=== PATIENT | female | born 1945 | race Caucasian/White ===

== ENCOUNTER 2016-05-30 10:46 | Inpatient (IN) | payer MEDICARE ==
[2016-05-30] MEDS ORDERED: Meropenem 1 GM PREMIX(*) 1 GM/50 ML BAG IV SCH (11:00)
[2016-05-30 11:24] LABS: Hematocrit 35 % (35-47); Hemoglobin 11.1 g/dl (12.0-16.0); Mean Corpuscular HGB Conc 32 g/dl (31-36); Mean Corpuscular Hemoglobin 27 pg (27-31); Mean Corpuscular Volume 86 fL (80-97); Mean Platelet Volume 8 um3 (7.4-10.4); Red Blood Count 4.07 10^6/ul (4.0-5.4); Red Cell Distribution Width 16 % (10.5-15); White Blood Count 13.8 10^3/ul (3.5-10.8)
[2016-05-30 11:35] LABS: Albumin 3.1 g/dL (3.2-5.2); BUN/Creatinine Ratio 29.2 (8-20); C Reactive Protein 6.98 mg/L (< 5.00); EGFR African American 40.9 (>60); EGFR Non-African American 31.8 (>60); Globulin 4.6 g/dL (2-4); Potassium 3.9 mmol/L (3.5-5.0); Total Bilirubin 0.4 mg/dL (0.2-1.0); Total Protein 7.7 g/dL (6.4-8.9)
[2016-05-30] MEDS ORDERED: [UNRECOGNIZED DRUG - OTHER] IV ONE ×4 (12:00)
[2016-05-30] MEDS ORDERED: IMMUNE GLOBULN IV ONE ×4 (12:00)
[2016-05-30] MEDS ORDERED: Nystatin CREAM* 15 GM TUBE TOPICAL PRN (12:07)
[2016-05-30] MEDS ORDERED: Loperamide CAP* 2 MG PO PRN (12:07)
[2016-05-30] MEDS ORDERED: Calcium Carbonate CHEW TAB* 500 MG (TUMS) PO PRN (12:07)
[2016-05-30 12:16] LABS: Erythrocyte Sed Rate 87 mm/Hr (0-40)
[2016-05-30] MEDS: Pyridostigmine TAB* 60 MG PO SCH ×3 (13:15→20:59)
[2016-05-30] MEDS: Heparin VIAL(*) 5000 UNITS/ML VIAL (FIVE THOUSAND) SUBCUT SCH ×2 (13:18→22:17)
[2016-05-30] MEDS: Nystatin SUSPENSION* 100000 UNITS/ML 5 ML UDC SWISH SWAL SCH ×2 (13:20→16:00)
[2016-05-30] MEDS: oxyCODONE/Acetamin 5/325 MG* TAB PO PRN ×2 (13:20→19:41)
[2016-05-30] MEDS: Albuterol/Ipratropium NEB.SOL* Albuterol 2.5 MG/Ipratropium 0.5 MG 3 ML INH SCH ×3 (13:47→20:04)
--- NOTE | 2016-05-30 14:28 | HP ---
HISTORY AND PHYSICAL: DATE OF ADMISSION: 05/30/16 PRIMARY CARE PROVIDER: Ann Cartagena NP CHIEF COMPLAINT: Cellulitis of the right lower extremity. HISTORY OF PRESENT ILLNESS: Ms. Oreilly is a 70-year-old female, well-known to the hospitalist service from multiple previous hospitalizations, who presents to [facility] after being seen in the wound clinic where she was identified to have a significant right lower extremity cellulitis. The patient has numerous chronic medical conditions including myasthenia gravis, on chronic IVIG infusions and Rituxan infusions, who has chronic lower extremity edema and has been following in the wound clinic. The patient was seen last week in the wound clinic where a culture was taken of an open blister. The culture grew Pseudomonas aeruginosa and Enterococcus faecalis. Unfortunately, the only oral medication that both these bacteria are sensitive to is quinolones, and the patient carries an allergy to QUINOLONES. The patient went back to the wound clinic on the day of admission, at which time, her cellulitis was noted to be worsened and it was recommended to her to be admitted for IV antibiotic therapy. The patient states that she does not have any increased pain in her leg. She does know that it is swollen and her swelling has worsened over a period of time, however, not acutely. In addition to the complaints of cellulitis of the right lower extremity, the patient notes that she has also been more short of breath recently. She does not have any other specific complaints relating to her shortness of breath, however. PAST MEDICAL HISTORY: 1. History of diastolic CHF with EF of 55% to 60%, September 2015. 2. Atrial fibrillation, diagnosed January 2016, not on anticoagulation due to nosebleeds. 3. History of bilateral lower extremity cellulitis with MRSA positive cultures in the past. 4. Myasthenia gravis. 5. Type 2 diabetes. 6. COPD. 7. Stage 3 chronic kidney disease. PAST SURGICAL HISTORY: Cholecystectomy. MEDICATIONS: (Of note, medication list was not updated at the time of admission but prior medication list indicates:) 1. Prednisone 40 mg p.o. daily. 2. Percocet 5/325 one tab p.o. q.6 hours p.r.n. pain. 3. Torsemide 20 mg p.o. daily. 4. Bactrim DS 1 tab p.o. b.i.d. 5. Spironolactone 25 mg p.o. daily. 6. Mestinon 90 mg p.o. four times a day. 7. Omeprazole 20 mg p.o. daily. 8. Nystatin cream applied topically t.i.d. 9. Nystatin suspension 5 mL swish and spit t.i.d. 10. Imodium 2 mg p.o. t.i.d. p.r.n. diarrhea. 11. Lipitor 20 mg p.o. daily. 12. Lantus 35 units subcutaneous q.h.s. 13. Immunoglobulin 70 g IV q.28 days. 14. Hydrocortisone valerate 0.2% topically daily to twice daily as needed for rash. 15. Dronedarone 40 mg p.o. b.i.d. 16. Collagenase applied topically weekly. 17. Clindamycin 150 mg p.o. q.8 hours. 18. Vitamin D 2000 units p.o. daily. 19. Keflex 500 mg p.o. four times a day. 20. Calcium carbonate 500 mg p.o. four times a day p.r.n. indigestion. 21. Symbicort 160/4.5 two puffs inhaled twice daily. 22. Aspirin 81 mg p.o. daily. 23. DuoNeb 1 neb inhaled 4 times daily. ALLERGIES: MYCOPHENOLATE, AZITHROMYCIN, CEFTRIAXONE, CIPROFLOXACIN, OCTAGAM. FAMILY HISTORY: Mom has a history of breast cancer. Dad has a history of gastric cancer. SOCIAL HISTORY: The patient denies any current tobacco, alcohol, or drug use. She lives alone. Her daughter, Kimberly Saba, cell phone [phone], is her healthcare proxy. REVIEW OF SYSTEMS: The patient denies any fevers, chills, or anorexia. She denies any chest pain. She denies any palpitations. She does note chronic lower extremity edema. She admits to shortness of breath. There is no cough, no sputum production. She denies any abdominal pain, nausea, or vomiting. No constipation. She states diarrhea is a frequent occurrence for her. She denies any blood in the stool. No blood in the urine. No burning or pain with urination. She states that she urinates frequently related to her diuretic. She denies any focal weakness or sensory loss. No sudden change in vision. No dysphagia. No joint pains or muscle pains out of ordinary. She has lower extremity redness and blister that ruptured on the right lower extremity. No anxiety or depression. PHYSICAL EXAMINATION GENERAL: The patient is a well-developed, middle-aged, chronically ill- appearing female, sitting in bed in no acute distress. VITAL SIGNS: Blood pressure 146/53, pulse 90, respirations 20, temp 97.4, O2 sat 100% on 2 L. HEENT: Pupils are equal, they are round. Extraocular muscles intact. Oropharynx is clear. Oral mucosa is moist. NECK: There is no submandibular, cervical, or supraclavicular adenopathy. Thyroid is not enlarged. No thyroid nodules are noted. PULMONARY: Lungs are clear to auscultation bilaterally. CARDIAC: Normal S1, S2. Regular rate and rhythm. I did not appreciate any murmurs. She has marked bilateral lower extremity edema, right worse than left. ABDOMEN: Bowel sounds present. Abdomen is soft, nontender, and nondistended. MUSCULOSKELETAL: There is no cyanosis or clubbing of the digits. There is full active range of motion of all 4 extremities. NEURO: Cranial nerves II through XII appear to be grossly intact. Sensation is intact to light touch throughout. Strength is 5/5 and symmetric, both upper and lower extremities bilaterally. PSYCH: The patient is alert, she is oriented x3. Affect appears appropriate. SKIN: Warm and dry. There are no rashes. There is marked erythema of the right lower leg with a ruptured blister on the medial right lower leg. This is slightly warm to touch. Left lower extremity is purplish in color though without any acute findings. LABORATORY DATA: Pending. Wound culture from 05/23/16 growing Pseudomonas aeruginosa and Enterococcus faecalis. ASSESSMENT AND PLAN: Ms. Oreilly is a 70-year-old female with complex past medical history including myasthenia gravis for which she receives IVIG and Rituxan infusions, diastolic congestive heart failure, type 2 diabetes, and chronic obstructive pulmonary disease, who presents to [facility] from the wound clinic with a right lower extremity cellulitis. 1. Right lower extremity cellulitis. At this time, the patient is not septic secondary to her cellulitis. Antibiotic choices are somewhat limited due to the patient's allergy history and her history of myasthenia gravis. At this point, I will go ahead and admit her and place her on meropenem based on the culture. I will ask for an ID consultation. I will await further recommendations from Dr. Mustafa about other potential antibiotic choices. 2. Myasthenia gravis. The patient was due to be receiving her immunoglobulin infusion today. The patient was at the infusion center when she was ultimately brought up to the floor for direct admission. The patient will get her usual dose of immunoglobulin. She will also continue on her usual dose of prednisone and Mestinon. 3. Chronic obstructive pulmonary disease. At this time, the patient does not have any signs of chronic obstructive pulmonary disease exacerbation. I think her shortness of breath is more likely related to diastolic heart failure. The patient will be maintained on her usual inhaler regimen. 4. Diastolic congestive heart failure. The patient states that her legs have become slightly more swollen and that her breathing is more difficult recently. I will attempt to improve the patient's diuresis. We will need to monitor her renal function closely. 5. Type 2 diabetes. The patient will be placed on fingersticks a.c. and h.s. and have a lispro sliding scale in addition to her usual dose of Lantus. She had a hemoglobin A1c obtained 02/26/16 and therefore I will repeat it today. 6. History of atrial fibrillation. Currently, the patient was found to be in normal sinus rhythm. I will continue her on her usual home medication regimen though I need to confirm this prior to ordering the dronedarone. 7. DVT prophylaxis. According to the Adult Thrombosis Prophylaxis Risk Factor Assessment Guide, the patient has a total risk factor score of 6 making her the highest risk. She will be placed on heparin 5000 units subcutaneous q.8 hours. Code status is full. Again, the patient's daughter, Kimberly Saba, is her healthcare proxy. TIME SPENT: Sixty-five minutes was spent admitting this patient. CC: [place] [id number]/[facility] #: [id number] DAYO
[2016-05-30] MEDS: Furosemide IV* 10 MG/ML 10 ML VIAL (100 MG) IV SCH (16:01)
[2016-05-30] MEDS: Clindamycin 600 MG IVPREMIX(* 600 MG/50 ML SDV IV SCH (16:10)
[2016-05-30] MEDS ORDERED: Dextrose 50% Syringe 50 ML* 25 GM/50 ML SYRINGE IV PUSH PRN (17:35)
[2016-05-30] MEDS ORDERED: Insulin LISPRO* 1 UNITS UNIT SUBCUT ONE ×2 (17:35→17:41)
[2016-05-30] MEDS ORDERED: Insulin GLARGINE(*) 1 UNITS UNIT ONE (17:46)
[2016-05-30] MEDS: Insulin GLARGINE(*) 1 UNITS UNIT SUBCUT ONE ×2 (17:48→17:52)
[2016-05-30] MEDS: Mometasone/Formoter 200/5 MDI INH SCH (20:06)
--- NOTE | 2016-05-30 20:08 | CONS ---
CONSULTATION REPORT: DATE OF CONSULT: 05/30/16 REQUESTING PHYSICIAN: Dr. Davidson. CONSULTING SERVICE: Infectious Disease. REASON FOR CONSULT: Right leg cellulitis. IMPRESSION: 1. Right lower extremity cellulitis with a ruptured bulla, likely due to group A streptococcal infection. The culture of the bulla after having Unna boot on for a couple of weeks did grow pseudomonas and enterococcus but I think that is more likely colonization. 2. Bilateral lymphedema. 3. Myasthenia gravis. 4. Chronic prednisone use for myasthenia. 5. Allergy to CEFTRIAXONE and AZITHROMYCIN, which caused myasthenia crisis and CIPROFLOXACIN, which caused GI upset. RECOMMENDATIONS: Stop meropenem. Start clindamycin 600 mg IV every 8 hours, which covered group A strep and is at the lowest risk category for inciting myasthenia issues. We will continue to keep the legs elevated, focus on diuresis and keep the skin moisturized around this ruptured bulla. HISTORY OF PRESENT ILLNESS: This is a 70-year-old woman with myasthenia and bilateral lymphedema in the lower extremities, admitted with right leg swelling and redness. She had been followed at the wound clinic where she had Unna boots placed a couple of weeks ago, they came off and there was a bulla present on that had ruptured. A wound culture was taken and the Gram stain showed 2+ neutrophils, no organisms, it grew 1+ pseudomonas and 1+ enterococcus. She had not been on antibiotics. She saw Dr. Macias today. I discussed the case with him before the visit. He sent her into the hospital today. Dr. Davidson admitted her and started on meropenem, which she has tolerated well. She has had no fevers, chills, or sweats or redness. She has noticed since the Unna boot came off, had some stinging pain in the right leg for the last few days. PAST MEDICAL HISTORY: 1. Myasthenia gravis. 2. Diastolic congestive heart failure with ejection fraction 55% to 60%, September 2015. 3. Atrial fibrillation. 4. Type 2 diabetes. 5. COPD. 6. Chronic kidney disease, stage 3. 7. Status post cholecystectomy. MEDICATIONS: 1. Meropenem 1 g IV every 8 hours. 2. Aspirin. 3. Cholecalciferol. 4. Dronedarone. 5. Heparin subcutaneous injection. 6. Furosemide. 7. Insulin glargine. 8. Singulair. 9. Omeprazole. 10. Pyridostigmine. 11. Spironolactone. 12. Prednisone 40 mg a day. ALLERGIES: MYCOPHENOLATE, AZITHROMYCIN caused myasthenia exacerbation, CEFTRIAXONE caused myasthenia exacerbation, CIPROFLOXACIN caused GI upset. FAMILY HISTORY: No recurrent infections. SOCIAL HISTORY: She lives in [place] with a granddaughter. She has no travel or sick contacts. REVIEW OF SYSTEMS: All negative except as noted above. PHYSICAL EXAM: Vital Signs: Temperature 36, heart rate 70, respiratory rate 15 , blood pressure 146/53, and O2 sat 99% on 2 L. General: She is not in distress. Neurologic: She is awake and oriented x3, follows all commands, answers all questions. HEENT: There is no conjunctival hemorrhage. Oropharynx without lesions. Neck: Supple without nuchal rigidity. Lymph nodes : There is no cervical, supraclavicular, inguinal, axillary, or epitrochlear lymphadenopathy. Heart: Regular rate and rhythm without murmurs, rubs, or gallops. Lungs: Clear to auscultation bilaterally. Abdomen: Soft, nontender , nondistended without hepatosplenomegaly. Lymph nodes: There is no visible or palpable lymphadenopathy. Skin: There is no rashes or splinter hemorrhages. Skin on the right lower extremity, there is diffuse erythema from the mid lower leg down to the ankle. There is no fluctuance or crepitus. On the medial aspect, there is a superficial desquamation of about 4 cm without any drainage. The left lower extremity, there is trace erythema without warmth and tenderness. DIAGNOSTIC STUDIES/LAB DATA: White blood cell count 13, hemoglobin 11, platelets 236. Creatinine 1.6. CRP is 7. Please see impression and recommendations outlined above. Thanks for asking me to see Ms. Oreilly in consultation. [id number]/[facility] #: [id number] DAYO
[2016-05-30] MEDS: Dronedarone TAB* 400 MG PO SCH (20:57)
[2016-05-30] MEDS: Potassium Chlor TAB* 20 MEQ TAB.ER PO SCH (20:57)
--- NOTE | 2016-05-30 21:06 | CONS ---
CONSULTATION NOTE: DATE OF VISIT: 05/30/16 PATIENT OF: Dr. Madden. HISTORY: This is a 70-year-old woman who is coming in for IVIG infusion for her chronic severe myasthenia gravis. She has had no major weakness but notes that towards the end of the month following her IVIG infusion, little worse and has no significant change in her breathing, speech or swallowing. She had her last infusion in hospital and was followed by Cardiology at that time and had a pacemaker placed. ALLERGIES: Her allergies include CELLCEPT, AZITHROMYCIN, CEFTRIAXONE, CIPROFLOXACIN. MEDICATIONS: At home include: 1. Prinivil 40 mg daily. 2. Percocet 1 tab q.6 h. p.r.n. 3. Mestinon 90 four times a day. 4. Prilosec 20 mg daily. 5. Imodium 2 mg t.i.d. p.r.n. 6. IVIG infusions on a monthly basis. 7. Vitamin D 2000 units daily. 8. TUMS 500 four times a day p.r.n. 9. Symbicort 2 puffs b.i.d. 10. Aspirin 81 mg daily. 11. Albuterol nebulizer four times a day. PHYSICAL EXAMINATION: Vital signs are stable. She is afebrile. She is alert and oriented. Chest: Clear. Cardiovascular: Regular rate and rhythm. Abdomen is soft. Positive bowel sounds. She has some mild fatigable ptosis noted. Major extraocular movements. Fatigability on direct motor testing. She is getting her monthly IVIG as per protocol. There are no contraindications at this point. [id number]/[facility] #: [id number] [facility]
[2016-05-31] MEDS ORDERED: Meropenem 1 GM PREMIX(*) 1 GM/50 ML BAG IV SCH
[2016-05-31] MEDS: Clindamycin 600 MG IVPREMIX(* 600 MG/50 ML SDV IV SCH ×3 (00:01→17:03)
[2016-05-31] MEDS: oxyCODONE/Acetamin 5/325 MG* TAB PO PRN ×4 (01:28→20:41)
[2016-05-31] MEDS: Heparin VIAL(*) 5000 UNITS/ML VIAL (FIVE THOUSAND) SUBCUT SCH ×3 (05:22→22:30)
[2016-05-31] MEDS: Albuterol/Ipratropium NEB.SOL* Albuterol 2.5 MG/Ipratropium 0.5 MG 3 ML INH SCH ×4 (07:57→23:09)
[2016-05-31] MEDS: Mometasone/Formoter 200/5 MDI INH SCH ×2 (08:02→23:10)
[2016-05-31] MEDS: Furosemide IV* 10 MG/ML 10 ML VIAL (100 MG) IV SCH ×2 (08:10→17:04)
[2016-05-31] MEDS: Cholecalciferol TAB* 1000 UNITS PO SCH (08:10)
[2016-05-31] MEDS: Pyridostigmine TAB* 60 MG PO SCH ×4 (08:11→20:41)
[2016-05-31] MEDS: predniSONE TAB* 20 MG PO SCH (08:11)
[2016-05-31] MEDS: Omeprazole CAP* 20 MG PO SCH (08:11)
[2016-05-31] MEDS: Spironolactone TAB* 25 MG PO SCH (08:11)
[2016-05-31] MEDS: Nystatin SUSPENSION* 100000 UNITS/ML 5 ML UDC SWISH SWAL SCH ×3 (08:12→17:02)
[2016-05-31] MEDS: Potassium Chlor TAB* 20 MEQ TAB.ER PO SCH ×2 (08:12→21:22)
[2016-05-31] MEDS: Aspirin Low Dose CHEW TAB* 81 MG PO SCH (08:12)
[2016-05-31] MEDS: Dronedarone TAB* 400 MG PO SCH ×2 (08:12→20:41)
--- NOTE | 2016-05-31 10:44 | PN ---
Progress Note - Progress Note SOAP: Subjective: DOS: 05/31/16 CC: cellulitis HPI: 70 yo woman with lymphedema and right leg redness, swelling, pain and a ruptured bullae. Pain is improved today, redness less intense. Eating OK. No fever, rash, or diarrhea. No difficulty speaking, swallowing, or breathing. Objective: [] Vital Signs Temp 36.7 C 05/31/16 07:24 Pulse 64 05/31/16 09:27 Resp 18 05/31/16 09:27 BP 119/45 05/31/16 07:24 Pulse Ox 98 05/31/16 09:27 Intake & Output 05/30/16 05/31/16 05/31/16 18:59 06:59 18:59 Intake Total 1318 695 360 Balance 1318 695 360 Weight 169 lb 11.2 oz Intake: IVPB 62 55 ABX - CLINDAMYCIN 62 55 Medicated IV 696 INFCTR - IVIG 696 Oral 560 640 360 Other: Estimated Void Medium Small # Bowel Movements 0 3 # Voids 1 1 Gen:Awake, Ox3 Neuro: CN 2-12 intact HEENT:PERRL, MMM Neck:supple Heart:RRR no murmur Lungs:CTA BL Abd:+BS NTND soft Skin:faint erythema left leg; right lower leg erythema and edema, medial ruptured bullae MSK: no spine tenderness Laboratory Results - last 24 hr 05/30/16 05/30/16 05/30/16 11:05 11:05 11:05 WBC 13.8 H RBC 4.07 Hgb 11.1 L Hct 35 MCV 86 MCH 27 MCHC 32 RDW 16 H Plt Count 236 MPV 8 Neut % (Auto) 62.3 Lymph % (Auto) 31.0 [place] % (Auto) 5.8 Eos % (Auto) 0.4 Baso % (Auto) 0.5 Absolute Neuts (auto) 8.6 H Absolute Lymphs (auto) 4.3 Absolute Monos (auto) 0.8 Absolute Eos (auto) 0.1 Absolute Basos (auto) 0.1 Absolute Nucleated RBC 0.01 Nucleated RBC % 0 ESR 87 H INR (Anticoag Therapy) 0.93 Sodium 134 Potassium 3.9 Chloride 95 L Carbon Dioxide 31 Anion Gap 8 BUN 47 H Creatinine 1.61 H Est GFR ( Amer) 40.9 Est GFR (Non-Af Amer) 31.8 BUN/Creatinine Ratio 29.2 H Glucose 271 H POC Glucose (mg/dL) Calcium 9.0 Total Bilirubin 0.40 AST 66 H ALT 70 H Alkaline Phosphatase 69 C-Reactive Protein 6.98 H Total Protein 7.7 Albumin 3.1 L Globulin 4.6 H Albumin/Globulin Ratio 0.7 L 05/30/16 05/30/16 05/30/16 12:44 17:00 17:04 WBC RBC Hgb Hct MCV MCH MCHC RDW Plt Count MPV Neut % (Auto) Lymph % (Auto) [place] % (Auto) Eos % (Auto) Baso % (Auto) Absolute Neuts (auto) Absolute Lymphs (auto) Absolute Monos (auto) Absolute Eos (auto) Absolute Basos (auto) Absolute Nucleated RBC Nucleated RBC % ESR INR (Anticoag Therapy) Sodium Potassium Chloride Carbon Dioxide Anion Gap BUN Creatinine Est GFR ( Amer) Est GFR (Non-Af Amer) BUN/Creatinine Ratio Glucose 409 H POC Glucose (mg/dL) 226 H 437 H* Calcium Total Bilirubin AST ALT Alkaline Phosphatase C-Reactive Protein Total Protein Albumin Globulin Albumin/Globulin Ratio 05/30/16 21:22 WBC RBC Hgb Hct MCV MCH MCHC RDW Plt Count MPV Neut % (Auto) Lymph % (Auto) [place] % (Auto) Eos % (Auto) Baso % (Auto) Absolute Neuts (auto) Absolute Lymphs (auto) Absolute Monos (auto) Absolute Eos (auto) Absolute Basos (auto) Absolute Nucleated RBC Nucleated RBC % ESR INR (Anticoag Therapy) Sodium Potassium Chloride Carbon Dioxide Anion Gap BUN Creatinine Est GFR ( Amer) Est GFR (Non-Af Amer) BUN/Creatinine Ratio Glucose POC Glucose (mg/dL) 211 H Calcium Total Bilirubin AST ALT Alkaline Phosphatase C-Reactive Protein Total Protein Albumin Globulin Albumin/Globulin Ratio Assessment: 1. right leg cellulitis 2. bilateral LE lymphedema 3. myasthenia gravis 4. allergy to PCN, ceftriaxone, azithro 5. chronic corticosteroids Plan: 1. continue clinda 600 mg IV Q8hrs day 2, continue for another 24 hours and recheck tomorrow. Neuro checks re: risk of MG exacerbation while on abx but no signs or symptoms at this point. Discussed with Dr Cuadra
[2016-05-31] MEDS ORDERED: Dextrose 50% Syringe 50 ML* 25 GM/50 ML SYRINGE IV PUSH PRN (12:27)
[2016-05-31] MEDS: [UNRECOGNIZED DRUG - OTHER] SUBCUT SCH ×3 (13:07→21:22)
[2016-05-31] MEDS: Insulin GLARGINE(*) 1 UNITS UNIT SUBCUT SCH (21:22)
[2016-06-01] MEDS: Clindamycin 600 MG IVPREMIX(* 600 MG/50 ML SDV IV SCH ×3 (01:00→15:47)
[2016-06-01] MEDS: oxyCODONE/Acetamin 5/325 MG* TAB PO PRN ×4 (02:58→22:04)
[2016-06-01] MEDS: Mometasone/Formoter 200/5 MDI INH SCH ×2 (07:03→19:26)
[2016-06-01] MEDS: Albuterol/Ipratropium NEB.SOL* Albuterol 2.5 MG/Ipratropium 0.5 MG 3 ML INH SCH ×4 (07:03→19:26)
[2016-06-01] MEDS: Furosemide IV* 10 MG/ML 10 ML VIAL (100 MG) IV SCH ×2 (07:27→18:32)
[2016-06-01] MEDS: Nystatin SUSPENSION* 100000 UNITS/ML 5 ML UDC SWISH SWAL SCH ×3 (07:28→18:30)
[2016-06-01] MEDS: Omeprazole CAP* 20 MG PO SCH (07:28)
[2016-06-01] MEDS: [UNRECOGNIZED DRUG - OTHER] SUBCUT SCH ×4 (07:29→21:28)
--- NOTE | 2016-06-01 07:39 | PN ---
Subjective Date of Service: 05/31/16 Interval History: . legs swollen not really painful encouraged elevation dressing to area of skin blisters good appetite Family History: Unchanged from Admission Social History: Unchanged from Admission Past Medical History: Unchanged from Admission Objective Active Medications: Albuterol/Ipratropium (Duoneb Neb.Bridget*) 1 neb INH QID [facility] Last Admin: 06/01/16 07:03 Dose: 1 neb Aspirin (Aspirin Low Dose Tab*) 81 mg PO DAILY [facility] Last Admin: 05/31/16 08:12 Dose: 81 mg Calcium Carbonate (Tums*) 500 mg PO QID PRN PRN Reason: INDIGESTION Cholecalciferol (Vitamin D Tab*) 2,000 units PO DAILY [facility] Last Admin: 05/31/16 08:10 Dose: 2,000 units Dextrose (D50w Syringe 50 Ml*) 12.5 gm IV PUSH .FS<60 PRN PRN Reason: FS < 60 Dronedarone (Multaq Tab*) 400 mg PO BID [facility] Last Admin: 05/31/16 20:41 Dose: 400 mg Furosemide (Lasix Iv*) 60 mg IV 0800,1700 [facility] Last Admin: 06/01/16 07:27 Dose: 60 mg Heparin Sodium (Porcine) (Heparin Flush Picc/Ml/Cvc(*)) 1 ml FLUSH 0600,1800 [facility] PRN Reason: Protocol Last Admin: 06/01/16 07:29 Dose: 1 ml Heparin Sodium (Porcine) (Heparin Vial(*)) 5,000 units SUBCUT Q8HR [facility] Last Admin: 05/31/16 22:30 Dose: 5,000 units Clindamycin HCl/Dextrose (Cleocin 600 Mg Ivpremix(*) Sdv) 600 mg in 50 mls @ 100 mls/hr IV Q8H [facility] Last Admin: 06/01/16 07:27 Dose: 100 mls/hr Insulin Glargine (Lantus(*)) 35 units SUBCUT BEDTIME [facility] Last Admin: 05/31/16 21:22 Dose: 35 units Insulin Human Lispro (Humalog*) 0 - 8 units SUBCUT ACHS [facility] PRN Reason: Protocol Last Admin: 06/01/16 07:29 Dose: Not Given Loperamide HCl (Imodium Cap*) 2 mg PO TID PRN PRN Reason: DIARRHEA Mometasone Furoate/Formoterol Fumar (Dulera 200/5 Mdi*) 2 puff INH BID [facility] PRN Reason: Protocol Last Admin: 06/01/16 07:03 Dose: 2 puff Nystatin (Nystatin Cream*) 1 applic TOPICAL TID PRN PRN Reason: RASH Nystatin (Nystatin Suspension*) 500,000 units SWISH SWAL TID [facility] Last Admin: 06/01/16 07:28 Dose: 500,000 units Omeprazole (Prilosec Cap*) 20 mg PO 0730 [facility] Last Admin: 06/01/16 07:28 Dose: 20 mg Oxycodone/Acetaminophen (Percocet 5/325 Tab*) 1 tab PO Q6H PRN PRN Reason: PAIN Last Admin: 06/01/16 02:58 Dose: 1 tab Potassium Chloride (Klor Con Er Tab*) 20 meq PO BID [facility] Last Admin: 05/31/16 21:22 Dose: 20 meq Prednisone (Deltasone Tab*) 40 mg PO DAILY [facility] Last Admin: 05/31/16 08:11 Dose: 40 mg Pyridostigmine [place] (Mestinon Tab*) 90 mg PO QID [facility] Last Admin: 05/31/16 20:41 Dose: 90 mg Spironolactone (Aldactone Tab*) 25 mg PO DAILY [facility] Last Admin: 05/31/16 08:11 Dose: 25 mg Vital Signs 05/31/16 05/31/16 05/31/16 07:58 08:00 08:11 Temperature Pulse Rate 62 Respiratory 14 18 20 Rate Blood Pressure (mmHg) O2 Sat by Pulse 98 Oximetry 05/31/16 05/31/16 05/31/16 09:27 10:11 11:00 Temperature Pulse Rate 64 69 Respiratory 18 20 16 Rate Blood Pressure 122/49 (mmHg) O2 Sat by Pulse 98 Oximetry Result Diagrams: 06/01/16 07:30 06/01/16 07:30 Assess/Plan/Problems-Billing . Assessment: 70 yo female with lower extremity cellulitis - unresponsive to outpatient therapy -- requiring inpatient setting and several days of IV Abx to get situation under control on IV antibiotics ID consultation appreciated elevate leg wound care ongoing Current Medications: - Albuterol/Ipratropium (Duoneb Neb.Bridget) 1 neb INH QID - Aspirin 81 mg PO DAILY - Calcium Carbonate (Tums) 500 mg PO QID PRN INDIGESTION - Cholecalciferol (Vitamin D Tab*) 2,000 units PO DAILY [facility] - Dextrose (D50w Syringe 50 Ml*) 12.5 gm IV PUSH .FS<60 PRN FS < 60 - Dronedarone (Multaq Tab*) 400 mg PO BID [facility] - Furosemide 60 mg IV 0800,1700 [facility] - Heparin 5,000 units SUBCUT Q8HR [facility] - Clindamycin HCl/Dextrose (Cleocin 600 Mg Ivpremix(*) Sdv) 600 mg in 50 mls @ 100 mls/hr IV Q8H - Insulin Glargine (Lantus) 35 units SUBCUT BEDTIME - Insulin Human Lispro (Humalog) by Protocol - Loperamide HCl (Imodium Cap) 2 mg PO TID PRN DIARRHEA - Mometasone Furoate/Formoterol Fumar (Dulera 200/5 Mdi) 2 puff INH BID - Nystatin (Nystatin Cream) 1 applic TOPICAL TID PRN RASH - Nystatin (Nystatin Suspension) 500,000 units SWISH SWAL TID - Omeprazole (Prilosec Cap) 20 mg PO 0730 - Oxycodone/Acetaminophen (Percocet 5/325 Tab) 1 tab PO Q6H PRN PAIN - Potassium Chloride (Klor Con Er Tab) 20 meq PO BID - Prednisone (Deltasone Tab) 40 mg PO DAILY - Pyridostigmine [place] (Mestinon Tab) 90 mg PO QID - Spironolactone (Aldactone) 25 mg PO DAILY - Patient Problems (1) Cellulitis of both lower extremities Current Visit: No Status: Acute Priority: High Onset Date: 04/04/14 Code (s): L03.115 - CELLULITIS OF RIGHT LOWER LIMB; L03.116 - CELLULITIS OF LEFT LOWER LIMB SNOMED Code(s): 569696895 Comment: - significant erythema and swelling on admission in B/L LEs c/w cellulitis. - IV (to PO) clindamycin - Request ongoing wound care - daily dressing changes - reduce edema - compression stockings and elevation necessary (2) Myasthenia gravis Current Visit: No Status: Chronic Priority: Medium Code(s): G70.00 - MYASTHENIA GRAVIS WITHOUT (ACUTE) EXACERBATION Comment: Continue home prednisone and pyridostigmine. S/P IVIG tx (3) YIFAN (acute kidney injury) Current Visit: No Status: Chronic Priority: High Code(s): N17.9 - ACUTE KIDNEY FAILURE, UNSPECIFIED Comment: - Has CKD3. Renal function around baseline. (4) Anemia Current Visit: No Status: Acute Code(s): D64.9 - ANEMIA, UNSPECIFIED Comment: At baseline. Continue PPI while on chronic steroids. (5) Diastolic heart failure Current Visit: No Status: Acute Code(s): I50.30 - UNSPECIFIED DIASTOLIC ( CONGESTIVE) HEART FAILURE Comment: Continue Furosemide and Spironolacone as outpatient. check labs - no changes now (6) Atrial fibrillation Current Visit: No Status: Chronic Code(s): I48.91 - UNSPECIFIED ATRIAL FIBRILLATION Comment: PAF. NSR now No anticoagulant (rivaroxaban) due to frequent epistaxis. Continue Digoxin and metoprolol. (7) Chronic use of steroids Current Visit: No Status: Chronic Priority: Medium Code(s): [id number] - Comment: - impairs wound healing, makes diabetes worse (8) Oral thrush Current Visit: No Status: Chronic Priority: Medium Code(s): B37.0 - CANDIDAL STOMATITIS Comment: - Nystatin as needed (9) Type 2 diabetes mellitus Current Visit: No Status: Chronic Priority: Medium Comment: - Continue Lantus and sliding scale - DM diet
[2016-06-01 08:04] LABS: Hematocrit 30 % (35-47); Hemoglobin 9.7 g/dl (12.0-16.0); Mean Corpuscular HGB Conc 33 g/dl (31-36); Mean Corpuscular Hemoglobin 27 pg (27-31); Mean Corpuscular Volume 84 fL (80-97); Mean Platelet Volume 8 um3 (7.4-10.4); Red Blood Count 3.53 10^6/ul (4.0-5.4); Red Cell Distribution Width 16 % (10.5-15); White Blood Count 11.8 10^3/ul (3.5-10.8)
[2016-06-01 08:14] LABS: BUN/Creatinine Ratio 26.4 (8-20); EGFR African American 52.9 (>60); EGFR Non-African American 41.1 (>60); Potassium 4.3 mmol/L (3.5-5.0)
[2016-06-01] MEDS: Pyridostigmine TAB* 60 MG PO SCH ×4 (09:26→21:38)
[2016-06-01] MEDS: Aspirin Low Dose CHEW TAB* 81 MG PO SCH (09:26)
[2016-06-01] MEDS: Spironolactone TAB* 25 MG PO SCH (09:26)
[2016-06-01] MEDS: predniSONE TAB* 20 MG PO SCH (09:26)
[2016-06-01] MEDS: Dronedarone TAB* 400 MG PO SCH ×2 (09:26→21:28)
[2016-06-01] MEDS: Potassium Chlor TAB* 20 MEQ TAB.ER PO SCH ×2 (09:26→21:37)
[2016-06-01] MEDS: Cholecalciferol TAB* 1000 UNITS PO SCH (09:26)
[2016-06-01] MEDS: Heparin VIAL(*) 5000 UNITS/ML VIAL (FIVE THOUSAND) SUBCUT SCH ×3 (09:35→21:31)
--- NOTE | 2016-06-01 19:26 | PN ---
Subjective Date of Service: 06/01/16 Interval History: . improvement noted less edema less erythema patient feels subjectively better, but not at baseline. working toward [place] tomorrow AM. diet/appetite ok. . Family History: Unchanged from Admission Social History: Unchanged from Admission Past Medical History: Unchanged from Admission Objective Active Medications: . Albuterol/Ipratropium (Duoneb Neb.Bridget*) 1 neb INH [id number] AWAKE [facility] Aspirin (Aspirin Low Dose Tab*) 81 mg PO DAILY [facility] Last Admin: 06/01/16 09:26 Dose: 81 mg Calcium Carbonate (Tums*) 500 mg PO QID PRN PRN Reason: INDIGESTION Cholecalciferol (Vitamin D Tab*) 2,000 units PO DAILY [facility] Last Admin: 06/01/16 09:26 Dose: 2,000 units Dextrose (D50w Syringe 50 Ml*) 12.5 gm IV PUSH .FS<60 PRN PRN Reason: FS < 60 Dronedarone (Multaq Tab*) 400 mg PO BID [facility] Last Admin: 06/01/16 09:26 Dose: 400 mg Furosemide (Lasix Iv*) 60 mg IV 0800,1700 [facility] Last Admin: 06/01/16 18:32 Dose: 60 mg Heparin Sodium (Porcine) (Heparin Flush Picc/Ml/Cvc(*)) 1 ml FLUSH 0600,1800 THUY PRN Reason: Protocol Last Admin: 06/01/16 18:29 Dose: 1 ml Heparin Sodium (Porcine) (Heparin Vial(*)) 5,000 units SUBCUT Q8HR [facility] Last Admin: 06/01/16 15:47 Dose: 5,000 units Clindamycin HCl/Dextrose (Cleocin 600 Mg Ivpremix(*) Sdv) 600 mg in 50 mls @ 100 mls/hr IV Q8H [facility] Last Admin: 06/01/16 15:47 Dose: 100 mls/hr Insulin Glargine (Lantus(*)) 35 units SUBCUT BEDTIME [facility] Last Admin: 05/31/16 21:22 Dose: 35 units Insulin Human Lispro (Humalog*) 0 - 8 units SUBCUT ACHS THUY PRN Reason: Protocol Last Admin: 06/01/16 18:30 Dose: 8 units Loperamide HCl (Imodium Cap*) 2 mg PO TID PRN PRN Reason: DIARRHEA Mometasone Furoate/Formoterol Fumar (Dulera 200/5 Mdi*) 2 puff INH BID THUY PRN Reason: Protocol Last Admin: 06/01/16 07:03 Dose: 2 puff Nystatin (Nystatin Cream*) 1 applic TOPICAL TID PRN PRN Reason: RASH Nystatin (Nystatin Suspension*) 500,000 units SWISH SWAL TID PC [facility] Last Admin: 06/01/16 18:30 Dose: 500,000 units Omeprazole (Prilosec Cap*) 20 mg PO 0730 [facility] Last Admin: 06/01/16 07:28 Dose: 20 mg Oxycodone/Acetaminophen (Percocet 5/325 Tab*) 1 tab PO Q6H PRN PRN Reason: PAIN Last Admin: 06/01/16 15:46 Dose: 1 tab Potassium Chloride (Klor Con Er Tab*) 20 meq PO BID [facility] Last Admin: 06/01/16 09:26 Dose: 20 meq Prednisone (Deltasone Tab*) 40 mg PO DAILY [facility] Last Admin: 06/01/16 09:26 Dose: 40 mg Pyridostigmine [place] (Mestinon Tab*) 90 mg PO QID [facility] Last Admin: 06/01/16 18:31 Dose: 90 mg Spironolactone (Aldactone Tab*) 25 mg PO DAILY [facility] Last Admin: 06/01/16 09:26 Dose: 25 mg . Vital Signs 05/31/16 05/31/16 05/31/16 20:00 20:41 23:24 Temperature Pulse Rate 60 Respiratory 16 20 16 Rate Blood Pressure (mmHg) O2 Sat by Pulse 97 Oximetry 05/31/16 06/01/16 06/01/16 23:26 02:58 03:36 Temperature 97.4 F 98.0 F Pulse Rate 60 63 Respiratory 18 16 18 Rate Blood Pressure 119/44 111/49 (mmHg) O2 Sat by Pulse 97 100 Oximetry Appearance: NAD, elderly and frail Ears/Nose/Mouth/Throat: Clear Oropharnyx Neck: NL Appearance and Movements; NL JVP Respiratory: Symmetrical Chest Expansion and Respiratory Effort Cardiovascular: NL Sounds; No Murmurs; No JVD Abdominal: NL Sounds; No Tenderness; No Distention, No Hepatosplenomegaly Lymphatic: No Cervical Adenopathy Extremities: - - massive edema bilaterally with blisters - some have ruptured. erythematous, but less than 2/1 Skin: No Nodules or Sclerosis Neurological: Alert and Oriented x 3 Lines/Tubes/Other Access: Clean, Dry and Intact Peripheral IV Nutrition: Taking PO's Result Diagrams: 06/01/16 07:30 06/01/16 07:30 Assess/Plan/Problems-Billing . Assessment: 70 yo female with lower extremity cellulitis - unresponsive to outpatient therapy -- requiring inpatient setting and several days of IV Abx to get situation under control on IV antibiotics ID consultation appreciated elevate leg wound care ongoing Current Medications: - Albuterol/Ipratropium (Duoneb Neb.Bridget) 1 neb INH QID - Aspirin 81 mg PO DAILY - Calcium Carbonate (Tums) 500 mg PO QID PRN INDIGESTION - Cholecalciferol (Vitamin D Tab*) 2,000 units PO DAILY [facility]UY - Dextrose (D50w Syringe 50 Ml*) 12.5 gm IV PUSH .FS<60 PRN FS < 60 - Dronedarone (Multaq Tab*) 400 mg PO BID THUY - Furosemide 60 mg IV 0800,1700 THUY - Heparin 5,000 units SUBCUT Q8HR THUY - Clindamycin HCl/Dextrose (Cleocin 600 Mg Ivpremix(*) Sdv) 600 mg in 50 mls @ 100 mls/hr IV Q8H - Insulin Glargine (Lantus) 35 units SUBCUT BEDTIME - Insulin Human Lispro (Humalog) by Protocol - Loperamide HCl (Imodium Cap) 2 mg PO TID PRN DIARRHEA - Mometasone Furoate/Formoterol Fumar (Dulera 200/5 Mdi) 2 puff INH BID - Nystatin (Nystatin Cream) 1 applic TOPICAL TID PRN RASH - Nystatin (Nystatin Suspension) 500,000 units SWISH SWAL TID - Omeprazole (Prilosec Cap) 20 mg PO 0730 - Oxycodone/Acetaminophen (Percocet 5/325 Tab) 1 tab PO Q6H PRN PAIN - Potassium Chloride (Klor Con Er Tab) 20 meq PO BID - Prednisone (Deltasone Tab) 40 mg PO DAILY - Pyridostigmine [place] (Mestinon Tab) 90 mg PO QID - Spironolactone (Aldactone) 25 mg PO DAILY - Patient Problems (1) Cellulitis of both lower extremities Current Visit: No Status: Acute Priority: High Onset Date: 04/04/14 Code (s): L03.115 - CELLULITIS OF RIGHT LOWER LIMB; L03.116 - CELLULITIS OF LEFT LOWER LIMB SNOMED Code(s): 999939123 Comment: - significant erythema and swelling on admission in B/L LEs c/w cellulitis. - IV (to PO) clindamycin - Request ongoing wound care - daily dressing changes - reduce edema - compression stockings and elevation necessary (2) Myasthenia gravis Current Visit: No Status: Chronic Priority: Medium Code(s): G70.00 - MYASTHENIA GRAVIS WITHOUT (ACUTE) EXACERBATION Comment: Continue home prednisone and pyridostigmine. S/P IVIG tx (3) YIFAN (acute kidney injury) Current Visit: No Status: Chronic Priority: High Code(s): N17.9 - ACUTE KIDNEY FAILURE, UNSPECIFIED Comment: - Has CKD3. Renal function around baseline. (4) Anemia Current Visit: No Status: Acute Code(s): D64.9 - ANEMIA, UNSPECIFIED Comment: At baseline. Continue PPI while on chronic steroids. (5) Diastolic heart failure Current Visit: No Status: Acute Code(s): I50.30 - UNSPECIFIED DIASTOLIC ( CONGESTIVE) HEART FAILURE Comment: Continue Furosemide and Spironolacone as outpatient. check labs - no changes now (6) Atrial fibrillation Current Visit: No Status: Chronic Code(s): I48.91 - UNSPECIFIED ATRIAL FIBRILLATION Comment: PAF. NSR now No anticoagulant (rivaroxaban) due to frequent epistaxis. Continue Digoxin and metoprolol. (7) Chronic use of steroids Current Visit: No Status: Chronic Priority: Medium Code(s): FXM4299 - Comment: - impairs wound healing, makes diabetes worse (8) Oral thrush Current Visit: No Status: Chronic Priority: Medium Code(s): B37.0 - CANDIDAL STOMATITIS Comment: - Nystatin as needed (9) Type 2 diabetes mellitus Current Visit: No Status: Chronic Priority: Medium Comment: - Continue Lantus and sliding scale - DM diet
[2016-06-01] MEDS: Insulin GLARGINE(*) 1 UNITS UNIT SUBCUT SCH (21:29)
[2016-06-02] MEDS: Clindamycin 600 MG IVPREMIX(* 600 MG/50 ML SDV IV SCH ×2 (00:03→07:36)
[2016-06-02] MEDS: Albuterol/Ipratropium NEB.SOL* Albuterol 2.5 MG/Ipratropium 0.5 MG 3 ML INH SCH ×3 (01:23→12:54)
[2016-06-02] MEDS: Heparin VIAL(*) 5000 UNITS/ML VIAL (FIVE THOUSAND) SUBCUT SCH ×2 (05:50→14:41)
[2016-06-02] MEDS: oxyCODONE/Acetamin 5/325 MG* TAB PO PRN (05:56)
[2016-06-02 06:03] LABS: Hematocrit 30 % (35-47); Hemoglobin 9.4 g/dl (12.0-16.0); Mean Corpuscular HGB Conc 31 g/dl (31-36); Mean Corpuscular Hemoglobin 27 pg (27-31); Mean Corpuscular Volume 85 fL (80-97); Mean Platelet Volume 8 um3 (7.4-10.4); Red Blood Count 3.52 10^6/ul (4.0-5.4); Red Cell Distribution Width 16 % (10.5-15); White Blood Count 12.3 10^3/ul (3.5-10.8)
[2016-06-02 06:32] LABS: BUN/Creatinine Ratio 22.4 (8-20); Blood Urea Nitrogen 30 mg/dL (6-24); CO2 Carbon Dioxide 33 mmol/L (22-32); Calcium 8.7 mg/dL (8.6-10.3); Chloride 98 mmol/L (101-111); EGFR African American 50.6 (>60); EGFR Non-African American 39.3 (>60); Glucose 56 mg/dL (70-100); Sodium 133 mmol/L (133-145)
[2016-06-02] MEDS: Mometasone/Formoter 200/5 MDI INH SCH (07:31)
[2016-06-02] MEDS: Nystatin SUSPENSION* 100000 UNITS/ML 5 ML UDC SWISH SWAL SCH ×2 (07:36→12:19)
[2016-06-02] MEDS: Cholecalciferol TAB* 1000 UNITS PO SCH (07:39)
[2016-06-02] MEDS: Aspirin Low Dose CHEW TAB* 81 MG PO SCH (07:39)
[2016-06-02] MEDS: Potassium Chlor TAB* 20 MEQ TAB.ER PO SCH (07:39)
[2016-06-02] MEDS: predniSONE TAB* 20 MG PO SCH (07:39)
[2016-06-02] MEDS: Dronedarone TAB* 400 MG PO SCH (07:39)
[2016-06-02] MEDS: Pyridostigmine TAB* 60 MG PO SCH ×2 (07:39→12:19)
[2016-06-02] MEDS: Furosemide IV* 10 MG/ML 10 ML VIAL (100 MG) IV SCH (07:39)
[2016-06-02] MEDS: Spironolactone TAB* 25 MG PO SCH (07:39)
[2016-06-02] MEDS: Omeprazole CAP* 20 MG PO SCH (07:40)
[2016-06-02] MEDS: [UNRECOGNIZED DRUG - OTHER] SUBCUT SCH ×2 (07:50→12:19)
[2016-06-02 07:56] VITALS: BP 121/47
[2016-06-02 08:10] LABS: BUN/Creatinine Ratio 21.8 (8-20); EGFR Non-African American 39.7 (>60); Potassium 4.1 mmol/L (3.5-5.0)
--- NOTE | 2016-06-03 10:44 | PN ---
Hospitalist Progress Note . HOSPITALIST DISCHARGE NOTE: See dc instructions and summary by me. Patient stable for dc dc instructions reviewed with the patient at the bedside. DC patient home today.
--- NOTE | 2016-06-03 13:43 | DS ---
DISCHARGE SUMMARY: DATE OF ADMISSION: 05/30/16 DATE OF DISCHARGE: 06/02/16 PRIMARY CARE PROVIDER: Ann Cartagena NP. STATUS DURING HOSPITALIZATION: Inpatient. PRINCIPAL DISCHARGE DIAGNOSIS: Bilateral lower extremity cellulitis and lower extremity edema - both improved with IV antibiotics, elevation, and wrapping. SECONDARY DIAGNOSES: 1. History of diastolic congestive heart failure with ejection fraction 50% to 60%. Most recently measured in September 2015 - currently stable. 2. Atrial fibrillation diagnosed in January 2016, not on anticoagulation secondary to epistasis. 3. History of bilateral lower extremity cellulitis with MRSA positive cultures in the past. 4. Myasthenia gravis. 5. Type 2 diabetes. 6. COPD. 7. Stage 3 chronic renal disease. DISCHARGE MEDICATIONS: 1. Clindamycin 300 mg by mouth 3 times daily for 10 days, then re-evaluate for continuation. 2. Prednisone 40 mg by mouth daily. 3. Percocet 5/325 mg one tab by mouth every 6 hours p.r.n. pain. 4. Torsemide 20 mg by mouth daily. 5. Stop Bactrim. 6. Spironolactone 25 mg by mouth daily. 7. Mestinon 90 mg by mouth 4 times daily (myasthenia gravis.) 8. Omeprazole 20 mg by mouth daily. 9. Nystatin cream apply topically 3 times daily. 10. Nystatin suspension 5 mL swish and spit 3 times daily. 11. Imodium 2 mg by mouth 3 times daily p.r.n. diarrhea. 12. Lipitor 20 mg by mouth daily. 13. Lantus 35 units subcutaneously at bedtime. 14. Immunoglobulin 70 g IV q. 28 days. 15. Hydrocortisone valerate 0.2% topically daily to twice daily as needed for rash. 16. Dronedarone 40 mg by mouth twice daily. 17. Collagenase applied topically weekly. 18. Stop previous clindamycin dosing. 19. Vitamin D 2000 units by mouth daily. 20. Stop Keflex. 21. Calcium carbonate 500 mg by mouth 4 times daily p.r.n. indigestion. 22. Symbicort 160/4.5 mg strength 2 puffs inhaled twice daily. 23. Aspirin 81 mg by mouth daily. 24. DuoNeb 1 neb inhaled 4 times daily as needed for shortness of breath. HISTORY OF PRESENT ILLNESS AND HOSPITAL COURSE: Please see H and P by Dr. Caterina Davidson on 05/30/16. In brief, Ms. Oreilly is a 70-year-old female well known to the hospitalist service for multiple previous hospitalizations. She was evaluated by the wound care clinic with worsening right lower extremity cellulitis and the identified need for IV antibiotics. She has multiple exacerbating chronic medical conditions including myasthenia gravis on chronic IVIG as well as periodic Rituxan infusions with chronic lower extremity edema and being followed by the wound clinic. The patient had a culture taken of an open blister that grew pseudomonas and enterococcus. This was deemed colonization. The patient was downgraded from meropenem (which was chosen because of her allergy considerations) to clindamycin and she did well on IV clindamycin for several days. At the point where the patient's legs were reasonable, she was being discharged home with instructions to return to the wound care center on Sunday. She is treated with compressive stockings and a non-adherence agent described in her discharge instructions. The patient is ambulatory. She is in good spirits. She is stable for discharge. She is to follow up with Ann Cartagena in the next week as well as with the wound care center as described. For more details regarding hospitalization, please see the full medical record. This is a summarized account of a complex hospitalization. TIME SPENT: The patient's discharge took a total of 45 minutes; greater than half that time was spent going over the discharge instructions [id number] with patient. CONDITION ON DISCHARGE: Stable. [id number]/CPS #: [id number] MTDD
== END 2016-06-02 15:10 | disposition home or self-care (01) | DRG 603 ==
LOC: MED 10:46
PROVIDERS: ADMIT Hospitalist; ATTEND Internal Medicine
PROC: 30233S1 Transfusion of Nonautologous Globulin into Peripheral Vein, Percutaneous Approach (ICD-10-PCS; principal; 2016-05-30)
DX: L03.115 Cellulitis of right lower limb (principal); N17.9 Acute kidney failure, unspecified; I50.32 Chronic diastolic (congestive) heart failure; B37.0 Candidal stomatitis; G70.00 Myasthenia gravis without (acute) exacerbation; E11.22 Type 2 diabetes mellitus with diabetic chronic kidney disease; I48.91 Unspecified atrial fibrillation; J44.9 Chronic obstructive pulmonary disease, unspecified; N18.3 Chronic kidney disease, stage 3 (moderate); L03.116 Cellulitis of left lower limb; D64.9 Anemia, unspecified; I89.0 Lymphedema, not elsewhere classified; B96.5 Pseudomonas (aeruginosa) (mallei) (pseudomallei) as the cause of diseases classified elsewhere; B95.2 Enterococcus as the cause of diseases classified elsewhere; Z88.8 Allergy status to other drugs, medicaments and biological substances; Z88.1 Allergy status to other antibiotic agents; Z80.3 Family history of malignant neoplasm of breast; Z79.52 Long term (current) use of systemic steroids; Z79.82 Long term (current) use of aspirin; Z79.4 Long term (current) use of insulin
CPT/HCPCS: 36415; 80048; 80053; 82947; 85025; 85610; 85652; 86140; 94640; 94760; 99213; A9270-GY; G0463; J1200; J1572; J1644; J1940; J2185; J7512

== ENCOUNTER 2016-07-21 10:44 | Inpatient (IN) | payer MEDICARE ==
[2016-07-21] MEDS ORDERED: Albuterol/Ipratropium NEB.SOL* Albuterol 2.5 MG/Ipratropium 0.5 MG 3 ML INH ONE (11:48)
[2016-07-21] MEDS ORDERED: Clindamycin 600 MG IVPREMIX(* 600 MG/50 ML SDV IV ONE (11:51)
[2016-07-21] MEDS ORDERED: methylPREDNISolone SOD SUCC* 125 MG 2 ML VIAL IV ONE (11:51)
--- NOTE | 2016-07-21 12:18 | RAD ---
HISTORY: Shortness of breath COMPARISONS: April 04, 2016 VIEWS:1: Single frontal portable view of the chest at 11:55 AM FINDINGS: LINES AND TUBES: There is left-sided pacemaker. CARDIOMEDIASTINAL SILHOUETTE: The cardiomediastinal silhouette is normal for portable technique and phase of respiration. PLEURA: The costophrenic angles are sharp. No pleural abnormalities are noted. LUNG PARENCHYMA: The lung volumes are low. The lungs are clear accounting for the phase of respiration. ABDOMEN: The upper abdomen is clear. There is no subphrenic gas. BONES AND SOFT TISSUES: No bone or soft tissue abnormalities are noted. IMPRESSION: LOW LUNG VOLUMES. NO ACTIVE CARDIOPULMONARY DISEASE.
[2016-07-21 12:33] LABS: Hematocrit 34 % (35-47); Hemoglobin 10.7 g/dl (12.0-16.0); Mean Corpuscular HGB Conc 31 g/dl (31-36); Mean Corpuscular Hemoglobin 25 pg (27-31); Mean Corpuscular Volume 80 fL (80-97); Mean Platelet Volume 8 um3 (7.4-10.4); Red Blood Count 4.29 10^6/ul (4.0-5.4); Red Cell Distribution Width 17 % (10.5-15); White Blood Count 19.9 10^3/ul (3.5-10.8)
[2016-07-21 12:55] LABS: Troponin I 0.04 ng/mL (<0.04)
[2016-07-21 12:57] LABS: Albumin 3.6 g/dL (3.2-5.2); BUN/Creatinine Ratio 27.6 (8-20); Calcium 9.1 mg/dL (8.6-10.3); EGFR African American 59.7 (>60); EGFR Non-African American 46.5 (>60); Globulin 3.6 g/dL (2-4); Potassium 4.8 mmol/L (3.5-5.0); Total Bilirubin 0.4 mg/dL (0.2-1.0); Total Protein 7.2 g/dL (6.4-8.9)
[2016-07-21] MEDS ORDERED: NS 0.9% 1000 ML* 2,400 ML IV ONE (13:04)
[2016-07-21] MEDS ORDERED: fentaNYL* 50 MCG/ML 2 ML VIAL (100 MCG VIAL) IV SLOW PU ONE (13:14)
--- NOTE | 2016-07-21 13:23 | ED ---
Chanell Almaraz Anna, scribed for Maru Law MD on 07/21/16 at 1234 . Shortness of Breath - HPI Summary HPI Summary: Patient is a 70 y/o female coming to [facility] presenting with SOB that began 3-4 days ago. Additionally the redness and bruising on her legs is worse than at baseline. She noticed this on her right leg one week ago and her left leg four days ago. She has also had clear, white nasal drainage, more than normal. She has fluid in her legs at baseline. The SOB is exacerbated by exertion. She has never had bronchitis before. She was hospitalized in May for similar symptoms. Her history is significant for HTN, DM, CHF, pacemaker, and COPD. Uses O2 at home. Denies Hx of HLD, PA, CVA. - History of Current Complaint Chief Complaint: EDShortnessOfBreath Time Seen by Provider: 07/21/16 11:23 Hx Obtained From: Patient - Allergy/Home Medications Allergies/Adverse Reactions: Allergies Allergy/AdvReac Type Severity Reaction Status Date / Time Mycophenolate Allergy Unknown Verified 06/30/16 08:24 [From CellCept Intravenous] Reaction Details Azithromycin AdvReac Severe myasthenia Verified 06/30/16 08:24 gravis exacerbation Ceftriaxone AdvReac Severe myasthenia Verified 06/30/16 08:24 gravis exacerbation Ciprofloxacin AdvReac GI Upset Verified 06/30/16 08:24 Immune Globulin AdvReac Swelling Verified 06/30/16 08:24 [From Octagam] Home Medications: Home Medications Aspirin [Aspirin Childrens 81 MG] 81 mg PO DAILY 07/21/16 [History Confirmed ] Dronedarone TAB* [Multaq TAB*] 400 mg PO BID 07/21/16 [History Confirmed ] Insulin GLARGINE(*) [Lantus(*)] 35 units SUBCUT QPM 07/21/16 [History Confirmed 07/21/16] oxyCODONE/Acetamin 5/325 MG* [Percocet 5/325 TAB*] 1 - 2 tab PO .Q6-8H PRN MDD 4 07/21/16 [History Confirmed 07/21/16] PMH/Surg Hx/FS Hx/Imm Hx Endocrine/Hematology History: Reports: Hx Anticoagulant Therapy - BABY ASA, Hx Diabetes, Hx Anemia, Other Endocrine/Hematological Disorders - MYASTHEIA GRAVIS Denies: Hx Blood Disorders, Hx Blood Transfusions, Hx Bone Marrow Disease, Hx Systemic Lupus Erythematosus, Hx Sickle Cell Disease, Hx Thyroid Disease, Hx Unexplained Bleeding Cardiovascular History: Reports: Hx Congenital Heart Disease, Hx Congestive Heart Failure - very swollen legs, Hx Hypertension, Hx Pacemaker/ICD - 04/03/16 , 06/16 ??, Other Cardiovascular Problems/Disorders - LE EDEMA, ON LASIX Denies: Hx Peripheral Vascular Disease Respiratory History: Reports: Hx Asthma, Hx Chronic Obstructive Pulmonary Disease (COPD) - on 2L home O2 at all times per pt, Hx Pneumonia, Other Respiratory Problems/Disorders - EMPHYSEMA Denies: Hx Chronic Bronchitis, Hx Cystic Fibrosis, Hx Lung Cancer, Hx Pleural Effusion, Hx Pulmonary Edema, Hx Pulmonary Embolism, Hx Seasonal Allergies, Hx Sleep Apnea GI History: Reports: Hx Gall Bladder Disease - GB out, Hx Gastroesophageal Reflux Disease, Other GI Disorders History: Reports: Other Problems/Disorders - FREQUENT UTI'S Denies: Hx Renal Disease Musculoskeletal History: Reports: Hx Back Problems - low back pain, Other Musculoskeletal History - myasthenia gravis Denies: Hx Arthritis, Hx Osteoporosis Sensory History: Reports: Hx Cataracts, Hx Contacts or Glasses Denies: Hx Eye Injury, Hx Eye Prosthesis, Hx Glaucoma, Hx Macular Degeneration, Hx Vision Problem, Hx Deafness, Hx Hearing Aid, Other Sensory Impairments Opthamlomology History: Reports: Hx Cataracts, Hx Contacts or Glasses Denies: Hx Eye Injury, Hx Eye Prosthesis, Hx Glaucoma, Hx Macular Degeneration, Hx Vision Problem, Other Sensory Impairments Neurological History: Reports: Other Neuro Impairments/Disorders - myasthenia gravis Denies: Hx Developmental Delay, Hx Headaches, Hx Migraine, Hx Seizures, Hx Spinal Cord Injury, Hx Transient Ischemic Attacks (TIA) Psychiatric History: Denies: Hx Anxiety, Hx Depression, Other Psychiatric Issues/Disorders - Surgical History Surgery Procedure, Year, and Place: CHOLECYSECTOMY 1979 Hx Anesthesia Reactions: No - Immunization History Date of Tetanus Vaccine: 2011 Date of Influenza Vaccine: 2012 Infectious Disease History: Yes Infectious Disease History: Reports: Hx of Known/Suspected MRSA - leg wound Denies: Hx Tuberculosis, Traveled Outside the [place] in Last 30 Days - Family History Known Family History: Negative: Cardiac Disease, Hypertension, Diabetes - Social History Occupation: Retired Lives: Alone - Lives by herself most of the time. Her granddaughter stays with her occasionally. Alcohol Use: None Hx Substance Use: No Substance Use Type: Reports: None Hx Tobacco Use: Yes Smoking Status (MU): Former Smoker Type: Cigarettes Amount Used/How Often: 2 pk/day Length of Time of Smoking/Using Tobacco: 45 years Have You Smoked in the Last Year: No Review of Systems Positive: Nasal Discharge - white, clear Positive: Shortness Of Breath Positive: Edema - baseline Skin: Other - erythema Positive: Bruising All Other Systems Reviewed And Are Negative: Yes Physical Exam Triage Information Reviewed: Yes Vital Signs On Initial Exam: Initial Vitals Temp Pulse Resp BP Pulse Ox 97.6 F 64 24 137/58 99 07/21/16 10:48 07/21/16 10:48 07/21/16 10:48 07/21/16 10:48 07/21/16 10:48 Vital Signs Reviewed: Yes Appearance: Positive: Well-Appearing, No Pain Distress Skin: Positive: Warm, Dry, Erythema @ - Bilateral legs, circumferential. Right side greater than left side. Eyes: Positive: EOMI, GEORGE ENT: Positive: Pharynx normal, TMs normal Neck: Positive: Supple, Nontender Respiratory/Lung Sounds: Positive: Clear to Auscultation, Breath Sounds Present Cardiovascular: Positive: RRR. Negative: Murmur, Rub, Other - rebound Abdomen Description: Positive: Nontender, Soft. Negative: Distended, Guarding, Other: - rebound Bowel Sounds: Positive: Present Musculoskeletal: Positive: Edema Left - 2+ up to her knees, Edema Right - 2+ up to her knees, much greater on the right than on the left Neurological: Positive: Normal, Sensory/Motor Intact, Alert, Oriented to Person Place, Time, CN Intact II-III - II-XII Psychiatric: Positive: Affect/Mood Appropriate - Cyrus Coma Scale Coma Scale Total: 15 Diagnostics - Vital Signs Vital Signs Temp Pulse Resp BP Pulse Ox 07/21/16 11:02 24 07/21/16 10:48 97.6 F 64 24 137/58 99 - Laboratory Lab Results: Lab Results 07/21/16 07/21/16 07/21/16 Range/Units 12:10 12:10 12:10 WBC 19.9 H (3.5-10.8) 10^3/ul RBC 4.29 (4.0-5.4) 10^6/ul Hgb 10.7 L (12.0-16.0) g/dl Hct 34 L (35-47) % MCV 80 (80-97) fL MCH 25 L (27-31) pg MCHC 31 (31-36) g/dl RDW 17 H (10.5-15) % Plt Count 232 (150-450) 10^3/ul MPV 8 (7.4-10.4) um3 Neut % (Auto) 91.4 H (38-83) % Lymph % (Auto) 7.2 L (25-47) % Barbour % (Auto) 1.2 (1-9) % Eos % (Auto) 0.1 (0-6) % Baso % (Auto) 0.1 (0-2) % Absolute Neuts (auto) 18.2 H (1.5-7.7) 10^3/ul Absolute Lymphs (auto) 1.4 (1.0-4.8) 10^3/ul Absolute Monos (auto) 0.2 (0-0.8) 10^3/ul Absolute Eos (auto) 0 (0-0.6) 10^3/ul Absolute Basos (auto) 0 (0-0.2) 10^3/ul Absolute Nucleated RBC 0.02 10^3/ul Nucleated RBC % 0.1 INR (Anticoag Therapy) 0.84 L (0.89-1.11) Sodium 135 (133-145) mmol/L Potassium 4.8 (3.5-5.0) mmol/L Chloride 95 L (101-111) mmol/L Carbon Dioxide 34 H (22-32) mmol/L Anion Gap 6 (2-11) mmol/L BUN 32 H (6-24) mg/dL Creatinine 1.16 H (0.51-0.95) mg/dL Est GFR ( Amer) 59.7 (>60) Est GFR (Non-Af Amer) 46.5 (>60) BUN/Creatinine Ratio 27.6 H (8-20) Glucose 210 H (70-100) mg/dL Lactic Acid (0.5-2.0) mmol/L Calcium 9.1 (8.6-10.3) mg/dL Total Bilirubin 0.40 (0.2-1.0) mg/dL AST 51 H (13-39) U/L ALT 65 H (7-52) U/L Alkaline Phosphatase 60 (34-104) U/L Troponin I 0.04 H* (<0.04) ng/mL B-Natriuretic Peptide ( - 100) pg/mL Total Protein 7.2 (6.4-8.9) g/dL Albumin 3.6 (3.2-5.2) g/dL Globulin 3.6 (2-4) g/dL Albumin/Globulin Ratio 1.0 (1-3) 07/21/16 07/21/16 Range/Units 12:10 12:10 WBC (3.5-10.8) 10^3/ul RBC (4.0-5.4) 10^6/ul Hgb (12.0-16.0) g/dl Hct (35-47) % MCV (80-97) fL MCH (27-31) pg MCHC (31-36) g/dl RDW (10.5-15) % Plt Count (150-450) 10^3/ul MPV (7.4-10.4) um3 Neut % (Auto) (38-83) % Lymph % (Auto) (25-47) % Barbour % (Auto) (1-9) % Eos % (Auto) (0-6) % Baso % (Auto) (0-2) % Absolute Neuts (auto) (1.5-7.7) 10^3/ul Absolute Lymphs (auto) (1.0-4.8) 10^3/ul Absolute Monos (auto) (0-0.8) 10^3/ul Absolute Eos (auto) (0-0.6) 10^3/ul Absolute Basos (auto) (0-0.2) 10^3/ul Absolute Nucleated RBC 10^3/ul Nucleated RBC % INR (Anticoag Therapy) (0.89-1.11) Sodium (133-145) mmol/L Potassium (3.5-5.0) mmol/L Chloride (101-111) mmol/L Carbon Dioxide (22-32) mmol/L Anion Gap (2-11) mmol/L BUN (6-24) mg/dL Creatinine (0.51-0.95) mg/dL Est GFR ( Amer) (>60) Est GFR (Non-Af Amer) (>60) BUN/Creatinine Ratio (8-20) Glucose (70-100) mg/dL Lactic Acid 3.7 H* (0.5-2.0) mmol/L Calcium (8.6-10.3) mg/dL Total Bilirubin (0.2-1.0) mg/dL AST (13-39) U/L ALT (7-52) U/L Alkaline Phosphatase (34-104) U/L Troponin I (<0.04) ng/mL B-Natriuretic Peptide 123 H ( - 100) pg/mL Total Protein (6.4-8.9) g/dL Albumin (3.2-5.2) g/dL Globulin (2-4) g/dL Albumin/Globulin Ratio (1-3) Result Diagrams: 07/21/16 12:10 07/21/16 12:10 Lab Statement: Any lab studies that have been ordered have been reviewed, and results considered in the medical decision making process. - Radiology CXR Xray Interpretation: No Acute Changes Radiology Interpretation Completed By: Radiologist - IMPRESSION: LOW LUNG VOLUMES. NO ACTIVE CARDIOPULMONARY DISEASE. - EKG 1109 Cardiac Rate: NL - 60 bpm EKG Rhythm: Sinus Rhythm - paced, pacemaker EKG Interpretation: LVH Course/Dx - Course Course Of Treatment: 70 yo female with hx of myasthenia gravis, copd, lymphedema with cellulitis back with right leg cellulitis and increased sob. so far the sob appears to be related to her copd, and does not describe her typical myasthenia gravis symptoms. Case has been discussed with Dr. Hooper for admission 30 cc/kg of ns and clinda has been ordered for her cellulitis (same abx used for last admission with good success) - Diagnoses Provider Diagnoses: Cellulitis, COPD exacerbation, Myasthenia gravis - Physician Notifications Discussed Care of Patient With: Dr. Hooper (hospitalist) at 1313. Agrees to accept patient for admission. Discharge - Discharge Plan Condition: Stable Disposition: ADMITTED TO [facility] Referrals: Ann Cartagena, HOUSE REPAIRER [Primary Care Provider] - The documentation as recorded by the Chanell dang Anna accurately reflects the service I personally performed and the decisions made by me, Maru Law MD.
[2016-07-21] MEDS ORDERED: Calcium Carbonate CHEW TAB* 500 MG (TUMS) PO PRN (14:05)
[2016-07-21] MEDS ORDERED: Nystatin CREAM* 30 GM TOPICAL PRN (14:05)
[2016-07-21] MEDS ORDERED: Loperamide CAP* 2 MG PO PRN (14:05)
[2016-07-21] MEDS ORDERED: Dextrose 50% Syringe 50 ML* 25 GM/50 ML SYRINGE IV PUSH PRN ×2 (14:25→19:10)
[2016-07-21] MEDS ORDERED: oxyCODONE/Acetamin 5/325 MG* TAB PO PRN ×3 (14:30→14:32)
[2016-07-21] MEDS: Albuterol/Ipratropium NEB.SOL* Albuterol 2.5 MG/Ipratropium 0.5 MG 3 ML INH SCH ×2 (16:42→20:02)
[2016-07-21 17:30] LABS: Urine Bilirubin Negative (Negative); Urine Glucose 2+(150 mg/dL) (Negative); Urine Nitrite Negative (Negative)
[2016-07-21] MEDS ORDERED: Insulin LISPRO* 1 UNITS UNIT SUBCUT ONE (19:10)
[2016-07-21] MEDS ORDERED: NS 0.9% 1000 ML* 1,000 ML IV SCH ×2 (19:15)
--- NOTE | 2016-07-21 19:17 | PN ---
Progress Note - Progress Note Note: Cross cover: Called by nursing for increasing lactic acid. Dictated record reviewed. Pt admitted with cellilitis after bumping leg Unclear amount of volume received before lactate rechecked She was on home oxygen 2L on arrival Bolus 1 L now and recheck lactic acid Can consider CT imaging of cellulitis if lactic climbs. Discussed with overnight hospitalist
[2016-07-21] MEDS: Pyridostigmine TAB* 60 MG PO SCH ×2 (19:32→21:24)
[2016-07-21] MEDS: Nystatin SUSPENSION* 100000 UNITS/ML 5 ML UDC SWISH SWAL SCH (19:33)
[2016-07-21] MEDS: oxyCODONE/Acetamin 5/325 MG* TAB PO PRN (19:57)
--- NOTE | 2016-07-21 19:59 | HP ---
CC: Ann Cartagena NP HISTORY AND PHYSICAL: DATE OF ADMISSION: 07/21/16 TIME OF EVALUATION: 1:50 p.m. PRIMARY CARE PROVIDER: Ann Cartagena NP. CHIEF COMPLAINT: "My legs are swollen again." HISTORY OF PRESENT ILLNESS: Ms. Oreilly is a 70-year-old lady well known to the hospitalist service due to multiple admissions with a past medical history of diastolic CHF, atrial fibrillation, bilate ral lower extremity cellulitis, myasthenia gravis, type 2 diabetes, COPD, CKD stage 3, who presented to the emergency room with complaints of bilateral lower extremity edema. She was admitted end of April this year with right lower extremity cellulitis. At that point, she was treated with clindamycin with good response, was discharged home, and she states that she was do ing fairly well. Her edema had subsided. The erythema was resolved and she was actually discharged from the wound clinic. Three days ago, she bumped her leg onto a box while walking at home and sustained small abrasion to the lateral aspect of that limb. Two days ago, she started to notice progressive edema and erythema and today she also noted that both legs were hot to touch, so she came to the emergency room for fu rther evaluation. She denies fever, chills, malaise, or weakness. She states that her breathing is pretty close to ba seline. When she got to the emergency room, she states she was a little short of breath, but after receiving treatment, she feels back to her normal and is wearing 2 L of oxygen as she usually does a t home at this point. The patient states that she was doing pretty well at home and weakness has not been an issue. She s tates that now she walks around with a walker and sometimes she can walk independently. Her grandigor david helps her around the home, but she is being more independent and does not feel that her myast henia gravis is "acting up" at this time. PAST MEDICAL HISTORY: 1. Diastolic CHF with ejection fraction of 55% to 60%. 2. Atrial fibrillation, not on anticoagulation due to nosebleeds. 3. History of bilateral lower extremity cellulitis with history of MRSA positive cultures in the in st. 4. Myasthenia gravis. 5. Type 2 diabetes. 6. COPD, on home oxygen at 2 L per minute. 7. CKD stage 3. 8. Status post cholecystectomy. 9. Status post pacemaker. MEDICATIONS: 1. Albuterol/ipratropium 1 nebulized 4 times a day. 2. Aspirin 81 mg p.o. daily. 3. Symbicort 160/4.5 two puffs inhaled b.i.d. 4. Calcium carbonate 500 mg p.o. 4 times a day as needed for indigestion. 5. Cholecalciferol 2000 units p.o. daily. 6. Dronedarone 400 mg p.o. b.i.d. 7. [place] 0.2% topical as needed for rash in the inguinal area twice a day. 8. IVIG 70 g IV q.28 days. Last dose was 3 weeks ago. 9. Lantus 35 units subcutaneously in the evening. 10. Loperamide 2 mg p.o. t.i.d. as needed for diarrhea. 11. Nystatin cream topical 3 times a day as needed for rash. 12. Nystatin suspension 5 mL swish and swallow t.i.d. after meals. 13. Omeprazole 20 mg p.o. daily. 14. Oxycodone/acetaminophen 5/325 mg 1 to 2 tablets p.o. q.6 to 8 hours as needed for pain. 15. Potassium chloride 20 mEq p.o. b.i.d. 16. Prednisone 40 mg p.o. daily. 17. Pyridostigmine 90 mg p.o. 4 times a day. 18. Spironolactone 25 mg p.o. daily. 19. Torsemide 40 mg p.o. in the morning, 20 mg at noon, and 20 mg at 2100. ALLERGIES: AZITHROMYCIN and CEFTRIAXONE, the patient had myasthenia gravis exacerbation. She had G I upset with CIPROFLOXACIN, swelling with OCTAGAM, and unknown reaction to MYCOPHENOLATE. FAMILY HISTORY: Mother had a history of breast cancer and father of gastric cancer. SOCIAL HISTORY: There is no history of current tobacco abuse, alcohol, or drug use. Surrogate deci annabelle maker is her daughter, Kimberly Saba, phone number is [phone]. REVIEW OF SYSTEMS: A 14-point review of systems was performed and all the pertinent negative and po sitive findings are in the HPI. PHYSICAL EXAMINATION GENERAL: The patient is a pleasant elderly lady sitting up in the stretcher in no acute distress wi th a thao facies. VITAL SIGNS: Temperature 97.6, heart rate is 72, respiratory rate is 25, oxygen saturation 93% on 2 L, blood pressure is 119/48. HEENT: Pupils are equal. Moist mucous membranes. CHEST: Breath sounds bilaterally decreased with no added sounds. CVS: Normal S1, S2. Regular rate and rhythm. ABDOMEN: Obese, soft, nontender. Bowel sounds present. EXTREMITIES: There is bilateral severe lower extremity edema with erythema up to her knees bilatera lly. A small excoriation on the lateral aspect of the right leg and another small blister on the me dial aspect of the same leg oozing clear liquid. NEUROLOGIC: She is alert, awake, and oriented x3. Able to move all 4 extremities. SKIN: The patient has very fragile skin with multiple bruises, likely associated with her chronic s teroid use. LABORATORY AND IMAGING DATA: The patient had a CBC that showed WBC of 19.9, hemoglobin of 10.7, he matocrit of 34, platelets of 232 with 91% neutrophils. INR was 0.84. Chemistry showed sodium of 13 5, potassium 4.8, chloride of 95, bicarb of 34, BUN of 32, creatinine of 1.1, glucose of 210, lactic acid of 3.7, calcium 9.1. Total bilirubin of 0.4, AST 51, ALT 65. Troponin 0.04. BNP 123. EKG done 07/21/16 at 11:09 showed atrial paced rhythm at 60 beats per minute with T inversions in 3. No significant changes when compared to her prior EKG from March. Chest x-ray showed low lung volumes, but no active cardiopulmonary disease. ASSESSMENT AND PLAN: Ms. Oreilly is a 70-year-old lady with past medical history of diastolic conges tive heart failure, atrial fibrillation, status post pacemaker, bilateral lower extremities prior hi story of lower extremity cellulitis, myasthenia gravis, type 2 diabetes, chronic obstructive pulmona ry disease, chronic kidney disease stage 3 that presented to the emergency room with bilateral lower extremity edema and erythema suggestive of cellulitis. 1. Sepsis: The patient meets sepsis criteria with tachycardia on arrival to the emergency room and leukocytosis. She is immunosuppressed due to chronic steroid use and she may not have the classic sepsis presentation for that reason. 2. Bilateral lower extremity cellulitis: This is a source of her sepsis. I believe the door of en try is the abrasion on her right lower extremity and with her allergy, the myasthenia reactions to a ntibiotics in the past, I am going to restart clindamycin. The patient states that she responded we ll to the medication, so I am going to restart it at this time. Blood cultures were sent to the emergency room. She states that her legs are tender at this point a nd she would not tolerate wrapping them, but as the infection improves, I believe compression stocki ngs would be helpful. Wound clinic consultation was also requested. 3. Myasthenia gravis: Stable at this time. We will continue pyridostigmine and prednisone. She i s scheduled for her IVIG next week. 4. Chronic obstructive pulmonary disease, on home O2: Appears to be stable at this time. We will continue bronchodilators, inhaled and systemic steroids. 5. Type 2 diabetes: We will continue Lantus and lispro sliding scale. 6. Atrial fibrillation: At this point, the patient is on a paced rhythm. We will continue Multaq. She is not on anticoagulation due to severe epistaxis. 7. Diastolic congestive heart failure: Appears to be stable at this time. Her edema at this poin t I believe is secondary to infection. We will continue torsemide and spironolactone. 8. DVT prophylaxis: The patient has a score of 6 on the DVT Prophylaxis Risk Assessment Guide. Sh e will be started on subcutaneous heparin. SCDs are contraindicated at this time due to her active infection of lower extremities. 9. Code status is full. TIME SPENT: Approximately 65 minutes was spent with the patient interview, medical records review, physical examination to complete this admission, more than half this time w as spent [id number] with the patient in coordination of care. [id number]/[facility] #: [id number]
[2016-07-21] MEDS: Mometasone/Formoter 200/5 MDI INH SCH (20:02)
[2016-07-21] MEDS: Clindamycin 600 MG IVPREMIX(* 600 MG/50 ML SDV IV SCH (21:24)
[2016-07-21] MEDS: Torsemide TAB* 20 MG PO SCH (21:28)
[2016-07-21] MEDS: Potassium Chlor TAB* 20 MEQ TAB.ER PO SCH (21:29)
[2016-07-21] MEDS: Insulin GLARGINE(*) 1 UNITS UNIT SUBCUT SCH (21:30)
[2016-07-21] MEDS: Insulin LISPRO* 1 UNITS UNIT SUBCUT SCH (21:31)
[2016-07-21] MEDS: Heparin VIAL(*) 5000 UNITS/ML VIAL (FIVE THOUSAND) SUBCUT SCH (21:31)
[2016-07-21] MEDS: Dronedarone TAB* 400 MG PO SCH (21:32)
[2016-07-22] MEDS: Clindamycin 600 MG IVPREMIX(* 600 MG/50 ML SDV IV SCH ×3 (04:07→21:06)
[2016-07-22] MEDS: oxyCODONE/Acetamin 5/325 MG* TAB PO PRN ×2 (04:07→11:27)
[2016-07-22 05:17] LABS: Hematocrit 30 % (35-47); Hemoglobin 9.4 g/dl (12.0-16.0); Mean Corpuscular HGB Conc 32 g/dl (31-36); Mean Corpuscular Hemoglobin 25 pg (27-31); Mean Corpuscular Volume 80 fL (80-97); Mean Platelet Volume 8 um3 (7.4-10.4); Red Blood Count 3.72 10^6/ul (4.0-5.4); Red Cell Distribution Width 17 % (10.5-15); White Blood Count 14.2 10^3/ul (3.5-10.8)
[2016-07-22] MEDS: Heparin VIAL(*) 5000 UNITS/ML VIAL (FIVE THOUSAND) SUBCUT SCH ×3 (05:18→20:54)
[2016-07-22 05:22] LABS: Add Diff/Slide Review? Slide Review Added; Comments Flag Yes
[2016-07-22 05:29] LABS: BUN/Creatinine Ratio 28.6 (8-20); Calcium 8.8 mg/dL (8.6-10.3); EGFR African American 48.1 (>60); EGFR Non-African American 37.4 (>60); Potassium 4.9 mmol/L (3.5-5.0)
[2016-07-22] MEDS: Insulin LISPRO* 1 UNITS UNIT SUBCUT SCH ×5 (06:39→21:05)
[2016-07-22] MEDS: Aspirin Low Dose CHEW TAB* 81 MG PO SCH (08:47)
[2016-07-22] MEDS: Omeprazole CAP* 20 MG PO SCH (08:47)
[2016-07-22] MEDS: Nystatin SUSPENSION* 100000 UNITS/ML 5 ML UDC SWISH SWAL SCH ×3 (08:47→17:33)
[2016-07-22] MEDS: predniSONE TAB* 20 MG PO SCH (08:47)
[2016-07-22] MEDS: Potassium Chlor TAB* 20 MEQ TAB.ER PO SCH ×2 (08:47→20:54)
[2016-07-22] MEDS: Pyridostigmine TAB* 60 MG PO SCH ×4 (08:47→20:53)
[2016-07-22] MEDS: Cholecalciferol TAB* 1000 UNITS PO SCH (08:48)
[2016-07-22] MEDS: Spironolactone TAB* 25 MG PO SCH (08:48)
[2016-07-22] MEDS: Dronedarone TAB* 400 MG PO SCH ×2 (08:48→20:54)
[2016-07-22] MEDS: Torsemide TAB* 20 MG PO SCH ×3 (08:48→20:53)
[2016-07-22] MEDS: Mometasone/Formoter 200/5 MDI INH SCH ×2 (09:21→20:31)
[2016-07-22] MEDS: Albuterol/Ipratropium NEB.SOL* Albuterol 2.5 MG/Ipratropium 0.5 MG 3 ML INH SCH ×4 (09:21→20:31)
--- NOTE | 2016-07-22 11:20 | PN ---
Subjective Date of Service: 07/22/16 Interval History: HOSPITALIST PROGRESS NOTE Patient seen and examined at bedside. She feels better today, LE pain and edema are improving. Able to sleep last night, denies dyspnea. Family History: Unchanged from Admission Social History: Unchanged from Admission Past Medical History: Unchanged from Admission Objective Active Medications: Albuterol/Ipratropium (Duoneb (Albuterol 2.5 Mg/Ipratropium 0.5 Mg)) 1 neb INH QID [facility] Last Admin: 07/22/16 09:21 Dose: 1 neb Aspirin (Aspirin Low Dose Tab*) 81 mg PO DAILY [facility] Last Admin: 07/22/16 08:47 Dose: 81 mg Calcium Carbonate (Tums*) 500 mg PO QID PRN PRN Reason: INDIGESTION Cholecalciferol (Vitamin D Tab*) 2,000 units PO DAILY [facility] Last Admin: 07/22/16 08:48 Dose: 2,000 units Dextrose (D50w Syringe 50 Ml*) 12.5 gm IV PUSH .FOR FS < 60 - SS PRN PRN Reason: FS < 60 Dronedarone (Multaq Tab*) 400 mg PO BID [facility] Last Admin: 07/22/16 08:48 Dose: 400 mg Heparin Sodium (Porcine) (Heparin Vial(*)) 5,000 units SUBCUT Q8HR [facility] Last Admin: 07/22/16 05:18 Dose: 5,000 units Clindamycin HCl/Dextrose (Cleocin 600 Mg Ivpremix(*) Sdv) 600 mg in 50 mls @ 100 mls/hr IV Q8H [facility] Last Admin: 07/22/16 04:07 Dose: 100 mls/hr Insulin Glargine (Lantus(*)) 30 units SUBCUT BEDTIME [facility] Last Admin: 07/21/16 21:30 Dose: 30 units Insulin Human Lispro (Humalog*) 0 units SUBCUT ACHS [facility] PRN Reason: Protocol Last Admin: 07/22/16 08:49 Dose: 3 units Loperamide HCl (Imodium Cap*) 2 mg PO TID PRN PRN Reason: DIARRHEA Mometasone Furoate/Formoterol Fumar (Dulera 200/5 Mdi*) 2 puff INH BID THUY PRN Reason: Protocol Last Admin: 07/22/16 09:21 Dose: 2 puff Nystatin (Nystatin Cream*) 1 applic TOPICAL TID PRN PRN Reason: RASH Nystatin (Nystatin Suspension*) 500,000 units SWISH SWAL TID PC [facility] Last Admin: 07/22/16 08:47 Dose: 500,000 units Omeprazole (Prilosec Cap*) 20 mg PO DAILY [facility] Last Admin: 07/22/16 08:47 Dose: 20 mg Oxycodone/Acetaminophen (Percocet 5/325 Tab*) 1 tab PO Q6H PRN PRN Reason: Pain 1-5 Oxycodone/Acetaminophen (Percocet 5/325 Tab*) 2 tab PO Q6H PRN PRN Reason: Pain 6-10 Last Admin: 07/22/16 04:07 Dose: 2 tab Potassium Chloride (Klor Con Er Tab*) 20 meq PO BID [facility] Last Admin: 07/22/16 08:47 Dose: 20 meq Prednisone (Deltasone Tab*) 40 mg PO DAILY [facility] Last Admin: 07/22/16 08:47 Dose: 40 mg Pyridostigmine [place] (Mestinon Tab*) 90 mg PO QID [facility] Last Admin: 07/22/16 08:47 Dose: 90 mg Spironolactone (Aldactone Tab*) 25 mg PO DAILY [facility] Last Admin: 07/22/16 08:48 Dose: 25 mg Torsemide (Demadex*) 40 mg PO QAM [facility] Last Admin: 07/22/16 08:48 Dose: 40 mg Torsemide (Demadex*) 20 mg PO 1200,2100 [facility] Last Admin: 07/21/16 21:28 Dose: 20 mg Vital Signs 07/22/16 07/22/16 07/22/16 03:43 04:07 07:36 Temperature 98.3 F 98.4 F Pulse Rate 85 63 Respiratory 18 18 Rate Blood Pressure 124/54 118/56 (mmHg) O2 Sat by Pulse 100 97 Oximetry Oxygen Devices in Use Now: Nasal Cannula Appearance: Pleasant elderly lady sitting up in bed in NAD. Eyes: No Scleral Icterus Ears/Nose/Mouth/Throat: Mucous Membranes Moist Neck: Trachea Midline Respiratory: Symmetrical Chest Expansion and Respiratory Effort, - - BS+ bilaterally decreased with no added sounds Cardiovascular: RRR - Normal S1 and S2 Abdominal: NL Sounds; No Tenderness; No Distention Extremities: - - Bilateral LE moderate to severe LE edema, erythema is subsiding , no drainage Neurological: Alert and Oriented x 3, NL Muscle Strength and Tone Lines/Tubes/Other Access: Clean, Dry and Intact Peripheral IV Nutrition: Taking PO's Result Diagrams: 07/22/16 05:03 07/22/16 05:03 Assess/Plan/Problems-Billing Assessment: Mrs. Oreilly is a 70yo F with PMH of diastolic CHF with EF 55-60%, Afib not on AC due to epistaxis, myasthenia gravis (on chronic steroids and IVIg infusions) , type 2 DM, COPD on home O2 2 liters, CKD stage 3, s/p pacer, who presented to ED with worsening LE edema, found to have another episode of LE cellulitis. - Patient Problems (1) Sepsis Comment: - Patient met sepsis criteria on admission tachycardia and leukocytosis. - Source is LE cellulitis. (2) Cellulitis Comment: - Erythema much improved. - Continue clindamycin #2. - Guillermo wrap LE as tolerated. - Cultures show no growth so far. (3) Leukocytosis Comment: - Trending down. (4) Lactic acidosis Comment: - Secondary to sepsis. - Trending down. (5) Myasthenia gravis Comment: - Stable. - Continue prednisone and pyridostigmine. (6) COPD (chronic obstructive pulmonary disease) Comment: - Stable. - Continue supplemental O2, bronchodilators and inhaled steroids. (7) Type 2 diabetes mellitus Comment: - Controlled. - Continue Lantus and sliding scale. (8) Atrial fibrillation Comment: - Continue Multaq. - Not on AC due to epistaxis. (9) Diastolic heart failure Comment: - Stable. - Continue Torsemide. (10) DVT prophylaxis Comment: - SQ heparin. (11) Full code status Status and Disposition: Inpatient.
[2016-07-22] MEDS: Insulin GLARGINE(*) 1 UNITS UNIT SUBCUT SCH (21:05)
[2016-07-23] MEDS: Heparin VIAL(*) 5000 UNITS/ML VIAL (FIVE THOUSAND) SUBCUT SCH ×3 (06:01→21:14)
[2016-07-23] MEDS: Clindamycin 600 MG IVPREMIX(* 600 MG/50 ML SDV IV SCH ×3 (06:01→21:12)
[2016-07-23] MEDS: oxyCODONE/Acetamin 5/325 MG* TAB PO PRN ×3 (06:13→23:03)
[2016-07-23] MEDS: Insulin LISPRO* 1 UNITS UNIT SUBCUT SCH ×3 (07:19→17:33)
[2016-07-23] MEDS ORDERED: Insulin LISPRO* 1 UNITS UNIT SUBCUT SCH (07:30)
[2016-07-23 07:36] LABS: Hematocrit 30 % (35-47); Hemoglobin 9.3 g/dl (12.0-16.0); Mean Corpuscular HGB Conc 31 g/dl (31-36); Mean Corpuscular Hemoglobin 25 pg (27-31); Mean Corpuscular Volume 81 fL (80-97); Mean Platelet Volume 8 um3 (7.4-10.4); Red Blood Count 3.75 10^6/ul (4.0-5.4); Red Cell Distribution Width 17 % (10.5-15); White Blood Count 15.9 10^3/ul (3.5-10.8)
[2016-07-23 07:52] LABS: BUN/Creatinine Ratio 28.9 (8-20); Calcium 8.8 mg/dL (8.6-10.3); EGFR African American 43.7 (>60); Potassium 4.5 mmol/L (3.5-5.0)
[2016-07-23] MEDS: Albuterol/Ipratropium NEB.SOL* Albuterol 2.5 MG/Ipratropium 0.5 MG 3 ML INH SCH ×4 (09:05→20:41)
[2016-07-23] MEDS: Mometasone/Formoter 200/5 MDI INH SCH ×2 (09:06→19:46)
[2016-07-23] MEDS: Torsemide TAB* 20 MG PO SCH (09:20)
[2016-07-23] MEDS: predniSONE TAB* 20 MG PO SCH (09:20)
[2016-07-23] MEDS: Dronedarone TAB* 400 MG PO SCH ×2 (09:20→21:12)
[2016-07-23] MEDS: Spironolactone TAB* 25 MG PO SCH (09:20)
[2016-07-23] MEDS: Cholecalciferol TAB* 1000 UNITS PO SCH (09:20)
[2016-07-23] MEDS: Aspirin Low Dose CHEW TAB* 81 MG PO SCH (09:20)
[2016-07-23] MEDS: Nystatin SUSPENSION* 100000 UNITS/ML 5 ML UDC SWISH SWAL SCH ×3 (09:20→17:32)
[2016-07-23] MEDS: Omeprazole CAP* 20 MG PO SCH (09:21)
[2016-07-23] MEDS: Potassium Chlor TAB* 20 MEQ TAB.ER PO SCH ×2 (09:21→21:12)
[2016-07-23] MEDS: Pyridostigmine TAB* 60 MG PO SCH ×4 (09:21→21:13)
--- NOTE | 2016-07-23 10:24 | PN ---
Subjective Date of Service: 07/23/16 Interval History: HOSPITALIST PROGRESS NOTE Patient seen and examined at bedside. She feels better today. LE edema is going down, pain is controlled, and breathing is at baseline. Family History: Unchanged from Admission Social History: Unchanged from Admission Past Medical History: Unchanged from Admission Objective Active Medications: Albuterol/Ipratropium (Duoneb (Albuterol 2.5 Mg/Ipratropium 0.5 Mg)) 1 neb INH QID [facility] Last Admin: 07/23/16 09:05 Dose: 1 neb Aspirin (Aspirin Low Dose Tab*) 81 mg PO DAILY [facility] Last Admin: 07/23/16 09:20 Dose: 81 mg Calcium Carbonate (Tums*) 500 mg PO QID PRN PRN Reason: INDIGESTION Cholecalciferol (Vitamin D Tab*) 2,000 units PO DAILY [facility] Last Admin: 07/23/16 09:20 Dose: 2,000 units Dextrose (D50w Syringe 50 Ml*) 12.5 gm IV PUSH .FOR FS < 60 - SS PRN PRN Reason: FS < 60 Dronedarone (Multaq Tab*) 400 mg PO BID [facility] Last Admin: 07/23/16 09:20 Dose: 400 mg Heparin Sodium (Porcine) (Heparin Vial(*)) 5,000 units SUBCUT Q8HR [facility] Last Admin: 07/23/16 06:01 Dose: 5,000 units Clindamycin HCl/Dextrose (Cleocin 600 Mg Ivpremix(*) Sdv) 600 mg in 50 mls @ 100 mls/hr IV Q8H [facility] Last Admin: 07/23/16 06:01 Dose: 100 mls/hr Insulin Glargine (Lantus(*)) 35 units SUBCUT BEDTIME [facility] Insulin Human Lispro (Humalog*) 0 units SUBCUT AC [facility] PRN Reason: Protocol Loperamide HCl (Imodium Cap*) 2 mg PO TID PRN PRN Reason: DIARRHEA Mometasone Furoate/Formoterol Fumar (Dulera 200/5 Mdi*) 2 puff INH BID THUY PRN Reason: Protocol Last Admin: 07/23/16 09:06 Dose: 2 puff Nystatin (Nystatin Cream*) 1 applic TOPICAL TID PRN PRN Reason: RASH Last Admin: 07/22/16 21:06 Dose: 1 dose Nystatin (Nystatin Suspension*) 500,000 units SWISH SWAL TID PC [facility] Last Admin: 07/23/16 09:20 Dose: 500,000 units Omeprazole (Prilosec Cap*) 20 mg PO DAILY [facility] Last Admin: 07/23/16 09:21 Dose: 20 mg Oxycodone/Acetaminophen (Percocet 5/325 Tab*) 1 tab PO Q6H PRN PRN Reason: Pain 1-5 Oxycodone/Acetaminophen (Percocet 5/325 Tab*) 2 tab PO Q6H PRN PRN Reason: Pain 6-10 Last Admin: 07/23/16 06:13 Dose: 2 tab Potassium Chloride (Klor Con Er Tab*) 20 meq PO BID [facility] Last Admin: 07/23/16 09:21 Dose: 20 meq Prednisone (Deltasone Tab*) 40 mg PO DAILY [facility] Last Admin: 07/23/16 09:20 Dose: 40 mg Pyridostigmine [place] (Mestinon Tab*) 90 mg PO QID [facility] Last Admin: 07/23/16 09:21 Dose: 90 mg Spironolactone (Aldactone Tab*) 25 mg PO DAILY [facility] Last Admin: 07/23/16 09:20 Dose: 25 mg Torsemide (Demadex*) 40 mg PO QAM [facility] Last Admin: 07/23/16 09:20 Dose: 40 mg Torsemide (Demadex*) 20 mg PO 1200,2100 [facility] Last Admin: 07/22/16 20:53 Dose: 20 mg Vital Signs 07/23/16 07/23/16 07/23/16 07:28 08:13 09:08 Temperature 98.1 F Pulse Rate 61 66 Respiratory 20 16 15 Rate Blood Pressure 112/52 (mmHg) O2 Sat by Pulse 97 99 Oximetry Oxygen Devices in Use Now: Nasal Cannula - 2 liters Appearance: Pleasant elderly lady sitting up in bed in [facility]. Eyes: No Scleral Icterus Ears/Nose/Mouth/Throat: Mucous Membranes Moist Neck: Trachea Midline Respiratory: Symmetrical Chest Expansion and Respiratory Effort, - - BS+ bilaterally decreased with no added sounds Cardiovascular: RRR - Normal S1 and S2 Abdominal: NL Sounds; No Tenderness; No Distention Extremities: - - Bilateral LE edema and erythema, less intense than yesterday Neurological: Alert and Oriented x 3, NL Muscle Strength and Tone Lines/Tubes/Other Access: Clean, Dry and Intact Peripheral IV Nutrition: Taking PO's Result Diagrams: 07/23/16 07:11 07/23/16 07:11 Assess/Plan/Problems-Billing Assessment: Mrs. Oreilly is a 70yo F with PMH of diastolic CHF with EF 55-60%, Afib not on AC due to epistaxis, myasthenia gravis (on chronic steroids and IVIg infusions) , type 2 DM, COPD on home O2 2 liters, CKD stage 3, s/p pacer, who presented to ED with worsening LE edema, found to have another episode of LE cellulitis. - Patient Problems (1) Sepsis Comment: - Patient met sepsis criteria on admission tachycardia and leukocytosis. - Source is LE cellulitis. (2) Cellulitis Comment: - Erythema much improved. - Continue clindamycin #3. - Guillermo wrap LE as tolerated. - Cultures show no growth so far. (3) Lactic acidosis Comment: - Secondary to sepsis. - Resolved. (4) Myasthenia gravis Comment: - Stable. - Continue prednisone and pyridostigmine. (5) COPD (chronic obstructive pulmonary disease) Comment: - Stable. - Continue supplemental O2, bronchodilators and inhaled steroids. (6) Type 2 diabetes mellitus Comment: - Controlled. - Continue Lantus and sliding scale. (7) Atrial fibrillation Comment: - Continue Multaq. - Not on AC due to epistaxis. (8) Diastolic heart failure Comment: - Stable. - Continue Torsemide. (9) DVT prophylaxis Comment: - SQ heparin. (10) Full code status Status and Disposition: Inpatient.
[2016-07-23] MEDS: Insulin GLARGINE(*) 1 UNITS UNIT SUBCUT SCH (23:04)
[2016-07-24] MEDS: Heparin VIAL(*) 5000 UNITS/ML VIAL (FIVE THOUSAND) SUBCUT SCH ×3 (05:18→21:10)
[2016-07-24] MEDS: Clindamycin 600 MG IVPREMIX(* 600 MG/50 ML SDV IV SCH ×3 (05:18→20:58)
[2016-07-24] MEDS: oxyCODONE/Acetamin 5/325 MG* TAB PO PRN ×2 (06:47→19:16)
[2016-07-24 07:18] LABS: BUN/Creatinine Ratio 28.4 (8-20); Calcium 8.6 mg/dL (8.6-10.3); EGFR African American 45.1 (>60); EGFR Non-African American 35.1 (>60); Potassium 4.4 mmol/L (3.5-5.0)
[2016-07-24] MEDS: Mometasone/Formoter 200/5 MDI INH SCH ×2 (08:10→20:21)
[2016-07-24] MEDS: Albuterol/Ipratropium NEB.SOL* Albuterol 2.5 MG/Ipratropium 0.5 MG 3 ML INH SCH ×4 (08:16→20:20)
[2016-07-24] MEDS: Insulin LISPRO* 1 UNITS UNIT SUBCUT SCH ×3 (08:34→17:46)
[2016-07-24] MEDS: predniSONE TAB* 20 MG PO SCH (08:41)
[2016-07-24] MEDS: Spironolactone TAB* 25 MG PO SCH (08:41)
[2016-07-24] MEDS: Omeprazole CAP* 20 MG PO SCH (08:42)
[2016-07-24] MEDS: Torsemide TAB* 20 MG PO SCH (08:42)
[2016-07-24] MEDS: Aspirin Low Dose CHEW TAB* 81 MG PO SCH (08:42)
[2016-07-24] MEDS: Cholecalciferol TAB* 1000 UNITS PO SCH (08:42)
[2016-07-24] MEDS: Potassium Chlor TAB* 20 MEQ TAB.ER PO SCH ×2 (08:42→20:55)
[2016-07-24] MEDS: Dronedarone TAB* 400 MG PO SCH ×2 (08:43→20:55)
[2016-07-24] MEDS: Pyridostigmine TAB* 60 MG PO SCH ×4 (08:43→20:53)
[2016-07-24] MEDS: Nystatin SUSPENSION* 100000 UNITS/ML 5 ML UDC SWISH SWAL SCH ×4 (08:44→16:56)
--- NOTE | 2016-07-24 11:03 | PN ---
Subjective Date of Service: 07/24/16 Interval History: HOSPITALIST PROGRESS NOTE Patient seen and examined at bedside. She feels much better today, optimistic now her LE edema is improving. Family History: Unchanged from Admission Social History: Unchanged from Admission Past Medical History: Unchanged from Admission Objective Active Medications: Albuterol/Ipratropium (Duoneb (Albuterol 2.5 Mg/Ipratropium 0.5 Mg)) 1 neb INH QID [facility] Last Admin: 07/24/16 08:16 Dose: 1 neb Aspirin (Aspirin Low Dose Tab*) 81 mg PO DAILY [facility] Last Admin: 07/24/16 08:42 Dose: 81 mg Calcium Carbonate (Tums*) 500 mg PO QID PRN PRN Reason: INDIGESTION Cholecalciferol (Vitamin D Tab*) 2,000 units PO DAILY [facility] Last Admin: 07/24/16 08:42 Dose: 2,000 units Dextrose (D50w Syringe 50 Ml*) 12.5 gm IV PUSH .FOR FS < 60 - SS PRN PRN Reason: FS < 60 Dronedarone (Multaq Tab*) 400 mg PO BID [facility] Last Admin: 07/24/16 08:43 Dose: 400 mg Heparin Sodium (Porcine) (Heparin Vial(*)) 5,000 units SUBCUT Q8HR [facility] Last Admin: 07/24/16 05:18 Dose: 5,000 units Clindamycin HCl/Dextrose (Cleocin 600 Mg Ivpremix(*) Sdv) 600 mg in 50 mls @ 100 mls/hr IV Q8H [facility] Last Admin: 07/24/16 05:18 Dose: 100 mls/hr Insulin Glargine (Lantus(*)) 35 units SUBCUT BEDTIME [facility] Last Admin: 07/23/16 23:04 Dose: 35 units Insulin Human Lispro (Humalog*) 0 units SUBCUT AC THUY PRN Reason: Protocol Last Admin: 07/24/16 08:34 Dose: Not Given Loperamide HCl (Imodium Cap*) 2 mg PO TID PRN PRN Reason: DIARRHEA Mometasone Furoate/Formoterol Fumar (Dulera 200/5 Mdi*) 2 puff INH BID THUY PRN Reason: Protocol Last Admin: 07/24/16 08:10 Dose: 2 puff Nystatin (Nystatin Cream*) 1 applic TOPICAL TID PRN PRN Reason: RASH Last Admin: 07/22/16 21:06 Dose: 1 dose Nystatin (Nystatin Suspension*) 500,000 units SWISH SWAL TID PC [facility] Last Admin: 07/24/16 08:49 Dose: 500,000 units Omeprazole (Prilosec Cap*) 20 mg PO DAILY [facility] Last Admin: 07/24/16 08:42 Dose: 20 mg Oxycodone/Acetaminophen (Percocet 5/325 Tab*) 1 tab PO Q6H PRN PRN Reason: Pain 1-5 Oxycodone/Acetaminophen (Percocet 5/325 Tab*) 2 tab PO Q6H PRN PRN Reason: Pain 6-10 Last Admin: 07/24/16 06:47 Dose: 2 tab Potassium Chloride (Klor Con Er Tab*) 20 meq PO BID [facility] Last Admin: 07/24/16 08:42 Dose: 20 meq Prednisone (Deltasone Tab*) 40 mg PO DAILY [facility] Last Admin: 07/24/16 08:41 Dose: 40 mg Pyridostigmine [place] (Mestinon Tab*) 90 mg PO QID [facility] Last Admin: 07/24/16 08:43 Dose: 90 mg Spironolactone (Aldactone Tab*) 25 mg PO DAILY [facility] Last Admin: 07/24/16 08:41 Dose: 25 mg Torsemide (Demadex*) 40 mg PO QAM [facility] Last Admin: 07/24/16 08:42 Dose: 40 mg Vital Signs 07/24/16 07/24/16 07/24/16 07:31 08:00 08:17 Temperature 98.0 F Pulse Rate 59 65 Respiratory 16 16 14 Rate Blood Pressure 116/49 (mmHg) O2 Sat by Pulse 98 99 Oximetry Oxygen Devices in Use Now: Nasal Cannula - 2 liters Appearance: Pleasant elderly lady sitting up in bed in [facility]. Eyes: No Scleral Icterus Ears/Nose/Mouth/Throat: Mucous Membranes Moist Neck: Trachea Midline Respiratory: Symmetrical Chest Expansion and Respiratory Effort, Clear to Auscultation Cardiovascular: RRR - Normal S1 and S2 Abdominal: NL Sounds; No Tenderness; No Distention Extremities: - - Moderate LE edema, erythema is much improved Neurological: Alert and Oriented x 3, NL Muscle Strength and Tone Lines/Tubes/Other Access: Clean, Dry and Intact Peripheral IV Nutrition: Taking PO's Result Diagrams: 07/23/16 07:11 07/24/16 06:22 Assess/Plan/Problems-Billing Assessment: Mrs. Oerilly is a 70yo F with PMH of diastolic CHF with EF 55-60%, Afib not on AC due to epistaxis, myasthenia gravis (on chronic steroids and IVIg infusions) , type 2 DM, COPD on home O2 2 liters, CKD stage 3, s/p pacer, who presented to ED with worsening LE edema, found to have another episode of LE cellulitis. - Patient Problems (1) Sepsis Comment: - Patient met sepsis criteria on admission tachycardia and leukocytosis. - Source is LE cellulitis. (2) Cellulitis Comment: - Erythema much improved. - Continue clindamycin #4. - Guillermo wrap LE as tolerated. - Cultures show no growth so far. (3) Lactic acidosis Comment: - Secondary to sepsis. - Resolved. (4) Myasthenia gravis Comment: - Stable. - Continue prednisone and pyridostigmine. (5) COPD (chronic obstructive pulmonary disease) Comment: - Stable. - Continue supplemental O2, bronchodilators and inhaled steroids. (6) Type 2 diabetes mellitus Comment: - Controlled. - Continue Lantus and sliding scale. (7) Atrial fibrillation Comment: - Continue Multaq. - Not on AC due to epistaxis. (8) Diastolic heart failure Comment: - Stable. - Continue Torsemide. (9) DVT prophylaxis Comment: - SQ heparin. (10) Full code status Status and Disposition: Inpatient. Anticipate d/c in AM.
[2016-07-24] MEDS: Insulin GLARGINE(*) 1 UNITS UNIT SUBCUT SCH (21:06)
[2016-07-25] MEDS: oxyCODONE/Acetamin 5/325 MG* TAB PO PRN ×2 (01:32→08:29)
[2016-07-25] MEDS: Clindamycin 600 MG IVPREMIX(* 600 MG/50 ML SDV IV SCH (04:51)
[2016-07-25] MEDS: Heparin VIAL(*) 5000 UNITS/ML VIAL (FIVE THOUSAND) SUBCUT SCH (05:22)
[2016-07-25 08:04] VITALS: BP 111/49
[2016-07-25] MEDS: Nystatin SUSPENSION* 100000 UNITS/ML 5 ML UDC SWISH SWAL SCH ×2 (08:17→13:02)
[2016-07-25] MEDS: Pyridostigmine TAB* 60 MG PO SCH ×2 (08:31→14:03)
[2016-07-25] MEDS: Torsemide TAB* 20 MG PO SCH (08:32)
[2016-07-25] MEDS: Potassium Chlor TAB* 20 MEQ TAB.ER PO SCH (08:32)
[2016-07-25] MEDS: predniSONE TAB* 20 MG PO SCH (08:33)
[2016-07-25] MEDS: Cholecalciferol TAB* 1000 UNITS PO SCH (08:33)
[2016-07-25] MEDS: Dronedarone TAB* 400 MG PO SCH (08:35)
[2016-07-25] MEDS: Aspirin Low Dose CHEW TAB* 81 MG PO SCH (08:35)
[2016-07-25] MEDS: Spironolactone TAB* 25 MG PO SCH (08:35)
[2016-07-25] MEDS: Omeprazole CAP* 20 MG PO SCH (08:35)
[2016-07-25] MEDS: Insulin LISPRO* 1 UNITS UNIT SUBCUT SCH ×2 (08:36→13:02)
[2016-07-25] MEDS: Mometasone/Formoter 200/5 MDI INH SCH (09:08)
[2016-07-25] MEDS: Albuterol/Ipratropium NEB.SOL* Albuterol 2.5 MG/Ipratropium 0.5 MG 3 ML INH SCH ×2 (09:08→15:28)
[2016-07-25] MEDS ORDERED: Clindamycin CAP* 150 MG PO ONE ×2 (13:47)
--- NOTE | 2016-07-26 03:09 | DS ---
DISCHARGE SUMMARY: DATE OF ADMISSION: 07/21/16 DATE OF DISCHARGE: 07/25/16 PRIMARY CARE PHYSICIAN: Ann Cartagena NP NEUROLOGIST: Darby Madden MD DISCHARGE DIAGNOSES: 1. Sepsis, present on admission. 2. Bilateral lower extremity cellulitis. 3. Mild lactic acidosis. SECONDARY DIAGNOSES: 1. Diastolic congestive heart failure with ejection fraction of 55% to 60%. 2. Atrial fibrillation, not on anticoagulation due to epistaxis. 3. Myasthenia gravis, on chronic steroids and IVIG infusion. 4. Type 2 diabetes. 5. Chronic obstructive pulmonary disease, on home O2. 6. Chronic kidney disease, stage 3. 7. Status post pacemaker. MEDICATION LIST: 1. DuoNeb nebulized 4 times a day. 2. Aspirin 81 mg p.o. daily. 3. Symbicort 160/4.5 mcg 2 puffs inhaled b.i.d. 4. Calcium carbonate 500 mg p.o. 4 times a day as needed for indigestion. 5. Vitamin D 2000 units p.o. daily. 6. Multaq 400 mg p.o. b.i.d. 7. Hydrocortisone valerate 0.2% topical daily as needed for rashes. 8. IVIG 70 g IV q.28 days. 9. Lantus 35 units subcutaneously at bedtime. 10. Loperamide 2 mg p.o. t.i.d. as needed for diarrhea. 11. Nystatin cream topical t.i.d. as needed for rashes. 12. Nystatin suspension 5 mL swish and swallow t.i.d. after meals. 13. Omeprazole 20 mg p.o. daily. 14. Oxycodone/acetaminophen 5/325 mg 1 to 2 tablets p.o. every 8 to 6 hours as needed for pain, MDD 4 tablets a day. 15. Potassium chloride 20 mEq p.o. b.i.d. 16. Prednisone 40 mg p.o. daily. 17. Pyridostigmine 90 mg p.o. 4 times a day. 18. Spironolactone 25 mg p.o. daily. Medication Change: Torsemide was changed to 20 mg t.i.d. for 2 days, then back to 40 mg in the morning, and 20 mg at noon and 1800. New Medication: Clindamycin 300 mg p.o. t.i.d. for 10 days. HOSPITAL COURSE: Ms. Oreilly is a 70-year-old lady with past medical history as stated above that presented to the emergency room with complaints of worsening bilateral lower extremity edema and erythema. She was admitted in April with right lower extremity cellulitis and responded well to clindamycin. She was being followed at the wound clinic and was actually discharged. Three days prior to admission, she bumped her leg into a box and from there, she developed erythema and edema that later on spread to her left leg too. For more details about her presentation, I refer you to her history and physical. On admission, the patient was found to have a white cell count of 19.9 and a lactic acid of 3.7, but her vital signs were stable. The patient was pancultured and cultures yielded no growth. She was started on clindamycin with good response. She was seen by wound clinic and the recommendation was for alginate on the open areas, cover with Telfa bandage, and Medigrip stocking and change the dressing every 2 to 3 days. The patient already has an appointment to follow up at the wound clinic on 07/30/16 at 8:15 a.m. The patient has significant improvement of her lower extremity edema and erythema and the plan is to complete 10 more days of treatment with clindamycin. The patient is clinically immunosuppressed on high-dose steroids and monthly infusions of IVIG and although she has had this episode of infection , I believe that the regimen should be continued. She has an infusion scheduled for tomorrow and for . I discussed the case with her neurologist (Dr. Madden) and she agrees that considering the patient's history of significant exacerbation of her myasthenia, we should not hold her infusion especially considering this infectious episode that was not that severe. The patient is on a hefty dose of diuretics as an outpatient and her renal function has fluctuated between 1.16 to 1.52. She was complaining of mild dizziness, so we reduced her dose of torsemide for 2 days, but she will have to resume her usual dose after that to avoid the risk of fluid overload. The patient is medically stable for discharge at this time. PHYSICAL EXAMINATION: Vital Signs: Temperature 98.0, heart rate is 68, respiratory rate is 16, oxygen saturation is 99% on 2 L nasal cannula, blood pressure is 111/49. General: The patient is a pleasant, elderly lady, sitting up in bed, in no acute distress. CVS: Normal S1, S2. Regular rate and rhythm. Chest: Breath sounds bilaterally decreased with no added sounds. Abdomen: Soft. Bowel sounds present. Extremities: There is moderate bilateral lower extremity pitting edema with significant improvement of erythema. Neuro: She is alert, awake, and oriented x3. Able to move all 4 extremities. DIET: Heart healthy, consistent carb diet. ACTIVITIES: As tolerated. DISPOSITION: To home. STATUS WHILE IN THE HOSPITAL: Inpatient. Please keep in mind this is a summarized version of this patient's hospital stay. If you need more information, please feel free to call me at [phone] or please obtain the full medical records. The patient already has a followup scheduled with Ann Cartagena NP, on 07/31 at 1 p.m. TIME SPENT: Approximately 45 minutes were spent to complete this discharge. CC: Ann Cartagena NP; Dr. Madden* [id number]/[facility] #: [id number] MTDMart
== END 2016-07-25 15:00 | disposition home health service (06) | DRG 872 ==
LOC: ED 10:44 → MED 14:03
PROVIDERS: ADMIT Internal Medicine; ATTEND Internal Medicine
DX: A41.9 Sepsis, unspecified organism (principal); E87.2 Acidosis; I50.32 Chronic diastolic (congestive) heart failure; E11.22 Type 2 diabetes mellitus with diabetic chronic kidney disease; I13.0 Hypertensive heart and chronic kidney disease with heart failure and stage 1 through stage 4 chronic kidney disease, or unspecified chronic kidney disease; L03.116 Cellulitis of left lower limb; L03.115 Cellulitis of right lower limb; I48.91 Unspecified atrial fibrillation; G70.00 Myasthenia gravis without (acute) exacerbation; J44.9 Chronic obstructive pulmonary disease, unspecified; N18.3 Chronic kidney disease, stage 3 (moderate); K21.9 Gastro-esophageal reflux disease without esophagitis; E11.36 Type 2 diabetes mellitus with diabetic cataract; Z99.81 Dependence on supplemental oxygen; Z95.0 Presence of cardiac pacemaker; Z79.82 Long term (current) use of aspirin; Z79.4 Long term (current) use of insulin; Z88.1 Allergy status to other antibiotic agents; Z88.8 Allergy status to other drugs, medicaments and biological substances; Z87.01 Personal history of pneumonia (recurrent); Z87.440 Personal history of urinary (tract) infections; Z87.891 Personal history of nicotine dependence; Z86.14 Personal history of Methicillin resistant Staphylococcus aureus infection; Z80.3 Family history of malignant neoplasm of breast; Z80.0 Family history of malignant neoplasm of digestive organs; Z79.52 Long term (current) use of systemic steroids
CPT/HCPCS: 36415; 71010; 80048; 80053; 81003; 82947; 83605; 83880; 84484; 85025; 85610; 87040; 93005; 94640; 94760; A9270-GY; J1644; J2930; J3010; J7512

== ENCOUNTER 2016-09-25 21:38 | Emergency (ER) | payer MEDICARE ==
[2016-09-25] MEDS ORDERED: Morphine INJ* 2 MG/ML 1 ML SYRINGE IV ONE (23:22)
--- NOTE | 2016-09-25 23:39 | ED ---
Lower Extremity - HPI Summary HPI Summary: Patient is a 70yo F who presents to ED with bilateral leg edema and erythema which has been getting worse over 4 days. She was seen at the wound clinic on to which she is being treated for cellulitis, but does not currently take abx. She was last in the ED in May for bilateral cellulitis with bullae. She was given IV Clindamycin and has been following up at the wound clinic for "leg wraps." She has been feeling OK except for the pain which is a 10/10. She has oxycodone at home for chronic neck pain but states she did not take any today. She is c/o SOB more than usual and is on 2L O2 at home. She has not been feeling chills, sweats or fatigue more than usual. She has been seen here several times for similar issues and states she always has to be admitted. She lives with her grand-daughter who helps her some. She denies numbness and tingling. - History of Current Complaint Chief Complaint: EDExtremityLower Stated Complaint: EDEMA Time Seen by Provider: 09/25/16 23:14 Pain Intensity: 9 - Allergies/Home Medications Allergies/Adverse Reactions: Allergies Allergy/AdvReac Type Severity Reaction Status Date / Time Mycophenolate Allergy Unknown Verified 09/25/16 21:48 [From CellCept Intravenous] Reaction Details Azithromycin AdvReac Severe myasthenia Verified 09/25/16 21:48 gravis exacerbation Ceftriaxone AdvReac Severe myasthenia Verified 09/25/16 21:48 gravis exacerbation Ciprofloxacin AdvReac GI Upset Verified 09/25/16 21:48 Immune Globulin AdvReac Swelling Verified 09/25/16 21:48 [From Octagam] PMH/Surg Hx/FS Hx/Imm Hx Endocrine/Hematology History: Reports: Hx Anticoagulant Therapy - BABY ASA, Hx Diabetes, Hx Anemia, Other Endocrine/Hematological Disorders - MYASTHEIA GRAVIS Denies: Hx Blood Disorders, Hx Blood Transfusions, Hx Bone Marrow Disease, Hx Systemic Lupus Erythematosus, Hx Sickle Cell Disease, Hx Thyroid Disease, Hx Unexplained Bleeding Cardiovascular History: Reports: Hx Congenital Heart Disease, Hx Congestive Heart Failure - very swollen legs, Hx Hypertension, Hx Pacemaker/ICD - 12/09/12 , 06/16 ??, Other Cardiovascular Problems/Disorders - LE EDEMA, ON LASIX Denies: Hx Peripheral Vascular Disease Respiratory History: Reports: Hx Asthma, Hx Chronic Obstructive Pulmonary Disease (COPD) - on 2L home O2 at all times per pt, Hx Pneumonia, Other Respiratory Problems/Disorders - EMPHYSEMA Denies: Hx Chronic Bronchitis, Hx Cystic Fibrosis, Hx Lung Cancer, Hx Pleural Effusion, Hx Pulmonary Edema, Hx Pulmonary Embolism, Hx Seasonal Allergies, Hx Sleep Apnea GI History: Reports: Hx Gall Bladder Disease - GB out, Hx Gastroesophageal Reflux Disease, Other GI Disorders History: Reports: Other Problems/Disorders - FREQUENT UTI'S Denies: Hx Renal Disease Musculoskeletal History: Reports: Hx Back Problems - low back pain, Other Musculoskeletal History - myasthenia gravis Denies: Hx Arthritis, Hx Osteoporosis Sensory History: Reports: Hx Cataracts, Hx Contacts or Glasses Denies: Hx Eye Injury, Hx Eye Prosthesis, Hx Glaucoma, Hx Macular Degeneration, Hx Vision Problem, Hx Deafness, Hx Hearing Aid, Other Sensory Impairments Opthamlomology History: Reports: Hx Cataracts, Hx Contacts or Glasses Denies: Hx Eye Injury, Hx Eye Prosthesis, Hx Glaucoma, Hx Macular Degeneration, Hx Vision Problem, Other Sensory Impairments Neurological History: Reports: Other Neuro Impairments/Disorders - myasthenia gravis Denies: Hx Developmental Delay, Hx Headaches, Hx Migraine, Hx Seizures, Hx Spinal Cord Injury, Hx Transient Ischemic Attacks (TIA) Psychiatric History: Denies: Hx Anxiety, Hx Depression, Other Psychiatric Issues/Disorders - Surgical History Surgery Procedure, Year, and Place: CHOLECYSECTOMY 1979 Hx Anesthesia Reactions: No - Immunization History Date of Tetanus Vaccine: 2011 Date of Influenza Vaccine: 2012 Infectious Disease History: Yes Infectious Disease History: Reports: Hx of Known/Suspected MRSA - leg wound Denies: Hx Tuberculosis, Traveled Outside the [place] in Last 30 Days - Family History Known Family History: Positive: Unknown Negative: Cardiac Disease, Hypertension, Diabetes - Social History Alcohol Use: None Hx Substance Use: No Substance Use Type: Reports: None Hx Tobacco Use: Yes Smoking Status (MU): Former Smoker Type: Cigarettes Amount Used/How Often: 2 pk/day Length of Time of Smoking/Using Tobacco: 45 years Have You Smoked in the Last Year: No Physical Exam Vital Signs On Initial Exam: Initial Vitals Temp Pulse Resp BP Pulse Ox 97 F 62 18 144/46 100 09/25/16 21:50 09/25/16 21:50 09/25/16 21:50 09/25/16 21:50 09/25/16 21:50 Diagnostics - Vital Signs Vital Signs Temp Pulse Resp BP Pulse Ox 09/25/16 21:50 97 F 62 18 144/46 100 - Laboratory Lab Statement: Any lab studies that have been ordered have been reviewed, and results considered in the medical decision making process.
[2016-09-25 23:56] LABS: Hematocrit 31 % (35-47); Hemoglobin 9.7 g/dl (12.0-16.0); Mean Corpuscular HGB Conc 31 g/dl (31-36); Mean Corpuscular Hemoglobin 24 pg (27-31); Mean Corpuscular Volume 77 fL (80-97); Mean Platelet Volume 8 um3 (7.4-10.4); Red Blood Count 4.08 10^6/ul (4.0-5.4); Red Cell Distribution Width 19 % (10.5-15); White Blood Count 16.2 10^3/ul (3.5-10.8)
[2016-09-26 00:12] LABS: Albumin 3.1 g/dL (3.2-5.2); BUN/Creatinine Ratio 25.7 (8-20); C Reactive Protein 3.04 mg/L (< 5.00); EGFR African American 35.3 (>60); EGFR Non-African American 27.5 (>60); Globulin 5.5 g/dL (2-4); Potassium 5.1 mmol/L (3.5-5.0); Total Bilirubin 0.4 mg/dL (0.2-1.0); Total Protein 8.6 g/dL (6.4-8.9)
[2016-09-26] MEDS ORDERED: Clindamycin 900 MG IVPREMIX(* 900 MG/50 ML SDV IV ONE (00:19)
[2016-09-26] MEDS ORDERED: Clindamycin CAP* 150 MG PO ONE (00:54)
--- NOTE | 2016-09-26 00:57 | ED ---
Skin Complaint - HPI Summary HPI Summary: Patient is a 70yo F who presents to ED with bilateral leg edema and erythema which has been getting worse over 4 days. She was seen at the wound clinic on to which she is being treated for cellulitis, but does not currently take abx. She was last in the ED in May for bilateral cellulitis with bullae. She was given IV Clindamycin and has been following up at the wound clinic for "leg wraps." She has been feeling OK except for the pain which is a 10/10. She has oxycodone at home for chronic neck pain but states she did not take any today. She is c/o SOB more than usual and is on 2L O2 at home. She has not been feeling chills, sweats or fatigue more than usual. She has been seen here several times for similar issues and states she always has to be admitted. She lives with her grand-daughter who helps her some. She denies numbness and tingling. - History of Current Complaint Chief Complaint: EDExtremityLower Time Seen by Provider: 09/25/16 23:14 Stated Complaint: EDEMA Hx Obtained From: Patient Onset/Duration: Started Days Ago Skin Exposure Onset/Duration: Weeks Ago, Worse Since: - 4 days ago Timing: Constant Onset Severity: Moderate Current Severity: Moderate Pain Intensity: 9 Pain Scale Used: 0-10 Numeric Skin Location: Discrete, Leg Character: Swelling, Pain, Redness, Painful Aggravating Symptom(s): Nothing Alleviating Symptom(s): Cold Compresses Associated Signs & Symptoms: Difficulty Breathing - baseline - Additional Pertinent History Primary Care Physician: ESPERANZA - Allergy/Home Medications Allergies/Adverse Reactions: Allergies Allergy/AdvReac Type Severity Reaction Status Date / Time Mycophenolate Allergy Unknown Verified 09/25/16 21:48 [From CellCept Intravenous] Reaction Details Azithromycin AdvReac Severe myasthenia Verified 09/25/16 21:48 gravis exacerbation Ceftriaxone AdvReac Severe myasthenia Verified 09/25/16 21:48 gravis exacerbation Ciprofloxacin AdvReac GI Upset Verified 09/25/16 21:48 Immune Globulin AdvReac Swelling Verified 09/25/16 21:48 [From Octagam] PMH/Surg Hx/FS Hx/Imm Hx Previously Healthy: No - see below Endocrine/Hematology History: Reports: Hx Anticoagulant Therapy - BABY ASA, Hx Diabetes, Hx Anemia, Other Endocrine/Hematological Disorders - MYASTHEIA GRAVIS Denies: Hx Blood Disorders, Hx Blood Transfusions, Hx Bone Marrow Disease, Hx Systemic Lupus Erythematosus, Hx Sickle Cell Disease, Hx Thyroid Disease, Hx Unexplained Bleeding Cardiovascular History: Reports: Hx Congenital Heart Disease, Hx Congestive Heart Failure - very swollen legs, Hx Hypertension, Hx Pacemaker/ICD - 04/03/16 , 06/16 ??, Other Cardiovascular Problems/Disorders - LE EDEMA, ON LASIX Denies: Hx Peripheral Vascular Disease Respiratory History: Reports: Hx Asthma, Hx Chronic Obstructive Pulmonary Disease (COPD) - on 2L home O2 at all times per pt, Hx Pneumonia, Other Respiratory Problems/Disorders - EMPHYSEMA Denies: Hx Chronic Bronchitis, Hx Cystic Fibrosis, Hx Lung Cancer, Hx Pleural Effusion, Hx Pulmonary Edema, Hx Pulmonary Embolism, Hx Seasonal Allergies, Hx Sleep Apnea GI History: Reports: Hx Gall Bladder Disease - GB out, Hx Gastroesophageal Reflux Disease, Other GI Disorders History: Reports: Other Problems/Disorders - FREQUENT UTI'S Denies: Hx Renal Disease Musculoskeletal History: Reports: Hx Back Problems - low back pain, Other Musculoskeletal History - myasthenia gravis Denies: Hx Arthritis, Hx Osteoporosis Sensory History: Reports: Hx Cataracts, Hx Contacts or Glasses Denies: Hx Eye Injury, Hx Eye Prosthesis, Hx Glaucoma, Hx Macular Degeneration, Hx Vision Problem, Hx Deafness, Hx Hearing Aid, Other Sensory Impairments Opthamlomology History: Reports: Hx Cataracts, Hx Contacts or Glasses Denies: Hx Eye Injury, Hx Eye Prosthesis, Hx Glaucoma, Hx Macular Degeneration, Hx Vision Problem, Other Sensory Impairments Neurological History: Reports: Other Neuro Impairments/Disorders - myasthenia gravis Denies: Hx Developmental Delay, Hx Headaches, Hx Migraine, Hx Seizures, Hx Spinal Cord Injury, Hx Transient Ischemic Attacks (TIA) Psychiatric History: Denies: Hx Anxiety, Hx Depression, Other Psychiatric Issues/Disorders - Surgical History Surgery Procedure, Year, and Place: CHOLECYSECTOMY 1979 Hx Anesthesia Reactions: No - Immunization History Date of Tetanus Vaccine: 2011 Date of Influenza Vaccine: 2012 Infectious Disease History: Yes Infectious Disease History: Reports: Hx of Known/Suspected MRSA - leg wound Denies: Hx Tuberculosis, Traveled Outside the [place] in Last 30 Days - Family History Known Family History: Positive: Unknown Negative: Cardiac Disease, Hypertension, Diabetes - Social History Occupation: Unemployed Lives: With Family Alcohol Use: None Hx Substance Use: No Substance Use Type: Reports: None Hx Tobacco Use: Yes Smoking Status (MU): Former Smoker Type: Cigarettes Amount Used/How Often: 2 pk/day Length of Time of Smoking/Using Tobacco: 45 years Have You Smoked in the Last Year: No Review of Systems Constitutional: Negative Eyes: Negative Cardiovascular: Negative Positive: Shortness Of Breath Positive: no symptoms reported, see HPI Musculoskeletal: Negative Positive: Other - bullae over right lateral lower extremity with weeping lesion measuring 4X4 over medial lower extremity of right leg, 2X4 weeping lesion over left medial lower extremity. Redness, warmth with no streaking over bilateral legs worsening since 4 days ago Neurological: Negative Psychological: Normal All Other Systems Reviewed And Are Negative: Yes Physical Exam Triage Information Reviewed: Yes Vital Signs On Initial Exam: Initial Vitals Temp Pulse Resp BP Pulse Ox 97 F 62 18 144/46 100 09/25/16 21:50 09/25/16 21:50 09/25/16 21:50 09/25/16 21:50 09/25/16 21:50 Vital Signs Reviewed: Yes Appearance: Positive: Ill-Appearing, Pain Distress, Obese Skin: Positive: Warm, Other - bullae over right lateral lower extremity with weeping lesion measuring 4X4 over medial lower extremity of right leg, 2X4 weeping lesion over left medial lower extremity. Redness, warmth with no streaking over bilateral legs worsening since 4 days ago Head/Face: Positive: Normal Head/Face Inspection Eyes: Positive: GEORGE, Conjunctiva Clear Neck: Positive: Supple, No Lymphadenopathy Respiratory/Lung Sounds: Positive: Subcutaneous Emphysema, Wheezes Cardiovascular: Positive: RRR, Pulses are Symmetrical in both Upper and Lower Extremities Musculoskeletal: Positive: Edema Left, Edema Right Neurological: Positive: Speech Normal Psychiatric: Positive: Normal AVPU Assessment: Alert Diagnostics - Vital Signs Vital Signs Temp Pulse Resp BP Pulse Ox 09/26/16 00:30 63 24 146/53 100 09/26/16 00:01 69 23 147/64 100 09/26/16 00:00 70 22 100 09/25/16 23:49 20 09/25/16 23:30 64 21 134/61 100 09/25/16 23:00 43 23 140/61 87 09/25/16 22:33 61 100 09/25/16 22:32 136/51 09/25/16 21:50 97 F 62 18 144/46 100 - Laboratory Lab Results: Lab Results 09/25/16 09/25/16 Range/Units 23:45 23:45 WBC 16.2 H (3.5-10.8) 10^3/ul RBC 4.08 (4.0-5.4) 10^6/ul Hgb 9.7 L (12.0-16.0) g/dl Hct 31 L (35-47) % MCV 77 L (80-97) fL MCH 24 L (27-31) pg MCHC 31 (31-36) g/dl RDW 19 H (10.5-15) % Plt Count 267 (150-450) 10^3/ul MPV 8 (7.4-10.4) um3 Neut % (Auto) 79.9 (38-83) % Lymph % (Auto) 13.6 L (25-47) % [place] % (Auto) 5.1 (1-9) % Eos % (Auto) 0 (0-6) % Baso % (Auto) 1.4 (0-2) % Absolute Neuts (auto) 12.9 H (1.5-7.7) 10^3/ul Absolute Lymphs (auto) 2.2 (1.0-4.8) 10^3/ul Absolute Monos (auto) 0.8 (0-0.8) 10^3/ul Absolute Eos (auto) 0 (0-0.6) 10^3/ul Absolute Basos (auto) 0.2 (0-0.2) 10^3/ul Absolute Nucleated RBC 0.03 10^3/ul Nucleated RBC % 0.2 Sodium 128 L (133-145) mmol/L Potassium 5.1 H (3.5-5.0) mmol/L Chloride 93 L (101-111) mmol/L Carbon Dioxide 31 (22-32) mmol/L Anion Gap 4 (2-11) mmol/L BUN 47 H (6-24) mg/dL Creatinine 1.83 H (0.51-0.95) mg/dL Est GFR ( Amer) 35.3 (>60) Est GFR (Non-Af Amer) 27.5 (>60) BUN/Creatinine Ratio 25.7 H (8-20) Glucose 283 H (70-100) mg/dL Calcium 9.0 (8.6-10.3) mg/dL Total Bilirubin 0.40 (0.2-1.0) mg/dL AST 35 (13-39) U/L ALT 66 H (7-52) U/L Alkaline Phosphatase 93 (34-104) U/L C-Reactive Protein 3.04 (< 5.00) mg/L Total Protein 8.6 (6.4-8.9) g/dL Albumin 3.1 L (3.2-5.2) g/dL Globulin 5.5 H D (2-4) g/dL Albumin/Globulin Ratio 0.6 L (1-3) Result Diagrams: 09/25/16 23:45 09/25/16 23:45 Lab Statement: Any lab studies that have been ordered have been reviewed, and results considered in the medical decision making process. Course/Dx - Course Course Of Treatment: Patient presents with CC of worsneing redness and edema over bilateral lower extremity. She has been seen at wound care and has an appt tomorrow. She has been seen for this issue multiple times and wound has grown pseudomonas in the previous visit. Patient had allergy to fluoroquinolones and she was observed with clindamycin. D/t multiple allergies , patient is placed on Clindamycin. IV 900 given in ED. 300 PO 4 times daily sent home. It is unclear why wound clinic has not given abx per patient. Will have her continue to follow up but for worsening edema, pain or erythema and other signs of infection, she will come back to ED. bullae over right lateral lower extremity with weeping lesion measuring 4X4 over medial lower extremity of right leg, 2X4 weeping lesion over left medial lower extremity. Redness, warmth with no streaking over bilateral legs worsening since 4 days ago. She is OK with discharge. d/t finances, patient is given 4 days of clindamycin and she will get the rest of the clindamycin on sunday. Referral back to Dr. Escobedo. - Differential Diagnoses - Skin Complaint Differential Diagnoses: Angioedema, Cellulitis, Contact Dermatitis, Lymphangitis , Other - Diagnoses Provider Diagnoses: Cellulitis Is Visit Related: No Discharge - Discharge Plan Condition: Stable Disposition: HOME Patient Education Materials: Cellulitis (ED) Referrals: Ann Cartagena NP [Primary Care Provider] - Moon MARQUEZ,Grzegorz Schroeder [Medical Doctor] - Additional Instructions: Follow up with wound clinic tomorrow. Clindamycin prescribed to you for 10 days. You have been given 4 days to last you until Sunday. Continue with antibiotics and return for worsening symptoms or if you develop worsening shortness of breath or fever.,
[2016-09-26 04:04] VITALS: BP 156/78
== END 2016-09-26 03:00 | disposition home or self-care (01) ==
LOC: ED 21:38
DX: L03.90 Cellulitis, unspecified (principal); R60.9 Edema, unspecified; R06.02 Shortness of breath
CPT/HCPCS: 36415; 80053; 85025; 86140; 96374; 99283; A9270-GY; J2270

== ENCOUNTER 2016-10-09 11:03 | Inpatient (IN) | payer MEDICARE ==
[2016-10-09 11:28] LABS: Hematocrit 35 % (35-47); Hemoglobin 10.5 g/dl (12.0-16.0); Mean Corpuscular HGB Conc 31 g/dl (31-36); Mean Corpuscular Hemoglobin 23 pg (27-31); Mean Corpuscular Volume 77 fL (80-97); Mean Platelet Volume 8 um3 (7.4-10.4); Red Blood Count 4.51 10^6/ul (4.0-5.4); Red Cell Distribution Width 19 % (10.5-15); White Blood Count 19.3 10^3/ul (3.5-10.8)
[2016-10-09 11:44] LABS: ALT 57 U/L (7-52); Albumin 3.5 g/dL (3.2-5.2); Alkaline Phosphatase 91 U/L (34-104); BUN/Creatinine Ratio 22.8 (8-20); Blood Urea Nitrogen 41 mg/dL (6-24); C Reactive Protein 2.53 mg/L (< 5.00); CO2 Carbon Dioxide 24 mmol/L (22-32); Chloride 102 mmol/L (101-111); Globulin 4.2 g/dL (2-4); Glucose 202 mg/dL (70-100); Sodium 130 mmol/L (133-145); Total Protein 7.7 g/dL (6.4-8.9)
[2016-10-09 11:49] LABS: Troponin I 0.05 ng/mL (<0.04)
--- NOTE | 2016-10-09 11:51 | RAD ---
INDICATION: Weakness and shortness of breath COMPARISON: Most recent comparison chest x-rays dated July 21, 2016 TECHNIQUE: Single AP portable view of the chest was obtained. FINDINGS: Image quality is compromised due to the relative inferiority of a portable chest x-ray. Stable appearance of the left chest cardiac pacemaker with 2 leads overlying the heart. The heart and mediastinum exhibit normal size and contour. There is stable mild calcification at the arch of the aorta. The lungs are grossly clear. There is no evidence of a large pleural effusion. Visualized bones are normal for the patient's age. IMPRESSION: No radiographic evidence for acute cardiopulmonary abnormality on this portable chest x-ray.
[2016-10-09 12:38] LABS: TSH (Thyroid Stimulating Horm) 1.46 mcIU/mL (0.34-5.60)
[2016-10-09 12:51] LABS: Magnesium 2.1 mg/dL (1.9-2.7)
[2016-10-09] MEDS ORDERED: Calcium Carbonate CHEW TAB* 500 MG (TUMS) PO PRN (13:28)
[2016-10-09] MEDS ORDERED: Dextrose 50% Syringe 50 ML* 25 GM/50 ML SYRINGE IV PUSH PRN (13:41)
[2016-10-09] MEDS: Clindamycin 600 MG IVPREMIX(* 600 MG/50 ML SDV IV SCH (15:45)
[2016-10-09] MEDS: Heparin VIAL(*) 5000 UNITS/ML VIAL (FIVE THOUSAND) SUBCUT SCH ×2 (15:46→23:01)
--- NOTE | 2016-10-09 15:46 | HP ---
CC: Ann Cartagena NP; Darby Madden MD HISTORY AND PHYSICAL: DATE OF ADMISSION: 10/09/16 PRIMARY CARE PHYSICIAN: Ann Cartagena NP CHIEF COMPLAINT: Difficulty swallowing, chewing, and shortness of breath, as well as worsening lower extremities erythema and edema. HISTORY OF PRESENT ILLNESS: Ms. Oreilly is a 70-year-old female with a past medical history of myasthenia gravis; chronic diastolic CHF; AFib, not on anticoagulation; recurrent lower extremities cellulitis; diabetes; COPD, at home 2 L oxygen; CKD 3; pacemaker placement who presents to the hospital with reports of worsening swallowing, chewing, shortness of breath over the past week , as well as worsening erythema of the lower extremities starting today. The patient states she was diagnosed with the cellulitis here in the emergency department. She came on 09/26/16. She was sent home with oral clindamycin. The patient is seen in the wound clinic. The patient states she took 10 days of clindamycin at home and has not noticed much of a difference in her lower extremities. After finishing the antibiotics yesterday, she felt that the erythema has worsened, migrating upper legs, also complains of increasing warmth and tenderness. She has reported some chills at home. She has not taken a temperature. She also notes that over the past week, she has noticed that she has had more difficulty swallowing, chewing and has been having more shortness of breath. She feels that this is a flare-up of her myasthenia. She talked with Dr. Madden today and as per Dr. Madden, the patient had difficulty counting back 6 without getting significantly short of breath. She recommended that she go to the hospital for further evaluation. The patient reports some sneezing and rhinorrhea that has been going on for weeks. Denies any cough. No chest pain. No nausea and vomiting. She does report she occasionally has some abdominal discomfort when she is eating food. She does take Prilosec at home. She has had diarrhea with antibiotics, but this has resolved since stopping them yesterday. Denies any blood in the stool. No dysuria. No hematuria. No wheezing. PAST MEDICAL HISTORY: Chronic diastolic CHF with EF of 55% to 60%. Afib, not on anticoagulation due to nosebleeds. History of recurrent lower extremities cellulitis with history of MRSA-positive culture in the past, myasthenia gravis , type 2 diabetes. COPD, on 2 L home oxygen. CKD 3. PAST SURGICAL HISTORY: Cholecystectomy, status post pacemaker placement. HOME MEDICATIONS: 1. Spironolactone 25 mg by mouth daily. 2. Prednisone 40 mg by mouth daily. 3. Percocet 5/325 mg one tablet by mouth two times daily as needed for pain. 4. Torsemide 20 mg by mouth daily. 5. Potassium chloride 25 mEq by mouth two times daily. 6. Vitamin D 2000 units by mouth daily. 7. Calcium carbonate 500 mg by mouth four times daily as needed for indigestion. 8. Symbicort 2 puffs inhale two times daily. 9. Pyridostigmine 180 mg by mouth at bedtime. 10. Omeprazole 20 mg by mouth daily. 11. Nystatin suspension 5 mL swish and swallow three times daily. 12. Multaq 400 mg by mouth two times daily. 13. Loperamide 2 mg by mouth four times daily as needed for diarrhea. 14. Lantus 35 units subcutaneous nightly. 15. IVIG 70 g IV every 28 days. 16. Hydrocortisone 0.2% topical two times daily as needed for rash. 17. Atorvastatin 20 mg by mouth daily. 18. Aspirin 81 mg by mouth daily. 19. DuoNebs 1 neb inhale four times daily. ALLERGIES: AZITHROMYCIN, CEFTRIAXONE, CIPROFLOXACIN, IMMUNOGLOBULIN, MYCOPHENOLATE. FAMILY HISTORY: Significant for her mother with breast cancer, father with gastric cancer. SOCIAL HISTORY: Denies any tobacco, alcohol or illicit drug use. Healthcare proxy is the patient's daughter Kimberly, phone number is [phone]. REVIEW OF SYSTEMS: A 12-point review of systems is negative except for that as noted in the HPI. PHYSICAL EXAMINATION GENERAL: The patient is a middle aged female who appears older than stated age, lying in bed, in no apparent distress. VITAL SIGNS: On admission, temperature 99.2, heart rate of 73, respiratory rate of 30, O2 saturation 100% on 4 L, blood pressure 131/72. HEENT: Head normocephalic, atraumatic. Pupils are equal, round and reactive to light and accommodation. Anicteric sclerae. ENT: Moist mucous membranes. No cervical adenopathy. LUNGS: Clear to auscultation bilaterally. No wheezes, rales or rhonchi. CARDIOVASCULAR: Regular rate and rhythm. S1 and S2 present. No murmurs, gallops or rubs. ABDOMEN: Obese, soft, nontender, nondistended. Bowel sounds positive. EXTREMITIES: The patient with bilateral lower extremities edema. NEUROLOGIC: The patient is alert and oriented x3. No focal neurological deficits. Did not assess for fatigability. SKIN: The patient has erythema to below the knees stretching distally to the ankles. A shallow ulceration in the right medial aspect of the tanner with some slight bleeding, erythema and tenderness. On the left lower extremity, she has a similar ulcer in the lateral aspect of the tanner with some purulent malodorous discharge. Erythematous areas are warm to touch bilaterally. DIAGNOSTIC STUDIES/LABORATORY DATA: White blood cell count of 19, hematocrit of 35, platelets of 308,000. Sodium of 130, potassium 4.7, chloride of 102, carbon dioxide 24, BUN of 41, creatinine 1.80, glucose of 202, lactic acid 2.0, magnesium of 2.1, AST of 49, ALT of 57. Troponin 0.05. TSH of 1.46. EKG personally reviewed shows normal sinus rhythm, first degree AV block, no ischemic changes. Chest x-ray personally reviewed shows no acute disease. ASSESSMENT AND PLAN: Possible left lower extremity cellulitis causing some exacerbation in the patient's myasthenia in a 70-year-old female with past medical history of myasthenia gravis, atrial fibrillation, recurrent bilateral lower extremities cellulitis, diabetes, chronic obstructive pulmonary disease, chronic kidney disease 3, chronic diastolic congestive heart failure. 1. Left lower extremity cellulitis. The patient certainly seems to have some purulent discharge, erythema and edema which seems more prominent in the left lower extremity. I find it a little bit odd that she just finished her antibiotics yesterday and had significant worsening today. However, the patient states she did not notice a significant improvement while she was on the oral antibiotics at all and it seems that her myasthenia symptoms have been worsening over the past week or so. For now, we will try the patient on IV clindamycin. If there is not a significant response in the next day or so, could consider broadening to vancomycin or considering an ID consult. Monitor the patient's CBC. She does have a UA pending at this time which is another possible source of infection; however, the patient denies any dysuria making this a bit less likely. 2. Myasthenia gravis. Unclear if this is actual myasthenia exacerbation or if her symptoms are just a bit worse with the possible infection and Dr. Madden is aware. The patient for now will continue her home prednisone and pyridostigmine. She is not due for an IVIG infusion for another few weeks, but will discuss with Dr. Madden whether to dose her early 3. Diabetes. Continue home Lantus and Humalog insulin sliding scale. 4. Chronic diastolic congestive heart failure. The patient certainly has some lower extremity edema. However, her lungs seem clear. Just continue on her home diuretics for now. We will monitor her creatinine. 5. Acute kidney injury on chronic kidney disease. Creatinine is certainly up from her baseline, although it is difficult to tell what her normal creatinine is. She has been anywhere from 0.9 to 1.8 over the past year, so she seems to settle out between 1.3 and 1.5. For now, as noted above, we will continue her on her home diuretics; however, if she has a significant bump in her creatinine , may need to hold those. 6. Chronic obstructive pulmonary disease. I do not think the patient is having any exacerbation. Her shortness of breath may be due to some worsening myasthenia symptoms. I will continue her on her home DuoNebs, as well as Dulera in place of home Symbicort. Wean her oxygen as tolerated at her home, 2 L. 7. Atrial fibrillation. Continue home Multaq. The patient is not on anticoagulation. 8. DVT prophylaxis. Heparin subcu. 9. Code status. The patient is a full code. TIME SPENT: Total time spent on this admission, 50 minutes, with over half the time spent [id number] with the patient in counseling and coordinating care. [id number]/[facility] #: [id number] DAYO
[2016-10-09] MEDS ORDERED: diPHENhydraMINE PO* 25 MG PO PRN (15:57)
[2016-10-09] MEDS: Albuterol/Ipratropium NEB.SOL* Albuterol 2.5 MG/Ipratropium 0.5 MG 3 ML INH SCH ×2 (16:57→19:49)
[2016-10-09 17:15] LABS: Urine Bacteria 1+ (Absent); Urine Bilirubin Negative (Negative); Urine Glucose Negative (Negative); Urine Nitrite Positive (Negative)
[2016-10-09] MEDS: Nystatin SUSPENSION* 100000 UNITS/ML 5 ML UDC SWISH SWAL SCH (17:30)
[2016-10-09] MEDS: Acetaminophen TAB* 325 MG PO PRN (17:31)
[2016-10-09] MEDS: Pyridostigmine TAB* 60 MG PO SCH ×2 (17:32→20:05)
[2016-10-09] MEDS: Insulin GLARGINE(*) 1 UNITS UNIT SUBCUT SCH (17:33)
[2016-10-09] MEDS: Insulin LISPRO* 1 UNITS UNIT SUBCUT SCH (17:33)
--- NOTE | 2016-10-09 17:53 | CONS ---
CC: Ann Cartagena NP; Darby Madden MD; Grzegorz Mustafa MD * CONSULTATION NOTE: DATE OF CONSULT: 10/09/16 HISTORY OF PRESENT ILLNESS: Sue Oreilly is a 70-year-old woman with a history of fragile myasthenia gravis who has had a course complicated by recurrent leg cellulitis, history of UTIs, congestive heart failure, COPD, recent pacemaker placement, now admitted to hospital with decline over the last 2 weeks in overall strength, chewing, speaking, breathing. She has been following regularly with wound clinic and despite care for her legs, has had worsening in redness, discharge, and bleeding. She was in the emergency room on the for worsening of her legs. She had called me over the phone today with the worsening symptoms and was only able to count to 6 to 7 on one breath. Accordingly, she was referred immediately to the emergency room. PAST MEDICAL HISTORY: Sue Oreilly's past medical history includes: 1. Myasthenia gravis. 2. Chronic diastolic congestive heart failure with an ejection fraction of 55% to 60%. 3. Atrial fibrillation which has not been anticoagulated per notes secondary to bleed. 4. Diabetes type 2. 5. COPD. 6. Chronic kidney disease type 3. 7. Chronic recurrent lower extremity cellulitis with MRSA. Positive cultures in the past. 8. Cholecystectomy. 9. Pacemaker placement. CURRENT MEDICATIONS: Include: 1. Pyridostigmine which is dosed at 90 mg p.o. 4 times a day. 2. Omeprazole 20 mg p.o. daily. 3. Nystatin swish and swallow 5 mL p.o. t.i.d. 4. Multaq 400 mg p.o. b.i.d. 5. Loperamide 2 mg by mouth 4 times a day as needed for diarrhea. 6. Lantus 35 units subcutaneous daily. 7. IVIG 70 g for 2 days every 28 days. 8. Hydrocortisone 0.2% topical 2 times a day as needed for rash. 9. Atorvastatin 20 mg p.o. daily. 10. Aspirin 81 mg daily. 11. DuoNeb 1 neb inhaled 4 times a day. 12. Tums 500 mg p.o. 4 times a day. 13. Vitamin D 2000 IU p.o. daily. 14. Clindamycin 600 mg IV q.8 hours. 15. Heparin 5000 units subcu q.8 hours. 16. Humulin lispro dosed subcutaneous a.c. 17. Percocet 5/325 one tablet p.o. b.i.d. p.r.n. pain. 18. Klor-Con 20 mEq p.o. daily. 19. Torsemide 20 mg p.o. daily. 20. Spironolactone 25 mg p.o. daily. ALLERGIES: Include CELLCEPT, AZITHROMYCIN, CEFTRIAXONE, CIPROFLOXACIN. FAMILY HISTORY: Includes mother with a history of breast cancer. Father with a gastric cancer. SOCIAL HISTORY: Sue Oreilly lives by herself. She does not smoke or drink alcohol. REVIEW OF SYSTEMS: There has been no change in vision. She has had change in speech and swallow as noted above. There has been more difficulty with breathing, but no cough or cold. No fever. She has had discharge from her legs and redness on her legs. There has been no change in bowel or bladder habits, increased frequency of urination or burning with urination. PHYSICAL EXAM: On examination, Sue was lying in bed showing appropriate concern. She had her oxygen on. Her most recent vitals include temperature of 99.2 degrees Fahrenheit temporally, blood pressure 131/72, pulse 73, respiratory rate 30, saturation 100%. She had a regular cardiac rhythm. Her lungs were clear to auscultation. There was no carotid bruit. Her legs were swollen, red with bleeding, discharge, and pungent smell. She had facial expression which was symmetric and she was able to smile. She was able to close her eyes. She had full extraocular movements with some saccadic intrusions. No evidence of ptosis. There was slight dysarthria. She had full herring to confrontation. Her facial expression, sensation, and hearing were equal. Palate was upgoing. Tongue was midline. Sternocleidomastoid and trapezius were 5/5 in strength. There was normal bulk and tone. No pronator drift. She gave good strength in her upper and lower extremities with normal [id number]-tace and ddhi-av-[id number] movements. Her reflexes were 2+ in the upper extremities and absent in the lower extremities. Toes were equivocal. Gait was not tested given clinical status. DIAGNOSTIC STUDIES/LAB DATA: Data includes white count of 19.3, hemoglobin 10.5 , hematocrit 35, and platelets 308,000. Her sodium was 130, BUN was 41, creatinine was 1.8, glucose was 202. Hemoglobin A1c was 10.8. Lactate dehydrogenase was 186. Her AST and ALT were both elevated at 49 and 57 respectively and CK-MB was 14.3. Troponin was also elevated at 0.05. IMPRESSION: Sue Oreilly is a 70-year-old woman with a history of myasthenia gravis complicated by recurrent cellulitis, history of urinary tract infections , congestive heart failure, chronic obstructive pulmonary disease, now admitted with decline over the last 2 weeks of overall strength, chewing, speaking, breathing, suggesting superimposed infection. Certainly, the source may be her legs. Her white count is elevated. Her urinalysis is pending. Dr. Craft's care is very much appreciated as well as Dr. Mustafa's input as needed. In regards to her myasthenia gravis, we will check her vital capacity each shift for 24 hours and then each day if stabilized. I would continue her on her Mestinon as dosed as an outpatient at 90 mg p.o. 4 times a day. She remains on prednisone 40 mg p.o. daily and I would continue this dose as an outpatient. We will continue our efforts on trying to reduce her prednisone with reductions on every other day dosing as long as her clinical status remains stable. On today's visit, we talked about treatment with IVIG given her decline. At this point, we will proceed with 70 g a day over 2 days to decrease risk of congestive heart failure with premedication with Benadryl and Tylenol. Case was discussed with Dr. Craft and education was given to the patient. All questions were answered. [id number]/[facility] #: [id number] [facility]
[2016-10-09] MEDS: IMMUNE GLOBULN IV SCH (18:18)
[2016-10-09] MEDS: oxyCODONE/Acetamin 5/325 MG* TAB PO PRN (18:34)
[2016-10-09] MEDS: Mometasone/Formoter 200/5 MDI INH SCH (19:49)
[2016-10-09] MEDS ORDERED: Pyridostigmine TAB* 60 MG PO SCH (21:00)
[2016-10-09] MEDS: Potassium Chlor TAB* 20 MEQ TAB.ER PO SCH (23:01)
[2016-10-09] MEDS: Dronedarone TAB* 400 MG PO SCH (23:01)
[2016-10-10] MEDS: Clindamycin 600 MG IVPREMIX(* 600 MG/50 ML SDV IV SCH ×4 (01:24→21:45)
[2016-10-10] MEDS: oxyCODONE/Acetamin 5/325 MG* TAB PO PRN ×2 (02:26→14:46)
[2016-10-10] MEDS: Heparin VIAL(*) 5000 UNITS/ML VIAL (FIVE THOUSAND) SUBCUT SCH ×3 (06:12→21:42)
[2016-10-10 07:44] LABS: Hematocrit 27 % (35-47); Hemoglobin 8.4 g/dl (12.0-16.0); Mean Corpuscular HGB Conc 31 g/dl (31-36); Mean Corpuscular Hemoglobin 24 pg (27-31); Mean Corpuscular Volume 76 fL (80-97); Mean Platelet Volume 8 um3 (7.4-10.4); Red Blood Count 3.59 10^6/ul (4.0-5.4); Red Cell Distribution Width 19 % (10.5-15); White Blood Count 12.9 10^3/ul (3.5-10.8)
[2016-10-10 07:55] LABS: ALT 43 U/L (7-52); AST 36 U/L (13-39); Albumin 2.5 g/dL (3.2-5.2); Alkaline Phosphatase 72 U/L (34-104); BUN/Creatinine Ratio 21.4 (8-20); Blood Urea Nitrogen 33 mg/dL (6-24); CO2 Carbon Dioxide 24 mmol/L (22-32); Calcium 8.1 mg/dL (8.6-10.3); Chloride 101 mmol/L (101-111); EGFR African American 43.1 (>60); EGFR Non-African American 33.5 (>60); Globulin 4.9 g/dL (2-4); Glucose 136 mg/dL (70-100); Potassium 4.3 mmol/L (3.5-5.0); Sodium 125 mmol/L (133-145); Total Protein 7.4 g/dL (6.4-8.9)
[2016-10-10] MEDS: Nystatin SUSPENSION* 100000 UNITS/ML 5 ML UDC SWISH SWAL SCH ×3 (08:26→17:20)
[2016-10-10] MEDS: Insulin LISPRO* 1 UNITS UNIT SUBCUT SCH ×3 (08:26→18:10)
[2016-10-10] MEDS: Aspirin Low Dose CHEW TAB* 81 MG PO SCH (08:27)
[2016-10-10] MEDS: Dronedarone TAB* 400 MG PO SCH ×2 (08:27→20:51)
[2016-10-10] MEDS: Atorvastatin* 20 MG TAB PO SCH (08:27)
[2016-10-10] MEDS: Pyridostigmine TAB* 60 MG PO SCH ×4 (08:27→20:40)
[2016-10-10] MEDS: predniSONE TAB* 20 MG PO SCH (08:27)
[2016-10-10] MEDS: Torsemide TAB* 20 MG PO SCH (08:27)
[2016-10-10] MEDS: Potassium Chlor TAB* 20 MEQ TAB.ER PO SCH ×2 (08:27→20:40)
[2016-10-10] MEDS: Omeprazole CAP* 20 MG PO SCH (08:27)
[2016-10-10] MEDS: Spironolactone TAB* 25 MG PO SCH (08:27)
[2016-10-10] MEDS: Cholecalciferol TAB* 1000 UNITS PO SCH (08:27)
[2016-10-10] MEDS: Albuterol/Ipratropium NEB.SOL* Albuterol 2.5 MG/Ipratropium 0.5 MG 3 ML INH SCH ×4 (10:31→21:36)
[2016-10-10] MEDS: Mometasone/Formoter 200/5 MDI INH SCH ×2 (10:32→21:20)
[2016-10-10 14:41] LABS: Hematocrit 27 % (35-47); Hemoglobin 8.4 g/dl (12.0-16.0)
[2016-10-10] MEDS: Loperamide CAP* 2 MG PO PRN (16:13)
--- NOTE | 2016-10-10 16:31 | PN ---
Subjective Date of Service: 10/10/16 Interval History: Seen and examined Feels breathing is improved. Able to count to 14 in single breath pain in b/l LE unchanged No difficulty to talking or swallowing Objective Active Medications: Acetaminophen (Tylenol Tab*) 650 mg PO DAILY PRN PRN Reason: Prior to IVIG Last Admin: 10/09/16 17:31 Dose: 650 mg Albuterol/Ipratropium (Duoneb (Albuterol 2.5 Mg/Ipratropium 0.5 Mg)) 1 neb INH QID [facility] Last Admin: 10/10/16 13:07 Dose: 1 neb Aspirin (Aspirin Low Dose Tab*) 81 mg PO DAILY [facility] Last Admin: 10/10/16 08:27 Dose: 81 mg Atorvastatin Calcium (Lipitor*) 20 mg PO DAILY [facility] Last Admin: 10/10/16 08:27 Dose: 20 mg Calcium Carbonate (Tums*) 500 mg PO QID PRN PRN Reason: INDIGESTION Cholecalciferol (Vitamin D Tab*) 2,000 units PO DAILY [facility] Last Admin: 10/10/16 08:27 Dose: 2,000 units Dextrose (D50w Syringe 50 Ml*) 12.5 gm IV PUSH .FOR FS < 60 - SS PRN PRN Reason: FS < 60 Diphenhydramine HCl (Benadryl Po*) 25 mg PO DAILY PRN PRN Reason: Prior to IVIG Last Admin: 10/09/16 17:31 Dose: 25 mg Dronedarone (Multaq Tab*) 400 mg PO BID [facility] Last Admin: 10/10/16 08:27 Dose: 400 mg Heparin Sodium (Porcine) (Heparin Vial(*)) 5,000 units SUBCUT Q8HR [facility] Last Admin: 10/10/16 14:37 Dose: 5,000 units Clindamycin HCl/Dextrose (Cleocin 600 Mg Ivpremix(*) Sdv) 600 mg in 50 mls @ 100 mls/hr IV Q8HR [facility] Last Admin: 10/10/16 14:36 Dose: 100 mls/hr Immune Globulin 70 gm/ IV (Solution) 1,400 mls @ 0 mls/hr IV Q48H [facility]; Per Protocol PRN Reason: Protocol Stop: 10/11/16 16:02 Last Admin: 10/09/16 18:18 Dose: 47 mls/hr Insulin Glargine (Lantus(*)) 35 units SUBCUT QPM [facility] Last Admin: 10/09/16 17:33 Dose: 35 units Insulin Human Lispro (Humalog*) 0 - 15 units SUBCUT AC [facility] PRN Reason: Protocol Last Admin: 10/10/16 12:22 Dose: 6 units Loperamide HCl (Imodium Cap*) 2 mg PO QID PRN PRN Reason: DIARRHEA Last Admin: 10/10/16 16:13 Dose: 2 mg Mometasone Furoate/Formoterol Fumar (Dulera 200/5 Mdi*) 2 puff INH BID [facility] PRN Reason: Protocol Last Admin: 10/10/16 10:32 Dose: 2 puff Nystatin (Nystatin Suspension*) 500,000 units SWISH SWAL TID PC [facility] Last Admin: 10/10/16 12:23 Dose: 500,000 units Omeprazole (Prilosec Cap*) 20 mg PO DAILY [facility] Last Admin: 10/10/16 08:27 Dose: 20 mg Oxycodone/Acetaminophen (Percocet 5/325 Tab*) 1 tab PO BID PRN PRN Reason: PAIN Last Admin: 10/10/16 14:46 Dose: 1 tab Potassium Chloride (Klor Con Er Tab*) 20 meq PO BID [facility] Last Admin: 10/10/16 08:27 Dose: 20 meq Prednisone (Deltasone Tab*) 40 mg PO DAILY [facility] Last Admin: 10/10/16 08:27 Dose: 40 mg Pyridostigmine Duncan (Mestinon Tab*) 90 mg PO 0800,1200,1600,2000 [facility] Last Admin: 10/10/16 12:23 Dose: 90 mg Spironolactone (Aldactone Tab*) 25 mg PO DAILY [facility] Last Admin: 10/10/16 08:27 Dose: 25 mg Torsemide (Demadex*) 20 mg PO DAILY [facility] Last Admin: 10/10/16 08:27 Dose: 20 mg Vital Signs 10/09/16 10/09/16 10/09/16 17:05 17:31 18:19 Temperature 98.0 F Pulse Rate 84 75 Respiratory 18 18 20 Rate Blood Pressure 138/57 (mmHg) O2 Sat by Pulse 99 99 Oximetry 10/09/16 10/09/16 10/09/16 18:34 19:09 19:31 Temperature 98.3 F Pulse Rate 76 Respiratory 18 18 19 Rate Blood Pressure 134/52 (mmHg) O2 Sat by Pulse 100 Oximetry 10/09/16 10/09/16 10/09/16 19:49 20:00 20:11 Temperature 98.3 F Pulse Rate 68 67 Respiratory 16 19 19 Rate Blood Pressure 119/46 (mmHg) O2 Sat by Pulse 99 99 Oximetry 10/09/16 10/09/16 10/10/16 20:34 23:31 01:34 Temperature 98.1 F 98.1 F Pulse Rate 67 73 Respiratory 20 20 19 Rate Blood Pressure 128/49 129/49 (mmHg) O2 Sat by Pulse 100 99 Oximetry 10/10/16 10/10/16 10/10/16 02:26 07:24 08:00 Temperature 98.5 F Pulse Rate 120 Respiratory 20 16 18 Rate Blood Pressure 111/50 (mmHg) O2 Sat by Pulse 100 Oximetry 10/10/16 10/10/16 10/10/16 10:38 13:23 14:30 Temperature 98.5 F Pulse Rate 103 62 59 Respiratory 18 16 Rate Blood Pressure 129/37 (mmHg) O2 Sat by Pulse 98 94 100 Oximetry 10/10/16 10/10/16 14:46 16:13 Temperature Pulse Rate Respiratory 18 20 Rate Blood Pressure (mmHg) O2 Sat by Pulse Oximetry Oxygen Devices in Use Now: Nasal Cannula Appearance: sitting up in bed, interactive, talks in full sentences, NAD Eyes: No Scleral Icterus, PERRLA Ears/Nose/Mouth/Throat: NL Teeth, Lips, Gums, Clear Oropharnyx, Mucous Membranes Moist Neck: NL Appearance and Movements; NL JVP, Trachea Midline Respiratory: Symmetrical Chest Expansion and Respiratory Effort, Clear to Auscultation Cardiovascular: RRR Abdominal: NL Sounds; No Tenderness; No Distention, No Hepatosplenomegaly Lymphatic: No Cervical Adenopathy Extremities: - - 1-2+ LE edema Skin: - - b/l LE weeping edema with medial open wounds with surrounding dried blood Neurological: Alert and Oriented x 3 Result Diagrams: 10/10/16 14:30 10/10/16 06:55 Microbiology and Other Data: Microbiology 10/09/16 16:52 Urine Culture - Preliminary Urine Klebsiella Pneumoniae Assess/Plan/Problems-Billing Assessment: 70 yo F h/o MS, recurrent LE cellulitis and LE wounds followed at wound care, chronic dCHF, afib, COPD, CKD, DM2 p/w worsening MS exacerbation in setting of LE cellulitis and klebsiella UTI - Patient Problems (1) Myasthenia gravis Code(s): G70.00 - MYASTHENIA GRAVIS WITHOUT (ACUTE) EXACERBATION Comment: follow vital capacity Continue prednisone and pyridostigmine. 10/10 is day 2 of 2 IVIG (2) CKD (chronic kidney disease) Comment: improved at baseline (3) Atrial fibrillation Comment: - Continue Multaq. - Not on AC due to epistaxis. (4) Cellulitis Comment: c/w clinda IV wbc improving (5) COPD (chronic obstructive pulmonary disease) Comment: - Stable. c/w home meds (6) Type 2 diabetes mellitus Comment: basal bolus insulin (7) DVT prophylaxis Comment: hsq
[2016-10-10] MEDS: Insulin GLARGINE(*) 1 UNITS UNIT SUBCUT SCH (17:20)
[2016-10-10] MEDS: Cefepime(*) 1 GM in NS 0.9% 50 ML* 50 ML IVPB SCH (17:27)
--- NOTE | 2016-10-10 20:19 | ED ---
Kymberly Almaraz Thomas, scribed for Kulwant Pulido MD on 10/09/16 at 1123 . Shortness of Breath - HPI Summary HPI Summary: Pt is a 70 y/o female BIBA referred from [facility] with SOB onset two weeks ago. Pt last came to the ED 12 days ago (09/26/2016) c/o bilateral leg edema with erythema and discharged w/ QID abx. This ED visit was precipitated by her complex PMHx and current chief complaint. Currently, pt also has bilateral swollen erythematous legs with a weeping wound that was last was changed dressing four days ago at the wound clinic. Associated Sx: diarrhea each daily. Pert negs: no cough, eating complaints, or GI complaints. PMHx includes myasthenia gravis. Pt was on daily abx since her visit. Pt describes that she had a previous breathing treatment that relieved SOB. PHMx includes COPD, CHF, DM, HTN. Pt is a smoker. - History of Current Complaint Time Seen by Provider: 10/09/16 11:05 Hx Obtained From: Patient Onset/Duration: Lasting Days, Still Present Timing: Constant Current Severity: Mild - Risk Factors Pulmonary Embolism: Smoking Cardiac: Smoking, Diabetes, Hypertension, CHF, Family History - POS: cardiac pacemaker Pseudomonas: Chronic Lung Disease - POS: COPD Tuberculosis: Diabetes, Smoking - Allergy/Home Medications Allergies/Adverse Reactions: Allergies Allergy/AdvReac Type Severity Reaction Status Date / Time Mycophenolate Allergy Unknown Verified 09/25/16 21:48 [From CellCept Intravenous] Reaction Details Azithromycin AdvReac Severe myasthenia Verified 09/25/16 21:48 gravis exacerbation Ceftriaxone AdvReac Severe myasthenia Verified 09/25/16 21:48 gravis exacerbation Ciprofloxacin AdvReac GI Upset Verified 09/25/16 21:48 Immune Globulin AdvReac Swelling Verified 09/25/16 21:48 [From Octagam] Home Medications: Home Medications Atorvastatin* [Lipitor 20 MG*] 20 mg PO DAILY 10/09/16 [History Confirmed ] Torsemide TAB* [Demadex 20 MG*] 20 mg PO DAILY 10/09/16 [History Confirmed 10/09] PMH/Surg Hx/FS Hx/Imm Hx Previously Healthy: No Endocrine/Hematology History: Reports: Hx Anticoagulant Therapy - BABY ASA, Hx Diabetes, Hx Anemia, Other Endocrine/Hematological Disorders - MYASTHEIA GRAVIS Denies: Hx Blood Disorders, Hx Blood Transfusions, Hx Bone Marrow Disease, Hx Systemic Lupus Erythematosus, Hx Sickle Cell Disease, Hx Thyroid Disease, Hx Unexplained Bleeding Cardiovascular History: Reports: Hx Congenital Heart Disease, Hx Congestive Heart Failure - very swollen legs, Hx Hypertension, Hx Pacemaker/ICD - 04/03/16 , 06/16 ??, Other Cardiovascular Problems/Disorders - LE EDEMA, ON LASIX Denies: Hx Peripheral Vascular Disease Respiratory History: Reports: Hx Asthma, Hx Chronic Obstructive Pulmonary Disease (COPD) - on 2L home O2 at all times per pt, Hx Pneumonia, Other Respiratory Problems/Disorders - EMPHYSEMA Denies: Hx Chronic Bronchitis, Hx Cystic Fibrosis, Hx Lung Cancer, Hx Pleural Effusion, Hx Pulmonary Edema, Hx Pulmonary Embolism, Hx Seasonal Allergies, Hx Sleep Apnea GI History: Reports: Hx Gall Bladder Disease - GB out, Hx Gastroesophageal Reflux Disease, Other GI Disorders History: Reports: Other Problems/Disorders - FREQUENT UTI'S Denies: Hx Renal Disease Musculoskeletal History: Reports: Hx Back Problems - low back pain, Other Musculoskeletal History - myasthenia gravis Denies: Hx Arthritis, Hx Osteoporosis Sensory History: Reports: Hx Cataracts, Hx Contacts or Glasses Denies: Hx Eye Injury, Hx Eye Prosthesis, Hx Glaucoma, Hx Macular Degeneration, Hx Vision Problem, Hx Deafness, Hx Hearing Aid, Other Sensory Impairments Opthamlomology History: Reports: Hx Cataracts, Hx Contacts or Glasses Denies: Hx Eye Injury, Hx Eye Prosthesis, Hx Glaucoma, Hx Macular Degeneration, Hx Vision Problem, Other Sensory Impairments Neurological History: Reports: Other Neuro Impairments/Disorders - myasthenia gravis Denies: Hx Developmental Delay, Hx Headaches, Hx Migraine, Hx Seizures, Hx Spinal Cord Injury, Hx Transient Ischemic Attacks (TIA) Psychiatric History: Denies: Hx Anxiety, Hx Depression, Other Psychiatric Issues/Disorders - Surgical History Surgery Procedure, Year, and Place: CHOLECYSECTOMY 1979 Hx Anesthesia Reactions: No - Immunization History Date of Tetanus Vaccine: 2011 Date of Influenza Vaccine: 2012 Infectious Disease History: Reports: Hx of Known/Suspected MRSA - leg wound , Traveled Outside the [place] in Last 30 Days Denies: Hx Tuberculosis - Family History Known Family History: Negative: Cardiac Disease, Hypertension, Diabetes - Social History Occupation: Retired Lives: [facility] Hx Substance Use: No Substance Use Type: Reports: None Hx Tobacco Use: Yes Smoking Status (MU): Former Smoker Type: Cigarettes Amount Used/How Often: 2 pk/day Length of Time of Smoking/Using Tobacco: 45 years Have You Smoked in the Last Year: No Review of Systems Positive: Shortness Of Breath. Negative: Cough Positive: Diarrhea - daily. Negative: Abdominal Pain Skin: Other - POS: bilar LE wounds that are bandaged All Other Systems Reviewed And Are Negative: Yes Physical Exam Triage Information Reviewed: Yes Vital Signs On Initial Exam: Initial Vitals Temp Pulse Resp BP Pulse Ox 99.2 F 73 30 131/72 100 10/09/16 11:13 10/09/16 11:13 10/09/16 11:13 10/09/16 11:13 10/09/16 11:13 Vital Signs Reviewed: Yes Appearance: Positive: Well-Appearing, No Pain Distress Skin: Positive: Warm, Erythema @ - bilateral leg, Other - POS: weeping wound Head/Face: Positive: Normal Head/Face Inspection Eyes: Positive: Normal, EOMI ENT: Positive: Normal ENT inspection Neck: Positive: Supple, Nontender Respiratory/Lung Sounds: Positive: Breath Sounds Present, Other - POS: ACCESSORY MUSCLE USE, POS: TACHYPNEA Cardiovascular: Positive: RRR Abdomen Description: Positive: Nontender Bowel Sounds: Positive: Present Musculoskeletal: Positive: Normal Neurological: Positive: Normal Psychiatric: Positive: Normal, Affect/Mood Appropriate Diagnostics - Vital Signs Vital Signs Temp Pulse Resp BP Pulse Ox 10/09/16 11:13 99.2 F 73 30 131/72 100 - Laboratory Lab Results: Lab Results 10/09/16 10/09/16 10/09/16 Range/Units 11:20 11:20 11:20 WBC 19.3 H (3.5-10.8) 10^3/ul RBC 4.51 (4.0-5.4) 10^6/ul Hgb 10.5 L (12.0-16.0) g/dl Hct 35 (35-47) % MCV 77 L (80-97) fL MCH 23 L (27-31) pg MCHC 31 (31-36) g/dl RDW 19 H (10.5-15) % Plt Count 308 (150-450) 10^3/ul MPV 8 (7.4-10.4) um3 Neut % (Auto) 73.3 (38-83) % Lymph % (Auto) 20.9 L (25-47) % [place] % (Auto) 4.7 (1-9) % Eos % (Auto) 0.3 (0-6) % Baso % (Auto) 0.8 (0-2) % Absolute Neuts (auto) 14.1 H (1.5-7.7) 10^3/ul Absolute Lymphs (auto) 4.0 (1.0-4.8) 10^3/ul Absolute Monos (auto) 0.9 H (0-0.8) 10^3/ul Absolute Eos (auto) 0.1 (0-0.6) 10^3/ul Absolute Basos (auto) 0.1 (0-0.2) 10^3/ul Absolute Nucleated RBC 0.03 10^3/ul Nucleated RBC % 0.1 Sodium 130 L (133-145) mmol/L Potassium TNP Chloride 102 (101-111) mmol/L Carbon Dioxide 24 (22-32) mmol/L Anion Gap TNP BUN 41 H (6-24) mg/dL Creatinine 1.80 H (0.51-0.95) mg/dL Est GFR ( Amer) 36.0 (>60) Est GFR (Non-Af Amer) 28.0 (>60) BUN/Creatinine Ratio 22.8 H (8-20) Glucose 202 H (70-100) mg/dL Lactic Acid 2.0 (0.5-2.0) mmol/L Calcium 9.0 (8.6-10.3) mg/dL Magnesium TNP Total Bilirubin 0.50 (0.2-1.0) mg/dL AST TNP ALT 57 H (7-52) U/L Alkaline Phosphatase 91 (34-104) U/L Troponin I 0.05 H* (<0.04) ng/mL C-Reactive Protein 2.53 (< 5.00) mg/L Total Protein 7.7 (6.4-8.9) g/dL Albumin 3.5 (3.2-5.2) g/dL Globulin 4.2 H (2-4) g/dL Albumin/Globulin Ratio 0.8 L (1-3) TSH 1.46 (0.34-5.60) mcIU/mL 10/09/16 Range/Units 11:55 WBC (3.5-10.8) 10^3/ul RBC (4.0-5.4) 10^6/ul Hgb (12.0-16.0) g/dl Hct (35-47) % MCV (80-97) fL MCH (27-31) pg MCHC (31-36) g/dl RDW (10.5-15) % Plt Count (150-450) 10^3/ul MPV (7.4-10.4) um3 Neut % (Auto) (38-83) % Lymph % (Auto) (25-47) % [place] % (Auto) (1-9) % Eos % (Auto) (0-6) % Baso % (Auto) (0-2) % Absolute Neuts (auto) (1.5-7.7) 10^3/ul Absolute Lymphs (auto) (1.0-4.8) 10^3/ul Absolute Monos (auto) (0-0.8) 10^3/ul Absolute Eos (auto) (0-0.6) 10^3/ul Absolute Basos (auto) (0-0.2) 10^3/ul Absolute Nucleated RBC 10^3/ul Nucleated RBC % Sodium (133-145) mmol/L Potassium 4.7 Chloride (101-111) mmol/L Carbon Dioxide (22-32) mmol/L Anion Gap BUN (6-24) mg/dL Creatinine (0.51-0.95) mg/dL Est GFR ( Amer) (>60) Est GFR (Non-Af Amer) (>60) BUN/Creatinine Ratio (8-20) Glucose (70-100) mg/dL Lactic Acid (0.5-2.0) mmol/L Calcium (8.6-10.3) mg/dL Magnesium 2.1 Total Bilirubin (0.2-1.0) mg/dL AST 49 H ALT (7-52) U/L Alkaline Phosphatase (34-104) U/L Troponin I (<0.04) ng/mL C-Reactive Protein (< 5.00) mg/L Total Protein (6.4-8.9) g/dL Albumin (3.2-5.2) g/dL Globulin (2-4) g/dL Albumin/Globulin Ratio (1-3) TSH (0.34-5.60) mcIU/mL Result Diagrams: 10/10/16 14:30 10/10/16 06:55 Lab Statement: Any lab studies that have been ordered have been reviewed, and results considered in the medical decision making process. - Radiology CXR Xray Interpretation: No Acute Changes - No radiographic evidence for acute cardiopulmonary abnormality on this portable CXR Radiology Interpretation Completed By: Radiologist - EKG 1 EKG Rhythm: Sinus Rhythm EKG Comparison: No Significant Change - from 07/21/16. Course/Dx - Course Course Of Treatment: Ms. Oreilly presented SOB with either a pseudo exacerbation or an exacerbation of her MG. She is stable, being W/U and awaiting labs and MRI. - Diagnoses Provider Diagnoses: Myasthenia gravis in crisis - Physician Notifications Discussed Care of Patient With: Dr. Craft, hospitalist, at 1244. Discussed and will admit. - Critical Care Time Critical Care Time: 30-74 min Discharge - Discharge Plan Condition: Stable Disposition: OTHER Discharge Disposition Comment: at change of shift The documentation as recorded by the Kymberly dang Thomas accurately reflects the service I personally performed and the decisions made by me, Kulwant Pulido MD.
[2016-10-11] MEDS: oxyCODONE/Acetamin 5/325 MG* TAB PO PRN ×3 (02:21→23:54)
[2016-10-11] MEDS: Heparin VIAL(*) 5000 UNITS/ML VIAL (FIVE THOUSAND) SUBCUT SCH ×3 (05:53→23:51)
[2016-10-11] MEDS: Clindamycin 600 MG IVPREMIX(* 600 MG/50 ML SDV IV SCH ×3 (05:53→23:11)
[2016-10-11] MEDS: Albuterol/Ipratropium NEB.SOL* Albuterol 2.5 MG/Ipratropium 0.5 MG 3 ML INH SCH ×4 (07:31→19:12)
[2016-10-11] MEDS: Mometasone/Formoter 200/5 MDI INH SCH ×2 (07:32→19:13)
[2016-10-11] MEDS: Insulin LISPRO* 1 UNITS UNIT SUBCUT SCH ×4 (07:56→22:18)
[2016-10-11] MEDS: predniSONE TAB* 20 MG PO SCH (08:24)
[2016-10-11] MEDS: Nystatin SUSPENSION* 100000 UNITS/ML 5 ML UDC SWISH SWAL SCH ×3 (08:24→17:38)
[2016-10-11] MEDS: Cholecalciferol TAB* 1000 UNITS PO SCH (08:24)
[2016-10-11] MEDS: Aspirin Low Dose CHEW TAB* 81 MG PO SCH (08:24)
[2016-10-11] MEDS: Atorvastatin* 20 MG TAB PO SCH (08:25)
[2016-10-11] MEDS: Pyridostigmine TAB* 60 MG PO SCH ×4 (08:25→20:46)
[2016-10-11] MEDS: Torsemide TAB* 20 MG PO SCH (08:25)
[2016-10-11] MEDS: Potassium Chlor TAB* 20 MEQ TAB.ER PO SCH ×2 (08:25→20:47)
[2016-10-11] MEDS: Dronedarone TAB* 400 MG PO SCH ×2 (08:25→20:47)
[2016-10-11] MEDS: Omeprazole CAP* 20 MG PO SCH (08:25)
[2016-10-11] MEDS: Spironolactone TAB* 25 MG PO SCH (08:25)
[2016-10-11] MEDS: Loperamide CAP* 2 MG PO PRN (12:43)
[2016-10-11] MEDS: IMMUNE GLOBULN IV SCH (16:44)
--- NOTE | 2016-10-11 17:15 | PN ---
Subjective Date of Service: 10/11/16 Interval History: SOB improved but still present No difficulty with chewing or swallowing pain in legs improving notes 3 episodes of diarrhea Objective Active Medications: Acetaminophen (Tylenol Tab*) 650 mg PO DAILY PRN PRN Reason: Prior to IVIG Last Admin: 10/09/16 17:31 Dose: 650 mg Albuterol/Ipratropium (Duoneb (Albuterol 2.5 Mg/Ipratropium 0.5 Mg)) 1 neb INH QID [facility] Last Admin: 10/11/16 17:06 Dose: Not Given Aspirin (Aspirin Low Dose Tab*) 81 mg PO DAILY [facility] Last Admin: 10/11/16 08:24 Dose: 81 mg Atorvastatin Calcium (Lipitor*) 20 mg PO DAILY [facility] Last Admin: 10/11/16 08:25 Dose: 20 mg Calcium Carbonate (Tums*) 500 mg PO QID PRN PRN Reason: INDIGESTION Cholecalciferol (Vitamin D Tab*) 2,000 units PO DAILY [facility] Last Admin: 10/11/16 08:24 Dose: 2,000 units Dextrose (D50w Syringe 50 Ml*) 12.5 gm IV PUSH .FOR FS < 60 - SS PRN PRN Reason: FS < 60 Diphenhydramine HCl (Benadryl Po*) 25 mg PO DAILY PRN PRN Reason: Prior to IVIG Last Admin: 10/09/16 17:31 Dose: 25 mg Dronedarone (Multaq Tab*) 400 mg PO BID [facility] Last Admin: 10/11/16 08:25 Dose: 400 mg Heparin Sodium (Porcine) (Heparin Vial(*)) 5,000 units SUBCUT Q8HR [facility] Last Admin: 10/11/16 14:29 Dose: 5,000 units Clindamycin HCl/Dextrose (Cleocin 600 Mg Ivpremix(*) Sdv) 600 mg in 50 mls @ 100 mls/hr IV Q8HR [facility] Last Admin: 10/11/16 14:28 Dose: 100 mls/hr Cefepime HCl 1 gm/ Sodium (Chloride) 50 mls @ 100 mls/hr IVPB Q24H [facility] Last Admin: 10/10/16 17:27 Dose: 100 mls/hr Insulin Glargine (Lantus(*)) 35 units SUBCUT QPM [facility] Last Admin: 10/10/16 17:20 Dose: 35 units Insulin Human Lispro (Humalog*) 0 - 15 units SUBCUT AC THUY PRN Reason: Protocol Last Admin: 10/11/16 12:42 Dose: 9 units Loperamide HCl (Imodium Cap*) 2 mg PO QID PRN PRN Reason: DIARRHEA Last Admin: 10/11/16 12:43 Dose: 2 mg Mometasone Furoate/Formoterol Fumar (Dulera 200/5 Mdi*) 2 puff INH BID THUY PRN Reason: Protocol Last Admin: 10/11/16 07:32 Dose: 2 puff Nystatin (Nystatin Suspension*) 500,000 units SWISH SWAL TID PC [facility] Last Admin: 10/11/16 12:42 Dose: 500,000 units Omeprazole (Prilosec Cap*) 20 mg PO DAILY [facility] Last Admin: 10/11/16 08:25 Dose: 20 mg Oxycodone/Acetaminophen (Percocet 5/325 Tab*) 1 tab PO BID PRN PRN Reason: PAIN Last Admin: 10/11/16 12:43 Dose: 1 tab Potassium Chloride (Klor Con Er Tab*) 20 meq PO BID [facility] Last Admin: 10/11/16 08:25 Dose: 20 meq Prednisone (Deltasone Tab*) 40 mg PO DAILY [facility] Last Admin: 10/11/16 08:24 Dose: 40 mg Pyridostigmine [place] (Mestinon Tab*) 90 mg PO 0800,1200,1600,2000 [facility] Last Admin: 10/11/16 15:53 Dose: 90 mg Spironolactone (Aldactone Tab*) 25 mg PO DAILY [facility] Last Admin: 10/11/16 08:25 Dose: 25 mg Torsemide (Demadex*) 20 mg PO DAILY [facility] Last Admin: 10/11/16 08:25 Dose: 20 mg Vital Signs 10/10/16 10/10/16 10/10/16 17:57 18:13 19:18 Temperature Pulse Rate 60 60 Respiratory 16 17 Rate Blood Pressure 126/45 (mmHg) O2 Sat by Pulse 96 98 Oximetry 10/10/16 10/10/16 10/10/16 19:20 20:00 21:23 Temperature 98.8 F Pulse Rate 60 Respiratory 16 Rate Blood Pressure (mmHg) O2 Sat by Pulse 99 98 Oximetry 10/10/16 10/11/1610/11/17 23:50 02:21 03:17 Temperature 98.8 F 98.3 F Pulse Rate 59 59 Respiratory 20 18 20 Rate Blood Pressure 113/45 107/49 (mmHg) O2 Sat by Pulse 99 99 Oximetry 10/11/16 10/11/16 10/11/16 04:21 07:35 07:57 Temperature 97.5 F Pulse Rate 63 60 Respiratory 16 16 16 Rate Blood Pressure 126/63 (mmHg) O2 Sat by Pulse 99 98 Oximetry 10/11/16 10/11/16 10/11/16 08:00 11:47 12:43 Temperature 98.1 F Pulse Rate 60 Respiratory 18 16 17 Rate Blood Pressure 133/53 (mmHg) O2 Sat by Pulse 100 Oximetry 10/11/16 10/11/16 10/11/16 13:42 14:43 15:41 Temperature 97.8 F Pulse Rate 102 60 Respiratory 16 18 16 Rate Blood Pressure 101/41 (mmHg) O2 Sat by Pulse 99 98 Oximetry 10/11/16 10/11/16 16:35 17:01 Temperature 98.2 F 98.1 F Pulse Rate 61 61 Respiratory 20 18 Rate Blood Pressure 116/49 128/42 (mmHg) O2 Sat by Pulse 99 97 Oximetry Oxygen Devices in Use Now: Nasal Cannula Appearance: chronically ill, NAD Eyes: No Scleral Icterus, PERRLA Ears/Nose/Mouth/Throat: Clear Oropharnyx, Mucous Membranes Moist Neck: NL Appearance and Movements; NL JVP, Trachea Midline Respiratory: Symmetrical Chest Expansion and Respiratory Effort, Clear to Auscultation Cardiovascular: RRR Abdominal: NL Sounds; No Tenderness; No Distention, No Hepatosplenomegaly Lymphatic: No Cervical Adenopathy Extremities: - - 1+ le edema, b/l le chronic wounds wrapped Neurological: Alert and Oriented x 3 Result Diagrams: 10/10/16 14:30 10/10/16 06:55 Additional Lab and Data: Lab Results 10/09/16 10/09/16 10/09/16 Range/Units 11:20 11:20 11:20 WBC 19.3 H (3.5-10.8) 10^3/ul RBC 4.51 (4.0-5.4) 10^6/ul Hgb 10.5 L (12.0-16.0) g/dl Hct 35 (35-47) % MCV 77 L (80-97) fL MCH 23 L (27-31) pg MCHC 31 (31-36) g/dl RDW 19 H (10.5-15) % Plt Count 308 (150-450) 10^3/ul MPV 8 (7.4-10.4) um3 Neut % (Auto) 73.3 (38-83) % Lymph % (Auto) 20.9 L (25-47) % [place] % (Auto) 4.7 (1-9) % Eos % (Auto) 0.3 (0-6) % Baso % (Auto) 0.8 (0-2) % Absolute Neuts (auto) 14.1 H (1.5-7.7) 10^3/ul Absolute Lymphs (auto) 4.0 (1.0-4.8) 10^3/ul Absolute Monos (auto) 0.9 H (0-0.8) 10^3/ul Absolute Eos (auto) 0.1 (0-0.6) 10^3/ul Absolute Basos (auto) 0.1 (0-0.2) 10^3/ul Absolute Nucleated RBC 0.03 10^3/ul Nucleated RBC % 0.1 Sodium 130 L (133-145) mmol/L Potassium TNP Chloride 102 (101-111) mmol/L Carbon Dioxide 24 (22-32) mmol/L Anion Gap TNP BUN 41 H (6-24) mg/dL Creatinine 1.80 H (0.51-0.95) mg/dL Est GFR ( Amer) 36.0 (>60) Est GFR (Non-Af Amer) 28.0 (>60) BUN/Creatinine Ratio 22.8 H (8-20) Glucose 202 H (70-100) mg/dL Lactic Acid 2.0 (0.5-2.0) mmol/L Calcium 9.0 (8.6-10.3) mg/dL Magnesium TNP Total Bilirubin 0.50 (0.2-1.0) mg/dL AST TNP ALT 57 H (7-52) U/L Alkaline Phosphatase 91 (34-104) U/L Troponin I 0.05 H* (<0.04) ng/mL C-Reactive Protein 2.53 (< 5.00) mg/L Total Protein 7.7 (6.4-8.9) g/dL Albumin 3.5 (3.2-5.2) g/dL Globulin 4.2 H (2-4) g/dL Albumin/Globulin Ratio 0.8 L (1-3) TSH 1.46 (0.34-5.60) mcIU/mL 10/09/16 Range/Units 11:55 WBC (3.5-10.8) 10^3/ul RBC (4.0-5.4) 10^6/ul Hgb (12.0-16.0) g/dl Hct (35-47) % MCV (80-97) fL MCH (27-31) pg MCHC (31-36) g/dl RDW (10.5-15) % Plt Count (150-450) 10^3/ul MPV (7.4-10.4) um3 Neut % (Auto) (38-83) % Lymph % (Auto) (25-47) % [place] % (Auto) (1-9) % Eos % (Auto) (0-6) % Baso % (Auto) (0-2) % Absolute Neuts (auto) (1.5-7.7) 10^3/ul Absolute Lymphs (auto) (1.0-4.8) 10^3/ul Absolute Monos (auto) (0-0.8) 10^3/ul Absolute Eos (auto) (0-0.6) 10^3/ul Absolute Basos (auto) (0-0.2) 10^3/ul Absolute Nucleated RBC 10^3/ul Nucleated RBC % Sodium (133-145) mmol/L Potassium 4.7 Chloride (101-111) mmol/L Carbon Dioxide (22-32) mmol/L Anion Gap BUN (6-24) mg/dL Creatinine (0.51-0.95) mg/dL Est GFR ( Amer) (>60) Est GFR (Non-Af Amer) (>60) BUN/Creatinine Ratio (8-20) Glucose (70-100) mg/dL Lactic Acid (0.5-2.0) mmol/L Calcium (8.6-10.3) mg/dL Magnesium 2.1 Total Bilirubin (0.2-1.0) mg/dL AST 49 H ALT (7-52) U/L Alkaline Phosphatase (34-104) U/L Troponin I (<0.04) ng/mL C-Reactive Protein (< 5.00) mg/L Total Protein (6.4-8.9) g/dL Albumin (3.2-5.2) g/dL Globulin (2-4) g/dL Albumin/Globulin Ratio (1-3) TSH (0.34-5.60) mcIU/mL Microbiology and Other Data: Microbiology 10/09/16 16:52 Urine Culture - Preliminary Urine Klebsiella Pneumoniae Assess/Plan/Problems-Billing Assessment: 70 yo F h/o MS, recurrent LE cellulitis and LE wounds followed at wound care, chronic dCHF, afib, COPD, CKD, DM2 p/w worsening MS exacerbation in setting of LE cellulitis and klebsiella UTI - Patient Problems (1) Myasthenia gravis Code(s): G70.00 - MYASTHENIA GRAVIS WITHOUT (ACUTE) EXACERBATION Comment: follow vital capacity - improved today Continue prednisone and pyridostigmine. day 2 of 2 IVIG (2) UTI (urinary tract infection) Comment: klebsiella on CTX (3) CKD (chronic kidney disease) Comment: improved at baseline (4) Atrial fibrillation Comment: - Continue Multaq. - Not on AC due to epistaxis. (5) Cellulitis Comment: c/w clinda IV wbc improving (6) COPD (chronic obstructive pulmonary disease) Comment: - Stable. c/w home meds (7) Type 2 diabetes mellitus Comment: basal bolus insulin (8) DVT prophylaxis Comment: hsq
[2016-10-11] MEDS: Insulin GLARGINE(*) 1 UNITS UNIT SUBCUT SCH (17:37)
[2016-10-11] MEDS: Cefepime(*) 1 GM in NS 0.9% 50 ML* 50 ML IVPB SCH (22:34)
[2016-10-12] MEDS: oxyCODONE/Acetamin 5/325 MG* TAB PO PRN ×2 (04:30→16:58)
[2016-10-12 05:52] LABS: Hematocrit 24 % (35-47); Hemoglobin 7.3 g/dl (12.0-16.0); Mean Corpuscular HGB Conc 31 g/dl (31-36); Mean Corpuscular Hemoglobin 24 pg (27-31); Mean Corpuscular Volume 76 fL (80-97); Mean Platelet Volume 8 um3 (7.4-10.4); Red Blood Count 3.08 10^6/ul (4.0-5.4); Red Cell Distribution Width 20 % (10.5-15); White Blood Count 11.9 10^3/ul (3.5-10.8)
[2016-10-12] MEDS: Clindamycin 600 MG IVPREMIX(* 600 MG/50 ML SDV IV SCH ×3 (05:57→22:00)
[2016-10-12] MEDS: Heparin VIAL(*) 5000 UNITS/ML VIAL (FIVE THOUSAND) SUBCUT SCH ×3 (05:57→22:00)
[2016-10-12 06:02] LABS: BUN/Creatinine Ratio 19.6 (8-20); Calcium 8.2 mg/dL (8.6-10.3); EGFR African American 45.1 (>60); EGFR Non-African American 35.1 (>60)
[2016-10-12] MEDS: Albuterol/Ipratropium NEB.SOL* Albuterol 2.5 MG/Ipratropium 0.5 MG 3 ML INH SCH ×4 (08:25→21:02)
[2016-10-12] MEDS: Pyridostigmine TAB* 60 MG PO SCH ×5 (09:05→20:42)
[2016-10-12] MEDS: Cholecalciferol TAB* 1000 UNITS PO SCH (09:06)
[2016-10-12] MEDS: Omeprazole CAP* 20 MG PO SCH (09:06)
[2016-10-12] MEDS: Spironolactone TAB* 25 MG PO SCH (09:06)
[2016-10-12] MEDS: Dronedarone TAB* 400 MG PO SCH ×2 (09:06→20:41)
[2016-10-12] MEDS: Atorvastatin* 20 MG TAB PO SCH (09:06)
[2016-10-12] MEDS: Aspirin Low Dose CHEW TAB* 81 MG PO SCH (09:06)
[2016-10-12] MEDS: predniSONE TAB* 20 MG PO SCH (09:06)
[2016-10-12] MEDS: Torsemide TAB* 20 MG PO SCH (09:06)
[2016-10-12] MEDS: Nystatin SUSPENSION* 100000 UNITS/ML 5 ML UDC SWISH SWAL SCH ×3 (09:07→18:15)
[2016-10-12] MEDS: Insulin LISPRO* 1 UNITS UNIT SUBCUT SCH ×7 (09:07→22:00)
[2016-10-12] MEDS: Potassium Chlor TAB* 20 MEQ TAB.ER PO SCH (09:21)
[2016-10-12] MEDS: Loperamide CAP* 2 MG PO PRN (09:21)
[2016-10-12] MEDS: Mometasone/Formoter 200/5 MDI INH SCH ×2 (10:43→21:04)
[2016-10-12] MEDS: Cefepime(*) 1 GM in NS 0.9% 50 ML* 50 ML IVPB SCH ×2 (16:58→19:55)
[2016-10-12] MEDS ORDERED: NS 0.9% 1000 ML* 1,000 ML IV SCH (17:00)
--- NOTE | 2016-10-12 17:02 | PN ---
Subjective Date of Service: 10/12/16 Interval History: No difficulty chewing or swallowing. Still with SOB especially with ambulation to bathroom. Feels legs are only slightly better Objective Active Medications: Acetaminophen (Tylenol Tab*) 650 mg PO DAILY PRN PRN Reason: Prior to IVIG Last Admin: 10/09/16 17:31 Dose: 650 mg Albuterol/Ipratropium (Duoneb (Albuterol 2.5 Mg/Ipratropium 0.5 Mg)) 1 neb INH QID [facility] Last Admin: 10/12/16 14:19 Dose: 1 neb Aspirin (Aspirin Low Dose Tab*) 81 mg PO DAILY [facility] Last Admin: 10/12/16 09:06 Dose: 81 mg Atorvastatin Calcium (Lipitor*) 20 mg PO DAILY [facility] Last Admin: 10/12/16 09:06 Dose: 20 mg Calcium Carbonate (Tums*) 500 mg PO QID PRN PRN Reason: INDIGESTION Cholecalciferol (Vitamin D Tab*) 2,000 units PO DAILY [facility] Last Admin: 10/12/16 09:06 Dose: 2,000 units Dextrose (D50w Syringe 50 Ml*) 12.5 gm IV PUSH .FOR FS < 60 - SS PRN PRN Reason: FS < 60 Diphenhydramine HCl (Benadryl Po*) 25 mg PO DAILY PRN PRN Reason: Prior to IVIG Last Admin: 10/09/16 17:31 Dose: 25 mg Dronedarone (Multaq Tab*) 400 mg PO BID [facility] Last Admin: 10/12/16 09:06 Dose: 400 mg Heparin Sodium (Porcine) (Heparin Vial(*)) 5,000 units SUBCUT Q8HR [facility] Last Admin: 10/12/16 13:22 Dose: 5,000 units Clindamycin HCl/Dextrose (Cleocin 600 Mg Ivpremix(*) Sdv) 600 mg in 50 mls @ 100 mls/hr IV Q8HR [facility] Last Admin: 10/12/16 14:33 Dose: 100 mls/hr Cefepime HCl 1 gm/ Sodium (Chloride) 50 mls @ 100 mls/hr IVPB Q24H [facility] Last Admin: 10/11/16 22:34 Dose: 100 mls/hr Sodium Chloride (Ns 0.9% 1000 Ml*) 1,000 mls @ 100 mls/hr IV PER RATE [facility] Stop: 10/13/16 02:59 Insulin Glargine (Lantus(*)) 35 units SUBCUT QPM [facility] Last Admin: 10/11/16 17:37 Dose: 35 units Insulin Human Lispro (Humalog*) 0 - 15 units SUBCUT AC THUY PRN Reason: Protocol Last Admin: 10/12/16 12:44 Dose: 3 units Insulin Human Lispro (Humalog*) 0 units SUBCUT ACHS THUY PRN Reason: Protocol Last Admin: 10/12/16 12:44 Dose: 3 unit Loperamide HCl (Imodium Cap*) 2 mg PO QID PRN PRN Reason: DIARRHEA Last Admin: 10/12/16 09:21 Dose: 2 mg Mometasone Furoate/Formoterol Fumar (Dulera 200/5 Mdi*) 2 puff INH BID THUY PRN Reason: Protocol Last Admin: 10/12/16 10:43 Dose: Not Given Nystatin (Nystatin Suspension*) 500,000 units SWISH SWAL TID PC [facility] Last Admin: 10/12/16 13:23 Dose: 500,000 units Omeprazole (Prilosec Cap*) 20 mg PO DAILY [facility] Last Admin: 10/12/16 09:06 Dose: 20 mg Oxycodone/Acetaminophen (Percocet 5/325 Tab*) 1 tab PO BID PRN PRN Reason: PAIN Last Admin: 10/12/16 04:30 Dose: 1 tab Potassium Chloride (Klor Con Er Tab*) 20 meq PO BID [facility] Last Admin: 10/12/16 09:21 Dose: Not Given Prednisone (Deltasone Tab*) 40 mg PO DAILY [facility] Last Admin: 10/12/16 09:06 Dose: 40 mg Pyridostigmine [place] (Mestinon Tab*) 90 mg PO 0800,1200,1600,2000 [facility] Last Admin: 10/12/16 13:23 Dose: 90 mg Spironolactone (Aldactone Tab*) 25 mg PO DAILY [facility] Last Admin: 10/12/16 09:06 Dose: 25 mg Torsemide (Demadex*) 20 mg PO DAILY [facility] Last Admin: 10/12/16 09:06 Dose: 20 mg Vital Signs 10/11/16 10/11/16 10/11/16 17:01 17:10 17:17 Temperature 98.1 F 98.6 F 98.6 F Pulse Rate 61 77 66 Respiratory 18 18 18 Rate Blood Pressure 128/42 147/52 126/45 (mmHg) O2 Sat by Pulse 97 100 96 Oximetry 10/11/16 10/11/16 10/11/16 17:35 17:38 17:55 Temperature 99.2 F 99.2 F 98.5 F Pulse Rate 79 71 58 Respiratory 18 19 18 Rate Blood Pressure 115/45 100/80 137/56 (mmHg) O2 Sat by Pulse 100 99 Oximetry 10/11/16 10/11/16 10/11/16 18:00 18:23 18:24 Temperature 98.5 F 98.8 F 98.8 F Pulse Rate 58 59 59 Respiratory 18 17 17 Rate Blood Pressure 137/56 136/52 136/52 (mmHg) O2 Sat by Pulse 99 98 99 Oximetry 10/11/16 10/11/16 10/11/16 18:55 19:10 19:13 Temperature 98.4 F 98.6 F Pulse Rate 59 77 64 Respiratory 19 18 16 Rate Blood Pressure 146/55 147/52 (mmHg) O2 Sat by Pulse 99 100 100 Oximetry 10/11/16 10/11/16 10/11/16 19:35 20:00 20:05 Temperature 98.4 F 98.2 F Pulse Rate 69 63 Respiratory 16 16 16 Rate Blood Pressure 114/44 101/42 (mmHg) O2 Sat by Pulse 98 99 Oximetry 10/11/16 10/11/16 10/11/16 20:40 21:45 22:35 Temperature 98.1 F 98.0 F 98.2 F Pulse Rate 76 70 127 Respiratory 16 16 16 Rate Blood Pressure 122/46 119/55 127/47 (mmHg) O2 Sat by Pulse 99 100 100 Oximetry 10/11/16 10/11/16 10/12/16 22:36 23:54 03:34 Temperature 98.0 F Pulse Rate 66 60 Respiratory 16 20 Rate Blood Pressure 98/80 (mmHg) O2 Sat by Pulse 98 Oximetry 10/12/16 10/12/16 10/12/16 04:30 06:30 07:45 Temperature 98.1 F Pulse Rate 60 Respiratory 16 16 18 Rate Blood Pressure 115/57 (mmHg) O2 Sat by Pulse 92 Oximetry 10/12/16 10/12/16 10/12/16 08:00 08:25 09:21 Temperature Pulse Rate Respiratory 18 18 Rate Blood Pressure (mmHg) O2 Sat by Pulse 99 Oximetry 10/12/16 10/12/16 10/12/16 11:21 14:20 15:40 Temperature 98.1 F Pulse Rate 60 58 Respiratory 18 16 18 Rate Blood Pressure 71/49 (mmHg) O2 Sat by Pulse 98 98 Oximetry 10/12/16 15:51 Temperature Pulse Rate Respiratory Rate Blood Pressure 115/45 (mmHg) O2 Sat by Pulse Oximetry Oxygen Devices in Use Now: Nasal Cannula Appearance: obese, NAD Eyes: No Scleral Icterus, PERRLA Ears/Nose/Mouth/Throat: NL Teeth, Lips, Gums, Clear Oropharnyx Neck: NL Appearance and Movements; NL JVP, Trachea Midline Respiratory: Symmetrical Chest Expansion and Respiratory Effort, Clear to Auscultation Cardiovascular: RRR Abdominal: NL Sounds; No Tenderness; No Distention, No Hepatosplenomegaly Lymphatic: No Cervical Adenopathy Extremities: - - 1+ le edema Skin: - - medial ulcers >5cm b/l LE with oozing blood and surrounding erythema 6 inches up both ankles Neurological: Alert and Oriented x 3 Result Diagrams: 10/12/16 05:28 10/12/16 05:28 Additional Lab and Data: Lab Results 10/09/16 10/09/16 10/09/16 Range/Units 11:20 11:20 11:20 WBC 19.3 H (3.5-10.8) 10^3/ul RBC 4.51 (4.0-5.4) 10^6/ul Hgb 10.5 L (12.0-16.0) g/dl Hct 35 (35-47) % MCV 77 L (80-97) fL MCH 23 L (27-31) pg MCHC 31 (31-36) g/dl RDW 19 H (10.5-15) % Plt Count 308 (150-450) 10^3/ul MPV 8 (7.4-10.4) um3 Neut % (Auto) 73.3 (38-83) % Lymph % (Auto) 20.9 L (25-47) % [place] % (Auto) 4.7 (1-9) % Eos % (Auto) 0.3 (0-6) % Baso % (Auto) 0.8 (0-2) % Absolute Neuts (auto) 14.1 H (1.5-7.7) 10^3/ul Absolute Lymphs (auto) 4.0 (1.0-4.8) 10^3/ul Absolute Monos (auto) 0.9 H (0-0.8) 10^3/ul Absolute Eos (auto) 0.1 (0-0.6) 10^3/ul Absolute Basos (auto) 0.1 (0-0.2) 10^3/ul Absolute Nucleated RBC 0.03 10^3/ul Nucleated RBC % 0.1 Sodium 130 L (133-145) mmol/L Potassium TNP Chloride 102 (101-111) mmol/L Carbon Dioxide 24 (22-32) mmol/L Anion Gap TNP BUN 41 H (6-24) mg/dL Creatinine 1.80 H (0.51-0.95) mg/dL Est GFR ( Amer) 36.0 (>60) Est GFR (Non-Af Amer) 28.0 (>60) BUN/Creatinine Ratio 22.8 H (8-20) Glucose 202 H (70-100) mg/dL Lactic Acid 2.0 (0.5-2.0) mmol/L Calcium 9.0 (8.6-10.3) mg/dL Magnesium TNP Total Bilirubin 0.50 (0.2-1.0) mg/dL AST TNP ALT 57 H (7-52) U/L Alkaline Phosphatase 91 (34-104) U/L Troponin I 0.05 H* (<0.04) ng/mL C-Reactive Protein 2.53 (< 5.00) mg/L Total Protein 7.7 (6.4-8.9) g/dL Albumin 3.5 (3.2-5.2) g/dL Globulin 4.2 H (2-4) g/dL Albumin/Globulin Ratio 0.8 L (1-3) TSH 1.46 (0.34-5.60) mcIU/mL 10/09/16 Range/Units 11:55 WBC (3.5-10.8) 10^3/ul RBC (4.0-5.4) 10^6/ul Hgb (12.0-16.0) g/dl Hct (35-47) % MCV (80-97) fL MCH (27-31) pg MCHC (31-36) g/dl RDW (10.5-15) % Plt Count (150-450) 10^3/ul MPV (7.4-10.4) um3 Neut % (Auto) (38-83) % Lymph % (Auto) (25-47) % [place] % (Auto) (1-9) % Eos % (Auto) (0-6) % Baso % (Auto) (0-2) % Absolute Neuts (auto) (1.5-7.7) 10^3/ul Absolute Lymphs (auto) (1.0-4.8) 10^3/ul Absolute Monos (auto) (0-0.8) 10^3/ul Absolute Eos (auto) (0-0.6) 10^3/ul Absolute Basos (auto) (0-0.2) 10^3/ul Absolute Nucleated RBC 10^3/ul Nucleated RBC % Sodium (133-145) mmol/L Potassium 4.7 Chloride (101-111) mmol/L Carbon Dioxide (22-32) mmol/L Anion Gap BUN (6-24) mg/dL Creatinine (0.51-0.95) mg/dL Est GFR ( Amer) (>60) Est GFR (Non-Af Amer) (>60) BUN/Creatinine Ratio (8-20) Glucose (70-100) mg/dL Lactic Acid (0.5-2.0) mmol/L Calcium (8.6-10.3) mg/dL Magnesium 2.1 Total Bilirubin (0.2-1.0) mg/dL AST 49 H ALT (7-52) U/L Alkaline Phosphatase (34-104) U/L Troponin I (<0.04) ng/mL C-Reactive Protein (< 5.00) mg/L Total Protein (6.4-8.9) g/dL Albumin (3.2-5.2) g/dL Globulin (2-4) g/dL Albumin/Globulin Ratio (1-3) TSH (0.34-5.60) mcIU/mL Microbiology and Other Data: Microbiology 10/09/16 16:52 Urine Culture - Preliminary Urine Klebsiella Pneumoniae Assess/Plan/Problems-Billing Assessment: 70 yo F h/o MS, recurrent LE cellulitis and LE wounds followed at wound care, chronic dCHF, afib, COPD, CKD, DM2 p/w worsening myasthenia gravis exacerbation in setting of LE cellulitis and klebsiella UTI - Patient Problems (1) Myasthenia gravis with (acute) exacerbation Comment: follow vital capacity - improved again today Continue prednisone 40 mg and pyridostigmine. completed 2 days IVIG 10/11 (2) UTI (urinary tract infection) Comment: klebsiella on CTX (3) CKD (chronic kidney disease) Comment: improved at baseline (4) Atrial fibrillation Comment: - Continue Multaq. - Not on AC due to epistaxis. (5) Cellulitis Comment: c/w clinda and cefepime IV improving - may need 24-48 hrs more abx (6) COPD (chronic obstructive pulmonary disease) Comment: - Stable. c/w home meds (7) Type 2 diabetes mellitus Comment: basal bolus insulin added carb counting insulin 10/11 (8) DVT prophylaxis Comment: hsq
[2016-10-12] MEDS: Insulin GLARGINE(*) 1 UNITS UNIT SUBCUT SCH (18:14)
[2016-10-12] MEDS: Acetaminophen TAB* 325 MG PO PRN (20:41)
[2016-10-13 05:39] LABS: Hematocrit 23 % (35-47); Hemoglobin 7.1 g/dl (12.0-16.0); Mean Corpuscular HGB Conc 31 g/dl (31-36); Mean Corpuscular Hemoglobin 24 pg (27-31); Mean Corpuscular Volume 77 fL (80-97); Mean Platelet Volume 8 um3 (7.4-10.4); Red Blood Count 3.01 10^6/ul (4.0-5.4); Red Cell Distribution Width 20 % (10.5-15); White Blood Count 12.8 10^3/ul (3.5-10.8)
[2016-10-13 05:44] LABS: Comments Flag Yes
[2016-10-13] MEDS: Clindamycin 600 MG IVPREMIX(* 600 MG/50 ML SDV IV SCH ×2 (05:49→13:45)
[2016-10-13] MEDS: Heparin VIAL(*) 5000 UNITS/ML VIAL (FIVE THOUSAND) SUBCUT SCH ×2 (05:49→13:45)
[2016-10-13 06:02] LABS: Calcium 7.8 mg/dL (8.6-10.3); EGFR African American 41.5 (>60); EGFR Non-African American 32.3 (>60); Potassium 4.6 mmol/L (3.5-5.0)
[2016-10-13] MEDS: Dronedarone TAB* 400 MG PO SCH (08:41)
[2016-10-13] MEDS: Atorvastatin* 20 MG TAB PO SCH (08:41)
[2016-10-13] MEDS: Pyridostigmine TAB* 60 MG PO SCH ×3 (08:41→16:24)
[2016-10-13] MEDS: Aspirin Low Dose CHEW TAB* 81 MG PO SCH (08:41)
[2016-10-13] MEDS: Spironolactone TAB* 25 MG PO SCH (08:41)
[2016-10-13] MEDS: Cholecalciferol TAB* 1000 UNITS PO SCH (08:41)
[2016-10-13] MEDS: Torsemide TAB* 20 MG PO SCH (08:41)
[2016-10-13] MEDS: Omeprazole CAP* 20 MG PO SCH (08:41)
[2016-10-13] MEDS: predniSONE TAB* 20 MG PO SCH (08:42)
[2016-10-13] MEDS: Insulin LISPRO* 1 UNITS UNIT SUBCUT SCH ×4 (08:42→12:51)
[2016-10-13] MEDS: Albuterol/Ipratropium NEB.SOL* Albuterol 2.5 MG/Ipratropium 0.5 MG 3 ML INH SCH ×2 (09:44→13:52)
[2016-10-13] MEDS: Mometasone/Formoter 200/5 MDI INH SCH (09:45)
[2016-10-13] MEDS: Nystatin SUSPENSION* 100000 UNITS/ML 5 ML UDC SWISH SWAL SCH ×2 (10:21→12:50)
[2016-10-13 12:57] VITALS: BP 114/47
[2016-10-13] MEDS: oxyCODONE/Acetamin 5/325 MG* TAB PO PRN (16:24)
--- NOTE | 2016-10-14 01:05 | DS ---
CC: SUMANTH Frederick * DISCHARGE SUMMARY: DATE OF ADMISSION: 10/09/16 DATE OF DISCHARGE: 10/13/16 PRIMARY CARE PROVIDER: SUMANTH Frederick PRIMARY DIAGNOSIS: Myasthenia gravis exacerbation. SECONDARY DIAGNOSES: Include: 1. Cellulitis. 2. Chronic lower extremity wounds. 3. Insulin-dependent type 2 diabetes. 4. Chronic compensated diastolic heart dysfunction. 5. Atrial fibrillation. 6. Chronic obstructive pulmonary disease with chronic respiratory failure. 7. Chronic kidney disease, stage 3. MEDICATIONS ON DISCHARGE: 1. Spironolactone 25 mg daily. 2. Prednisone 40 mg daily. 3. Percocet 5/325 mg 1 tab twice daily as needed. 4. Torsemide 20 mg daily. 5. Cholecalciferol 2000 units daily. 6. Calcium carbonate 500 mg 4 times a day as needed. 7. Symbicort 160/4.5 mcg 2 puffs twice daily. 8. Mestinon 180 mg at bedtime. 9. Omeprazole 20 mg daily. 10. Nystatin swish and swallow 3 times a day as needed. 11. Multaq 400 mg twice daily. 12. Loperamide 2 mg 4 times a day as needed. 13. Insulin glargine 35 units in the evening. 14. IVIG 70 g monthly. 15. Topical hydrocortisone. 16. Atorvastatin 20 mg daily. 17. Aspirin 81 mg daily. 18. Albuterol every 4 hours as needed. 19. Clindamycin 150 mg 4 times a day for 7 additional days. 20. Keflex 250 mg twice a day for 7 additional days, dosed renally. PERTINENT LABORATORY DATA: White blood cell count on presentation 19,000, decreased to 12,800 on the day of discharge. Creatinine on presentation 1.8 and 1.59 on discharge. HISTORY OF PRESENT ILLNESS AND HOSPITAL COURSE: This is a 70-year-old female with past medical history of myasthenia gravis, noticed increased difficulty chewing, swallowing, and breathing, was admitted to the hospital, treated for myasthenia gravis flare with IVIG 2 doses as well as higher dose Mestinon and continued dose of prednisone. She was noted to have worsening lower extremity cellulitis by recent treatment with oral clindamycin. With the Mestinon as well as IVIG, her myasthenia gravis improved. Her symptoms completely resolved. She had no difficulty swallowing, chewing, or breathing on the day of discharge. She continued therapy on IV clindamycin as well as cefepime with improvement in her lower extremity cellulitis. She continues to have chronic lower extremity wounds in bilateral legs in the medial aspect 6 inches above her ankles. She follows with the wound care clinic weekly and will continue to do so after her discharge. She was seen by wound care nurses, who helped prescribe appropriate wound care management while in the hospital. There were no complications of this patient's hospital stay. On followup, please; 1. Evaluate for continued stability of myasthenia gravis. 2. Ensure the patient follows up with Wound Care. 3. Evaluate for continued resolution of cellulitis in bilateral lower extremities, extend the antibiotics as deemed necessary. 4. No other specific labs or vitals that need followup. Reasons to return to the hospital included, but not limited to recurrent or worsening symptoms including chest pain, shortness of breath, difficulty swallowing or chewing, nausea, vomiting, lightheadedness, loss of consciousness , near loss of consciousness, bleeding from any source, inability to obtain or tolerate medications were discussed with the patient, she acknowledged understanding. TIME SPENT: Greater than 45 minutes were spent on discharge of this patient with greater than half the time spent [id number] with the patient. [id number]/CPS #: [id number] [id number]
== END 2016-10-13 16:30 | disposition home health service (06) | DRG 602 ==
LOC: ED 11:03 → MED 13:15
PROVIDERS: ADMIT Hospitalist; ATTEND Internal Medicine
PROC: 3E033WL Introduction of Immunosuppressive into Peripheral Vein, Percutaneous (ICD-10-PCS; principal; 2016-10-09)
DX: L03.116 Cellulitis of left lower limb (principal); G70.01 Myasthenia gravis with (acute) exacerbation; N17.9 Acute kidney failure, unspecified; J96.10 Chronic respiratory failure, unspecified whether with hypoxia or hypercapnia; I50.32 Chronic diastolic (congestive) heart failure; E87.1 Hypo-osmolality and hyponatremia; I13.0 Hypertensive heart and chronic kidney disease with heart failure and stage 1 through stage 4 chronic kidney disease, or unspecified chronic kidney disease; N39.0 Urinary tract infection, site not specified; L97.329 Non-pressure chronic ulcer of left ankle with unspecified severity; L97.319 Non-pressure chronic ulcer of right ankle with unspecified severity; I11.0 Hypertensive heart disease with heart failure; B96.1 Klebsiella pneumoniae [K. pneumoniae] as the cause of diseases classified elsewhere; E11.622 Type 2 diabetes mellitus with other skin ulcer; J44.9 Chronic obstructive pulmonary disease, unspecified; K21.9 Gastro-esophageal reflux disease without esophagitis; H26.9 Unspecified cataract; I48.91 Unspecified atrial fibrillation; N18.3 Chronic kidney disease, stage 3 (moderate); Z82.49 Family history of ischemic heart disease and other diseases of the circulatory system; Z88.1 Allergy status to other antibiotic agents; Z88.8 Allergy status to other drugs, medicaments and biological substances; Z88.7 Allergy status to serum and vaccine; Z99.81 Dependence on supplemental oxygen; Z87.01 Personal history of pneumonia (recurrent); Z87.440 Personal history of urinary (tract) infections; Z90.49 Acquired absence of other specified parts of digestive tract; Z95.0 Presence of cardiac pacemaker; Z86.14 Personal history of Methicillin resistant Staphylococcus aureus infection; Z80.3 Family history of malignant neoplasm of breast; Z80.0 Family history of malignant neoplasm of digestive organs; Z87.891 Personal history of nicotine dependence; Z79.52 Long term (current) use of systemic steroids; Z79.4 Long term (current) use of insulin; Z79.82 Long term (current) use of aspirin
CPT/HCPCS: 36415; 71010; 80048; 80053; 81003; 81015; 82947; 83605; 83735; 84443; 84484; 85014; 85018; 85025; 86140; 87077; 87086; 87186; 93005; 94003; 94150; 94640; 94760; A9270-GY; J0692; J1568; J1644; J7512

== ENCOUNTER 2017-01-03 05:21 | Inpatient (IN) | payer MEDICARE ==
[2017-01-03] MEDS ORDERED: methylPREDNISolone 125 MG* 2 ML VIAL IV ONE (05:33)
[2017-01-03] MEDS ORDERED: Albuterol/Ipratropium NEB.SOL* Albuterol 2.5 MG/Ipratropium 0.5 MG 3 ML INH ONE (05:33)
[2017-01-03] MEDS ORDERED: Morphine INJ* 2 MG/ML 1 ML CARPUJECT IV ONE (05:47)
[2017-01-03] MEDS ORDERED: Ondansetron INJ* 2 MG/ML VIAL IV ONE (05:47)
[2017-01-03] MEDS ORDERED: Albuterol/Ipratropium NEB.SOL* Albuterol 2.5 MG/Ipratropium 0.5 MG 3 ML ONE ×2 (06:19→06:21)
--- NOTE | 2017-01-03 06:21 | ED ---
Twila Almaraz Rebecca, scribed for Naveen Moreira on 01/03/17 at 0541 . Lower Extremity - HPI Summary HPI Summary: Pt is a 71 y/o F BIBA who presents to ED c/o RLE pain s/p fall 3 days ago. The patient had gone to pick something up off the floor when she fell. Pt reports pain began after fall and has been gradually worsening. When asked to localize the pain, she reports it is the "whole leg." Associated pain is currently severe , ranked 9/10. Sx aggravated and alleviated by nothing. Additionally c/o slight SOB. She is unable to ambulate at this time. Uses 2L O2 at home for COPD. PMHx lymphedema. PMHx myasthenia gravis for which she receives monthly infusions with her upcoming one scheduled for today. - History of Current Complaint Chief Complaint: EDExtremityLower Stated Complaint: LEG PAIN Time Seen by Provider: 01/03/17 05:33 Hx Obtained From: Patient Onset of Pain: Days - 3 days, Prior to Arrival Onset/Duration: Still Present Severity Currently: Severe Pain Intensity: 8 Pain Scale Used: 0-10 Numeric Location: Is Discrete @ - RLE pain Aggravating Factor(s): Nothing Alleviating Factor(s): Nothing Able to Bear Weight: No - Allergies/Home Medications Allergies/Adverse Reactions: Allergies Allergy/AdvReac Type Severity Reaction Status Date / Time Immune Globulin Allergy Swelling Verified 12/08/16 15:46 [From Octagam] Mycophenolate Allergy Unknown Verified 12/08/16 15:46 [From CellCept Intravenous] Reaction Details Azithromycin AdvReac Severe myasthenia Verified 12/08/16 15:46 gravis exacerbation Ceftriaxone AdvReac Severe myasthenia Verified 12/08/16 15:46 gravis exacerbation Ciprofloxacin AdvReac GI Upset Verified 12/08/16 15:46 PMH/Surg Hx/FS Hx/Imm Hx Endocrine/Hematology History: Reports: Hx Anticoagulant Therapy - BABY ASA, Hx Diabetes, Hx Anemia, Other Endocrine/Hematological Disorders - MYASTHEIA GRAVIS Denies: Hx Blood Disorders, Hx Blood Transfusions, Hx Bone Marrow Disease, Hx Systemic Lupus Erythematosus, Hx Sickle Cell Disease, Hx Thyroid Disease, Hx Unexplained Bleeding Cardiovascular History: Reports: Hx Congenital Heart Disease, Hx Congestive Heart Failure - very swollen legs, Hx Hypertension, Hx Pacemaker/ICD - 12/09/12 , 06/16 ??, Other Cardiovascular Problems/Disorders - LE EDEMA, ON LASIX Denies: Hx Peripheral Vascular Disease Respiratory History: Reports: Hx Asthma, Hx Chronic Obstructive Pulmonary Disease (COPD) - on 2L home O2 at all times per pt, Hx Pneumonia, Other Respiratory Problems/Disorders - EMPHYSEMA Denies: Hx Chronic Bronchitis, Hx Cystic Fibrosis, Hx Lung Cancer, Hx Pleural Effusion, Hx Pulmonary Edema, Hx Pulmonary Embolism, Hx Seasonal Allergies, Hx Sleep Apnea GI History: Reports: Hx Gall Bladder Disease - GB out, Hx Gastroesophageal Reflux Disease, Other GI Disorders History: Reports: Other Problems/Disorders - FREQUENT UTI'S Denies: Hx Renal Disease Musculoskeletal History: Reports: Hx Back Problems - low back pain, Other Musculoskeletal History - myasthenia gravis Denies: Hx Arthritis, Hx Osteoporosis Sensory History: Reports: Hx Cataracts Denies: Hx Contacts or Glasses, Hx Eye Injury, Hx Eye Prosthesis, Hx Glaucoma , Hx Macular Degeneration, Hx Vision Problem, Hx Deafness, Hx Hearing Aid, Other Sensory Impairments Opthamlomology History: Reports: Hx Cataracts Denies: Hx Contacts or Glasses, Hx Eye Injury, Hx Eye Prosthesis, Hx Glaucoma , Hx Macular Degeneration, Hx Vision Problem, Other Sensory Impairments Neurological History: Reports: Other Neuro Impairments/Disorders - myasthenia gravis Denies: Hx Developmental Delay, Hx Headaches, Hx Migraine, Hx Seizures, Hx Spinal Cord Injury, Hx Transient Ischemic Attacks (TIA) Psychiatric History: Denies: Hx Anxiety, Hx Depression, Other Psychiatric Issues/Disorders - Surgical History Surgery Procedure, Year, and Place: CHOLECYSECTOMY 1979 Hx Anesthesia Reactions: No - Immunization History Date of Tetanus Vaccine: 2011 Date of Influenza Vaccine: 2012 Infectious Disease History: Yes Infectious Disease History: Reports: Hx of Known/Suspected MRSA Denies: Hx Tuberculosis, Traveled Outside the [place] in Last 30 Days - Family History Known Family History: Negative: Cardiac Disease, Hypertension, Diabetes - Social History Alcohol Use: None Hx Substance Use: No Substance Use Type: Reports: None Hx Tobacco Use: Yes Smoking Status (MU): Former Smoker Type: Cigarettes Amount Used/How Often: 2 pk/day Length of Time of Smoking/Using Tobacco: 45 years Have You Smoked in the Last Year: No Review of Systems Positive: Shortness Of Breath - slight Positive: Arthralgia - RLE pain All Other Systems Reviewed And Are Negative: Yes Physical Exam - Summary Physical Exam Summary: Appearance: Well appearing, no pain distress Skin: warm, dry, reflects adequate perfusion Head/face: normal Eyes: EOMI, GEORGE ENT: normal Neck: supple, nontender Respiratory: occasional wheezes bilaterally, poor air entry Cardiovascular: RRR, pulses symmetrical Abdomen: nontender, soft Bowel: present Musculoskeletal: 4+ bilateral edema, strength/ROM intact, tenderness over the R hip Neuro: normal, sensory motor intact, A&Ox3 Triage Information Reviewed: Yes Vital Signs On Initial Exam: Initial Vitals Temp Pulse Resp BP Pulse Ox 98.7 F 61 18 128/111 100 01/03/17 05:24 01/03/17 05:24 01/03/17 05:24 01/03/17 05:24 01/03/17 05:24 Vital Signs Reviewed: Yes Diagnostics - Vital Signs Vital Signs Temp Pulse Resp BP Pulse Ox 01/03/17 05:24 98.7 F 61 18 128/111 100 - Laboratory Lab Statement: Any lab studies that have been ordered have been reviewed, and results considered in the medical decision making process. - Radiology CXR Xray Interpretation: No Acute Changes Radiology Interpretation Completed By: ED Physician Hip/Pelvis XR Xray Interpretation: No Acute Changes - No fracture. Radiology Interpretation Completed By: ED Physician - EKG 0558 Cardiac Rate: NL - 62 bpm EKG Rhythm: Sinus Rhythm EKG Interpretation: No acute changes Lower Extremity Course/Dx - Course Assessment/Plan: Pt is a 71 y/o F BIBA who presents to ED c/o RLE pain s/p fall 3 days ago. The patient had gone to pick something up off the floor when she fell. Pt reports pain began after fall and has been gradually worsening. When asked to localize the pain, she reports it is the "whole leg." Associated pain is currently severe, ranked 9/10. Sx aggravated and alleviated by nothing. Additionally c/o slight SOB. She is unable to ambulate at this time. Uses 2L O2 at home for COPD. PMHx lymphedema. PMHx myasthenia gravis for which she receives monthly infusions with her upcoming one scheduled for today. EKG is sinus rhythm with no acute changes. CXR and Hip/pelvis XR reveal no acute findings as read by ED physician. In the ED course, pt was given Duoneb, Solu- Medrol, Morphine and Zofran. Pt will be signed out to Dr. Camilo, pending disposition, awaiting Doppler US. She understands and agrees. Elevated BP noted and advised to f/u with PCP. - Diagnoses Provider Diagnoses: Pelvic pain, COPD (chronic obstructive pulmonary disease), CHF (congestive heart failure), Pedal edema Discharge - Discharge Plan Condition: Stable Disposition: OTHER Discharge Disposition Comment: Pt will be signed out to Dr. Camilo, pending disposition, awaiting Doppler US Referrals: Ann Cartagena, SLOT HOST [Primary Care Provider] - The documentation as recorded by the Twila dang Rebecca accurately reflects the service I personally performed and the decisions made by , Naveen Moreira.
[2017-01-03 06:50] LABS: Hematocrit 27 % (35-47); Hemoglobin 7.9 g/dl (12.0-16.0); Mean Corpuscular HGB Conc 29 g/dl (31-36); Mean Corpuscular Hemoglobin 20 pg (27-31); Mean Corpuscular Volume 68 fL (80-97); Mean Platelet Volume 8 um3 (7.4-10.4); Red Blood Count 3.98 10^6/ul (4.0-5.4); Red Cell Distribution Width 19 % (10.5-15); White Blood Count 16.9 10^3/ul (3.5-10.8)
[2017-01-03 06:52] LABS: Comments Flag Yes
[2017-01-03 06:54] LABS: Add Diff/Slide Review? Slide Review Added
[2017-01-03 06:57] LABS: Albumin 3.4 g/dL (3.2-5.2); BUN/Creatinine Ratio 20.9 (8-20); Calcium 8.6 mg/dL (8.6-10.3); EGFR African American 35.4 (>60); EGFR Non-African American 27.5 (>60); Globulin 3.4 g/dL (2-4); Potassium 3.7 mmol/L (3.5-5.0); Total Bilirubin 0.5 mg/dL (0.2-1.0); Total Protein 6.8 g/dL (6.4-8.9)
[2017-01-03 07:00] LABS: Troponin I 0.04 ng/mL (<0.04)
[2017-01-03] MEDS ORDERED: Clindamycin 600 MG IVPREMIX(* 600 MG/50 ML SDV IV ONE (07:09)
--- NOTE | 2017-01-03 07:55 | RAD ---
INDICATION: Shortness of breath and leg pain COMPARISON: Chest x-ray October 09, 2016 TECHNIQUE: Single AP view of the chest was obtained. FINDINGS: There is a left upper chest cardiac pacemaker with 2 leads overlying the heart. The heart and mediastinum exhibit normal size and contour. There is stable faint atherosclerotic calcification overlying the arch of the aorta. The lungs are grossly clear. There is no evidence of a large pleural effusion. Visualized bones are normal for the patient's age. IMPRESSION: No radiographic evidence for acute cardiopulmonary abnormality on this single AP view chest x-ray.
--- NOTE | 2017-01-03 07:57 | RAD ---
INDICATION: Right hip injury. COMPARISON: There are no prior studies available for comparison. TECHNIQUE: An AP view of the pelvis and frontal and lateral views of the right hip were obtained. FINDINGS: The bones are in normal alignment. No fracture is seen. There is mild bilateral osteoarthritic change in the hips. IMPRESSION: NO EVIDENCE FOR FRACTURE, IF THE PATIENT'S SYMPTOMS PERSIST RECOMMEND FOLLOW-UP IMAGING.
--- NOTE | 2017-01-03 08:01 | RAD ---
INDICATION: Right hip pain COMPARISON: Right hip January 03, 2017 TECHNIQUE: Noncontrast axial source images were obtained from the iliac crests through the symphysis pubis. FINDINGS: There are no acute CT abnormalities of the bony pelvis. The uterus and adnexa are normal.. No free fluid or adenopathy is seen. The noncontrast CT appearance of the bowel is remarkable for numerous diverticula of the sigmoid colon without associated perienteric inflammatory change. The superficial soft tissues appear normal. The bladder appears normal. IMPRESSION: NO CT FINDINGS OF ACUTE PELVIC FRACTURE.
[2017-01-03] MEDS ORDERED: HYDROmorphone* 1 MG/ML 1 ML CARPUJECT IV SLOW PU ONE (08:48)
--- NOTE | 2017-01-03 08:51 | RAD ---
INDICATION: Bilateral lower extremity pain and swelling. COMPARISON: Comparison is made with a prior venous duplex study from October 14, 2015. TECHNIQUE: Multiple real-time, color flow and Doppler tracings of both lower extremities were obtained. FINDINGS: The common femoral, femoral, profunda femoral and popliteal veins all demonstrate normal compressibility, augmentation with compression and phasic response with respiration. Evaluation of the calves is limited due to edema on both sides. The left posterior tibial and peroneal veins were not visualized and the right peroneal veins were nonvisualized. IMPRESSION: EXTREMELY LIMITED EXAM OF THE CALVES, NO EVIDENCE FOR DEEP VENOUS THROMBOSIS AT OR ABOVE THE KNEE.
[2017-01-03] MEDS ORDERED: NS 0.9% 1000 ML* 1,000 ML IV SCH (09:45)
--- NOTE | 2017-01-03 10:30 | ED ---
Harshad Almaraz Angela scribed for Rivas Camilo MD on 01/03/17 at 0809 . Progress - Progress Note Progress Note: Pt is a 71 y/o F BIBA who presents to ED c/o RLE pain s/p fall 3 days ago. This pt was signed out from Dr. Moreira, pending disposition, awaiting CT pelvis and US doppler. CT pelvis shows No CT findings of acute pelvic fracture. US doppler shows extremely limited exam of the calves, no evidence for deep venous thrombosis at or above the knee. Pt will be admitted in stable condition with dx of ambulatory dysfunction, cellulitis by Dr. Davidson. - Results/Orders Results/Orders: CT Pelvis IMPRESSION: No CT findings of acute pelvic fracture. ED physician has reviewed this radiology report and agrees. US Doppler IMPRESSION: Extremely limited exam of the calves, no evidence for deep venous thrombosis at or above the knee. ED physician has reviewed this radiology report and agrees. Course/Dx - Course Course Of Treatment: I discussed the pt's case with Dr. Davidson, who has agreed to admit the pt. The stable will be admitted in stable condition. - Diagnoses Provider Diagnoses: Cellulitis, Ambulatory dysfunction - Provider Notifications Discussed Care Of Patient With: Caterina Davidson Time Discussed With Above Provider: 08:50 Instructed by Provider To: Other - Dr. Davidson will admit the pt. The documentation as recorded by the Harshad dang Angela accurately reflects the service I personally performed and the decisions made by , Rivas Camilo MD.
[2017-01-03] MEDS ORDERED: Calcium Carbonate CHEW TAB* 500 MG (TUMS) PO PRN (10:47)
[2017-01-03] MEDS ORDERED: Dextrose 50% Syringe 50 ML* 25 GM/50 ML SYRINGE IV PUSH PRN (11:56)
[2017-01-03] MEDS: Pyridostigmine TAB* 60 MG PO SCH ×3 (12:35→19:54)
[2017-01-03] MEDS: Torsemide TAB* 20 MG PO SCH ×2 (12:35→18:03)
[2017-01-03] MEDS: Nystatin SUSPENSION* 100000 UNITS/ML 5 ML UDC SWISH SWAL SCH ×2 (12:35→18:03)
[2017-01-03] MEDS ORDERED: Pyridostigmine TAB* 60 MG PO SCH (13:00)
--- NOTE | 2017-01-03 13:36 | HP ---
CC: Ann Cartagena NP; Dr. Madden * DATE OF ADMISSION: 01/03/2017. PRIMARY CARE PROVIDER: Ann Cartagena NP. NEUROLOGIST: Dr. Madden. CHIEF COMPLAINT: Weakness. HISTORY OF PRESENT ILLNESS: Ms. Oreilly is a 71-year-old female who has a known history of myasthenia gravis, diastolic CHF, A-fib not on anticoagulation, diabetes and COPD who presented to the emergency room with complaints of weakness. The patient states that she is due to receive her first of two days of IVIG today. She states that as she was coming to the hospital, she decided to stop in the ER first because she has been feeling very weak over the last few days. The patient states that this past Sunday, she had been feeling quite good. Her leg swelling was noted to be better. On Sunday, she was bending over to pick out hand a soda bottle off the floor and fell over. She states that since that time she has had progressive weakness. Additionally, she notes that her lower extremity edema has worsened and there is erythema present. The patient is unable to state if the erythema is worse than normal initially; however, later on during our interaction, she states that the redness does seem worse. She denies any fevers or chills. She does complain of diffuse pain in her legs. The patient also notes that she has mild shortness of breath when presenting to the emergency room. She does not feel her weakness is related to her myasthenia as she states that normally when her myasthenia is more active, she notes that she has a hard time chewing. PAST MEDICAL HISTORY: 1. Myasthenia gravis. 2. Diastolic CHF. 3. A-fib. 4. Type 2 diabetes. 5. COPD, 2 liters of O2 chronically. 6. Stag 3 chronic kidney disease. PAST SURGICAL HISTORY: 1. Cholecystectomy. 2. Pacemaker placement. MEDICATIONS: 1. Torsemide 40 mg p.o. q.a.m. and 20 mg p.o. noon and 1800. 2. Flebogamma 70 gm IV q.28 days. 3. Dronedarone 400 mg p.o. b.i.d. 4. Calcium carbonate 500 mg p.o. q.i.d. prn indigestion. 5. Symbicort 160/4.5 two puffs inhaled twice daily. 6. Aspirin 81 mg p.o. daily. 7. DuoNeb one neb inhaled q.i.d. prn shortness of breath. 8. Percocet 5/325 one tab p.o. q.6 hours prn pain. 9. Potassium chloride 20 mEq p.o. b.i.d. 10. Omeprazole 20 mg p.o. daily. 11. Nystatin 5 ml swish and swallow t.i.d. 12. Imodium 2 mg p.o. q.i.d. prn diarrhea. 13. Lantus 35 units subcutaneous at bedtime. 14. Prednisone 40 mg p.o. daily. 15. Spironolactone 25 mg p.o. daily. 16. Pyridostigmine 120 mg p.o. q.i.d. ALLERGIES: 1. OCTAGAM. 2. CELLCEPT. 3. AZITHROMYCIN. 4. CEFTRIAXONE. 5. CIPROFLOXACIN. FAMILY HISTORY: Mom had breast cancer, dad had gastric cancer. SOCIAL HISTORY: The patient is a former smoker. She quit approximately ten years ago. She does not drink alcohol. She is not . She has three children. Her daughter Kimberly, phone number [phone], is her healthcare proxy. REVIEW OF SYSTEMS: A complete 11 system review of systems was obtained. Pertinent positives and negative are as per HPI and otherwise negative. PHYSICAL EXAMINATION GENERAL: The patient is a well-developed, elderly female, sitting on the stretcher in no acute distress. VITAL SIGNS: Blood pressure 135/51, pulse 89, respirations 20, temperature 97.6 , O2 sat 98 percent on 2 liters. HEENT: Pupils are equal, they are round, they react to light. Extraocular muscles are intact. Oropharynx is clear. Oral mucosa is moist. The patient is edentulous. NECK: There is no submandibular, cervical or supraclavicular adenopathy. Thyroid is not enlarged. No thyroid nodules are noted. CARDIAC: Normal S1, S2, regular rate and rhythm. I do not appreciate any murmurs. There is marked anasarca to the bilateral lower extremities with slightly more edema in the right thigh than the left thigh. PULMONARY: Lung sounds are diminished in all herring and there are a few crackles of the left lower lobe, otherwise lung sounds are clear. ABDOMEN: Bowel sounds are present. Abdomen is soft, nontender, nondistended. MUSCULOSKELETAL: There is no cyanosis or clubbing of the digits. There are obvious joint deformities of the patient's fingers related to advanced arthritis. SKIN: Warm, it is dry. There are no rashes. There is significant bruising noted to the patient's arms, to her chest and to her lower legs. There is erythema to both lower extremities, left being slightly worse than the right. This is slightly warm to touch. NEUROLOGIC: Cranial nerves II through XII are grossly intact. Sensation is intact to light touch throughout. Strength is 5/5 and symmetric in both upper and lower extremities bilaterally. PSYCH: The patient is alert, she is oriented times three. Affect appears appropriate. LABORATORY DATA: WBC 16.9, hemoglobin 7.9, hematocrit 27, platelets 332. INR 0.86. Sodium 139, potassium 3.7, chloride 98, CO2 35, BUN 38, creatinine 1.82, glucose 98, lactic acid 2.0, calcium 8.6, bilirubin 0.5, AST 27, ALT 28, alk phos 62, troponin 0.04, BNP 156, albumin 3.4. Chest x-ray shows no acute cardiopulmonary abnormality. Hip/pelvis x-ray shows no evidence for fracture. Pelvis CT shows no CT findings of acute pelvic fracture. Venous Doppler of the bilateral lower extremities shows extremely limited exam of the calves, no evidence for DVT at or above the knee. EKG reveals normal sinus rhythm with first degree AV block, no acute ST-T wave abnormalities. ASSESSMENT AND PLAN: Ms. Oreilly is a 71-year-old female with a history of myasthenia gravis who is due for her monthly dose of IVIG, diastolic CHF, A-fib , type 2 diabetes and COPD who presents to the emergency room with complaints of weakness after sustaining a mechanical fall three days prior to admission. 1. Weakness: My suspicion is this is multifactorial related to her fall and not moving around as well following that, as well as her myasthenia and needing her IVIG, as well as possible cellulitis of the lower extremities. The patient will be admitted for treatment of possible cellulitis. She will be started on Clindamycin 600 mg IV three times daily. She will have PT ordered to assess her ambulatory status. Additionally, she will receive her IVIG while in the hospital. The patient's progress will be monitored. I do suspect within the next couple days she will be able to be discharged home. 2. Myasthenia gravis: As above, the patient will be receiving her IVIG, 70 gm IV today and two days later, and then will repeat this process next month. Additionally, the patient will continue on her usual dose of Pyridostigmine and Prednisone. 3. Diastolic CHF: The patient does admit to her lower extremities being more swollen now than previously. I am going to keep her on her usual dose of Torsemide and see with her legs being elevated if this helps; however, we may consider an IV dose of Lasix if her edema fails to improve. From a pulmonary standpoint, her lungs sound clear. 4. A-fib: Currently the patient is in normal sinus rhythm. She will continue on her Dronedarone. She is not on an anticoagulant at baseline. She will continue on her aspirin. 5. Type 2 diabetes: The patient's sugars are under good control. She will continue on her usual dose of Lantus and will be started on a Lispro sliding scale. 6. COPD: At this point, there are no signs of exacerbation. She will continue on 2 liters of oxygen continuously as well as her usual inhaled regimen. 7. Stage 3 chronic kidney disease: The patient's BUN and creatinine are close to her baseline, though her creatinine is higher than it has been most recently. We will continue to monitor this, especially continuing her on her usual dose of diuretics and potentially adding IV Lasix. 8. DVT prophylaxis: According to the adult thrombosis prophylaxis risk factor assessment guide, the patient has a total risk factor score of 4, making her high risk. She will be placed on Heparin 5000 units subcutaneous q.8 hours. 9. Code status is full. Sixty-five minutes were spent admitting this patient. [id number]/[facility] #: [id number] DAYO
[2017-01-03] MEDS ORDERED: diPHENhydraMINE IV* 50 MG/ML 1 ml VIAL (BENADRYL) ONE (13:55)
[2017-01-03] MEDS ORDERED: diPHENhydraMINE IV* 25 MG in NS 0.9% 50 ML* 50 ML IVPB ONE (14:00)
[2017-01-03] MEDS ORDERED: [UNRECOGNIZED DRUG - OTHER] IV ONE ×4 (14:00)
[2017-01-03] MEDS ORDERED: Acetaminophen TAB* 325 MG PO ONE (14:00)
[2017-01-03] MEDS ORDERED: IMMUNE GLOBULN IV ONE ×4 (14:00)
[2017-01-03] MEDS: Heparin VIAL(*) 5000 UNITS/ML VIAL (FIVE THOUSAND) SUBCUT SCH ×2 (14:16→20:39)
[2017-01-03] MEDS ORDERED: Insulin LISPRO* 1 UNITS UNIT SUBCUT ONE (17:24)
[2017-01-03 17:40] LABS: Urine Bacteria 1+ (Absent); Urine Bilirubin Negative (Negative); Urine Glucose 2+(150 mg/dL) (Negative); Urine Nitrite Negative (Negative)
[2017-01-03] MEDS ORDERED: Insulin GLARGINE(*) 1 UNITS UNIT SUBCUT SCH (18:00)
[2017-01-03] MEDS: Clindamycin 600 MG IVPREMIX(* 600 MG/50 ML SDV IV SCH (18:03)
[2017-01-03] MEDS: Insulin LISPRO* 1 UNITS UNIT SUBCUT SCH ×2 (18:34→19:54)
[2017-01-03] MEDS: Potassium Chlor TAB* 20 MEQ TAB.ER PO SCH (19:54)
[2017-01-03] MEDS: Dronedarone TAB* 400 MG PO SCH (19:54)
[2017-01-03] MEDS: Mometasone/Formoter 200/5 MDI INH SCH (21:07)
[2017-01-03] MEDS: oxyCODONE/Acetamin 5/325 MG* TAB PO PRN (21:51)
[2017-01-04] MEDS: Clindamycin 600 MG IVPREMIX(* 600 MG/50 ML SDV IV SCH ×3 (01:30→19:09)
[2017-01-04] MEDS: Heparin VIAL(*) 5000 UNITS/ML VIAL (FIVE THOUSAND) SUBCUT SCH ×2 (05:13→13:26)
[2017-01-04 05:16] LABS: Hematocrit 21 % (35-47); Mean Corpuscular HGB Conc 30 g/dl (31-36); Mean Corpuscular Hemoglobin 20 pg (27-31); Mean Corpuscular Volume 68 fL (80-97); Mean Platelet Volume 7 um3 (7.4-10.4); Red Blood Count 3.03 10^6/ul (4.0-5.4); Red Cell Distribution Width 20 % (10.5-15); White Blood Count 12.6 10^3/ul (3.5-10.8)
[2017-01-04 05:18] LABS: Comments Flag Yes
[2017-01-04 05:21] LABS: Hemoglobin 6.1 g/dl (12.0-16.0)
--- NOTE | 2017-01-04 05:28 | PN ---
Progress Note - Progress Note Date of Service: 01/04/17 Note: cross cover: notifed for drop in hemoglobin to 6.1 1U PRBC ordered
[2017-01-04 05:31] LABS: BUN/Creatinine Ratio 23.6 (8-20); Calcium 8.1 mg/dL (8.6-10.3); Potassium 4.5 mmol/L (3.5-5.0)
[2017-01-04] MEDS: Insulin LISPRO* 1 UNITS UNIT SUBCUT SCH ×4 (07:48→20:24)
[2017-01-04] MEDS: Omeprazole CAP* 20 MG PO SCH (08:03)
[2017-01-04] MEDS: Aspirin Low Dose CHEW TAB* 81 MG PO SCH (08:03)
[2017-01-04] MEDS: Pyridostigmine TAB* 60 MG PO SCH ×4 (08:03→20:22)
[2017-01-04] MEDS: Dronedarone TAB* 400 MG PO SCH ×2 (08:03→20:24)
[2017-01-04] MEDS: Potassium Chlor TAB* 20 MEQ TAB.ER PO SCH ×3 (08:03→20:23)
[2017-01-04] MEDS: Torsemide TAB* 20 MG PO SCH ×3 (08:03→17:48)
[2017-01-04] MEDS: predniSONE TAB* 20 MG PO SCH (08:03)
[2017-01-04] MEDS: Spironolactone TAB* 25 MG PO SCH (08:04)
[2017-01-04] MEDS: Nystatin SUSPENSION* 100000 UNITS/ML 5 ML UDC SWISH SWAL SCH ×3 (08:04→17:49)
[2017-01-04] MEDS: Mometasone/Formoter 200/5 MDI INH SCH ×2 (08:57→19:45)
[2017-01-04] MEDS: Albuterol/Ipratropium NEB.SOL* Albuterol 2.5 MG/Ipratropium 0.5 MG 3 ML INH PRN (10:54)
[2017-01-04] MEDS: oxyCODONE/Acetamin 5/325 MG* TAB PO PRN ×2 (11:32→20:05)
[2017-01-04] MEDS ORDERED: Loperamide CAP* 2 MG PO ONE (12:31)
[2017-01-04] MEDS: Nystatin CREAM* 15 GM TUBE TOPICAL SCH ×2 (13:27→20:29)
--- NOTE | 2017-01-04 14:32 | PN ---
Subjective Date of Service: 01/04/17 Interval History: Pt is feeling ok currently. She states that her R leg is still painful. She has been having some diarrhea and states she will get that from time to time at home. She denies any SOB. She thinks her legs look a little better today. Her weakness is slightly better. She did not work with PT yet today. Objective Active Medications: Albuterol/Ipratropium (Duoneb (Albuterol 2.5 Mg/Ipratropium 0.5 Mg)) 1 neb INH QID PRN PRN Reason: SOB/WHEEZING Last Admin: 01/04/17 10:54 Dose: 1 neb Aspirin (Aspirin Low Dose Tab*) 81 mg PO DAILY [facility] Last Admin: 01/04/17 08:03 Dose: 81 mg Calcium Carbonate (Tums*) 500 mg PO QID PRN PRN Reason: INDIGESTION Dextrose (D50w Syringe 50 Ml*) 12.5 gm IV PUSH .FOR FS < 60 - SS PRN PRN Reason: FS < 60 Dronedarone (Multaq Tab*) 400 mg PO BID [facility] Last Admin: 01/04/17 08:03 Dose: 400 mg Heparin Sodium (Porcine) (Heparin Vial(*)) 5,000 units SUBCUT Q8HR [facility] Last Admin: 01/04/17 13:26 Dose: 5,000 units Clindamycin HCl/Dextrose (Cleocin 600 Mg Ivpremix(*) Sdv) 600 mg in 50 mls @ 100 mls/hr IV Q8H [facility] Last Admin: 01/04/17 09:02 Dose: 100 mls/hr Insulin Glargine (Lantus(*)) 35 units SUBCUT QPM [facility] Last Admin: 01/03/17 18:03 Dose: 35 units Insulin Human Lispro (Humalog*) 0 units SUBCUT ACHS [facility] PRN Reason: Protocol Last Admin: 01/04/17 11:32 Dose: 6 unit Mometasone Furoate/Formoterol Fumar (Dulera 200/5 Mdi*) 2 puff INH BID [facility] PRN Reason: Protocol Last Admin: 01/04/17 08:57 Dose: Not Given Nystatin (Nystatin Suspension*) 500,000 units SWISH SWAL TID PC [facility] Last Admin: 01/04/17 12:28 Dose: 500,000 units Nystatin (Nystatin Cream*) 1 applic TOPICAL TID [facility] Last Admin: 01/04/17 13:27 Dose: 1 dose Omeprazole (Prilosec Cap*) 20 mg PO DAILY [facility] Last Admin: 01/04/17 08:03 Dose: 20 mg Oxycodone/Acetaminophen (Percocet 5/325 Tab*) 1 tab PO Q6H PRN PRN Reason: PAIN Last Admin: 01/04/17 11:32 Dose: 1 tab Potassium Chloride (Klor Con Er Tab*) 20 meq PO BID [facility] Last Admin: 01/04/17 08:03 Dose: 20 meq Prednisone (Deltasone Tab*) 40 mg PO DAILY [facility] Last Admin: 01/04/17 08:03 Dose: 40 mg Pyridostigmine [place] (Mestinon Tab*) 120 mg PO QID [facility] Last Admin: 01/04/17 12:27 Dose: 120 mg Spironolactone (Aldactone Tab*) 25 mg PO DAILY [facility] Last Admin: 01/04/17 08:04 Dose: 25 mg Torsemide (Demadex*) 20 mg PO 1200,1800 [facility] Last Admin: 01/04/17 11:32 Dose: 20 mg Torsemide (Demadex*) 40 mg PO QAM [facility] Last Admin: 01/04/17 08:03 Dose: 40 mg Vital Signs 01/03/17 01/03/17 01/03/17 15:05 15:43 16:05 Temperature 98.4 F Pulse Rate 73 Respiratory 16 16 16 Rate Blood Pressure 145/117 (mmHg) O2 Sat by Pulse 95 Oximetry 01/03/17 01/03/17 01/03/17 19:52 20:00 21:51 Temperature 98.5 F Pulse Rate 69 Respiratory 16 20 18 Rate Blood Pressure 108/43 (mmHg) O2 Sat by Pulse 98 Oximetry 01/03/17 01/03/17 01/04/17 23:45 23:51 00:13 Temperature 98.3 F Pulse Rate 68 Respiratory 20 18 Rate Blood Pressure 142/102 128/52 (mmHg) O2 Sat by Pulse 96 Oximetry 01/04/17 01/04/17 01/04/17 03:37 03:47 06:45 Temperature 98.4 F Pulse Rate 60 Respiratory 20 18 Rate Blood Pressure 102/52 (mmHg) O2 Sat by Pulse 95 Oximetry 09/11/1301/04/17 01/04/17 07:12 07:34 07:44 Temperature 98.3 F 98.6 F 98.6 F Pulse Rate 72 82 72 Respiratory 18 Rate Blood Pressure 109/75 118/48 (mmHg) O2 Sat by Pulse 97 100 95 Oximetry 01/04/17 01/04/17 11:32 13:27 Temperature Pulse Rate Respiratory 14 14 Rate Blood Pressure (mmHg) O2 Sat by Pulse Oximetry Oxygen Devices in Use Now: Nasal Cannula Appearance: Elderly female lying in bed, NAD Eyes: No Scleral Icterus Ears/Nose/Mouth/Throat: Mucous Membranes Moist Respiratory: Symmetrical Chest Expansion and Respiratory Effort, Clear to Auscultation Cardiovascular: NL Sounds; No Murmurs; No JVD, RRR, - - marked LE pitting edema Abdominal: NL Sounds; No Tenderness; No Distention Extremities: No Clubbing, Cyanosis, - - joint deformities of fingers Skin: - - improved bilateral LE erythema, legs are still markedly swollen and warm to touch, few scabbed over lesions on anterior legs, L lower leg with Neurological: Alert and Oriented x 3 Result Diagrams: 01/04/17 04:37 01/04/17 04:37 Assess/Plan/Problems-Billing Ms Oreilly is a 71 yo F with a h/o myasthenia gravis, diastolic CHF, type II DM, COPD and HTN who presented to the ER with c/o weakness and was found to have bilateral cellulitis of the lower legs. - Patient Problems (1) Weakness Current Visit: Yes Status: Acute Code(s): R53.1 - WEAKNESS SNOMED Code(s) : 93665470 Comment: I think the patient's weakness is a chronic problem but acutely worse and multifactorial. I suspect the weakness currently is likely secondary to B/L LE cellulitis. (2) Cellulitis Current Visit: No Status: Acute Code(s): L03.90 - CELLULITIS, UNSPECIFIED SNOMED Code(s): 927816364 Comment: The patient was found to have likely bilateral cellulitis on admission. Her WBC is improved after initiating clindamycin and her legs are less erythematous. Will continue IV clindamycin for another 24-48hr. Follow up CBC tomorrow. (3) Acute blood loss anemia Current Visit: Yes Status: Acute Code(s): D62 - ACUTE POSTHEMORRHAGIC ANEMIA SNOMED Code(s): 932931758 Comment: The patient has acute on chronic anemia. I suspect the drop in the patient's H/H this AM is related to acute blood loss anemia from her recent fall. Bruising is now noted to the R LE. She received 1 unit PRBC. Repeat H/H penidng now. (4) Atrial fibrillation Current Visit: Yes Status: Acute Code(s): I48.91 - UNSPECIFIED ATRIAL FIBRILLATION SNOMED Code(s): 49025721 Comment: Controlled. Continue multaq. No anticoagulation at baseline. (5) Diastolic heart failure Current Visit: Yes Status: Acute Code(s): I50.30 - UNSPECIFIED DIASTOLIC ( CONGESTIVE) HEART FAILURE SNOMED Code(s): 234076843 Comment: Pt still with marked LE edema. Will add back medigrips. Continue current diuretic therapy. If edema no better tomorrow will give 1x dose of lasix IV. Continue home medication regimen. (6) CKD (chronic kidney disease) Current Visit: Yes Status: Acute Code(s): N18.9 - CHRONIC KIDNEY DISEASE, UNSPECIFIED SNOMED Code(s): 011030685 Comment: Creatinine is at baseline. Continue to monitor. (7) Type 2 diabetes mellitus Current Visit: Yes Status: Chronic Comment: Sugars are uncontrolled. Will increase lantus to 40 units SQ qPM. (8) Myasthenia gravis Current Visit: Yes Status: Chronic Onset Date: 04/04/14 Code(s): G70.00 - MYASTHENIA GRAVIS WITHOUT (ACUTE) EXACERBATION SNOMED Code(s): 23496242 Comment: No signs of exacerbation at this time. SHe did receive her IVIG yesterday as she was due for it. Her myasthenia likely does not help her weakness but I do not think her weakness that brought her in is from the myasthenia. Continue prednisone and pyridostigmine. (9) DVT prophylaxis Current Visit: Yes Status: Acute Code(s): FJG9956 - SNOMED Code(s): 950058355 Comment: Stop SQ heparin as pt dropped H/H (10) Full code status Current Visit: Yes Status: Acute Code(s): Z78.9 - OTHER SPECIFIED HEALTH STATUS SNOMED Code(s): 786829889
[2017-01-04 15:23] LABS: Hematocrit 24 % (35-47); Hemoglobin 7.3 g/dl (12.0-16.0)
[2017-01-04 15:26] LABS: Comments Flag Yes
[2017-01-04] MEDS: Insulin GLARGINE(*) 1 UNITS UNIT SUBCUT SCH (17:43)
[2017-01-05] MEDS: Clindamycin 600 MG IVPREMIX(* 600 MG/50 ML SDV IV SCH ×3 (02:37→19:15)
[2017-01-05] MEDS: oxyCODONE/Acetamin 5/325 MG* TAB PO PRN ×3 (05:54→18:34)
[2017-01-05] MEDS: Albuterol/Ipratropium NEB.SOL* Albuterol 2.5 MG/Ipratropium 0.5 MG 3 ML INH PRN ×2 (05:56→19:52)
[2017-01-05 06:25] LABS: Hematocrit 26 % (35-47); Hemoglobin 7.8 g/dl (12.0-16.0); Mean Corpuscular HGB Conc 30 g/dl (31-36); Mean Corpuscular Hemoglobin 21 pg (27-31); Mean Platelet Volume 7 um3 (7.4-10.4); Red Blood Count 3.72 10^6/ul (4.0-5.4); Red Cell Distribution Width 21 % (10.5-15); White Blood Count 11.4 10^3/ul (3.5-10.8)
[2017-01-05 06:27] LABS: Comments Flag Yes
[2017-01-05 06:28] LABS: Mean Corpuscular Volume 70 fL (80-97)
[2017-01-05 06:36] LABS: BUN/Creatinine Ratio 26.5 (8-20); Calcium 8.6 mg/dL (8.6-10.3); EGFR African American 45.3 (>60); EGFR Non-African American 35.2 (>60); Potassium 4.1 mmol/L (3.5-5.0)
[2017-01-05] MEDS: Mometasone/Formoter 200/5 MDI INH SCH ×2 (08:33→19:53)
[2017-01-05] MEDS: Insulin LISPRO* 1 UNITS UNIT SUBCUT SCH ×4 (08:50→23:26)
[2017-01-05] MEDS: Pyridostigmine TAB* 60 MG PO SCH ×4 (09:50→20:56)
[2017-01-05] MEDS: Aspirin Low Dose CHEW TAB* 81 MG PO SCH (09:51)
[2017-01-05] MEDS: Torsemide TAB* 20 MG PO SCH ×3 (09:51→18:34)
[2017-01-05] MEDS: Potassium Chlor TAB* 20 MEQ TAB.ER PO SCH ×3 (09:51→21:29)
[2017-01-05] MEDS: Omeprazole CAP* 20 MG PO SCH (09:51)
[2017-01-05] MEDS: Nystatin SUSPENSION* 100000 UNITS/ML 5 ML UDC SWISH SWAL SCH ×3 (09:51→18:33)
[2017-01-05] MEDS: Spironolactone TAB* 25 MG PO SCH (09:51)
[2017-01-05] MEDS: predniSONE TAB* 20 MG PO SCH (09:51)
[2017-01-05] MEDS: Dronedarone TAB* 400 MG PO SCH ×2 (09:51→20:57)
[2017-01-05] MEDS: Nystatin CREAM* 15 GM TUBE TOPICAL SCH ×3 (09:52→20:55)
[2017-01-05] MEDS ORDERED: [UNRECOGNIZED DRUG - OTHER] IV ONE ×4 (13:00)
[2017-01-05] MEDS ORDERED: Acetaminophen TAB* 325 MG PO ONE (13:00)
[2017-01-05] MEDS ORDERED: IMMUNE GLOBULN IV ONE ×4 (13:00)
[2017-01-05] MEDS ORDERED: diPHENhydraMINE IV* 25 MG in NS 0.9% 50 ML* 50 ML IVPB ONE (14:00)
--- NOTE | 2017-01-05 14:11 | PN ---
Subjective Date of Service: 01/05/17 Interval History: Pt is feeling well except for pain in her R ankle. She states she received her benadryl premedication for her IVIG and now is sleepy. She denies any SOB. Objective Active Medications: Albuterol/Ipratropium (Duoneb (Albuterol 2.5 Mg/Ipratropium 0.5 Mg)) 1 neb INH QID PRN PRN Reason: SOB/WHEEZING Last Admin: 01/05/17 05:56 Dose: 1 neb Aspirin (Aspirin Low Dose Tab*) 81 mg PO DAILY [facility] Last Admin: 01/05/17 09:51 Dose: 81 mg Calcium Carbonate (Tums*) 500 mg PO QID PRN PRN Reason: INDIGESTION Dextrose (D50w Syringe 50 Ml*) 12.5 gm IV PUSH .FOR FS < 60 - SS PRN PRN Reason: FS < 60 Dronedarone (Multaq Tab*) 400 mg PO BID [facility] Last Admin: 01/05/17 09:51 Dose: 400 mg Clindamycin HCl/Dextrose (Cleocin 600 Mg Ivpremix(*) Sdv) 600 mg in 50 mls @ 100 mls/hr IV Q8H [facility] Last Admin: 01/05/17 09:52 Dose: 100 mls/hr Diphenhydramine HCl 25 mg/ (Sodium Chloride) 50.5 mls @ 101 mls/hr IVPB ONCE ONE Stop: 01/05/17 14:29 Last Admin: 01/05/17 13:29 Dose: 101 mls/hr Insulin Glargine (Lantus(*)) 40 units SUBCUT QPM [facility] Last Admin: 01/04/17 17:43 Dose: 40 units Insulin Human Lispro (Humalog*) 0 units SUBCUT ACHS [facility] PRN Reason: Protocol Last Admin: 01/05/17 13:26 Dose: 2 unit Mometasone Furoate/Formoterol Fumar (Dulera 200/5 Mdi*) 2 puff INH BID [facility] PRN Reason: Protocol Last Admin: 01/05/17 08:33 Dose: 2 puff Nystatin (Nystatin Suspension*) 500,000 units SWISH SWAL TID PC [facility] Last Admin: 01/05/17 11:49 Dose: 500,000 units Nystatin (Nystatin Cream*) 1 applic TOPICAL TID [facility] Last Admin: 01/05/17 09:52 Dose: 1 dose Omeprazole (Prilosec Cap*) 20 mg PO DAILY [facility] Last Admin: 01/05/17 09:51 Dose: 20 mg Oxycodone/Acetaminophen (Percocet 5/325 Tab*) 1 tab PO Q6H PRN PRN Reason: PAIN Last Admin: 01/05/17 11:50 Dose: 1 tab Potassium Chloride (Klor Con Er Tab*) 20 meq PO BID [facility] Last Admin: 01/05/17 09:56 Dose: Not Given Prednisone (Deltasone Tab*) 40 mg PO DAILY [facility] Last Admin: 01/05/17 09:51 Dose: 40 mg Pyridostigmine [place] (Mestinon Tab*) 120 mg PO QID [facility] Last Admin: 01/05/17 09:50 Dose: 120 mg Spironolactone (Aldactone Tab*) 25 mg PO DAILY [facility] Last Admin: 01/05/17 09:51 Dose: 25 mg Torsemide (Demadex*) 20 mg PO 1200,1800 [facility] Last Admin: 01/05/17 11:49 Dose: 20 mg Torsemide (Demadex*) 40 mg PO QAM [facility] Last Admin: 01/05/17 09:51 Dose: 40 mg Vital Signs 01/04/17 01/04/17 01/04/17 15:30 19:40 19:48 Temperature 98.6 F 98.2 F Pulse Rate 68 62 61 Respiratory 20 20 16 Rate Blood Pressure (mmHg) O2 Sat by Pulse 97 98 97 Oximetry 01/04/17 01/04/17 01/04/17 20:00 20:05 20:28 Temperature Pulse Rate Respiratory 16 16 Rate Blood Pressure 115/65 (mmHg) O2 Sat by Pulse Oximetry 01/04/17 01/04/17 01/05/17 22:05 23:24 03:14 Temperature 98.5 F 99.0 F Pulse Rate 81 71 Respiratory 16 22 18 Rate Blood Pressure 147/111 111/38 (mmHg) O2 Sat by Pulse 97 99 Oximetry 01/05/17 01/05/17 01/05/17 05:50 05:54 05:56 Temperature 98.1 F Pulse Rate 71 60 Respiratory 18 20 20 Rate Blood Pressure 133/46 (mmHg) O2 Sat by Pulse 98 98 Oximetry 01/05/17 01/05/1717 06:09 07:36 07:54 Temperature 98.1 F Pulse Rate 57 66 Respiratory 22 17 18 Rate Blood Pressure 111/45 (mmHg) O2 Sat by Pulse 98 99 Oximetry 01/05/17 01/05/17 01/05/17 08:36 11:50 13:29 Temperature Pulse Rate 58 Respiratory 18 18 18 Rate Blood Pressure (mmHg) O2 Sat by Pulse 98 Oximetry Oxygen Devices in Use Now: Nasal Cannula - 3L Appearance: Elderly female lying in bed, NAD Eyes: No Scleral Icterus Ears/Nose/Mouth/Throat: Mucous Membranes Moist Respiratory: Symmetrical Chest Expansion and Respiratory Effort, Clear to Auscultation Cardiovascular: NL Sounds; No Murmurs; No JVD, RRR, - - marked 2-3+ LE edema Abdominal: NL Sounds; No Tenderness; No Distention Extremities: No Clubbing, Cyanosis Skin: No Nodules or Sclerosis, - - less erythema and warmth to the B/L LE Neurological: Alert and Oriented x 3 Result Diagrams: 01/05/17 05:53 01/05/17 05:53 Microbiology and Other Data: Microbiology 01/03/17 17:00 Urine Culture - Final Urine Assess/Plan/Problems-Billing Ms Oreilly is a 71 yo F with a h/o myasthenia gravis, diastolic CHF, type II DM, COPD and HTN who presented to the ER with c/o weakness and was found to have bilateral cellulitis of the lower legs. - Patient Problems (1) Weakness Current Visit: Yes Status: Acute Code(s): R53.1 - WEAKNESS SNOMED Code(s) : 43252430 Comment: I think the patient's weakness is a chronic problem but acutely worse and multifactorial. I suspect the patient's worsened weakness currently is likely secondary to B/L LE cellulitis. (2) Cellulitis Current Visit: Yes Status: Acute Code(s): L03.90 - CELLULITIS, UNSPECIFIED SNOMED Code(s): 026365406 Comment: THe patient continues to show improvement with clindamycin-today is D# 3 of therapy. Will continue IV clinda for another 24hr and likely home vs STR. WBC count continues to improve. (3) Acute blood loss anemia Current Visit: Yes Status: Acute Code(s): D62 - ACUTE POSTHEMORRHAGIC ANEMIA SNOMED Code(s): 536617835 Comment: The patient has acute on chronic anemia. I suspect the drop in the patient's H/H is related to acute blood loss anemia from her recent fall. H/H improved today. Follow up CBC tomorrow. (4) Atrial fibrillation Current Visit: Yes Status: Acute Code(s): I48.91 - UNSPECIFIED ATRIAL FIBRILLATION SNOMED Code(s): 16857799 Comment: Controlled. Continue multaq. No anticoagulation at baseline. (5) Diastolic heart failure Current Visit: Yes Status: Acute Code(s): I50.30 - UNSPECIFIED DIASTOLIC ( CONGESTIVE) HEART FAILURE SNOMED Code(s): 608681792 Comment: Edema seems a little better. Will continue home dose of torsemide. (6) CKD (chronic kidney disease) Current Visit: Yes Status: Acute Code(s): N18.9 - CHRONIC KIDNEY DISEASE, UNSPECIFIED SNOMED Code(s): 882425674 Comment: Creatinine is at baseline. Continue to monitor. (7) Type 2 diabetes mellitus Current Visit: Yes Status: Chronic Comment: Sugars are better today after increasing the lantus last night. Will monitor sugars today and adjust insulin regimen tomorrow if needed. (8) Myasthenia gravis Current Visit: Yes Status: Chronic Onset Date: 04/04/14 Code(s): G70.00 - MYASTHENIA GRAVIS WITHOUT (ACUTE) EXACERBATION SNOMED Code(s): 58218988 Comment: No signs of exacerbation at this time. SHe is getting her second dose of IVIG today as scheduled. Continue pyridostigmine and prednisone. (9) DVT prophylaxis Current Visit: Yes Status: Acute Code(s): VJK2320 - SNOMED Code(s): 811363494 Comment: Resume SQ heparin tomorrow if H/H stable. (10) Full code status Current Visit: Yes Status: Acute Code(s): Z78.9 - OTHER SPECIFIED HEALTH STATUS SNOMED Code(s): 381858551
[2017-01-05] MEDS: Insulin GLARGINE(*) 1 UNITS UNIT SUBCUT SCH (18:34)
[2017-01-05] MEDS ORDERED: Insulin LISPRO* 1 UNITS UNIT SUBCUT ONE (22:25)
[2017-01-05] MEDS ORDERED: Dextrose 50% Syringe 50 ML* 25 GM/50 ML SYRINGE IV PUSH PRN (22:25)
[2017-01-06] MEDS: Clindamycin 600 MG IVPREMIX(* 600 MG/50 ML SDV IV SCH ×3 (02:00→16:34)
--- NOTE | 2017-01-06 03:42 | PN ---
PROGRESS NOTE: DATE OF SERVICE/DICTATION: 01/05/17 PATIENT OF: Dr. Madden, Dr. Davidson, and Ann Cartagena, SERGIO. HISTORY: I was asked to see this 71-year-old woman by Dr. Madden and Dr. Davidson for her myasthenia, who is getting her IVIG. 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 She also had some mild shortness of breath when presenting to the ER. She gets monthly IVIG, yesterday and then today, and she has tolerated the first dose well without any problem. She has a history of myasthenia gravis, diastolic congestive heart failure, atrial fibrillation, type 2 diabetes, COPD, and stage 3 chronic kidney disease, status post cholecystectomy, and pacemaker placement. MEDICATIONS: Include: 1. Torsemide 40 mg q.a.m. and 20 mg at noon and 6 p.m. 2. IVIG 70mgIV q.28 days. 3. Dronedarone 400 b.i.d. 4. Calcium carbonate 500 four times a day p.r.n. indigestion. 5. Symbicort 160/4.5 two puffs twice daily. 6. Aspirin 81 mg p.o. daily. 7. Percocet 5/325 p.r.n. pain. 8. Potassium chloride 20 mEq b.i.d. 9. Omeprazole 20 mg daily. 10. Imodium 2 mg four times a day p.r.n. diarrhea. 11. Lantus 35 mg subcu at bedtime. 12. Prednisone 40 mg daily. 13. Spironolactone 25 mg daily. 14. Pyridostigmine 120 four times a day. ALLERGIES: She is allergic to OCTAGAM, CELLCEPT, AZITHROMYCIN, CEFTRIAXONE, and CIPROFLOXACIN. FAMILY HISTORY: Mom had breast cancer and dad had gastric cancer. SOCIAL HISTORY: She is a former smoker, quit 10 years ago. She does not drink or use drugs. She is not , but has 3 children. REVIEW OF SYSTEMS: Negative in all 14 spheres other than she has also recently been diagnosed with cellulitis, which appears better. She also has type 2 diabetes. PHYSICAL EXAM: Temperature 98.1, pulse 58, respiratory rate 18, blood pressure 111/45. She is alert and oriented with normal speech and comprehension. Cranial nerves II through XII were intact. Motor exam revealed normal tone with trace weakness diffusely. Chest: Clear. Cardiovascular: Regular rate and rhythm. Abdomen is soft with positive bowel sounds. She has bilateral leg edema. LABORATORY DATA: Include, white count of 11.4, hematocrit of 26, platelet count 234. INR 0.86, PTT 23.5. BMP was normal other than a BUN of 39 and creatinine of 1.47, glucose 71. ASSESSMENT AND PLAN: Sue has difficult to treat myasthenia gravis and she is getting her second dose of IVIG today after roughly 48 hours in between her 2 doses this time, but she tolerated the first dose without any significant congestive heart failure or worsening edema. She will need her IVIG in another 28 days as is her routine with followup as is a routine with Dr. Madden. Her steroid, pyridostigmine, should be continued as is and please call for any problems. Thank you for sharing her case. [id number]/[facility] #: [id number] [facility]
[2017-01-06 06:20] LABS: Hematocrit 24 % (35-47); Hemoglobin 7.2 g/dl (12.0-16.0); Mean Corpuscular HGB Conc 30 g/dl (31-36); Mean Corpuscular Hemoglobin 21 pg (27-31); Mean Corpuscular Volume 70 fL (80-97); Mean Platelet Volume 7 um3 (7.4-10.4); Red Blood Count 3.41 10^6/ul (4.0-5.4); Red Cell Distribution Width 21 % (10.5-15); White Blood Count 11.7 10^3/ul (3.5-10.8)
[2017-01-06 06:22] LABS: Comments Flag Yes
[2017-01-06] MEDS: Mometasone/Formoter 200/5 MDI INH SCH ×2 (07:44→20:16)
[2017-01-06] MEDS: oxyCODONE/Acetamin 5/325 MG* TAB PO PRN ×2 (08:00→11:58)
[2017-01-06] MEDS: predniSONE TAB* 20 MG PO SCH (08:06)
[2017-01-06] MEDS: Aspirin Low Dose CHEW TAB* 81 MG PO SCH (08:06)
[2017-01-06] MEDS: Pyridostigmine TAB* 60 MG PO SCH ×4 (08:07→22:10)
[2017-01-06] MEDS: Omeprazole CAP* 20 MG PO SCH (08:07)
[2017-01-06] MEDS: Spironolactone TAB* 25 MG PO SCH (08:07)
[2017-01-06] MEDS: Dronedarone TAB* 400 MG PO SCH ×2 (08:07→22:09)
[2017-01-06] MEDS: Nystatin CREAM* 15 GM TUBE TOPICAL SCH ×3 (08:07→22:09)
[2017-01-06] MEDS: Nystatin SUSPENSION* 100000 UNITS/ML 5 ML UDC SWISH SWAL SCH ×3 (08:07→16:34)
[2017-01-06] MEDS: Potassium Chlor TAB* 20 MEQ TAB.ER PO SCH ×3 (08:07→22:21)
[2017-01-06] MEDS: Insulin LISPRO* 1 UNITS UNIT SUBCUT SCH ×5 (08:08→22:24)
[2017-01-06] MEDS: Torsemide TAB* 20 MG PO SCH ×3 (09:51→17:45)
--- NOTE | 2017-01-06 11:52 | PN ---
Subjective Date of Service: 01/06/17 Interval History: Pt states she did not work with PT yesterday as she was sleepy after receiving benadryl for premedication for the IVIG. She is willing to work with PT today. I have explained that she needs to be able to get up and around if she wants to go home. She still c/o pain in her R foot but states it is getting better. Objective Active Medications: Albuterol/Ipratropium (Duoneb (Albuterol 2.5 Mg/Ipratropium 0.5 Mg)) 1 neb INH QID PRN PRN Reason: SOB/WHEEZING Last Admin: 01/05/17 19:52 Dose: 1 neb Aspirin (Aspirin Low Dose Tab*) 81 mg PO DAILY [facility] Last Admin: 01/06/17 08:06 Dose: 81 mg Calcium Carbonate (Tums*) 500 mg PO QID PRN PRN Reason: INDIGESTION Dextrose (D50w Syringe 50 Ml*) 12.5 gm IV PUSH .FOR FS < 60 - SS PRN PRN Reason: FS < 60 Dextrose (D50w Syringe 50 Ml*) 12.5 gm IV PUSH .FOR FS < 60 - SS PRN PRN Reason: FS < 60 Dronedarone (Multaq Tab*) 400 mg PO BID [facility] Last Admin: 01/06/17 08:07 Dose: 400 mg Clindamycin HCl/Dextrose (Cleocin 600 Mg Ivpremix(*) Sdv) 600 mg in 50 mls @ 100 mls/hr IV Q8H [facility] Last Admin: 01/06/17 09:19 Dose: 100 mls/hr Insulin Glargine (Lantus(*)) 40 units SUBCUT QPM [facility] Last Admin: 01/05/17 18:34 Dose: 40 units Insulin Human Lispro (Humalog*) 0 units SUBCUT ACHS [facility] PRN Reason: Protocol Last Admin: 01/06/17 08:08 Dose: Not Given Mometasone Furoate/Formoterol Fumar (Dulera 200/5 Mdi*) 2 puff INH BID [facility] PRN Reason: Protocol Last Admin: 01/06/17 07:44 Dose: 2 puff Nystatin (Nystatin Suspension*) 500,000 units SWISH SWAL TID [facility] Last Admin: 09/09/17 08:07 Dose: 500,000 units Nystatin (Nystatin Cream*) 1 applic TOPICAL TID [facility] Last Admin: 01/06/17 08:07 Dose: 1 applic Omeprazole (Prilosec Cap*) 20 mg PO DAILY [facility] Last Admin: 01/06/17 08:07 Dose: 20 mg Oxycodone/Acetaminophen (Percocet 5/325 Tab*) 1 tab PO Q4H PRN PRN Reason: PAIN Last Admin: 01/06/17 08:00 Dose: 1 tab Potassium Chloride (Klor Con Er Tab*) 20 meq PO BID [facility] Last Admin: 01/06/17 08:07 Dose: Not Given Prednisone (Deltasone Tab*) 40 mg PO DAILY [facility] Last Admin: 01/06/17 08:06 Dose: 40 mg Pyridostigmine [place] (Mestinon Tab*) 120 mg PO QID [facility] Last Admin: 01/06/17 08:07 Dose: 120 mg Spironolactone (Aldactone Tab*) 25 mg PO DAILY [facility] Last Admin: 01/06/17 08:07 Dose: 25 mg Torsemide (Demadex*) 20 mg PO 1200,1800 [facility] Last Admin: 01/05/17 18:34 Dose: 20 mg Torsemide (Demadex*) 40 mg PO QAM [facility] Last Admin: 01/06/17 09:51 Dose: 40 mg Vital Signs 01/05/17 01/05/17 01/05/17 11:50 13:29 13:50 Temperature 98.3 F Pulse Rate 71 Respiratory 16 18 18 Rate Blood Pressure 152/60 (mmHg) O2 Sat by Pulse 100 Oximetry 01/05/17 01/05/17 01/05/17 14:29 14:30 15:00 Temperature 98.2 F 98.4 F Pulse Rate 68 62 Respiratory 18 18 20 Rate Blood Pressure 118/54 122/50 (mmHg) O2 Sat by Pulse 98 Oximetry 01/05/17 01/05/17 01/05/17 16:08 16:59 18:34 Temperature 98.5 F 97.4 F Pulse Rate 66 59 Respiratory 20 20 20 Rate Blood Pressure 123/41 117/44 (mmHg) O2 Sat by Pulse 100 98 Oximetry 01/05/17 01/05/17 01/05/17 18:55 19:15 19:53 Temperature 98.1 F Pulse Rate 67 74 Respiratory 18 18 18 Rate Blood Pressure 116/48 (mmHg) O2 Sat by Pulse 99 96 Oximetry 01/05/17 01/05/17 01/06/17 20:34 23:31 03:46 Temperature 98.3 F 98.5 F Pulse Rate 67 70 Respiratory 20 15 17 Rate Blood Pressure 113/44 (mmHg) O2 Sat by Pulse 99 97 Oximetry 01/06/17 01/06/17 01/06/17 07:45 08:00 08:24 Temperature 98.6 F Pulse Rate 72 Respiratory 21 20 20 Rate Blood Pressure 123/54 (mmHg) O2 Sat by Pulse 100 Oximetry 01/06/17 09:53 Temperature Pulse Rate Respiratory 18 Rate Blood Pressure (mmHg) O2 Sat by Pulse Oximetry Oxygen Devices in Use Now: Nasal Cannula - 3L Appearance: Elderly female sitting up in bed, NAD Eyes: No Scleral Icterus Ears/Nose/Mouth/Throat: Mucous Membranes Moist Respiratory: Symmetrical Chest Expansion and Respiratory Effort, Clear to Auscultation Cardiovascular: NL Sounds; No Murmurs; No JVD, RRR, - - 2+ LE edema Abdominal: NL Sounds; No Tenderness; No Distention Extremities: No Clubbing, Cyanosis Skin: No Rash or Ulcers - B/L erythema of the lower extremities improved but still present, warmth and edema also improved, No Nodules or Sclerosis, - - B/L erythema of the lower extremities improved Neurological: Alert and Oriented x 3 Result Diagrams: 01/06/17 05:46 01/05/17 05:53 Microbiology and Other Data: Microbiology 01/03/17 17:00 Urine Culture - Final Urine Assess/Plan/Problems-Billing Ms Oreilly is a 71 yo F with a h/o myasthenia gravis, diastolic CHF, type II DM, COPD and HTN who presented to the ER with c/o weakness and was found to have bilateral cellulitis of the lower legs. - Patient Problems (1) Weakness Current Visit: Yes Status: Acute Code(s): R53.1 - WEAKNESS SNOMED Code(s) : 08111328 Comment: I think the patient's weakness is a chronic problem but acutely worse. I suspect the patient's worsened weakness currently is likely secondary to B/L LE cellulitis which is now improving. (2) Cellulitis Current Visit: Yes Status: Acute Code(s): L03.90 - CELLULITIS, UNSPECIFIED SNOMED Code(s): 814419382 Comment: From a cellulitis standpoint I think the patient can go home and continue on clindamycin for another 3 days of therapy however her H/H is concerning and needs to be evaluated further. She needs to work with PT today. I am concerned she will not be able to manage her ADLs. (3) Acute blood loss anemia Current Visit: Yes Status: Acute Code(s): D62 - ACUTE POSTHEMORRHAGIC ANEMIA SNOMED Code(s): 455439009 Comment: The patient has acute on chronic anemia. H/H a little better today than yesterday. Will recheck H/H this afternoon. Check stool guaiac, iron and B12 studies. (4) Atrial fibrillation Current Visit: Yes Status: Acute Code(s): I48.91 - UNSPECIFIED ATRIAL FIBRILLATION SNOMED Code(s): 95739867 Comment: Controlled. Continue multaq. No anticoagulation at baseline. (5) Diastolic heart failure Current Visit: Yes Status: Acute Code(s): I50.30 - UNSPECIFIED DIASTOLIC ( CONGESTIVE) HEART FAILURE SNOMED Code(s): 941397320 Comment: Edema seems a little better. Will continue home dose of torsemide. (6) CKD (chronic kidney disease) Current Visit: Yes Status: Acute Code(s): N18.9 - CHRONIC KIDNEY DISEASE, UNSPECIFIED SNOMED Code(s): 013673143 Comment: Creatinine is at baseline. Continue to monitor. (7) Type 2 diabetes mellitus Current Visit: Yes Status: Chronic Comment: The patient's sugars are very variable. She was slightly low this AM but markedly elevated last night. (8) Myasthenia gravis Current Visit: Yes Status: Chronic Onset Date: 04/04/14 Code(s): G70.00 - MYASTHENIA GRAVIS WITHOUT (ACUTE) EXACERBATION SNOMED Code(s): 36149899 Comment: No signs of exacerbation at this time. She completed her IVIG for this month. Continue pyridostigmine and prednisone. (9) DVT prophylaxis Current Visit: Yes Status: Acute Code(s): NPK1987 - SNOMED Code(s): 839620130 Comment: Hold SQ heparin today as H/H dropped slightly. (10) Full code status Current Visit: Yes Status: Acute Code(s): Z78.9 - OTHER SPECIFIED HEALTH STATUS SNOMED Code(s): 910832983
[2017-01-06 12:14] LABS: Ferritin 32.6 ng/mL (11-307)
[2017-01-06] MEDS: Albuterol/Ipratropium NEB.SOL* Albuterol 2.5 MG/Ipratropium 0.5 MG 3 ML INH PRN (16:12)
[2017-01-06 16:21] LABS: Hematocrit 25 % (35-47); Hemoglobin 7.4 g/dl (12.0-16.0)
[2017-01-06 16:22] LABS: Comments Flag Yes
[2017-01-06] MEDS: Insulin GLARGINE(*) 1 UNITS UNIT SUBCUT SCH (17:44)
[2017-01-06] MEDS: Loperamide CAP* 2 MG PO PRN (22:18)
[2017-01-07] MEDS: Clindamycin 600 MG IVPREMIX(* 600 MG/50 ML SDV IV SCH (01:13)
[2017-01-07] MEDS: oxyCODONE/Acetamin 5/325 MG* TAB PO PRN ×3 (02:02→12:45)
[2017-01-07 06:12] LABS: Comments Flag Yes; Hematocrit 26 % (35-47); Hemoglobin 7.7 g/dl (12.0-16.0); Mean Corpuscular HGB Conc 30 g/dl (31-36); Mean Corpuscular Hemoglobin 21 pg (27-31); Mean Corpuscular Volume 70 fL (80-97); Mean Platelet Volume 7 um3 (7.4-10.4); Red Blood Count 3.68 10^6/ul (4.0-5.4); Red Cell Distribution Width 21 % (10.5-15); White Blood Count 13.5 10^3/ul (3.5-10.8)
[2017-01-07 06:13] LABS: BUN/Creatinine Ratio 24.8 (8-20); EGFR African American 50.9 (>60); EGFR Non-African American 39.6 (>60); Potassium 3.7 mmol/L (3.5-5.0)
--- NOTE | 2017-01-07 07:49 | PN ---
Subjective Date of Service: 01/07/17 Interval History: Pt states she is having severe pain in her R ankle. Per nursing the patient is not getting up to the commode very easily. The patient today states she did not working with PT yesterday because she was in the bathroom. Objective Active Medications: Albuterol/Ipratropium (Duoneb (Albuterol 2.5 Mg/Ipratropium 0.5 Mg)) 1 neb INH QID PRN PRN Reason: SOB/WHEEZING Last Admin: 01/06/17 16:12 Dose: 1 neb Aspirin (Aspirin Low Dose Tab*) 81 mg PO DAILY [facility] Last Admin: 01/06/17 08:06 Dose: 81 mg Calcium Carbonate (Tums*) 500 mg PO QID PRN PRN Reason: INDIGESTION Dextrose (D50w Syringe 50 Ml*) 12.5 gm IV PUSH .FOR FS < 60 - SS PRN PRN Reason: FS < 60 Dextrose (D50w Syringe 50 Ml*) 12.5 gm IV PUSH .FOR FS < 60 - SS PRN PRN Reason: FS < 60 Dronedarone (Multaq Tab*) 400 mg PO BID [facility] Last Admin: 01/06/17 22:09 Dose: 400 mg Clindamycin HCl/Dextrose (Cleocin 600 Mg Ivpremix(*) Sdv) 600 mg in 50 mls @ 100 mls/hr IV Q8H [facility] Last Admin: 01/07/17 01:13 Dose: 100 mls/hr Insulin Glargine (Lantus(*)) 40 units SUBCUT QPM [facility] Last Admin: 01/06/17 17:44 Dose: 40 units Insulin Human Lispro (Humalog*) 0 units SUBCUT ACHS [facility] PRN Reason: Protocol Last Admin: 01/06/17 22:24 Dose: Not Given Insulin Human Lispro (Humalog*) 5 units SUBCUT AC [facility] Last Admin: 01/06/17 16:32 Dose: 5 unit Loperamide HCl (Imodium Cap*) 2 mg PO .SEE COMMENTS PRN PRN Reason: DIARRHEA Last Admin: 01/06/17 22:18 Dose: 2 mg Mometasone Furoate/Formoterol Fumar (Dulera 200/5 Mdi*) 2 puff INH BID [facility] PRN Reason: Protocol Last Admin: 01/06/17 20:16 Dose: 2 puff Morphine Sulfate (Morphine Inj (Syringe)*) 2 mg IV Q4H PRN PRN Reason: SEVERE PAIN Nystatin (Nystatin Suspension*) 500,000 units SWISH SWAL TID PC [facility] Last Admin: 01/06/17 16:34 Dose: 500,000 units Nystatin (Nystatin Cream*) 1 applic TOPICAL TID [facility] Last Admin: 01/06/17 22:09 Dose: 1 applic Omeprazole (Prilosec Cap*) 20 mg PO DAILY [facility] Last Admin: 01/06/17 08:07 Dose: 20 mg Oxycodone/Acetaminophen (Percocet 5/325 Tab*) 1 tab PO Q4H PRN PRN Reason: PAIN Last Admin: 01/07/17 06:11 Dose: 1 tab Potassium Chloride (Klor Con Er Tab*) 20 meq PO BID [facility] Last Admin: 01/06/17 22:21 Dose: Not Given Prednisone (Deltasone Tab*) 40 mg PO DAILY [facility] Last Admin: 01/06/17 08:06 Dose: 40 mg Pyridostigmine [place] (Mestinon Tab*) 120 mg PO QID [facility] Last Admin: 01/06/17 22:10 Dose: 120 mg Spironolactone (Aldactone Tab*) 25 mg PO DAILY [facility] Last Admin: 01/06/17 08:07 Dose: 25 mg Torsemide (Demadex*) 20 mg PO 1200,1800 [facility] Last Admin: 01/06/17 17:45 Dose: 20 mg Torsemide (Demadex*) 40 mg PO QAM [facility] Last Admin: 01/06/17 09:51 Dose: 40 mg Vital Signs 01/06/17 01/06/17 01/06/17 07:45 08:00 08:24 Temperature 98.6 F Pulse Rate 72 Respiratory 21 20 20 Rate Blood Pressure 123/54 (mmHg) O2 Sat by Pulse 100 Oximetry 01/06/17 01/06/17 01/06/17 09:53 11:58 12:48 Temperature Pulse Rate Respiratory 18 20 18 Rate Blood Pressure (mmHg) O2 Sat by Pulse Oximetry 01/06/17 01/06/17 01/06/17 15:58 16:16 20:00 Temperature 98.0 F Pulse Rate 65 68 Respiratory 20 17 20 Rate Blood Pressure 123/55 (mmHg) O2 Sat by Pulse 97 96 Oximetry 01/06/17 01/06/17 01/07/17 22:18 23:22 00:18 Temperature 98.4 F Pulse Rate 76 Respiratory 16 20 18 Rate Blood Pressure 108/44 (mmHg) O2 Sat by Pulse 97 Oximetry 01/07/17 01/07/17 01/07/17 02:02 03:28 04:02 Temperature 98.1 F Pulse Rate 68 Respiratory 16 20 16 Rate Blood Pressure 116/49 (mmHg) O2 Sat by Pulse 99 Oximetry 01/07/17 06:11 Temperature Pulse Rate Respiratory 16 Rate Blood Pressure (mmHg) O2 Sat by Pulse Oximetry Oxygen Devices in Use Now: Nasal Cannula - 3L Appearance: Elderly female sitting up in bed, NAD Eyes: No Scleral Icterus Ears/Nose/Mouth/Throat: Mucous Membranes Moist Respiratory: Symmetrical Chest Expansion and Respiratory Effort, Clear to Auscultation Cardiovascular: NL Sounds; No Murmurs; No JVD, RRR, - - unchanged marked LE edema Abdominal: NL Sounds; No Tenderness; No Distention Extremities: No Clubbing, Cyanosis Skin: No Rash or Ulcers, No Nodules or Sclerosis, - - continued erythema of the B/L LE- better than on admission but unchanged from yesterday Neurological: Alert and Oriented x 3 Result Diagrams: 01/07/17 05:28 01/07/17 05:28 Microbiology and Other Data: Microbiology 01/03/17 17:00 Urine Culture - Final Urine Assess/Plan/Problems-Billing Ms Oreilly is a 71 yo F with a h/o myasthenia gravis, diastolic CHF, type II DM, COPD and HTN who presented to the ER with c/o weakness and was found to have bilateral cellulitis of the lower legs. - Patient Problems (1) Weakness Current Visit: Yes Status: Acute Code(s): R53.1 - WEAKNESS SNOMED Code(s) : 07058121 Comment: I think the patient's weakness is a chronic problem but acutely worse. I suspect the patient's worsened weakness currently is likely secondary to B/L LE cellulitis which is now improving. The patient has either refused or not been able to work with PT at all this hospitalization. I have told her she needs to start working with them as I am concerned she needs STR and will be unable to go home and we need their evaluation. (2) Cellulitis Current Visit: Yes Status: Acute Code(s): L03.90 - CELLULITIS, UNSPECIFIED SNOMED Code(s): 495121290 Comment: Change to oral clindamycin to complete 3 more days of therapy ( includes today). Her legs are likely as good as they are going to look. Her WBC count is climbing again but she always has an elevated WBC count. Clinically she is non-toxic appearing. (3) Acute blood loss anemia Current Visit: Yes Status: Acute Code(s): D62 - ACUTE POSTHEMORRHAGIC ANEMIA SNOMED Code(s): 473191687 Comment: H/H stable/improving. She is iron deficient and her B12 is low normal. Will start replacement for both. Await stool guaiac. (4) Atrial fibrillation Current Visit: Yes Status: Acute Code(s): I48.91 - UNSPECIFIED ATRIAL FIBRILLATION SNOMED Code(s): 91677938 Comment: Controlled. Continue multaq. No anticoagulation at baseline. (5) Diastolic heart failure Current Visit: Yes Status: Acute Code(s): I50.30 - UNSPECIFIED DIASTOLIC ( CONGESTIVE) HEART FAILURE SNOMED Code(s): 943163878 Comment: Edema seems a little better. Will continue home dose of torsemide. (6) CKD (chronic kidney disease) Current Visit: Yes Status: Acute Code(s): N18.9 - CHRONIC KIDNEY DISEASE, UNSPECIFIED SNOMED Code(s): 166157211 Comment: Creatinine is at baseline. Continue to monitor. (7) Type 2 diabetes mellitus Current Visit: Yes Status: Chronic Comment: The patient's sugars were better yesterday after adding standing lispro with meals but this AM her sugar was again low. Will reduce lantus to 38 units SQ qPM. (8) Myasthenia gravis Current Visit: Yes Status: Chronic Onset Date: 04/04/14 Code(s): G70.00 - MYASTHENIA GRAVIS WITHOUT (ACUTE) EXACERBATION SNOMED Code(s): 24046584 Comment: No signs of exacerbation at this time. She completed her IVIG for this month. Continue pyridostigmine and prednisone. (9) DVT prophylaxis Current Visit: Yes Status: Acute Code(s): RUB0634 - SNOMED Code(s): 751524600 Comment: Resume SQ heparin (10) Full code status Current Visit: Yes Status: Acute Code(s): Z78.9 - OTHER SPECIFIED HEALTH STATUS SNOMED Code(s): 800689869
[2017-01-07] MEDS: Insulin LISPRO* 1 UNITS UNIT SUBCUT SCH ×7 (08:02→20:50)
[2017-01-07] MEDS: Mometasone/Formoter 200/5 MDI INH SCH ×2 (08:11→20:03)
[2017-01-07] MEDS: Morphine INJ* 2 MG/ML 1 ML CARPUJECT IV PRN ×2 (08:24→15:00)
[2017-01-07] MEDS: Torsemide TAB* 20 MG PO SCH ×3 (08:30→17:56)
[2017-01-07] MEDS: Pyridostigmine TAB* 60 MG PO SCH ×4 (08:30→20:52)
[2017-01-07] MEDS: predniSONE TAB* 20 MG PO SCH (08:30)
[2017-01-07] MEDS: Omeprazole CAP* 20 MG PO SCH (08:31)
[2017-01-07] MEDS: Spironolactone TAB* 25 MG PO SCH (08:31)
[2017-01-07] MEDS: Aspirin Low Dose CHEW TAB* 81 MG PO SCH (08:31)
[2017-01-07] MEDS: Dronedarone TAB* 400 MG PO SCH ×2 (08:31→20:52)
[2017-01-07] MEDS: Nystatin SUSPENSION* 100000 UNITS/ML 5 ML UDC SWISH SWAL SCH ×3 (08:35→17:57)
--- NOTE | 2017-01-07 08:57 | RAD ---
Indication: Pain post fall several days ago. Cellulitis and clinical concern for osteomyelitis. Comparison: No relevant prior exams available on the [facility] PACS for comparison. Technique: AP, mortise, and crosstable lateral views RIGHT ankle. Report: Severe nonfocal soft tissue swelling. No subcutaneous emphysema evident. Negative for fracture or malalignment. No periosteal reaction or focal osteolysis evident. Moderate plantar fascia origin bone spur. IMPRESSION: Nonspecific diffuse soft tissue swelling. Negative for fracture or malalignment. Negative for radiographic stigmata of osteomyelitis.
[2017-01-07] MEDS: Potassium Chlor TAB* 20 MEQ TAB.ER PO SCH ×2 (10:08→20:52)
[2017-01-07] MEDS: Cyanocobalamin TAB* 500 MCG PO SCH (10:19)
[2017-01-07] MEDS: Ferrous Gluconate TAB* 324 MG TAB PO SCH (10:19)
[2017-01-07] MEDS: Nystatin CREAM* 15 GM TUBE TOPICAL SCH ×3 (10:21→20:52)
[2017-01-07] MEDS: Clindamycin CAP* 150 MG PO SCH ×2 (12:46→20:52)
[2017-01-07] MEDS: Loperamide CAP* 2 MG PO PRN ×3 (14:59→23:17)
[2017-01-07] MEDS ORDERED: Insulin GLARGINE(*) 1 UNITS UNIT SUBCUT SCH (18:00)
[2017-01-07] MEDS: Morphine INJ* 4 MG/ML 1 ML CARPUJECT IV PRN (21:06)
[2017-01-08] MEDS: oxyCODONE/Acetamin 5/325 MG* TAB PO PRN ×4 (01:09→22:07)
[2017-01-08] MEDS: Morphine INJ* 4 MG/ML 1 ML CARPUJECT IV PRN ×2 (02:59→08:11)
[2017-01-08] MEDS: Clindamycin CAP* 150 MG PO SCH ×3 (06:17→22:08)
[2017-01-08] MEDS: Insulin LISPRO* 1 UNITS UNIT SUBCUT SCH ×7 (08:27→22:09)
[2017-01-08] MEDS: Nystatin SUSPENSION* 100000 UNITS/ML 5 ML UDC SWISH SWAL SCH ×3 (09:18→17:37)
[2017-01-08] MEDS: Torsemide TAB* 20 MG PO SCH ×3 (09:21→17:38)
[2017-01-08] MEDS: Aspirin Low Dose CHEW TAB* 81 MG PO SCH (09:21)
[2017-01-08] MEDS: Dronedarone TAB* 400 MG PO SCH ×2 (09:22→22:08)
[2017-01-08] MEDS: predniSONE TAB* 20 MG PO SCH (09:22)
[2017-01-08] MEDS: Pyridostigmine TAB* 60 MG PO SCH ×4 (09:23→22:25)
[2017-01-08] MEDS: Spironolactone TAB* 25 MG PO SCH (09:23)
[2017-01-08] MEDS: Omeprazole CAP* 20 MG PO SCH (09:23)
[2017-01-08] MEDS: Ferrous Gluconate TAB* 324 MG TAB PO SCH (09:23)
[2017-01-08] MEDS: Cyanocobalamin TAB* 500 MCG PO SCH (09:23)
[2017-01-08] MEDS: Potassium Chlor TAB* 20 MEQ TAB.ER PO SCH ×2 (09:24→22:08)
[2017-01-08] MEDS: Nystatin CREAM* 15 GM TUBE TOPICAL SCH ×2 (09:24→15:07)
[2017-01-08 10:32] LABS: Hematocrit 25 % (35-47); Hemoglobin 7.5 g/dl (12.0-16.0); Mean Corpuscular HGB Conc 30 g/dl (31-36); Mean Corpuscular Hemoglobin 21 pg (27-31); Mean Platelet Volume 7 um3 (7.4-10.4); Red Blood Count 3.61 10^6/ul (4.0-5.4); Red Cell Distribution Width 22 % (10.5-15); White Blood Count 14.6 10^3/ul (3.5-10.8)
[2017-01-08 10:36] LABS: Comments Flag Yes; Mean Corpuscular Volume 70 fL (80-97)
[2017-01-08] MEDS ORDERED: Morphine INJ* 4 MG/ML 1 ML CARPUJECT IV ONE (11:40)
[2017-01-08] MEDS: Mometasone/Formoter 200/5 MDI INH SCH ×2 (13:23→20:42)
[2017-01-08] MEDS: Albuterol/Ipratropium NEB.SOL* Albuterol 2.5 MG/Ipratropium 0.5 MG 3 ML INH PRN (13:23)
--- NOTE | 2017-01-08 15:19 | PN ---
Subjective Date of Service: 01/08/17 Interval History: Pt is feeling ok. She states her ankle pain is bothering her the most. She states she needs a 2 assist to get up out of bed but then is able to ambulate about 5ft. She has finally agreed to STR and [facility]. Objective Active Medications: Albuterol/Ipratropium (Duoneb (Albuterol 2.5 Mg/Ipratropium 0.5 Mg)) 1 neb INH QID PRN PRN Reason: SOB/WHEEZING Last Admin: 01/08/17 13:23 Dose: 1 neb Aspirin (Aspirin Low Dose Tab*) 81 mg PO DAILY [facility] Last Admin: 01/08/17 09:21 Dose: 81 mg Calcium Carbonate (Tums*) 500 mg PO QID PRN PRN Reason: INDIGESTION Clindamycin HCl (Cleocin Cap*) 300 mg PO Q8HR [facility] Last Admin: 01/08/17 15:06 Dose: 300 mg Cyanocobalamin (Vitamin B12 Tab*) 1,000 mcg PO DAILY [facility] Last Admin: 01/08/17 09:23 Dose: 1,000 mcg Dextrose (D50w Syringe 50 Ml*) 12.5 gm IV PUSH .FOR FS < 60 - SS PRN PRN Reason: FS < 60 Last Admin: 01/08/17 08:08 Dose: 12.5 gm Dronedarone (Multaq Tab*) 400 mg PO BID [facility] Last Admin: 01/08/17 09:22 Dose: 400 mg Ferrous Gluconate (Fergon Tab*) 324 mg PO DAILY [facility] Last Admin: 01/08/17 09:23 Dose: 324 mg Insulin Glargine (Lantus(*)) 35 units SUBCUT QPM [facility] Insulin Human Lispro (Humalog*) 0 units SUBCUT ACHS [facility] PRN Reason: Protocol Last Admin: 01/08/17 12:17 Dose: Not Given Insulin Human Lispro (Humalog*) 5 units SUBCUT AC [facility] Last Admin: 01/08/17 14:05 Dose: Not Given Loperamide HCl (Imodium Cap*) 2 mg PO .SEE COMMENTS PRN PRN Reason: DIARRHEA Last Admin: 01/07/17 23:17 Dose: 2 mg Mometasone Furoate/Formoterol Fumar (Dulera 200/5 Mdi*) 2 puff INH BID [facility] PRN Reason: Protocol Last Admin: 01/08/17 13:23 Dose: 2 puff Morphine Sulfate (Morphine Inj (Syringe)*) 2 mg IV Q4H PRN PRN Reason: SEVERE PAIN Last Admin: 01/08/17 08:11 Dose: 2 mg Nystatin (Nystatin Suspension*) 500,000 units SWISH SWAL TID PC [facility] Last Admin: 01/08/17 12:06 Dose: 500,000 units Nystatin (Nystatin Cream*) 1 applic TOPICAL TID [facility] Last Admin: 01/08/17 15:07 Dose: 1 applic Omeprazole (Prilosec Cap*) 20 mg PO DAILY [facility] Last Admin: 01/08/17 09:23 Dose: 20 mg Oxycodone/Acetaminophen (Percocet 5/325 Tab*) 1 tab PO Q4H PRN PRN Reason: PAIN Last Admin: 01/08/17 15:06 Dose: 1 tab Potassium Chloride (Klor Con Er Tab*) 20 meq PO BID [facility] Last Admin: 01/08/17 09:24 Dose: Not Given Prednisone (Deltasone Tab*) 40 mg PO DAILY [facility] Last Admin: 01/08/17 09:22 Dose: 40 mg Pyridostigmine [place] (Mestinon Tab*) 120 mg PO QID [facility] Last Admin: 01/08/17 15:06 Dose: 120 mg Spironolactone (Aldactone Tab*) 25 mg PO DAILY [facility] Last Admin: 01/08/17 09:23 Dose: 25 mg Torsemide (Demadex*) 20 mg PO 1200,1800 [facility] Last Admin: 01/08/17 12:06 Dose: 20 mg Torsemide (Demadex*) 40 mg PO QAM [facility] Last Admin: 01/08/17 09:21 Dose: 40 mg Vital Signs 01/07/17 01/07/17 01/07/17 16:00 16:38 16:59 Temperature 98.2 F Pulse Rate 65 Respiratory 18 23 18 Rate Blood Pressure 132/53 (mmHg) O2 Sat by Pulse 100 Oximetry 01/07/17 01/07/17 01/07/17 20:06 20:10 20:33 Temperature 98.2 F Pulse Rate 54 65 Respiratory 18 24 18 Rate Blood Pressure 122/51 (mmHg) O2 Sat by Pulse 98 100 Oximetry 01/07/17 01/07/17 01/07/17 20:51 21:06 22:06 Temperature Pulse Rate Respiratory 18 18 16 Rate Blood Pressure (mmHg) O2 Sat by Pulse Oximetry 01/07/17 01/07/17 01/07/17 22:51 23:17 23:51 Temperature 98.0 F Pulse Rate 59 Respiratory 18 18 24 Rate Blood Pressure 118/59 (mmHg) O2 Sat by Pulse 100 Oximetry 01/08/17 01/08/17 01/08/17 01:09 01:17 02:59 Temperature Pulse Rate Respiratory 18 16 16 Rate Blood Pressure (mmHg) O2 Sat by Pulse Oximetry 01/08/17 01/08/17 01/08/17 03:09 03:42 03:59 Temperature 98.2 F Pulse Rate 60 Respiratory 16 20 16 Rate Blood Pressure 127/55 (mmHg) O2 Sat by Pulse 97 Oximetry 01/08/17 01/08/17 01/08/17 08:11 08:22 09:11 Temperature Pulse Rate 65 Respiratory 20 17 18 Rate Blood Pressure (mmHg) O2 Sat by Pulse 98 Oximetry 01/08/17 01/08/17 01/08/17 09:22 11:22 11:37 Temperature 98.2 F Pulse Rate 70 Respiratory 18 20 21 Rate Blood Pressure 148/60 (mmHg) O2 Sat by Pulse 98 Oximetry 01/08/17 01/08/17 01/08/17 12:06 13:06 13:24 Temperature Pulse Rate 70 Respiratory 20 20 19 Rate Blood Pressure (mmHg) O2 Sat by Pulse 98 Oximetry 01/08/17 15:06 Temperature Pulse Rate Respiratory 20 Rate Blood Pressure (mmHg) O2 Sat by Pulse Oximetry Oxygen Devices in Use Now: Nasal Cannula - 3L Appearance: Elderly female sitting up in bed, NAD Eyes: No Scleral Icterus Ears/Nose/Mouth/Throat: Mucous Membranes Moist Respiratory: Symmetrical Chest Expansion and Respiratory Effort, Clear to Auscultation Cardiovascular: NL Sounds; No Murmurs; No JVD, RRR, - - marked LE edema Abdominal: NL Sounds; No Tenderness; No Distention Extremities: No Clubbing, Cyanosis Skin: No Rash or Ulcers, No Nodules or Sclerosis, - - decreased erythema to the B/L LE Neurological: Alert and Oriented x 3 Result Diagrams: 01/08/17 10:10 01/07/17 05:28 Microbiology and Other Data: Microbiology 01/03/17 17:00 Urine Culture - Final Urine Assess/Plan/Problems-Billing Ms Oreilly is a 71 yo F with a h/o myasthenia gravis, diastolic CHF, type II DM, COPD and HTN who presented to the ER with c/o weakness and was found to have bilateral cellulitis of the lower legs. - Patient Problems (1) Weakness Current Visit: Yes Status: Acute Code(s): R53.1 - WEAKNESS SNOMED Code(s) : 31681518 Comment: The patient has finally agreed to STR which I think is the most appropriate discharge plan for her. (2) Cellulitis Current Visit: Yes Status: Acute Code(s): L03.90 - CELLULITIS, UNSPECIFIED SNOMED Code(s): 164695323 Comment: Continue oral clindamycin for another 3 days. WBC count is climbing but she clinically appears stable. Follow intermittently. (3) Acute blood loss anemia Current Visit: Yes Status: Acute Code(s): D62 - ACUTE POSTHEMORRHAGIC ANEMIA SNOMED Code(s): 772436690 Comment: H/H stable. She is iron deficient and her B12 is low normal. Continue supplementation. (4) Atrial fibrillation Current Visit: Yes Status: Acute Code(s): I48.91 - UNSPECIFIED ATRIAL FIBRILLATION SNOMED Code(s): 59991824 Comment: Controlled. Continue multaq. No anticoagulation at baseline. (5) Diastolic heart failure Current Visit: Yes Status: Acute Code(s): I50.30 - UNSPECIFIED DIASTOLIC ( CONGESTIVE) HEART FAILURE SNOMED Code(s): 860469927 Comment: Edema seems a little better. Will continue home dose of torsemide. (6) CKD (chronic kidney disease) Current Visit: Yes Status: Acute Code(s): N18.9 - CHRONIC KIDNEY DISEASE, UNSPECIFIED SNOMED Code(s): 589778802 Comment: Creatinine is at baseline. Continue to monitor. (7) Type 2 diabetes mellitus Current Visit: Yes Status: Chronic Comment: This AM her sugar was even lower. Reduce lantus back to 35 units SQ daily. Monitor the sugars. (8) Myasthenia gravis Current Visit: Yes Status: Chronic Onset Date: 04/04/14 Code(s): G70.00 - MYASTHENIA GRAVIS WITHOUT (ACUTE) EXACERBATION SNOMED Code(s): 23122503 Comment: No signs of exacerbation at this time. She completed her IVIG for this month. Continue pyridostigmine and prednisone. (9) DVT prophylaxis Current Visit: Yes Status: Acute Code(s): SBZ6366 - SNOMED Code(s): 069382790 Comment: SQ heparin (10) Full code status Current Visit: Yes Status: Acute Code(s): Z78.9 - OTHER SPECIFIED HEALTH STATUS SNOMED Code(s): 339946991
[2017-01-08] MEDS ORDERED: Insulin GLARGINE(*) 1 UNITS UNIT SUBCUT SCH (18:00)
[2017-01-08] MEDS: Heparin VIAL(*) 5000 UNITS/ML VIAL (FIVE THOUSAND) SUBCUT SCH (22:09)
[2017-01-09] MEDS: Nystatin CREAM* 15 GM TUBE TOPICAL SCH ×2 (03:00→09:01)
[2017-01-09] MEDS: oxyCODONE/Acetamin 5/325 MG* TAB PO PRN ×2 (03:17→07:40)
[2017-01-09] MEDS: Loperamide CAP* 2 MG PO PRN (03:21)
--- NOTE | 2017-01-09 03:47 | DS ---
CC: Ann Cartagena NP; Dr. Madden * DISCHARGE SUMMARY: DATE OF ADMISSION: 01/03/17 DATE OF DISCHARGE: 01/09/17 PRIMARY CARE PROVIDER: Ann Cartagena NP NEUROLOGIST: Dr. Madden. PRINCIPAL DIAGNOSES: 1. Weakness secondary to bilateral lower extremity cellulitis. 2. Recent fall at home. 3. Acute on chronic anemia. SECONDARY DIAGNOSES: 1. Myasthenia gravis, status post IVIG on 01/04/17 and 01/06/17, not due for 26 days. 2. Type 2 diabetes - variable blood sugars. DISCHARGE MEDICATIONS: 1. Pyridostigmine 120 mg p.o. 4 times a day 2. Torsemide 40 mg p.o. q.a.m. and 20 mg p.o. at noon and 1800. 3. IVIG 70 g IV q. 28 days. 4. Dronedarone 400 mg p.o. b.i.d. 5. Calcium carbonate 500 mg p.o. 4 times a day p.r.n. GERD. 6. Symbicort 160/4.5 two puffs inhaled b.i.d. 7. Aspirin 81 mg p.o. daily. 8. DuoNeb one neb inhaled 4 times a day p.r.n. shortness of breath. 9. Percocet 5/325 one tab p.o. q.4 hours p.r.n. pain (increased frequency.) 10. Potassium chloride 20 mEq p.o. b.i.d. 11. Omeprazole 20 mg p.o. daily. 12. Nystatin 5 mL swish and swallow t.i.d. 13. Lantus 35 units subcutaneous q.p.m. 14. Prednisone 40 mg p.o. daily. 15. Spironolactone 25 mg p.o. daily. 16. Imodium 2 mg p.o. after each loose stool, maximum 16 mg per day. 17. Ferrous gluconate 324 mg p.o. daily (new) 18. Vitamin B12 1000 mcg p.o. daily. 19. Clindamycin 300 mg p.o. t.i.d. HOSPITAL COURSE: Ms. Oreilly is a 71-year-old chronically ill female with a history of myasthenia gravis, type 2 diabetes exacerbated by being on chronic prednisone, diastolic CHF, atrial fibrillation and COPD who presents to the emergency room with complaints of weakness. The patient states that a couple of days prior to admission she had a fall at home. She reported that she had not been doing well at home following that. She was due to receive her IVIG on the day of admission; however, was feeling weak, therefore bypassed the infusion center and came to the emergency room. In the ER, the patient was found to have bilateral lower extremity cellulitis. The patient's weakness was felt to be related primarily to her lower extremity cellulitis. Her history of myasthenia gravis I do not believe was an exacerbation at this point, though I do suspect the chronic history of myasthenia gravis likely makes her more deconditioned than the average individual. The patient was admitted and started on IV clindamycin. She had good improvement in the lower extremity erythema. The patient's white blood cell count was elevated on admission and trended down initially with treatment; however, her white blood cell count is climbing back up at the time of discharge, although the patient does not appear to have any new signs of infection. During the course of hospitalization, the patient did receive her scheduled IVIG for her history of myasthenia gravis. Additionally, she was seen by Dr. Bone from Neurology given the history of IVIG. He had no new recommendations although and continuing the patient on her usual dose of pyridostigmine and prednisone. As the patient's hospitalization progressed, she began to complain of more and more right ankle pain. There is a bruise noted to the right ankle. When she fell at home, she landed on her right side. Ankle x-ray was obtained. It did not reveal any evidence of fracture. I suspect that the patient did cause trauma to her ankle at the time of her fall. Also during the course of hospitalization, the patient was found to drop her hemoglobin from 7.9 on admission down to 6.1 the day after admission. She did receive 1 unit of packed red blood cells and her hemoglobin has remained stable in the low to mid 7s since. The patient was found to be both iron and B12 deficient and supplementation for this has been started. At this point, the patient is needing subacute rehab as she is unable to ambulate very well on her own. She does state that she needs a 2-assist to get out of bed, but once she is up on her feet, she is able to ambulate approximately five feet to the commode; however, anything beyond that is difficult for her. FOLLOWUP CONCERNS: The patient is being discharged to [facility] on 01/09/17. ACTIVITY LEVEL: As tolerated. DIET: Heart healthy, diabetic. CONDITION ON DISCHARGE: Stable. TIME SPENT: 35 minutes were spent discharging this patient. [id number]/CPS #: [id number] MTDD
[2017-01-09] MEDS: Clindamycin CAP* 150 MG PO SCH (05:21)
[2017-01-09] MEDS: Heparin VIAL(*) 5000 UNITS/ML VIAL (FIVE THOUSAND) SUBCUT SCH (05:22)
[2017-01-09] MEDS: Insulin LISPRO* 1 UNITS UNIT SUBCUT SCH ×2 (07:43→09:00)
[2017-01-09 07:52] VITALS: BP 132/48
[2017-01-09] MEDS: Morphine INJ* 4 MG/ML 1 ML CARPUJECT IV PRN (08:56)
[2017-01-09] MEDS: Torsemide TAB* 20 MG PO SCH (08:58)
[2017-01-09] MEDS: Pyridostigmine TAB* 60 MG PO SCH (08:58)
[2017-01-09] MEDS: Omeprazole CAP* 20 MG PO SCH (08:58)
[2017-01-09] MEDS: Cyanocobalamin TAB* 500 MCG PO SCH (08:59)
[2017-01-09] MEDS: predniSONE TAB* 20 MG PO SCH (08:59)
[2017-01-09] MEDS: Ferrous Gluconate TAB* 324 MG TAB PO SCH (08:59)
[2017-01-09] MEDS: Nystatin SUSPENSION* 100000 UNITS/ML 5 ML UDC SWISH SWAL SCH (08:59)
[2017-01-09] MEDS: Spironolactone TAB* 25 MG PO SCH (08:59)
[2017-01-09] MEDS: Aspirin Low Dose CHEW TAB* 81 MG PO SCH (08:59)
[2017-01-09] MEDS ORDERED: oxyCODONE SR TAB(*) 10 MG TAB.SR PO SCH (09:00)
[2017-01-09] MEDS: Potassium Chlor TAB* 20 MEQ TAB.ER PO SCH (09:01)
[2017-01-09] MEDS: Dronedarone TAB* 400 MG PO SCH (09:01)
[2017-01-09] MEDS: Mometasone/Formoter 200/5 MDI INH SCH (11:15)
== END 2017-01-09 11:40 | DRG 603 ==
LOC: ED 05:21 → MEDTELE 09:36 → MED 01-04 14:53
PROVIDERS: ADMIT Hospitalist; ATTEND Internal Medicine
PROC: 30233N1 Transfusion of Nonautologous Red Blood Cells into Peripheral Vein, Percutaneous Approach (ICD-10-PCS; principal; 2017-01-04)
PROC: 3E033WL Introduction of Immunosuppressive into Peripheral Vein, Percutaneous (ICD-10-PCS; 2017-01-04)
DX: L03.115 Cellulitis of right lower limb (principal); E11.22 Type 2 diabetes mellitus with diabetic chronic kidney disease; I13.0 Hypertensive heart and chronic kidney disease with heart failure and stage 1 through stage 4 chronic kidney disease, or unspecified chronic kidney disease; D62 Acute posthemorrhagic anemia; I50.32 Chronic diastolic (congestive) heart failure; E11.65 Type 2 diabetes mellitus with hyperglycemia; G70.00 Myasthenia gravis without (acute) exacerbation; L03.116 Cellulitis of left lower limb; E61.1 Iron deficiency; S90.01XA Contusion of right ankle, initial encounter; W17.89XA Other fall from one level to another, initial encounter; E53.8 Deficiency of other specified B group vitamins; N18.3 Chronic kidney disease, stage 3 (moderate); E11.36 Type 2 diabetes mellitus with diabetic cataract; I48.91 Unspecified atrial fibrillation; R53.1 Weakness; K21.9 Gastro-esophageal reflux disease without esophagitis; J44.9 Chronic obstructive pulmonary disease, unspecified; Z88.1 Allergy status to other antibiotic agents; Z88.8 Allergy status to other drugs, medicaments and biological substances; Z95.0 Presence of cardiac pacemaker; Z99.81 Dependence on supplemental oxygen; Z90.49 Acquired absence of other specified parts of digestive tract; Z87.891 Personal history of nicotine dependence; Z80.3 Family history of malignant neoplasm of breast; Z80.0 Family history of malignant neoplasm of digestive organs; Z79.52 Long term (current) use of systemic steroids; Z79.4 Long term (current) use of insulin; Z79.82 Long term (current) use of aspirin; Z79.51 Long term (current) use of inhaled steroids; Y92.009 Unspecified place in unspecified non-institutional (private) residence as the place of occurrence of the external cause
CPT/HCPCS: 36415; 71010; 72192; 80048; 80053; 81003; 81015; 82272; 82607; 82728; 82947; 83540; 83550; 83605; 83880; 84484; 85014; 85018; 85025; 85027; 85060; 85610; 85730; 86850; 86900; 86901; 86922; 87040; 87086; 93005; 93970; 94640; 94760; A9270-GY; J1170; J1200; J1572; J1644; J2270; J2405; J2930; J7512; P9040

== ENCOUNTER → 2017-01-13 14:43 | Emergency (ER) | payer MEDICARE ==
[2017-01-13 15:52] VITALS: BP 114/49
--- NOTE | 2017-01-13 15:56 | ED ---
Kia Almaraz Edward, scribed for Kulwant Pulido MD on 01/13/17 at 1500 . Shortness of Breath - HPI Summary HPI Summary: 71 y/o female BIBA c/o SOB. Per EMS, the pt states her "myasthenia gravis" is acting up again starting at around 14:30 today. Symptoms alleviated with duoneb. Associated sx: severe bilateral pedal edema. - History of Current Complaint Time Seen by Provider: 01/13/17 14:45 Hx Obtained From: Patient Onset/Duration: Lasting Hours Alleviating Factors: Bronchodilators Associated Signs & Symptoms: Edema - Allergy/Home Medications Allergies/Adverse Reactions: Allergies Allergy/AdvReac Type Severity Reaction Status Date / Time Immune Globulin Allergy Swelling Verified 12/08/16 15:46 [From Octagam] Mycophenolate Allergy Unknown Verified 12/08/16 15:46 [From CellCept Intravenous] Reaction Details Azithromycin AdvReac Severe myasthenia Verified 12/08/16 15:46 gravis exacerbation Ceftriaxone AdvReac Severe myasthenia Verified 12/08/16 15:46 gravis exacerbation Ciprofloxacin AdvReac GI Upset Verified 12/08/16 15:46 PMH/Surg Hx/FS Hx/Imm Hx Previously Healthy: No Endocrine/Hematology History: Reports: Hx Anticoagulant Therapy - BABY ASA, Hx Diabetes, Hx Anemia, Other Endocrine/Hematological Disorders - MYASTHEIA GRAVIS Denies: Hx Blood Disorders, Hx Blood Transfusions, Hx Bone Marrow Disease, Hx Systemic Lupus Erythematosus, Hx Sickle Cell Disease, Hx Thyroid Disease, Hx Unexplained Bleeding Cardiovascular History: Reports: Hx Congenital Heart Disease, Hx Congestive Heart Failure - very swollen legs, Hx Hypertension, Hx Pacemaker/ICD - 12/09/12 , 06/16 ??, Other Cardiovascular Problems/Disorders - LE EDEMA, ON LASIX Denies: Hx Peripheral Vascular Disease Respiratory History: Reports: Hx Asthma, Hx Pneumonia, Other Respiratory Problems/Disorders - EMPHYSEMA Denies: Hx Chronic Bronchitis, Hx Cystic Fibrosis, Hx Lung Cancer, Hx Pleural Effusion, Hx Pulmonary Edema, Hx Pulmonary Embolism, Hx Seasonal Allergies, Hx Sleep Apnea Comment Only: Hx Chronic Obstructive Pulmonary Disease (COPD) - on 2L home O2 at all times per pt GI History: Reports: Hx Gall Bladder Disease - GB out, Hx Gastroesophageal Reflux Disease, Other GI Disorders History: Reports: Other Problems/Disorders - FREQUENT UTI'S Denies: Hx Renal Disease Musculoskeletal History: Reports: Hx Back Problems - low back pain, Other Musculoskeletal History - myasthenia gravis Denies: Hx Arthritis, Hx Osteoporosis Sensory History: Reports: Hx Cataracts Denies: Hx Contacts or Glasses, Hx Eye Injury, Hx Eye Prosthesis, Hx Glaucoma , Hx Macular Degeneration, Hx Vision Problem, Hx Deafness, Hx Hearing Aid, Other Sensory Impairments Opthamlomology History: Reports: Hx Cataracts Denies: Hx Contacts or Glasses, Hx Eye Injury, Hx Eye Prosthesis, Hx Glaucoma , Hx Macular Degeneration, Hx Vision Problem, Other Sensory Impairments Neurological History: Reports: Other Neuro Impairments/Disorders - myasthenia gravis Denies: Hx Developmental Delay, Hx Headaches, Hx Migraine, Hx Seizures, Hx Spinal Cord Injury, Hx Transient Ischemic Attacks (TIA) Psychiatric History: Denies: Hx Anxiety, Hx Depression, Other Psychiatric Issues/Disorders - Surgical History Surgery Procedure, Year, and Place: CHOLECYSECTOMY 1979 Hx Anesthesia Reactions: No - Immunization History Date of Tetanus Vaccine: 2011 Date of Influenza Vaccine: 2012 Infectious Disease History: Reports: Hx of Known/Suspected MRSA - negative MRSA swab 03/18/16 Denies: Hx Tuberculosis - Family History Known Family History: Negative: Cardiac Disease, Hypertension, Diabetes - Social History Alcohol Use: None Hx Substance Use: No Substance Use Type: Reports: None Hx Tobacco Use: Yes Smoking Status (MU): Former Smoker Type: Cigarettes Amount Used/How Often: 2 pk/day Length of Time of Smoking/Using Tobacco: 45 years Have You Smoked in the Last Year: No Review of Systems Constitutional: Negative Eyes: Negative ENT: Negative Cardiovascular: Negative Positive: Shortness Of Breath Gastrointestinal: Negative Genitourinary: Negative Positive: Edema Skin: Negative Neurological: Negative Psychological: Normal All Other Systems Reviewed And Are Negative: Yes Physical Exam Triage Information Reviewed: Yes Vital Signs On Initial Exam: Initial Vitals Temp Pulse Resp BP Pulse Ox 99.0 F 71 13 134/60 98 01/13/17 14:50 01/13/17 14:50 01/13/17 14:50 01/13/17 14:50 01/13/17 14:50 Vital Signs Reviewed: Yes Appearance: Positive: Well-Appearing, No Pain Distress Skin: Positive: Warm, Skin Color Reflects Adequate Perfusion, Dry Head/Face: Positive: Normal Head/Face Inspection Eyes: Positive: Normal ENT: Positive: Normal ENT inspection Neck: Positive: Supple, Nontender Respiratory/Lung Sounds: Positive: Clear to Auscultation, Breath Sounds Present Cardiovascular: Positive: RRR Abdomen Description: Positive: Nontender, Soft Bowel Sounds: Positive: Present Musculoskeletal: Positive: Normal Neurological: Positive: Normal Psychiatric: Positive: Normal, Affect/Mood Appropriate Diagnostics - Vital Signs Vital Signs Temp Pulse Resp BP Pulse Ox 01/13/17 14:50 99.0 F 71 13 134/60 98 - Laboratory Lab Statement: Any lab studies that have been ordered have been reviewed, and results considered in the medical decision making process. Course/Dx - Course Course Of Treatment: Ms. Oreilly was met on arrival by Dr. Noyola who felt that the best care for her would be to transfer for possible plasmaphoresis as she is receiving maximal treatment with pyridostigmine and IVIG. Dr. Zapata accepted at [facility]. Assessment/Plan: Pt accepted for transfer to [facility] by Dr. Jeanie Zapata at 15:33. - Diagnoses Provider Diagnoses: Acute exacerbation of myasthenia gravis Discharge - Discharge Plan Condition: Stable Disposition: TRANS HIGHER L OF CARE FAC The documentation as recorded by the Kia dang Edward accurately reflects the service I personally performed and the decisions made by me, Kulwant Pulido MD.
--- NOTE | 2017-01-13 18:37 | CONS ---
CONSULTATION REPORT: DATE OF CONSULT: 01/13/17 LOCATION: In the ER. REASON FOR CONSULT: Myasthenia gravis crisis. HISTORY OF PRESENT ILLNESS: Ms. Oreilly is a very nice 71-year-old female who has a very complicated medical history including a history of myasthenia gravis , I am not clear if she is antibody positive or negative. She has a history of congestive heart failure, recurrent urinary tract infections, COPD, MRSA of the legs, persistent swelling and cellulitis of the lower extremities as well, she also has a history of atrial fibrillation. She is currently being treated with IVIG therapy once a month, 2 treatments by 1 day. Her last IVIG therapy was a little over a week ago on 01/04/17 and 01/06/17. She is due for her next infusion next month. She is also treated with high dose prednisone 40 mg a day as well as high dose Mestinon 120 mg 4 times a day. She was recently admitted to the hospital on 01/03/17, discharged on 01/09/17. At that time, she was admitted for weakness which she stated was in her lower extremities. She also was noted to have cellulitis. She had had a fall at home and she had anemia receiving 1 unit of packed red blood cells during that hospitalization. She was treated with antibiotics and was sent to rehab recently in the last few days to help rehabilitate her and help her with walking. By the time she left on the , she was walking approximately 5 feet to the commode with her walker and she needed assistance getting out of bed. I got a call today from the answering service and eventually spoke with the patient who states that she felt that she was in a crisis. She noted that she was very short of breath and could not breathe. She could not swallow, was having difficulty swallowing food or pills and she stated that she felt much weaker and this seemed to have happened in the last 2 days. At that point, I told her to come to the ER where I would see her. In the ER, she was noted to be dyspneic. In one of her last office visits, it was noted that she was able to count to 30 in one breath, today she was able to count to 10 before she became winded. She notes that she has had difficulty swallowing solids and was unable to swallow some of her pills. She also notes continued pain in her lower extremities. She states that she had a fever at home and fever on arrival of 99. She appears very anxious and concerned. She denies any falls and no headaches, but does note double vision which she says is worse. She also notes weakness in her arms and legs and inability to ambulate which she says is new. Subjectively, she feels that her shortness of breath is much worse than it was. At the time of her prior admission, she was seen by Neurology and it was felt that her generalized weakness was likely related to the underlying infection and anemia and that the myasthenia gravis was a contributor but not likely the sole cause. She states that she has been having copious diarrhea, every bowel movement is watery and every time she tries to urinate she has diarrhea as well. She notes no new medication changes in the last week and has been taking Imodium for her diarrhea without improvement. PAST MEDICAL HISTORY: As noted above, myasthenia gravis, diastolic congestive heart failure, atrial fibrillation, chronic kidney disease, COPD, and diabetes. PAST SURGICAL HISTORY: Includes a pacemaker and cholecystectomy. MEDICATIONS: On discharge at the last visit included: 1. Pyridostigmine 120 mg p.o. 4 times a day. 2. Torsemide 40 mg p.o. q.a.m. and 20 mg p.o. at noon and 1800 hours. 3. IVIG q.28 days. 4. Dronedarone 400 mg p.o. b.i.d. 5. Calcium carbonate 500 mg p.o. 4 times a day p.r.n. GERD. 6. Symbicort 160/4.5 two puffs inhaled b.i.d. 7. Aspirin 81 mg daily. 8. DuoNeb 1 neb inhaled 4 times a day p.r.n. shortness of breath. 9. Percocet 5/325 one p.o. q.4 hours p.r.n. 10. Potassium chloride 20 mEq p.o. b.i.d. 11. Omeprazole 20 mg p.o. daily. 12. Nystatin 5 mL swish and swallow t.i.d. 13. Lantus 35 units subcutaneous q. p.m. 14. Prednisone 40 mg p.o. daily. 15. Spironolactone 25 mg p.o. daily. 16. Imodium 2 mg p.o. after each loose stool. 17. Ferrous gluconate 325 mg p.o. daily. 18. Vitamin B12 1000 micrograms p.o. daily. 19. Clindamycin 300 mg p.o. t.i.d. ALLERGIES: CIPRO, AZITHROMYCIN, CEFTRIAXONE, CELLCEPT and OCTAGAM. FAMILY HISTORY: Significant for a father with cancer and a mother with breast cancer. SOCIAL HISTORY: Prior tobacco use, none recently. She denies any alcohol or drug use. She is currently in a rehab facility at [facility]. She has 3 children. REVIEW OF SYSTEMS: A 14-organ systems as above, otherwise negative. Pertinent positives are in the HPI. PHYSICAL EXAM: Temperature of 99, pulse of 71, respiratory rate of 13 to 20 on my exam, O2 sats 94% to 98% on 2 L, blood pressure 134/60. In general, she is a well- developed, poorly nourished female who is sitting in her hospital bed with her head at approximately 75 degrees. She is in some distress. She is anxious. She is worried. There is no diaphoresis noted. Her skin has multiple bruises scattered throughout her arms and legs. She is dyspneic and uncomfortable. HEENT: She is normocephalic, atraumatic. Her sclerae are anicteric. Her mucous membranes are slightly dry. Oropharynx is clear. Her nares are patent. Neck is supple. No thyromegaly, no carotid bruits. Chest has diffuse wheezes bilaterally in the lower lung herring. Cardiovascular: Regular rate and rhythm on my exam. No murmurs were appreciated. Abdomen is distended. Nontender. Extremities: Multiple bruises is noted. She has 3+ edema in her lower extremities to the knees, pitting in nature with erythema and warmth. No open lesions appreciated. No cords appreciated. On neurologic exam, she is awake, alert, she is oriented x3. Her speech is fluent although it is difficult for her to speak complete sentences because of her shortness of breath. Cranial nerves: Pupils are equally round and reactive to light. Her extraocular muscles are intact. She does have diplopia with central and lateral gaze bilaterally. She has bilateral ptosis. Reduced lid strength. Inability to keep her eyes forcefully closed against resistance. No Domonique's sign was noted. Her face is symmetric otherwise. Sensation is grossly intact. Hearing is grossly intact to finger rub. Her tongue is midline. Her palate appears symmetric. Sternocleidomastoid 5/5. Trapezius 5/ 5. She does have a cushingoid appearance. On motor exam, she spontaneously moves all extremities. In the upper extremities, she has 4/5 proximally, 4/5 distally with fatiguing after 4 to 5 repetitions. In the lower extremities, she has 4/5 proximally, 4/5 distally, again with fatiguing after 4 to 5 repetitions of the hip flexor bilaterally. Her sensation was difficult to assess in the lower extremities, it appears to be diminished to light touch, pinprick in the feet and legs, but her legs are very swollen. In her hands, she seems to have preserved light touch and pinprick bilaterally. Finger-to- nose and rapid alternating movements were difficult, but there was no obvious tremor. She cannot perform [id number]. DTRs were absent in the lower extremities. Equivocal Babinski's. In the upper extremities, she had trace at the biceps bilaterally. Absent brachioradialis bilaterally. Somewhat difficult exam due to positioning. Her gait was not tested at this time. She feels too weak to get out of bed. ASSESSMENT AND PLAN: I had a long conversation with the patient and I spoke with the ER doctor. My major concern at this point is that she is developing a myasthenia crisis and that it is worsening. Prior to her visit several weeks ago , she was able to count to 30 on one breath. Today, she was barely able to make it to 10. She is clearly dyspneic on examination although she is not using accessory muscles at this point, she is uncomfortable. She is unable to speak several sentences without getting more short of breath. She also notes worsening swallowing issues with dysphagia solids. She notes double vision. She has had difficulty getting up out of chairs and much more difficulty ambulating and my concern is that she has developed a crisis despite IVIG treatment, high dose steroid treatment and high dose Mestinon. She does not appear to be in any kind of cholinergic crisis at this point. I discussed the fact that my concern about giving her more IVIG in the setting of congestive heart failure, peripheral edema, and atrial fibrillation is that we would volume overload her. In addition, we have no significant room to go on her Mestinon. At this point, after a long discussion with the patient and ER doctor , I feel it is most appropriate to consider plasmapheresis which we do not do here. The patient is in agreement that we should transfer to a higher level of care for possible plasmapheresis therapy and arrangements are being made given her relatively poor response to the most recent dose of IVIG a week and a half ago. I worry that she will not respond well to this treatment and the risk of side effects from it are too high. I attempted notify her daughter as well of the plan but non-working numbers in the chart. Thank you for the opportunity to participate in her care. [id number]/[facility] #: [id number] DAYO
== END | disposition short-term general hospital (02) ==
LOC: ED 14:43
DX: G70.00 Myasthenia gravis without (acute) exacerbation (principal); R06.02 Shortness of breath; Z87.891 Personal history of nicotine dependence
CPT/HCPCS: 99283

== ENCOUNTER 2017-05-17 01:49 | Inpatient (IN) | payer MEDICARE ==
[2017-05-17] MEDS ORDERED: Albuterol/Ipratropium NEB.SOL* Albuterol 2.5 MG/Ipratropium 0.5 MG 3 ML ONE (02:39)
[2017-05-17] MEDS ORDERED: Albuterol 2.5 MG/3 ML NEB.SOL* (0.083%) ONE (02:39)
[2017-05-17] MEDS ORDERED: Hydrocortisone INJ* 100 MG VIAL ONE (02:55)
[2017-05-17] MEDS ORDERED: Albuterol/Ipratropium NEB.SOL* Albuterol 2.5 MG/Ipratropium 0.5 MG 3 ML INH ONE (03:24)
[2017-05-17] MEDS ORDERED: Albuterol 2.5 MG/3 ML NEB.SOL* (0.083%) INH ONE (03:24)
[2017-05-17] MEDS ORDERED: NS 0.9% 1000 ML* 1,000 ML IV ONE (03:25)
[2017-05-17 03:32] LABS: Urine Appearance Cloudy; Urine Blood 1+ (Negative); Urine Color Yellow; Urine Ketones Negative (Negative); Urine Protein Negative (Negative); Urine Urobilinogen Negative (Negative)
[2017-05-17 03:34] LABS: Hematocrit 25 % (35-47); Hemoglobin 7.2 g/dl (12.0-16.0); Mean Corpuscular HGB Conc 29 g/dl (31-36); Mean Corpuscular Hemoglobin 19 pg (27-31); Mean Corpuscular Volume 65 fL (80-97); Mean Platelet Volume 7 um3 (7.4-10.4); Platelet Count 619 10^3/ul (150-450); Red Blood Count 3.81 10^6/ul (4.0-5.4); Red Cell Distribution Width 21 % (10.5-15); White Blood Count 20.9 10^3/ul (3.5-10.8)
[2017-05-17 03:38] LABS: EGFR Non-African American 9.7 (>60)
[2017-05-17 03:39] LABS: INR 1.04 (0.77-1.02)
[2017-05-17] MEDS ORDERED: Insulin REGULAR(*) 1 UNITS UNIT IV PUSH ONE (03:41)
[2017-05-17] MEDS ORDERED: Piperacillin/Tazobac ADVAN(*) 3.375 GM in NS 0.9% 100 ML* 100 ML IVPB ONE (03:43)
[2017-05-17 03:58] LABS: ABS Basophils 0 10^3/ul (0-0.2); ABS Eosinophils 0 10^3/ul (0-0.6); ABS Lymphocytes 0.7 10^3/ul (1.0-4.8); ABS Monocytes 0.9 10^3/ul (0-0.8); ABS Neutrophils 19.1 10^3/ul (1.5-7.7); ABS Nucleated RBC 0.3 10^3/ul; Eosinophil % 0.1 % (0-6); Lymphocyte % 3.5 % (25-47); Nucleated Red Blood Cells % 1.3
--- NOTE | 2017-05-17 04:07 | ED ---
Catalino Almaraz Nikita, scribed for Yohannes Jacobo MD on 05/17/17 at 0316 . Complex/Multi-Sys Presentation - HPI Summary HPI Summary: This patient is a 71 year old F BIBA to ED with a chief complaint of weakness since 2 days ago. The patient rates the pain 0/10 in severity. Symptoms aggravated by nothing. Symptoms alleviated by nothing. Patient reports decreased appetite and SOB. Patient denies recent fall and fever. PMHx of rheumatoid arthritis (prednisone 4x 20mg a day), DM (has not been able to take her pills), and COPD. - History Of Current Complaint Chief Complaint: EDShortnessOfBreath Time Seen by Provider: 05/17/17 01:51 Hx Obtained From: Patient Onset/Duration: Sudden Onset, Lasting Days, Still Present Timing: Constant, Days Aggravating Factor(s): "everything" Alleviating Factor(s): nothing Associated Signs And Symptoms: Positive: Other - Patient reports weakness, decreased appetite, and SOB. Patient denies recent fall and fever. - Allergies/Home Medications Allergies/Adverse Reactions: Allergies Allergy/AdvReac Type Severity Reaction Status Date / Time Immune Globulin Allergy Swelling Verified 04/27/17 08:07 [From Octagam] Mycophenolate Allergy Unknown Verified 04/27/17 08:07 [From CellCept Intravenous] Reaction Details Azithromycin AdvReac Severe myasthenia Verified 04/27/17 08:07 gravis exacerbation Ceftriaxone AdvReac Severe myasthenia Verified 04/27/17 08:07 gravis exacerbation Ciprofloxacin AdvReac GI Upset Verified 04/27/17 08:07 PMH/Surg Hx/FS Hx/Imm Hx Endocrine/Hematology History: Reports: Hx Anticoagulant Therapy - BABY ASA, Hx Diabetes, Hx Anemia, Other Endocrine/Hematological Disorders - MYASTHEIA GRAVIS Denies: Hx Blood Disorders, Hx Blood Transfusions, Hx Bone Marrow Disease, Hx Systemic Lupus Erythematosus, Hx Sickle Cell Disease, Hx Thyroid Disease, Hx Unexplained Bleeding Cardiovascular History: Reports: Hx Congenital Heart Disease, Hx Congestive Heart Failure - very swollen legs, Hx Hypertension, Hx Pacemaker/ICD - 12/09/12 , 06/16 ??, Other Cardiovascular Problems/Disorders - LE EDEMA, ON LASIX Denies: Hx Peripheral Vascular Disease Respiratory History: Reports: Hx Asthma, Hx Pneumonia, Other Respiratory Problems/Disorders - EMPHYSEMA Denies: Hx Chronic Bronchitis, Hx Cystic Fibrosis, Hx Lung Cancer, Hx Pleural Effusion, Hx Pulmonary Edema, Hx Pulmonary Embolism, Hx Seasonal Allergies, Hx Sleep Apnea Comment Only: Hx Chronic Obstructive Pulmonary Disease (COPD) - on 2L home O2 at all times per pt GI History: Reports: Hx Gall Bladder Disease - GB out, Hx Gastroesophageal Reflux Disease, Other GI Disorders History: Reports: Other Problems/Disorders - FREQUENT UTI'S Denies: Hx Renal Disease Musculoskeletal History: Reports: Hx Back Problems - low back pain, Other Musculoskeletal History - myasthenia gravis Denies: Hx Arthritis, Hx Osteoporosis Sensory History: Reports: Hx Cataracts Denies: Hx Contacts or Glasses, Hx Eye Injury, Hx Eye Prosthesis, Hx Glaucoma , Hx Macular Degeneration, Hx Vision Problem, Hx Deafness, Hx Hearing Aid, Other Sensory Impairments Opthamlomology History: Reports: Hx Cataracts Denies: Hx Contacts or Glasses, Hx Eye Injury, Hx Eye Prosthesis, Hx Glaucoma , Hx Macular Degeneration, Hx Vision Problem, Other Sensory Impairments Neurological History: Reports: Other Neuro Impairments/Disorders - myasthenia gravis Denies: Hx Developmental Delay, Hx Headaches, Hx Migraine, Hx Seizures, Hx Spinal Cord Injury, Hx Transient Ischemic Attacks (TIA) Psychiatric History: Denies: Hx Anxiety, Hx Depression, Other Psychiatric Issues/Disorders - Surgical History Surgery Procedure, Year, and Place: CHOLECYSECTOMY 1979 Hx Anesthesia Reactions: No - Immunization History Date of Tetanus Vaccine: 2011 Date of Influenza Vaccine: 2012 Infectious Disease History: Yes Infectious Disease History: Reports: Hx of Known/Suspected MRSA - negative MRSA swab 03/18/16 Denies: Hx Tuberculosis, Traveled Outside the [place] in Last 30 Days - Family History Known Family History: Negative: Cardiac Disease, Hypertension, Diabetes - Social History Alcohol Use: None Hx Substance Use: No Substance Use Type: Reports: None Hx Tobacco Use: Yes Smoking Status (MU): Former Smoker Type: Cigarettes Amount Used/How Often: 2 pk/day Length of Time of Smoking/Using Tobacco: 45 years Have You Smoked in the Last Year: No Review of Systems Negative: Fever Positive: Shortness Of Breath Positive: Other - decreased appetite Positive: Other - denies recent fall Positive: Weakness All Other Systems Reviewed And Are Negative: Yes Physical Exam - Summary Physical Exam Summary: VITAL SIGNS: Reviewed. GENERAL: ~Patient is a well-developed and nourished FEMALE who is lying comfortable in the stretcher. Patient is not in any acute respiratory distress. Patient is filthy and unkempt HEAD AND FACE: No signs of trauma. No ecchymosis, hematomas or skull depressions. No sinus tenderness. EYES: PERRLA, EOMI x 2, No injected conjunctiva, no nystagmus. EARS: Hearing grossly intact. Ear canals and tympanic membranes are within normal limits. MOUTH: Oropharynx within normal limits. NECK: Supple, trachea is midline, no adenopathy, no JVD, no carotid bruit, no c- spine tenderness, neck with full ROM. CHEST: Symmetric, no tenderness at palpation. LUNGS: Decreased breath sounds. CVS: Regular rate and rhythm, S1 and S2 present, no murmurs or gallops appreciated. ABDOMEN: Soft, non-tender. No signs of distention. No rebound no guarding, and no masses palpated. Bowel sounds are normal. EXTREMITIES: FROM in all major joints, no cyanosis or clubbing, bilateral lower extremity edema that seems to be chronic NEURO: Alert and oriented x 3. No acute neurological deficits. Speech is normal and follows commands. Grossly non-focal SKIN: Dry and warm. Severe bilateral skin fungal infection on the chest. Triage Information Reviewed: Yes Vital Signs On Initial Exam: Initial Vitals Temp Pulse Resp BP Pulse Ox 99.2 F 73 24 115/99 100 05/17/17 01:51 05/17/17 01:51 05/17/17 01:51 05/17/17 01:51 05/17/17 01:51 Vital Signs Reviewed: Yes - [place] Coma Scale Coma Scale Total: 15 Diagnostics - Vital Signs Vital Signs Temp Pulse Resp BP Pulse Ox 05/17/17 01:55 16 05/17/17 01:51 99.2 F 73 24 115/99 100 - Laboratory Result Diagrams: 05/17/17 02:40 05/17/17 02:40 Lab Statement: Any lab studies that have been ordered have been reviewed, and results considered in the medical decision making process. - Radiology CXR Radiology Interpretation Completed By: ED Physician - No acute findings. - EKG 0217 Cardiac Rate: NL EKG Rhythm: Sinus Rhythm - 68 bpm EKG Interpretation: non-specific T wave changes in the inferior leads Complex Multi-Symp Course/Dx Assessment/Plan: This patient is a 71 year old F BIBA to ED with a chief complaint of weakness since 2 days ago. Patient reports decreased appetite and SOB. Patient denies recent fall and fever. PMHx includes myasthenia gravis, diastolic congestive heart failure, afib, chronic kidney disease, COPD, and DM. Bloodwork shows acute on top of chronic insufficiency. Discussed about pt with Dr. Quiroga at 0356 who accepts pt for admission. Pt will be admitted. Pt is agreeable with this plan. - Diagnoses Differential Diagnoses/HQI/PQRI: Urinary Tract Infection, Other - dehydration, acute on top of chronic renal failure Provider Diagnoses: acute on top of chronic renal failure, UTI (urinary tract infection), Dehydration - Physician Notifications Discussed Care Of Patient With: Alex Quiroga Time Discussed With Above Provider: 03:56 Instructed by Provider To: Other - Discussed about pt with Dr. Quiroga who accepts pt for admission. Discharge - Discharge Plan Condition: Stable Disposition: ADMITTED TO [facility] The documentation as recorded by the Catalino dang Nikita accurately reflects the service I personally performed and the decisions made by me, Yohannes Jacobo MD.
[2017-05-17] MEDS ORDERED: CMCS: Melatonin (NF) 3 MG TAB PO PRN (05:00)
[2017-05-17] MEDS ORDERED: Acetaminophen TAB* 325 MG PO PRN (05:00)
[2017-05-17] MEDS ORDERED: Albuterol 2.5 MG/3 ML NEB.SOL* (0.083%) INH PRN (05:00)
[2017-05-17] MEDS ORDERED: Ondansetron INJ* 2 MG/ML VIAL IV PRN (05:01)
--- NOTE | 2017-05-17 05:23 | HP ---
H&P (Free Text) History and Physical: PCP: Rafy Cartagena NP Date/Time: 05/17/2017 0443 CC: generalized weakness HPI: Mrs Oreilly is a 71YO female HX myasthenia gravis, COPD on 2L [place] oxygen, DM2 , CKD 3, & chronic diastolic dysfunction who reports 2 days of B/U/F of urine, poor PO intake, & progressive generalized weakness, but no F/C, sweats, abdominal pain, N/V, diarrhea, chest pain, SOB, palpitations, or other issues. She states her granddaughter usually checks on her daily, but she hasn't heard from her for a few days. Upon arrival to ED she was noted to be covered in feces , unkempt, & malodorous. As such a home safety evaluation should be done prior to discharge. Placement may be necessary. PMedHx myasthenia gravis chronic diastolic HF AFIB DM2 COPD on 2L NC oxygen CKD stg 3 GERD Ambulatory Orders Patient does not known meds, no list. Nursing to reconcile w/ PCP/Rx in AM. Calcium Carbonate CHEW TAB* [Tums*] 500 mg PO QID PRN 02/22/12 Pyridostigmine TAB* [Mestinon TAB*] 120 mg PO QID 02/22/12 Omeprazole CAP* [Prilosec CAP* 20 MG] 20 mg PO DAILY 09/17/13 Albuterol/Ipratropium NEB.DAWSON* [Duoneb (Albuterol 2.5 MG/Ipratropium 0.5 MG)] 1 neb INH QID PRN 11/04/13 Nystatin SUSPENSION* 5 ml SWISH SWAL TID PC 04/04/14 Budesonide/Formote 160/4.5(NF) [Symbicort 160/4.5 (NF)] 2 puff INH BID 02/05/15 predniSONE TAB* [Deltasone TAB*] 40 mg PO DAILY 07/22/15 Immune Globulin (Human) IV [Flebogamma Dif] 70 gm IV Q28D 10/14/15 Spironolactone TAB* [Aldactone TAB 25 MG*] 25 mg PO DAILY 05/25/16 Aspirin [Aspirin Childrens 81 MG] 81 mg PO DAILY 07/21/16 Dronedarone TAB* [Multaq TAB*] 400 mg PO BID 07/21/16 Insulin GLARGINE(*) [Lantus(*)] 35 units SUBCUT QPM 07/21/16 Torsemide TAB* [Demadex 20 MG*] 40 mg PO QAM 10/09/16 Potassium Chloride Microencaps [Potassium Chloride Cr] 20 meq PO BID 11/08/16 Torsemide TAB* [Demadex 20 MG*] 20 mg PO 1200,1800 01/03/17 Clindamycin Cap(NF) [Clindamycin Cap 300 mg Cap(NF)] 300 mg PO TID #9 cap Cyanocobalamin TAB* [Vitamin B12 TAB*] 1,000 mcg PO DAILY tab 01/08/17 Ferrous Gluconate TAB* [Fergon TAB*] 324 mg PO DAILY tab 01/08/17 Loperamide CAP* [Imodium CAP*] 2 mg PO .SEE COMMENTS PRN #0 cap 01/08/17 oxyCODONE/Acetamin 5/325 MG* [Percocet 5/325 TAB*] 1 tab PO Q4H PRN #30 tab MDD 6 tab 01/08/17 Allergies Immune Globulin [From Octagam] Allergy (Verified 04/27/17 08:07) Swelling PER DR DELUCA- USE FLEBOGAMMA, DUE TO FLUID OVERLOAD (CHF EXACERBATION) WITH OCTAGAM. Mycophenolate [From CellCept Intravenous] Allergy (Verified 04/27/17 08:07) Unknown Reaction Details Azithromycin Adverse Reaction (Severe, Verified 04/27/17 08:07) myasthenia gravis exacerbation this was given along with ceftriaxone -- she had immediate bulbar dysfunction and so both agents (regina/ctx) were added to adverse reaction list. Ceftriaxone Adverse Reaction (Severe, Verified 04/27/17 08:07) myasthenia gravis exacerbation was given along with azithromycin. pt had worsening bulbar function immediately / during this infusion (CTX) -- both agents added to list as a result. Ciprofloxacin Adverse Reaction (Verified 04/27/17 08:07) GI Upset PSurgHx pacer placement cholecystectomy SocHx: former smoker quit >20years ago, former alcohol abuse sober >20years, denies recreational drugs; lives alone; full code status FamHx: positive for cancer ROS: as above, otherwise reviewed and all were negative vitals: Vital Signs Temp 37.3 C 01/18/18 01:51 Pulse 105 05/17/17 04:30 Resp 21 05/17/17 04:30 BP 103/45 05/17/17 04:30 Pulse Ox 100 05/17/17 04:30 Intake & Output 05/16/17 05/16/17 05/17/17 11:59 23:59 11:59 Weight 119.748 kg Constitutional: NAD, normally developed, unkempt, malodorous morbidly obese white female HEENM: atraumatic; sclera/conjunctiva: anicteric/clear; hearing: clinically mildly decreased; oropharynx: clear, mucosa moist Neck: soft tissue: non-tender, no nuchal rigidity; thyroid: normal Pulmonary: clear to auscultation bilaterally, fair to good aeration, no accessory muscle use CV: RR/RR, normal S1S2, no carotid bruit, no jugular venous distention, 2+ B DP/ PT, 3+ BLE edema Abdominal: soft, non-distended, non-tender, no rebound/guarding/rigidity, normoactive bowel sounds, no hepatosplenomegaly or masses, no costovertebral angle tenderness Musculoskeletal: general: grossly intact, tender to light palpation diffusely Integumental: erythema & warmth of BLE w/o open wound/induration Psychiatric orientation: AA&O to PPS affect: calm mood: cooperative eye contact: fair to good content: reliable responses: timely insight: poor Testing: Lab Results 05/17/17 05/17/17 05/17/17 Range/Units 02:40 02:40 02:40 WBC 20.9 H (3.5-10.8) 10^3/ul RBC 3.81 L (4.0-5.4) 10^6/ul Hgb 7.2 L (12.0-16.0) g/dl Hct 25 L (35-47) % MCV 65 L (80-97) fL MCH 19 L (27-31) pg MCHC 29 L (31-36) g/dl RDW 21 H (10.5-15) % Plt Count 619 H (150-450) 10^3/ul MPV 7 L (7.4-10.4) um3 Neut % (Auto) 91.7 H (38-83) % Lymph % (Auto) 3.5 L (25-47) % [place] % (Auto) 4.5 (1-9) % Eos % (Auto) 0.1 (0-6) % Baso % (Auto) 0.2 (0-2) % Absolute Neuts (auto) 19.1 H (1.5-7.7) 10^3/ul Absolute Lymphs (auto) 0.7 L (1.0-4.8) 10^3/ul Absolute Monos (auto) 0.9 H (0-0.8) 10^3/ul Absolute Eos (auto) 0 (0-0.6) 10^3/ul Absolute Basos (auto) 0 (0-0.2) 10^3/ul Absolute Nucleated RBC 0.3 10^3/ul Nucleated RBC % 1.3 Hypochromasia 2+ Anisocytosis 1+ Microcytosis 2+ INR (Anticoag Therapy) 1.04 H (0.77-1.02) APTT 26.0 (26.0-36.3) seconds Sodium 131 L (133-145) mmol/L Potassium 4.7 (3.5-5.0) mmol/L Chloride 97 L (101-111) mmol/L Carbon Dioxide 24 (22-32) mmol/L Anion Gap 10 (2-11) mmol/L BUN 83 H (6-24) mg/dL Creatinine 4.49 H (0.51-0.95) mg/dL Est GFR ( Amer) 12.5 (>60) Est GFR (Non-Af Amer) 9.7 (>60) BUN/Creatinine Ratio 18.5 (8-20) Glucose 351 H (70-100) mg/dL Lactic Acid (0.5-2.0) mmol/L Calcium 8.6 (8.6-10.3) mg/dL Magnesium 2.0 (1.9-2.7) mg/dL Total Bilirubin 0.30 (0.2-1.0) mg/dL AST 11 L (13-39) U/L ALT 13 (7-52) U/L Alkaline Phosphatase 83 (34-104) U/L Total Creatine Kinase 46 (10-223) U/L Troponin I 0.05 H* (<0.04) ng/mL B-Natriuretic Peptide ( - 100) pg/mL Total Protein 7.0 (6.4-8.9) g/dL Albumin 3.0 L (3.2-5.2) g/dL Globulin 4.0 (2-4) g/dL Albumin/Globulin Ratio 0.8 L (1-3) Amylase 269 H (29-103) U/L TSH 1.87 (0.34-5.60) mcIU/mL Urine Color Urine Appearance Urine pH (5-9) Ur Specific [place] (1.010-1.030) Urine Protein (Negative) Urine Ketones (Negative) Urine Blood (Negative) Urine Nitrate (Negative) Urine Bilirubin (Negative) Urine Urobilinogen (Negative) Ur Leukocyte Esterase (Negative) Urine WBC (Auto) (Absent) Urine RBC (Auto) (Absent) Urine Bacteria (Absent) Hyaline Casts (Absent) Urine Glucose (Negative) Blood Type Antibody Screen 05/17/17 05/17/17 05/17/17 Range/Units 02:40 02:40 02:40 WBC (3.5-10.8) 10^3/ul RBC (4.0-5.4) 10^6/ul Hgb (12.0-16.0) g/dl Hct (35-47) % MCV (80-97) fL MCH (27-31) pg MCHC (31-36) g/dl RDW (10.5-15) % Plt Count (150-450) 10^3/ul MPV (7.4-10.4) um3 Neut % (Auto) (38-83) % Lymph % (Auto) (25-47) % [place] % (Auto) (1-9) % Eos % (Auto) (0-6) % Baso % (Auto) (0-2) % Absolute Neuts (auto) (1.5-7.7) 10^3/ul Absolute Lymphs (auto) (1.0-4.8) 10^3/ul Absolute Monos (auto) (0-0.8) 10^3/ul Absolute Eos (auto) (0-0.6) 10^3/ul Absolute Basos (auto) (0-0.2) 10^3/ul Absolute Nucleated RBC 10^3/ul Nucleated RBC % Hypochromasia Anisocytosis Microcytosis INR (Anticoag Therapy) (0.77-1.02) APTT (26.0-36.3) seconds Sodium (133-145) mmol/L Potassium (3.5-5.0) mmol/L Chloride (101-111) mmol/L Carbon Dioxide (22-32) mmol/L Anion Gap (2-11) mmol/L BUN (6-24) mg/dL Creatinine (0.51-0.95) mg/dL Est GFR ( Amer) (>60) Est GFR (Non-Af Amer) (>60) BUN/Creatinine Ratio (8-20) Glucose (70-100) mg/dL Lactic Acid 1.9 (0.5-2.0) mmol/L Calcium (8.6-10.3) mg/dL Magnesium (1.9-2.7) mg/dL Total Bilirubin (0.2-1.0) mg/dL AST (13-39) U/L ALT (7-52) U/L Alkaline Phosphatase (34-104) U/L Total Creatine Kinase (10-223) U/L Troponin I (<0.04) ng/mL B-Natriuretic Peptide 251 H ( - 100) pg/mL Total Protein (6.4-8.9) g/dL Albumin (3.2-5.2) g/dL Globulin (2-4) g/dL Albumin/Globulin Ratio (1-3) Amylase (29-103) U/L TSH (0.34-5.60) mcIU/mL Urine Color Yellow Urine Appearance Cloudy Urine pH 5.0 (5-9) Ur Specific [place] 1.020 (1.010-1.030) Urine Protein Negative (Negative) Urine Ketones Negative (Negative) Urine Blood 1+ H (Negative) Urine Nitrate Negative (Negative) Urine Bilirubin Negative (Negative) Urine Urobilinogen Negative (Negative) Ur Leukocyte Esterase 2+ H (Negative) Urine WBC (Auto) 3+(>20/hpf) H (Absent) Urine RBC (Auto) Trace(0-2/hpf) (Absent) Urine Bacteria 1+ H (Absent) Hyaline Casts Present H (Absent) Urine Glucose Negative (Negative) Blood Type Antibody Screen 05/17/17 Range/Units 02:40 WBC (3.5-10.8) 10^3/ul RBC (4.0-5.4) 10^6/ul Hgb (12.0-16.0) g/dl Hct (35-47) % MCV (80-97) fL MCH (27-31) pg MCHC (31-36) g/dl RDW (10.5-15) % Plt Count (150-450) 10^3/ul MPV (7.4-10.4) um3 Neut % (Auto) (38-83) % Lymph % (Auto) (25-47) % [place] % (Auto) (1-9) % Eos % (Auto) (0-6) % Baso % (Auto) (0-2) % Absolute Neuts (auto) (1.5-7.7) 10^3/ul Absolute Lymphs (auto) (1.0-4.8) 10^3/ul Absolute Monos (auto) (0-0.8) 10^3/ul Absolute Eos (auto) (0-0.6) 10^3/ul Absolute Basos (auto) (0-0.2) 10^3/ul Absolute Nucleated RBC 10^3/ul Nucleated RBC % Hypochromasia Anisocytosis Microcytosis INR (Anticoag Therapy) (0.77-1.02) APTT (26.0-36.3) seconds Sodium (133-145) mmol/L Potassium (3.5-5.0) mmol/L Chloride (101-111) mmol/L Carbon Dioxide (22-32) mmol/L Anion Gap (2-11) mmol/L BUN (6-24) mg/dL Creatinine (0.51-0.95) mg/dL Est GFR ( Amer) (>60) Est GFR (Non-Af Amer) (>60) BUN/Creatinine Ratio (8-20) Glucose (70-100) mg/dL Lactic Acid (0.5-2.0) mmol/L Calcium (8.6-10.3) mg/dL Magnesium (1.9-2.7) mg/dL Total Bilirubin (0.2-1.0) mg/dL AST (13-39) U/L ALT (7-52) U/L Alkaline Phosphatase (34-104) U/L Total Creatine Kinase (10-223) U/L Troponin I (<0.04) ng/mL B-Natriuretic Peptide ( - 100) pg/mL Total Protein (6.4-8.9) g/dL Albumin (3.2-5.2) g/dL Globulin (2-4) g/dL Albumin/Globulin Ratio (1-3) Amylase (29-103) U/L TSH (0.34-5.60) mcIU/mL Urine Color Urine Appearance Urine pH (5-9) Ur Specific [place] (1.010-1.030) Urine Protein (Negative) Urine Ketones (Negative) Urine Blood (Negative) Urine Nitrate (Negative) Urine Bilirubin (Negative) Urine Urobilinogen (Negative) Ur Leukocyte Esterase (Negative) Urine WBC (Auto) (Absent) Urine RBC (Auto) (Absent) Urine Bacteria (Absent) Hyaline Casts (Absent) Urine Glucose (Negative) Blood Type A Negative Antibody Screen Negative CXR, personally reviewed: no acute process Impression: 71F HX myasthenia, COPD on 2L [place] oxygen, DM2, CKD 3, & chronic diastolic dysfunction presents w/ generalized weakness & found to have a UTI w/ YIFAN DIAGNOSIS & PLAN Primary UTI : IV piperacillin/tazobactam : IVFs : blood & urine CXs : supportive care YIFAN : 2nd dehydration, likely w/ a component of ATN : baseline CKD stg 3 : IVFs, monitor generalized deconditioning : needs home safety evaluation, may need placement : social service consult : PT/OT evaluations Secondary myasthenia gravis : followed by Rafy Deluca MD neurology; consider consult in AM chronic diastolic HF : daily weights : strict I&Os AFIB : review meds once reconciled DM2 : check A1c : basal/bolus/correctional insulin : insulin carb ratio diet COPD on 2L [place] oxygen : albuterol : mometasone/formoterol : tiotropium GERD : omeprazole Admission Rational: inpatient for IVFs & ABX for frail patient at high risk of morbidity/mortality; inappropriate for outpatient setting DVTp: SCDs & heparin SQ Code Status: full HCP: daughter, Kimberly Saba
[2017-05-17] MEDS ORDERED: Omeprazole CAP* 20 MG PO SCH (06:00)
[2017-05-17] MEDS: NS 0.9% 1000 ML* 1,000 ML IV SCH ×2 (06:13→16:39)
--- NOTE | 2017-05-17 07:53 | RAD ---
INDICATION: Short of breath COMPARISON: January 03, 2017 TECHNIQUE: An AP portable view obtained at 0308 hours is submitted. FINDINGS: Bones/Soft Tissues: There are no acute bony findings. There is a left-sided cardiac pacemaker. Cardiomediastinal: The cardiomediastinal silhouette is normal. Lungs: There are no infiltrates. Pleura: There are no pleural effusions. Other: None IMPRESSION: NO ACTIVE DISEASE.
[2017-05-17] MEDS: Tiotropium CAP.INH* CAP.INH/18 MCG (USE ORDER SET !) INH SCH (08:27)
[2017-05-17] MEDS: Mometasone/Formoter 200/5 MDI INH SCH ×2 (08:27→21:14)
[2017-05-17] MEDS ORDERED: Spiriva Inhaler DEVICE* 1 EACH DEVICE INH ONE (09:00)
[2017-05-17] MEDS ORDERED: Influenza VAC *QUAD* 2017-18* 0.5 ML SYRINGE IM ONE (09:00)
[2017-05-17] MEDS ORDERED: Docusate CAP* 100 MG PO SCH (09:00)
[2017-05-17] MEDS: Insulin LISPRO* 1 UNITS UNIT SUBCUT SCH ×7 (10:03→20:39)
[2017-05-17] MEDS ORDERED: cefTRIAXone VIAL(*) 1,000 MG in NS 0.9% 50 ML* 50 ML IVPB SCH (12:00)
--- NOTE | 2017-05-17 12:18 | PN ---
Subjective Date of Service: 05/17/17 Interval History: C/O pain both legs, worse on R, both hands. Objective Active Medications: Acetaminophen (Tylenol Tab*) 650 mg PO Q6H PRN PRN Reason: FEVER/PAIN Albuterol (Ventolin 2.5 Mg/3 Ml Neb.Bridget*) 2.5 mg INH Q2H PRN PRN Reason: SOB/WHEEZING Heparin Sodium (Porcine) (Heparin Vial(*)) 5,000 units SUBCUT Q8HR [facility] Sodium Chloride (Ns 0.9% 1000 Ml*) 1,000 mls @ 100 mls/hr IV PER RATE [facility] Last Admin: 05/17/17 06:13 Dose: 100 mls/hr Piperacillin Sod/Tazobactam (Sod 3.375 gm/ Sodium Chloride) 100 mls @ 25 mls/ hr IVPB Q12H [facility] Insulin Glargine (Lantus(*)) 29 units 0.24 units/kg (29 units) SUBCUT 2100 [facility] Stop: 05/18/17 20:00 Insulin Human Lispro (Humalog*) 0 units SUBCUT AC [facility] PRN Reason: Protocol Last Admin: 05/17/17 10:04 Dose: Not Given Insulin Human Lispro (Humalog*) 0 units SUBCUT ACHS [facility] PRN Reason: Protocol Last Admin: 05/17/17 10:03 Dose: 12 units Mometasone Furoate/Formoterol Fumar (Dulera 200/5 Mdi*) 2 puff INH BID [facility] Last Admin: 05/17/17 08:27 Dose: 2 puff Omeprazole (Prilosec Cap*) 20 mg PO DAILY@0600 [facility] Last Admin: 05/17/17 06:13 Dose: 20 mg Ondansetron HCl (Zofran Inj*) 4 mg IV Q6H PRN PRN Reason: NAUSEA Tiotropium [place] (Spiriva Cap.Inh*) 1 cap INH DAILY [facility] Last Admin: 05/17/17 08:27 Dose: 1 cap Vital Signs - 8 hr 05/17/17 05/17/17 05/17/17 05:00 05:30 06:00 Temperature 98.9 F Pulse Rate 89 70 72 Respiratory 19 18 18 Rate Blood Pressure 96/46 110/38 110/38 (mmHg) O2 Sat by Pulse 100 100 98 Oximetry 01/05/17/17 05/17/17 06:04 06:12 07:17 Temperature 98.0 F 98.0 F 98.2 F Pulse Rate 71 71 65 Respiratory 20 16 Rate Blood Pressure 89/42 89/42 95/47 (mmHg) O2 Sat by Pulse 99 99 97 Oximetry 05/17/17 08:29 Temperature Pulse Rate 64 Respiratory 18 Rate Blood Pressure (mmHg) O2 Sat by Pulse 99 Oximetry Oxygen Devices in Use Now: Nasal Cannula Appearance: Alert, partly up in bed. In fair spirits. Looks somewhat uncomfortable. Eyes: No Scleral Icterus Respiratory: Symmetrical Chest Expansion and Respiratory Effort, Clear to Auscultation, Clear to Percussion Cardiovascular: NL Sounds; No Murmurs; No JVD, RRR, No Edema Extremities: No Clubbing, Cyanosis, - - 1+ edema both legs. Rehumatoid deformities both hands. Skin: No Nodules or Sclerosis, - - Both lower legs diffusely pink under SCD's. Neurological: Alert and Oriented x 3, NL Sensation Result Diagrams: 05/17/17 02:40 05/17/17 02:40 Assess/Plan/Problems-Billing Assessment: - Patient Problems (1) Cellulitis of both lower extremities Current Visit: No Status: Acute Priority: High Onset Date: 04/04/14 Code (s): L03.115 - CELLULITIS OF RIGHT LOWER LIMB; L03.116 - CELLULITIS OF LEFT LOWER LIMB SNOMED Code(s): 466649566 Comment: - significant erythema and swelling in B/L LEs c/w cellulitis. - Continue pip/owen. (2) YIFAN (acute kidney injury) Current Visit: No Status: Chronic Priority: High Code(s): N17.9 - ACUTE KIDNEY FAILURE, UNSPECIFIED SNOMED Code(s): 43684360 Comment: Acute on chronic kidney disease, related to UTI, dehydration, cellulitis. Possibly torsemide is an important part of the etiology. BMP 05/17/17 3:45 PM. Continue IV NS. (3) COPD (chronic obstructive pulmonary disease) Current Visit: No Status: Chronic Priority: Medium Code(s): J44.9 - CHRONIC OBSTRUCTIVE PULMONARY DISEASE, UNSPECIFIED SNOMED Code(s): 98107776 Comment: - Stable. c/w home meds (auto-sub Dulera) (4) Atrial fibrillation Current Visit: No Status: Acute Code(s): I48.91 - UNSPECIFIED ATRIAL FIBRILLATION SNOMED Code(s): 59224969 Comment: Controlled. Continue multaq. No anticoagulation at baseline. (5) Myasthenia gravis Current Visit: No Status: Chronic Onset Date: 04/04/14 Code(s): G70.00 - MYASTHENIA GRAVIS WITHOUT (ACUTE) EXACERBATION SNOMED Code(s): 01057761 Comment: Patient states that Dr. Madden instructed her to take 60 mg prednisone daily. I ordered this. Message left at Dr. Vital's office to call me to discuss her tx. Pyridostigmine also ordered.
[2017-05-17] MEDS ORDERED: Albuterol/Ipratropium NEB.SOL* Albuterol 2.5 MG/Ipratropium 0.5 MG 3 ML INH PRN (12:29)
[2017-05-17] MEDS: Aspirin Low Dose CHEW TAB* 81 MG PO SCH (14:04)
[2017-05-17] MEDS: Nystatin SUSPENSION* 100000 UNITS/ML 5 ML UDC SWISH SWAL SCH ×2 (14:04→18:01)
[2017-05-17] MEDS: Dronedarone TAB* 400 MG PO SCH ×2 (14:04→20:26)
[2017-05-17] MEDS: Pyridostigmine TAB* 60 MG PO SCH ×3 (14:04→20:27)
[2017-05-17] MEDS: predniSONE TAB* 20 MG PO SCH (14:05)
[2017-05-17 17:01] LABS: ABS Basophils 0 10^3/ul (0-0.2); ABS Eosinophils 0 10^3/ul (0-0.6); ABS Lymphocytes 0.9 10^3/ul (1.0-4.8); ABS Monocytes 0.7 10^3/ul (0-0.8); ABS Neutrophils 13.8 10^3/ul (1.5-7.7); ABS Nucleated RBC 0.1 10^3/ul; Eosinophil % 0.2 % (0-6); Hematocrit 18 % (35-47); Hemoglobin 5.4 g/dl (12.0-16.0); Lymphocyte % 5.9 % (25-47); Mean Corpuscular HGB Conc 30 g/dl (31-36); Mean Corpuscular Hemoglobin 19 pg (27-31); Mean Corpuscular Volume 65 fL (80-97); Mean Platelet Volume 7 um3 (7.4-10.4); Nucleated Red Blood Cells % 0.7; Platelet Count 399 10^3/ul (150-450); Red Blood Count 2.79 10^6/ul (4.0-5.4); Red Cell Distribution Width 20 % (10.5-15); White Blood Count 15.4 10^3/ul (3.5-10.8)
[2017-05-17] MEDS: ZOSYN 3.375 GM Q12H per EXTENDED INFUSION IVPB SCH ×2 (17:05)
[2017-05-17] MEDS: oxyCODONE/Acetamin 5/325 MG* TAB PO PRN (20:26)
[2017-05-17] MEDS ORDERED: Insulin GLARGINE(*) 1 UNITS UNIT SUBCUT SCH (21:00)
[2017-05-17] MEDS ORDERED: Budesonide/Formote 160/4.5(NF) MDI INH SCH (21:00)
[2017-05-18] MEDS: ZOSYN 3.375 GM Q12H per EXTENDED INFUSION IVPB SCH ×2 (03:07)
[2017-05-18] MEDS: NS 0.9% 1000 ML* 1,000 ML IV SCH (03:07)
[2017-05-18] MEDS: Heparin VIAL(*) 5000 UNITS/ML VIAL (FIVE THOUSAND) SUBCUT SCH ×3 (05:05→20:19)
[2017-05-18] MEDS: oxyCODONE/Acetamin 5/325 MG* TAB PO PRN ×3 (05:06→20:14)
[2017-05-18] MEDS: Insulin LISPRO* 1 UNITS UNIT SUBCUT SCH ×7 (07:28→20:18)
[2017-05-18 07:44] LABS: ABS Basophils 0 10^3/ul (0-0.2); ABS Eosinophils 0 10^3/ul (0-0.6); ABS Lymphocytes 0.7 10^3/ul (1.0-4.8); ABS Monocytes 0.4 10^3/ul (0-0.8); ABS Neutrophils 9.7 10^3/ul (1.5-7.7); ABS Nucleated RBC 0.1 10^3/ul; Eosinophil % 0 % (0-6); Hematocrit 22 % (35-47); Hemoglobin 7.1 g/dl (12.0-16.0); Lymphocyte % 6.4 % (25-47); Mean Corpuscular HGB Conc 32 g/dl (31-36); Mean Corpuscular Hemoglobin 22 pg (27-31); Mean Corpuscular Volume 68 fL (80-97); Mean Platelet Volume 7 um3 (7.4-10.4); Nucleated Red Blood Cells % 0.6; Platelet Count 335 10^3/ul (150-450); Red Blood Count 3.22 10^6/ul (4.0-5.4); Red Cell Distribution Width 22 % (10.5-15); White Blood Count 10.8 10^3/ul (3.5-10.8)
[2017-05-18] MEDS: Cyanocobalamin TAB* 500 MCG PO SCH (09:00)
[2017-05-18] MEDS: Omeprazole CAP* 20 MG PO SCH (09:00)
[2017-05-18] MEDS: Dronedarone TAB* 400 MG PO SCH ×2 (09:00→20:13)
[2017-05-18] MEDS: Pyridostigmine TAB* 60 MG PO SCH ×4 (09:00→20:13)
[2017-05-18] MEDS: Nystatin SUSPENSION* 100000 UNITS/ML 5 ML UDC SWISH SWAL SCH ×3 (09:00→18:09)
[2017-05-18] MEDS: Ferrous Sulfate TAB* 325 MG PO SCH (09:01)
[2017-05-18] MEDS: Aspirin Low Dose CHEW TAB* 81 MG PO SCH (09:01)
[2017-05-18] MEDS: predniSONE TAB* 20 MG PO SCH (09:01)
[2017-05-18] MEDS: Tiotropium CAP.INH* CAP.INH/18 MCG (USE ORDER SET !) INH SCH (09:03)
[2017-05-18] MEDS: Mometasone/Formoter 200/5 MDI INH SCH ×2 (09:03→20:18)
--- NOTE | 2017-05-18 12:14 | PN ---
Subjective Date of Service: 05/18/17 Interval History: No new c/o. She states she has never had a colonoscopy. Objective Active Medications: Acetaminophen (Tylenol Tab*) 650 mg PO Q6H PRN PRN Reason: FEVER/PAIN Albuterol (Ventolin 2.5 Mg/3 Ml Neb.Bridget*) 2.5 mg INH Q2H PRN PRN Reason: SOB/WHEEZING Albuterol/Ipratropium (Duoneb (Albuterol 2.5 Mg/Ipratropium 0.5 Mg)) 1 neb INH QID PRN PRN Reason: SOB/WHEEZING Aspirin (Aspirin Low Dose Tab*) 81 mg PO DAILY [facility] [place] Last Admin: 05/18/17 09:01 Dose: 81 mg Cyanocobalamin (Vitamin B12 Tab*) 1,000 mcg PO DAILY [facility] Last Admin: 05/18/17 09:00 Dose: 1,000 mcg Dronedarone (Multaq Tab*) 400 mg PO BID [facility] Last Admin: 05/18/17 09:00 Dose: 400 mg Ferrous Sulfate (Ferrous Sulfate Tab*) 325 mg PO DAILY [facility] Last Admin: 05/18/17 09:01 Dose: 325 mg Heparin Sodium (Porcine) (Heparin Vial(*)) 5,000 units SUBCUT Q8HR [facility] [place] Last Admin: 05/18/17 05:05 Dose: Not Given Sodium Chloride (Ns 0.9% 1000 Ml*) 1,000 mls @ 100 mls/hr IV PER RATE [facility] [place] Last Admin: 05/18/17 03:07 Dose: 100 mls/hr Cefazolin Sodium 1 gm/ Sodium (Chloride) 50 mls @ 200 mls/hr IVPB Q8H [facility] [place] Insulin Glargine (Lantus(*)) 29 units 0.24 units/kg (29 units) SUBCUT 2100 [facility] Stop: 05/18/17 20:00 Last Admin: 05/17/17 20:27 Dose: 29 units Insulin Human Lispro (Humalog*) 0 units SUBCUT AC [facility] [place] PRN Reason: Protocol Last Admin: 05/18/17 09:41 Dose: Not Given Insulin Human Lispro (Humalog*) 0 units SUBCUT ACHS [facility] [place] PRN Reason: Protocol Last Admin: 05/18/17 07:28 Dose: Not Given Mometasone Furoate/Formoterol Fumar (Dulera 200/5 Mdi*) 2 puff INH BID [facility] [place] Last Admin: 05/18/17 09:03 Dose: 2 puff Nystatin (Nystatin Suspension*) 500,000 units SWISH SWAL TID PC [facility] Last Admin: 05/18/17 09:00 Dose: 500,000 units Omeprazole (Prilosec Cap*) 20 mg PO DAILY@0730 [facility] [place] Last Admin: 05/18/17 09:00 Dose: 20 mg Ondansetron HCl (Zofran Inj*) 4 mg IV Q6H PRN PRN Reason: NAUSEA Oxycodone/Acetaminophen (Percocet 5/325 Tab*) 1 tab PO Q4H PRN PRN Reason: PAIN Last Admin: 05/18/17 09:29 Dose: 1 tab Prednisone (Deltasone Tab*) 40 mg PO DAILY [facility] [place] Pyridostigmine [place] (Mestinon Tab*) 120 mg PO QID [facility] [place] Last Admin: 05/18/17 09:00 Dose: 120 mg Tiotropium [place] (Spiriva Cap.Inh*) 1 cap INH DAILY [facility] Last Admin: 05/18/17 09:03 Dose: 1 cap Vital Signs - 8 hr 05/18/17 05/18/17 05/18/17 05:06 05:10 07:29 Temperature Pulse Rate Respiratory 18 16 Rate Blood Pressure 100/48 (mmHg) O2 Sat by Pulse Oximetry 05/18/17 05/18/17 05/18/17 07:45 07:46 09:07 Temperature 98.3 F Pulse Rate 65 61 Respiratory 17 18 16 Rate Blood Pressure 108/40 (mmHg) O2 Sat by Pulse 97 91 Oximetry 05/18/17 05/18/17 05/18/17 09:29 11:11 11:47 Temperature 98.6 F Pulse Rate 63 Respiratory 16 15 14 Rate Blood Pressure 106/41 (mmHg) O2 Sat by Pulse 93 Oximetry Oxygen Devices in Use Now: Nasal Cannula Appearance: Alert, supine in bed. In good spirits. Looks comfortable. Eyes: No Scleral Icterus Neck: NL Appearance and Movements; NL JVP, No Thyroid Enlargement, Masses Respiratory: Symmetrical Chest Expansion and Respiratory Effort, Clear to Auscultation, Clear to Percussion Cardiovascular: NL Sounds; No Murmurs; No JVD, RRR, - - 1+ edema BL Extremities: No Clubbing, Cyanosis, - - 1+ edema BL Skin: No Nodules or Sclerosis, - - mod eyrhtema both lower legs, possibly not extending proximally as much as yesterday. Neurological: Alert and Oriented x 3, NL Sensation Result Diagrams: 05/18/17 06:51 05/18/17 06:51 Assess/Plan/Problems-Billing Assessment: - Patient Problems (1) Cellulitis of both lower extremities Current Visit: No Status: Acute Priority: High Onset Date: 04/04/14 Code (s): L03.115 - CELLULITIS OF RIGHT LOWER LIMB; L03.116 - CELLULITIS OF LEFT LOWER LIMB SNOMED Code(s): 776545578 Comment: - significant erythema and swelling in B/L LEs c/w cellulitis. - Change to cefazolin 05/18/17. (2) YIFAN (acute kidney injury) Current Visit: No Status: Chronic Priority: High Code(s): N17.9 - ACUTE KIDNEY FAILURE, UNSPECIFIED SNOMED Code(s): 52942990 Comment: Acute on chronic kidney disease, related to UTI, dehydration, cellulitis. Possibly torsemide is an important part of the etiology. Improved fuyrther 05/18. Stop IVF. BMP 05/20. (3) COPD (chronic obstructive pulmonary disease) Current Visit: No Status: Chronic Priority: Medium Code(s): J44.9 - CHRONIC OBSTRUCTIVE PULMONARY DISEASE, UNSPECIFIED SNOMED Code(s): 85952599 Comment: - Stable. c/w home meds (auto-sub Dulera) (4) Atrial fibrillation Current Visit: No Status: Acute Code(s): I48.91 - UNSPECIFIED ATRIAL FIBRILLATION SNOMED Code(s): 26603423 Comment: Controlled. Continue multaq. No anticoagulation at baseline. (5) Myasthenia gravis Current Visit: No Status: Chronic Onset Date: 04/04/14 Code(s): G70.00 - MYASTHENIA GRAVIS WITHOUT (ACUTE) EXACERBATION SNOMED Code(s): 26219844 Comment: Discussed with Dr. Madden 05/18/17. Dos of prednisone is 40 mg daily. IgG is once a month, dose split on Sun and Sun, next due 05/23. Pyridostigmine also ordered.
[2017-05-18] MEDS ORDERED: ceFAZolin 1 GM VIAL(*) 1 GM in NS 0.9% 50 ML* 50 ML IVPB SCH (13:00)
[2017-05-18] MEDS: Loperamide CAP* 2 MG PO SCH ×2 (13:20→20:13)
[2017-05-18] MEDS: ceFAZolin 500 MG VIAL(*) 500 MG in D5W 50 ML BAG* 50 ML IVPB SCH ×2 (14:08→20:18)
--- NOTE | 2017-05-18 23:02 | CONS ---
GASTROENTEROLOGY CONSULTATION: DATE OF CONSULT: 05/18/17 ATTENDING PROVIDER: Chris Holland MD PRIMARY CARE PHYSICIAN: Radha Cartagena NP REASON FOR CONSULTATION: Iron deficiency anemia. HISTORY OF PRESENT ILLNESS: Mrs. Oreilly is a 71-year-old female with a history of COPD, on 2 L nasal cannula oxygen, myasthenia gravis, diabetes mellitus type 2, chronic kidney disease stage 3 and chronic diastolic dysfunction, who presented to [facility] with progressive weakness. On arrival to the emergency room, workup revealed urinary tract infection, acute on chronic kidney injury, and cellulitis of both lower extremities. Since her hospital admission she was noted to be anemic with an admitting hemoglobin of 7.2, which downtrended to 5.4 and she received 2 units of prbcs. Her MCV is in the microcytic range at 65. She currently denies any rectal bleeding including melena and bright red blood per rectum. She denies any abdominal pain, weight changes, dysphagia, odynophagia, as well as change in bowel habits. She denies a prior history of an endoscopy and colonoscopy. She does admit to some increased dyspnea since admission, which is new for her. She however does state that she feels better since her blood transfusion. PAST MEDICAL HISTORY: 1. Myasthenia gravis. 2. Chronic diastolic heart failure. 3. Atrial fibrillation. 4. Diabetes mellitus type 2. 5. COPD, on 2 L nasal oxygen. 6. Gastroesophageal reflux disease. 7. Chronic kidney disease stage 3. PAST SURGICAL HISTORY: 1. Pacemaker placement. 2. Cholecystectomy. HOME MEDICATIONS: 1. Prednisone. 2. Symbicort. 3. Nystatin. 4. Duo-Nebs p.r.n. 5. Omeprazole 20 mg daily. 6. Mestinon. 7. Tums. 8. Immunoglobulin therapy. 9. Spironolactone. 10. Aspirin. 11. Multaq. 12. Lantus. 13. Demadex. 14. Potassium chloride. 15. Clindamycin. 16. Vitamin B12. 17. Fergon tablets. 18. Imodium capsule. 19. Percocet. FAMILY HISTORY: Positive for cancer, but she does not know which kind. 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 Denies recreational drug use. Quit tobacco 20 years ago. Lives alone. REVIEW OF SYSTEMS: On a 14-point scale had been reviewed. Pertinent positives and negatives have been noted above in the HPI, the rest are negative. PHYSICAL EXAM: Vital Signs: Pulse 76, respirations 16, oxygenation 99% on 3 L nasal cannula, blood pressure 112/44. Generally, the patient is alert and oriented x3, slightly pale appearing. HEENT: Normocephalic, atraumatic. Anicteric sclerae bilaterally. Dry mucous membranes. Cardiovascular Exam: Irregular rhythm, regular rate. Pulmonary Exam: Clear to auscultation bilaterally. Abdominal Exam: Soft, nontender, nondistended. No rebound, guarding, or rigidity. No hepatosplenomegaly is appreciated. Extremities: Positive bilateral +3 pitting edema in lower extremities. Neurological Exam: No gross focal deficits are appreciated. DIAGNOSTIC STUDIES/LAB DATA: WBCs 10.8, hemoglobin 7.2, hematocrit 22, MCV 68. Sodium 139, potassium 4.3, chloride 113, CO2 22, anion gap 4, creatinine 2.76, calcium 7.8. ASSESSMENT AND PLAN: Mrs. Oreilly is a pleasant 71-year-old female with a history of chronic obstructive pulmonary disease, on 2 L nasal cannula oxygen, atrial fibrillation, chronic diastolic dysfunction, myasthenia gravis, who presented to [facility] with generalized weakness. She was found to have bilateral lower extremity cellulitis, urinary tract infection and acute on chronic kidney injury. Throughout her hospital course, she was noted to be slightly anemic. Her hemoglobin downtrended to 5.1 this morning. She was transfused 2 units of packed red blood cells. There are no signs of active gastrointestinal bleeding. Gastroenterology was consulted for further evaluation due to no previous history of endoscopic procedures. 1. Iron deficiency anemia. The patient denies previous endoscopy and colonoscopy. Given her significant anemia, she is in need of an endoscopy and a colonoscopy when she is medically stable. It would be very difficult for her to prep given her bilateral lower extremity cellulitis. We would need to optimize her medical condition prior to performing these two procedures. We can plan of these procedures as an outpatient under monitored anesthesia care. Currently, she is not actively bleeding. We would recommend continuing to monitor her hemoglobin daily. She is currently on iron supplementation. If her endoscopy and colonoscopy are relatively benign, she would need a videocapsule endoscopy in the future as well. The patient is currently agreeable to performing both procedures. We will set the patient up as an outpatient with a followup in the office once her bilateral cellulitis has healed and then schedule the endoscopy and colonoscopy as an outpatient. If easier for the patient, we can preform them as inpatient as well, but she would need medically optimized first. Thank you, Dr. Agustin, for allowing us to participate in the care of your patient. If you should have any further questions or concerns, please do not hesitate to contact us. [id number]/[facility] #: [id number] DAYO
[2017-05-19] MEDS: ceFAZolin 500 MG VIAL(*) 500 MG in D5W 50 ML BAG* 50 ML IVPB SCH (05:22)
[2017-05-19] MEDS: Heparin VIAL(*) 5000 UNITS/ML VIAL (FIVE THOUSAND) SUBCUT SCH ×3 (05:25→22:18)
[2017-05-19] MEDS: Mometasone/Formoter 200/5 MDI INH SCH ×2 (08:06→20:29)
[2017-05-19] MEDS: Tiotropium CAP.INH* CAP.INH/18 MCG (USE ORDER SET !) INH SCH (08:06)
[2017-05-19] MEDS: Pyridostigmine TAB* 60 MG PO SCH ×4 (10:01→19:46)
[2017-05-19] MEDS: predniSONE TAB* 20 MG PO SCH (10:01)
[2017-05-19] MEDS: Cyanocobalamin TAB* 500 MCG PO SCH (10:01)
[2017-05-19] MEDS: Ferrous Sulfate TAB* 325 MG PO SCH (10:01)
[2017-05-19] MEDS: Aspirin Low Dose CHEW TAB* 81 MG PO SCH (10:01)
[2017-05-19] MEDS: Dronedarone TAB* 400 MG PO SCH ×2 (10:01→19:47)
[2017-05-19] MEDS: Nystatin SUSPENSION* 100000 UNITS/ML 5 ML UDC SWISH SWAL SCH ×3 (10:01→17:05)
[2017-05-19] MEDS: Omeprazole CAP* 20 MG PO SCH (10:02)
[2017-05-19] MEDS: Loperamide CAP* 2 MG PO SCH ×2 (10:02→19:46)
[2017-05-19] MEDS: Insulin LISPRO* 1 UNITS UNIT SUBCUT SCH ×7 (10:03→22:16)
--- NOTE | 2017-05-19 10:14 | PN ---
Subjective Date of Service: 05/19/17 Interval History: No new c/o. Objective Active Medications: Acetaminophen (Tylenol Tab*) 650 mg PO Q6H PRN PRN Reason: FEVER/PAIN Albuterol (Ventolin 2.5 Mg/3 Ml Neb.Bridget*) 2.5 mg INH Q2H PRN PRN Reason: SOB/WHEEZING Last Admin: 05/18/17 20:17 Dose: 2.5 mg Albuterol/Ipratropium (Duoneb (Albuterol 2.5 Mg/Ipratropium 0.5 Mg)) 1 neb INH QID PRN PRN Reason: SOB/WHEEZING Aspirin (Aspirin Low Dose Tab*) 81 mg PO DAILY [facility] [place] Last Admin: 05/19/17 10:01 Dose: 81 mg Cyanocobalamin (Vitamin B12 Tab*) 1,000 mcg PO DAILY [facility] Last Admin: 05/19/17 10:01 Dose: 1,000 mcg Dronedarone (Multaq Tab*) 400 mg PO BID [facility] [place] Last Admin: 05/19/17 10:01 Dose: 400 mg Ferrous Sulfate (Ferrous Sulfate Tab*) 325 mg PO DAILY [facility] [place] Last Admin: 05/19/17 10:01 Dose: 325 mg Heparin Sodium (Porcine) (Heparin Vial(*)) 5,000 units SUBCUT Q8HR [facility] Last Admin: 05/19/17 05:25 Dose: Not Given Ceftriaxone Sodium 1 gm/ (Sodium Chloride) 50 mls @ 200 mls/hr IVPB Q24H [facility] Insulin Human Lispro (Humalog*) 0 units SUBCUT AC [facility] PRN Reason: Protocol Last Admin: 05/19/17 10:03 Dose: 4 units Insulin Human Lispro (Humalog*) 0 units SUBCUT ACHS [facility] PRN Reason: Protocol Last Admin: 05/19/17 10:03 Dose: 3 units Loperamide HCl (Imodium Cap*) 2 mg PO BID [facility] [place] Last Admin: 05/19/17 10:02 Dose: 2 mg Mometasone Furoate/Formoterol Fumar (Dulera 200/5 Mdi*) 2 puff INH BID [facility] [place] Last Admin: 05/19/17 08:06 Dose: 2 puff Nystatin (Nystatin Suspension*) 500,000 units SWISH SWAL TID PC [facility] Last Admin: 05/19/17 10:01 Dose: 500,000 units Omeprazole (Prilosec Cap*) 20 mg PO DAILY@0730 [facility] Last Admin: 05/19/17 10:02 Dose: 20 mg Ondansetron HCl (Zofran Inj*) 4 mg IV Q6H PRN PRN Reason: NAUSEA Oxycodone/Acetaminophen (Percocet 5/325 Tab*) 1 tab PO Q4H PRN PRN Reason: PAIN Last Admin: 05/18/17 20:14 Dose: 1 tab Prednisone (Deltasone Tab*) 40 mg PO DAILY [facility] [place] Last Admin: 05/19/17 10:01 Dose: 40 mg Pyridostigmine [place] (Mestinon Tab*) 120 mg PO QID [facility] Last Admin: 05/19/17 10:01 Dose: 120 mg Tiotropium [place] (Spiriva Cap.Inh*) 1 cap INH DAILY [facility] [place] Last Admin: 05/19/17 08:06 Dose: 1 cap Vital Signs - 8 hr 05/19/17 05/19/17 05/19/17 02:22 07:51 08:06 Temperature 98.2 F 98.1 F Pulse Rate 59 71 88 Respiratory 22 16 Rate Blood Pressure 115/65 124/52 (mmHg) O2 Sat by Pulse 94 94 Oximetry 05/19/17 05/19/17 09:04 10:02 Temperature Pulse Rate Respiratory 20 Rate Blood Pressure (mmHg) O2 Sat by Pulse 98 Oximetry Oxygen Devices in Use Now: Nasal Cannula Appearance: Alert, partly up in bed. In good spirits. Looks comfortable. Eyes: No Scleral Icterus Extremities: No Clubbing, Cyanosis, - - 1+ edema BL. Marked arthritic deformities both hands. Skin: No Rash or Ulcers - Both lower legs red and warm, 2/3 way to knees. Onychomycosis all toenails, No Nodules or Sclerosis Neurological: Alert and Oriented x 3, NL Sensation Result Diagrams: 05/18/17 06:51 05/18/17 06:51 Assess/Plan/Problems-Billing Assessment: - Patient Problems (1) Cellulitis of both lower extremities Current Visit: No Status: Acute Priority: High Onset Date: 04/04/14 Code (s): L03.115 - CELLULITIS OF RIGHT LOWER LIMB; L03.116 - CELLULITIS OF LEFT LOWER LIMB SNOMED Code(s): 810750156 Comment: - significant erythema and swelling in B/L LEs c/w cellulitis. - Change to ceftiaxone 05/19/17 to cover urine Klebsiella also. (2) YIFAN (acute kidney injury) Current Visit: No Status: Chronic Priority: High Code(s): N17.9 - ACUTE KIDNEY FAILURE, UNSPECIFIED SNOMED Code(s): 75475414 Comment: Acute on chronic kidney disease, related to UTI, dehydration, cellulitis. Possibly torsemide is an important part of the etiology. Improved fuyrther 05/18. Stop IVF. BMP 05/20. (3) COPD (chronic obstructive pulmonary disease) Current Visit: No Status: Chronic Priority: Medium Code(s): J44.9 - CHRONIC OBSTRUCTIVE PULMONARY DISEASE, UNSPECIFIED SNOMED Code(s): 07712798 Comment: - Stable. c/w home meds (auto-sub Dulera) (4) Atrial fibrillation Current Visit: No Status: Acute Code(s): I48.91 - UNSPECIFIED ATRIAL FIBRILLATION SNOMED Code(s): 04756591 Comment: Controlled. Continue multaq. No anticoagulation at baseline. (5) Myasthenia gravis Current Visit: No Status: Chronic Onset Date: 04/04/14 Code(s): G70.00 - MYASTHENIA GRAVIS WITHOUT (ACUTE) EXACERBATION SNOMED Code(s): 26185571 Comment: Discussed with Dr. Madden 05/18/17. Dos of prednisone is 40 mg daily. IgG is once a month, dose split on Sun and Sun, next due 05/23. Pyridostigmine also ordered. I anticipate whe will need STR. (6) Iron deficiency anemia Current Visit: Yes Status: Acute Code(s): D50.9 - IRON DEFICIENCY ANEMIA, UNSPECIFIED SNOMED Code(s): 68435337 Comment: Received 2 U PC's 05/17/17. Dr. Lundberg recommends outpt EGD and colonoscopy when she is medically stable. Continue FeSO4. CBC 05/20.
[2017-05-19] MEDS: oxyCODONE/Acetamin 5/325 MG* TAB PO PRN ×2 (10:50→16:56)
[2017-05-19] MEDS: cefTRIAXone(*) 1 GM in NS 0.9% 50 ML* 50 ML IVPB SCH (11:23)
[2017-05-19] MEDS: Nystatin TOP POWDER* 15 GM BTL TOPICAL SCH (19:47)
[2017-05-20] MEDS: Heparin VIAL(*) 5000 UNITS/ML VIAL (FIVE THOUSAND) SUBCUT SCH ×3 (06:08→21:26)
[2017-05-20 06:43] LABS: EGFR Non-African American 34.4 (>60)
[2017-05-20 06:48] LABS: ABS Basophils 0.1 10^3/ul (0-0.2); ABS Eosinophils 0.1 10^3/ul (0-0.6); ABS Lymphocytes 1.3 10^3/ul (1.0-4.8); ABS Monocytes 0.8 10^3/ul (0-0.8); ABS Neutrophils 12.7 10^3/ul (1.5-7.7); ABS Nucleated RBC 0.1 10^3/ul; Eosinophil % 0.4 % (0-6); Hematocrit 24 % (35-47); Lymphocyte % 8.4 % (25-47); Mean Corpuscular HGB Conc 30 g/dl (31-36); Mean Corpuscular Hemoglobin 21 pg (27-31); Mean Corpuscular Volume 71 fL (80-97); Mean Platelet Volume 7 um3 (7.4-10.4); Nucleated Red Blood Cells % 0.8; Platelet Count 319 10^3/ul (150-450); Red Blood Count 3.36 10^6/ul (4.0-5.4); Red Cell Distribution Width 23 % (10.5-15)
[2017-05-20] MEDS: Mometasone/Formoter 200/5 MDI INH SCH ×2 (07:44→20:28)
[2017-05-20] MEDS: Tiotropium CAP.INH* CAP.INH/18 MCG (USE ORDER SET !) INH SCH (07:46)
[2017-05-20] MEDS: oxyCODONE/Acetamin 5/325 MG* TAB PO PRN (09:54)
[2017-05-20] MEDS: predniSONE TAB* 20 MG PO SCH (09:54)
[2017-05-20] MEDS: Cyanocobalamin TAB* 500 MCG PO SCH (09:55)
[2017-05-20] MEDS: Ferrous Sulfate TAB* 325 MG PO SCH (09:55)
[2017-05-20] MEDS: Loperamide CAP* 2 MG PO SCH ×2 (09:55→21:18)
[2017-05-20] MEDS: Aspirin Low Dose CHEW TAB* 81 MG PO SCH (09:55)
[2017-05-20] MEDS: Dronedarone TAB* 400 MG PO SCH ×2 (09:55→21:20)
[2017-05-20] MEDS: Omeprazole CAP* 20 MG PO SCH (09:55)
[2017-05-20] MEDS: Insulin LISPRO* 1 UNITS UNIT SUBCUT SCH ×7 (09:56→21:24)
[2017-05-20] MEDS: Nystatin SUSPENSION* 100000 UNITS/ML 5 ML UDC SWISH SWAL SCH ×3 (09:56→18:09)
[2017-05-20] MEDS: Pyridostigmine TAB* 60 MG PO SCH ×4 (09:56→21:20)
[2017-05-20] MEDS: Nystatin TOP POWDER* 15 GM BTL TOPICAL SCH ×3 (09:57→21:26)
[2017-05-20] MEDS: cefTRIAXone(*) 1 GM in NS 0.9% 50 ML* 50 ML IVPB SCH (10:14)
--- NOTE | 2017-05-20 14:56 | PN ---
Subjective Date of Service: 05/20/17 Interval History: No new c/o. Objective Active Medications: Acetaminophen (Tylenol Tab*) 650 mg PO Q6H PRN PRN Reason: FEVER/PAIN Albuterol (Ventolin 2.5 Mg/3 Ml Neb.Bridget*) 2.5 mg INH Q2H PRN PRN Reason: SOB/WHEEZING Last Admin: 05/18/17 20:17 Dose: 2.5 mg Albuterol/Ipratropium (Duoneb (Albuterol 2.5 Mg/Ipratropium 0.5 Mg)) 1 neb INH QID PRN PRN Reason: SOB/WHEEZING Aspirin (Aspirin Low Dose Tab*) 81 mg PO DAILY [facility] Last Admin: 05/20/17 09:55 Dose: 81 mg Cyanocobalamin (Vitamin B12 Tab*) 1,000 mcg PO DAILY [facility] Last Admin: 05/20/17 09:55 Dose: 1,000 mcg Dronedarone (Multaq Tab*) 400 mg PO BID [facility] Last Admin: 05/20/17 09:55 Dose: 400 mg Ferrous Sulfate (Ferrous Sulfate Tab*) 325 mg PO DAILY [facility] Last Admin: 05/20/17 09:55 Dose: 325 mg Heparin Sodium (Porcine) (Heparin Vial(*)) 5,000 units SUBCUT Q8HR [facility] Last Admin: 05/20/17 13:08 Dose: 5,000 units Ceftriaxone Sodium 1 gm/ (Sodium Chloride) 50 mls @ 200 mls/hr IVPB Q24H [facility] Last Admin: 05/20/17 10:14 Dose: 200 mls/hr Insulin Human Lispro (Humalog*) 0 units SUBCUT AC [facility] PRN Reason: Protocol Last Admin: 05/20/17 14:38 Dose: 2 units Insulin Human Lispro (Humalog*) 0 units SUBCUT ACHS [facility] PRN Reason: Protocol Last Admin: 05/20/17 13:08 Dose: 9 units Loperamide HCl (Imodium Cap*) 2 mg PO BID [facility] Last Admin: 05/20/17 09:55 Dose: 2 mg Mometasone Furoate/Formoterol Fumar (Dulera 200/5 Mdi*) 2 puff INH BID [facility] Last Admin: 05/20/17 07:44 Dose: 2 puff Nystatin (Nystatin Suspension*) 500,000 units SWISH SWAL TID PC [facility] Last Admin: 05/20/17 13:07 Dose: 500,000 units Nystatin (Nystatin Top Powder*) 1 applic TOPICAL TID [facility] Last Admin: 05/20/17 13:16 Dose: 1 applic Omeprazole (Prilosec Cap*) 20 mg PO DAILY@0730 [facility] Last Admin: 05/20/17 09:55 Dose: 20 mg Ondansetron HCl (Zofran Inj*) 4 mg IV Q6H PRN PRN Reason: NAUSEA Oxycodone/Acetaminophen (Percocet 5/325 Tab*) 1 tab PO Q4H PRN PRN Reason: PAIN Last Admin: 05/20/17 09:54 Dose: 1 tab Prednisone (Deltasone Tab*) 40 mg PO DAILY [facility] Last Admin: 05/20/17 09:54 Dose: 40 mg Pyridostigmine [place] (Mestinon Tab*) 120 mg PO QID [facility] Last Admin: 05/20/17 13:08 Dose: 120 mg Tiotropium [place] (Spiriva Cap.Inh*) 1 cap INH DAILY [facility] Last Admin: 05/20/17 07:46 Dose: 1 cap Vital Signs - 8 hr 05/20/17 05/20/17 05/20/17 07:41 07:42 07:43 Temperature 98.2 F Pulse Rate 59 92 Respiratory 16 17 Rate Blood Pressure 129/63 (mmHg) O2 Sat by Pulse 96 96 94 Oximetry 05/20/17 05/20/17 05/20/17 07:48 08:00 09:54 Temperature Pulse Rate 59 Respiratory 18 18 18 Rate Blood Pressure (mmHg) O2 Sat by Pulse 96 Oximetry 05/20/17 05/20/17 05/20/17 09:55 11:04 12:00 Temperature 98.1 F Pulse Rate 103 Respiratory 18 16 18 Rate Blood Pressure 126/54 (mmHg) O2 Sat by Pulse 97 Oximetry 05/20/17 13:09 Temperature Pulse Rate Respiratory 18 Rate Blood Pressure (mmHg) O2 Sat by Pulse Oximetry Oxygen Devices in Use Now: Nasal Cannula Appearance: Alert, partly up in bed. In good spirits. Looks comfortable. Eyes: No Scleral Icterus Neck: NL Appearance and Movements; NL JVP, No Thyroid Enlargement, Masses Respiratory: Symmetrical Chest Expansion and Respiratory Effort, Clear to Auscultation, Clear to Percussion Cardiovascular: NL Sounds; No Murmurs; No JVD, RRR, No Edema, - Extremities: No Clubbing, Cyanosis, - - Tr to 1+ edema BL Skin: No Nodules or Sclerosis, - - Both lower legs pink, scaly, dry. Neurological: Alert and Oriented x 3, NL Sensation Result Diagrams: 05/20/17 06:16 05/20/17 06:16 Assess/Plan/Problems-Billing Assessment: - Patient Problems (1) Cellulitis of both lower extremities Current Visit: No Status: Acute Priority: High Onset Date: 04/04/14 Code (s): L03.115 - CELLULITIS OF RIGHT LOWER LIMB; L03.116 - CELLULITIS OF LEFT LOWER LIMB SNOMED Code(s): 087843178 Comment: - significant erythema and swelling in B/L LEs c/w cellulitis. Leukocytosis is due to her prednisone. - Change to ceftiaxone 05/19/17 to cover urine Klebsiella also. Add hydrocortisone 1% cream--much of her erythema may be dermatitis. (2) YIFAN (acute kidney injury) Current Visit: No Status: Chronic Priority: High Code(s): N17.9 - ACUTE KIDNEY FAILURE, UNSPECIFIED SNOMED Code(s): 14933492 Comment: Acute on chronic kidney disease, related to UTI, dehydration, cellulitis. Possibly torsemide is an important part of the etiology. Creatinine on 05/20 is 1.50, about her baseline. (3) COPD (chronic obstructive pulmonary disease) Current Visit: No Status: Chronic Priority: Medium Code(s): J44.9 - CHRONIC OBSTRUCTIVE PULMONARY DISEASE, UNSPECIFIED SNOMED Code(s): 51601105 Comment: - Stable. c/w home meds (auto-sub Dulera) (4) Atrial fibrillation Current Visit: No Status: Acute Code(s): I48.91 - UNSPECIFIED ATRIAL FIBRILLATION SNOMED Code(s): 52208629 Comment: Controlled. Continue multaq. No anticoagulation at baseline. (5) Myasthenia gravis Current Visit: No Status: Chronic Onset Date: 04/04/14 Code(s): G70.00 - MYASTHENIA GRAVIS WITHOUT (ACUTE) EXACERBATION SNOMED Code(s): 91617316 Comment: MG is the major cause of her weakness at this point. Discussed with Dr. Madden 05/18/17. I will talk to the on-call neurologist Sunday 05/21. Dose of prednisone is 40 mg daily. IgG is once a month, dose split on Sun and Sun, next due 05/23. Pyridostigmine also ordered. I anticipate she will need STR. (6) Iron deficiency anemia Current Visit: Yes Status: Acute Code(s): D50.9 - IRON DEFICIENCY ANEMIA, UNSPECIFIED SNOMED Code(s): 46084256 Comment: Received 2 U PC's 05/17/17. Dr. Lundberg recommends outpt EGD and colonoscopy when she is medically stable. Continue FeSO4. CBC 05/20.
[2017-05-20] MEDS: Hydrocortisone 1% CREAM* 30 GM TUBE TOPICAL SCH ×2 (16:17→21:26)
[2017-05-21] MEDS: Heparin VIAL(*) 5000 UNITS/ML VIAL (FIVE THOUSAND) SUBCUT SCH ×2 (04:49→14:40)
[2017-05-21] MEDS: Tiotropium CAP.INH* CAP.INH/18 MCG (USE ORDER SET !) INH SCH (08:20)
[2017-05-21] MEDS: Mometasone/Formoter 200/5 MDI INH SCH (08:20)
[2017-05-21] MEDS: Nystatin SUSPENSION* 100000 UNITS/ML 5 ML UDC SWISH SWAL SCH ×2 (08:34→12:56)
[2017-05-21] MEDS: Insulin LISPRO* 1 UNITS UNIT SUBCUT SCH ×4 (08:34→12:53)
[2017-05-21] MEDS: Omeprazole CAP* 20 MG PO SCH (08:35)
[2017-05-21] MEDS: Aspirin Low Dose CHEW TAB* 81 MG PO SCH (08:35)
[2017-05-21] MEDS: Dronedarone TAB* 400 MG PO SCH (08:35)
[2017-05-21] MEDS: predniSONE TAB* 20 MG PO SCH (08:35)
[2017-05-21] MEDS: Cyanocobalamin TAB* 500 MCG PO SCH (08:35)
[2017-05-21] MEDS: Hydrocortisone 1% CREAM* 30 GM TUBE TOPICAL SCH ×2 (08:36→14:42)
[2017-05-21] MEDS: Pyridostigmine TAB* 60 MG PO SCH ×2 (08:36→12:54)
[2017-05-21] MEDS: oxyCODONE/Acetamin 5/325 MG* TAB PO PRN (08:36)
[2017-05-21] MEDS: Loperamide CAP* 2 MG PO SCH (08:36)
[2017-05-21] MEDS: Ferrous Sulfate TAB* 325 MG PO SCH (08:36)
[2017-05-21] MEDS: Nystatin TOP POWDER* 15 GM BTL TOPICAL SCH ×2 (08:37→14:42)
[2017-05-21] MEDS: cefTRIAXone(*) 1 GM in NS 0.9% 50 ML* 50 ML IVPB SCH (11:09)
[2017-05-21 11:52] VITALS: BP 106/60
--- NOTE | 2017-05-21 13:51 | TRS ---
CC: Dr. Madden; Ann Cartagena, SERGIO; [facility] DATE OF ADMISSION: 05/17/2017. DATE OF TRANSFER: 05/21/2017. HISTORY OF PRESENT ILLNESS: This 71-year-old woman presented with generalized weakness. The family felt that she was not taking care of herself well. She was covered in feces, unkempt and malodorous at home. Her granddaughter had not heard from the patient for a few days. The patient was thought to possibly have a UTI based on an abnormal urinalysis. She really did not ruby ve any urinary tract symptoms. She did grow out a klebsiella that was resistant to Cefazolin, but se nsitive to Ceftriaxone. I am not sure if she was actually infected or just simply colonized. She wa s also treated for cellulitis of the legs. There again, it is not clear how much of her erythema of the legs is due to dermatitis and how much is the cellulitis. Antibiotics did not seem to have a big impact on her leg erythema. I added Hydrocortisone cream. She only got a couple doses before the t brendan of discharge. I note she is due to have her monthly IgG infusion on the and . The doses split into two da ys to avoid excessive fluid overload. FINAL DIAGNOSES: 1. Cellulitis of both lower extremities. 2. Acute kidney injury. 3. COPD. 4. Atrial fibrillation. 5. Myasthenia gravis. 6. Iron deficiency anemia. The patient is to follow-up with GI for endoscopy and colonoscopy when she is medically stable. I no te she did get two units of packed cells here. DISCHARGE MEDICATIONS: 1. Acetaminophen 650 mg every 6 hours prn. 2. Albuterol 2.5 mg by nebulizer every 2 hours prn. 3. Ferrous Sulfate 325 mg daily. 4. Hydrocortisone 1% cream apply to both lower legs t.i.d. 5. Lispro insulin by sliding scale before meals and at bedtime. 6. Mometasone Formoterol 200/5 two puffs b.i.d. 7. Nystatin powder to affected areas t.i.d. 8. Tiotropium one capsule daily. 9. Cefuroxime 500 mg b.i.d. for 4 days. 10. Pyridostigmine 120 mg q.i.d. 11. Omeprazole 20 mg daily. 12. Nystatin suspension 5 ml swish and swallow t.i.d. 13. Prednisone 40 mg daily. 14. Immune Globulin 70 gm intravenously every 28 days, split into 2 doses on separate days. The patient is transferred to [facility]. [id number]/[facility] #: [id number]
[2017-05-21] MEDS ORDERED: Nystatin CREAM* 15 GM TUBE TOPICAL SCH (14:00)
== END 2017-05-21 14:50 | DRG 602 ==
LOC: ED 01:49 → MED 04:56
PROVIDERS: ADMIT Hospitalist; ATTEND Internal Medicine
PROC: 30233N1 Transfusion of Nonautologous Red Blood Cells into Peripheral Vein, Percutaneous Approach (ICD-10-PCS; principal; 2017-05-17)
DX: L03.116 Cellulitis of left lower limb (principal); N17.0 Acute kidney failure with tubular necrosis; G70.00 Myasthenia gravis without (acute) exacerbation; E11.22 Type 2 diabetes mellitus with diabetic chronic kidney disease; I48.91 Unspecified atrial fibrillation; I50.32 Chronic diastolic (congestive) heart failure; D50.9 Iron deficiency anemia, unspecified; F10.21 Alcohol dependence, in remission; E86.0 Dehydration; N39.0 Urinary tract infection, site not specified; Z99.81 Dependence on supplemental oxygen; B96.1 Klebsiella pneumoniae [K. pneumoniae] as the cause of diseases classified elsewhere; L03.115 Cellulitis of right lower limb; J44.9 Chronic obstructive pulmonary disease, unspecified; N18.3 Chronic kidney disease, stage 3 (moderate); Z16.39 Resistance to other specified antimicrobial drug; Z79.82 Long term (current) use of aspirin; Z79.4 Long term (current) use of insulin; Z79.891 Long term (current) use of opiate analgesic; Z79.899 Other long term (current) drug therapy; Z88.1 Allergy status to other antibiotic agents; Z88.8 Allergy status to other drugs, medicaments and biological substances; Z87.891 Personal history of nicotine dependence; Z80.9 Family history of malignant neoplasm, unspecified; Z95.0 Presence of cardiac pacemaker
CPT/HCPCS: 36415; 71045; 80048; 80053; 81003; 81015; 82150; 82550; 83605; 83735; 83880; 84443; 84484; 85025; 85610; 85730; 86850; 86900; 86901; 86922; 87040; 87077; 87086; 87186; 90686; 93005; 94640; 94760; A9270-GY; J0690; J0696; J1644; J1720; J2543; J7512; P9040

== ENCOUNTER 2017-06-11 11:16 | Inpatient (IN) | payer MEDICARE ==
[2017-06-11] MEDS ORDERED: NS 0.9% 1000 ML* 1,000 ML IV ONE (11:38)
[2017-06-11 12:14] LABS: INR 0.9 (0.77-1.02)
[2017-06-11 12:23] LABS: EGFR Non-African American 63.7 (>60)
[2017-06-11 12:45] LABS: ABS Basophils 0 10^3/ul (0-0.2); ABS Eosinophils 0 10^3/ul (0-0.6); ABS Lymphocytes 0.9 10^3/ul (1.0-4.8); ABS Monocytes 0.6 10^3/ul (0-0.8); ABS Neutrophils 10.7 10^3/ul (1.5-7.7); ABS Nucleated RBC 0.1 10^3/ul; Eosinophil % 0.2 % (0-6); Hematocrit 26 % (35-47); Hemoglobin 7.3 g/dl (12.0-16.0); Lymphocyte % 7.3 % (25-47); Mean Corpuscular HGB Conc 29 g/dl (31-36); Mean Corpuscular Hemoglobin 22 pg (27-31); Mean Corpuscular Volume 76 fL (80-97); Mean Platelet Volume 7 um3 (7.4-10.4); Nucleated Red Blood Cells % 0.5; Platelet Count 335 10^3/ul (150-450); Red Blood Count 3.37 10^6/ul (4.0-5.4); Red Cell Distribution Width 30 % (10.5-15); White Blood Count 12.3 10^3/ul (3.5-10.8)
--- NOTE | 2017-06-11 12:50 | RAD ---
HISTORY: Altered mental status COMPARISONS: May 17, 2017 VIEWS: 1: frontal portable view of the chest at 12:30 PM FINDINGS: LINES AND TUBES: None. CARDIOMEDIASTINAL SILHOUETTE: The cardiac mediastinal silhouette is partially obscured and is shifted to the right. PLEURA: There is opacification of the right hemithorax. LUNG PARENCHYMA: There is complete opacification of the right hemithorax. ABDOMEN: The upper abdomen is clear. There is no subphrenic gas. BONES AND SOFT TISSUES: No bone or soft tissue abnormalities are noted. IMPRESSION: COMPLETE OPACIFICATION OF THE RIGHT HEMITHORAX WITH MEDIASTINAL SHIFT TO THE RIGHT SUGGESTIVE OF COMPLETE ATELECTASIS OF THE RIGHT LUNG WHICH MAY INDICATE A CENTRAL OBSTRUCTING LESION.
--- NOTE | 2017-06-11 12:51 | RAD ---
HISTORY: Trauma, bruising to right uatsdin COMPARISONS: April 25, 2010 TECHNIQUE: Multiple contiguous axial CT scans were obtained of the head without intravenous contrast. FINDINGS: The study is limited by patient motion artifact. HEMORRHAGE/INFARCT: There is no hemorrhage or acute infarct. MASSES/SHIFT: There is no mass or shift. EXTRA-AXIAL SPACES: There are no extra-axial fluid collections. SULCI AND VENTRICLES: The sulci and ventricles are normal in size and position for the patient's stated age. CEREBRUM: There is hypoattenuation of the periventricular and subcortical white matter. BRAINSTEM: There are no focal parenchymal abnormalities. CEREBELLUM: There are no focal parenchymal abnormalities. VESSELS: The vessels are grossly normal. PARANASAL SINUSES: The paranasal sinuses are clear. ORBITS: The orbits are unremarkable. BONES AND SOFT TISSUE: No bone or soft tissue abnormalities are noted. OTHER: None IMPRESSION: NO ACUTE INTRACRANIAL PATHOLOGY. CHRONIC SMALL VESSEL ISCHEMIC CHANGE.
[2017-06-11 13:20] LABS: Urine Appearance Turbid; Urine Blood 2+ (Negative); Urine Color Amber; Urine Ketones Negative (Negative); Urine Protein 2+(100 mg/dL) (Negative); Urine Specific Gravity 1.012 (1.010-1.030); Urine Urobilinogen Negative (Negative)
[2017-06-11 13:30] LABS: Monocytes % 8 % (0-13)
--- NOTE | 2017-06-11 14:02 | RAD ---
INDICATION: Altered mental status COMPARISON: CT of the chest dated October 15, 2015 TECHNIQUE: Axial source images of the chest were acquired without intravenous contrast from just above the lung apices to the base of the diaphragm. Coronal and sagittal reconstructed images were acquired. FINDINGS: There is a large right-sided pleural effusion causing compressive consolidation of the right lung. There is trace pleural effusion the left. The left lung is adequately aerated. There is cardiomegaly with the heart measuring greater than 50% the diameter with of the thorax. A 2-lead cardiac pacemaker appears to be appropriately position. There is atherosclerotic calcification of the coronary arteries, arch of the aorta and extending down the lower thoracic aorta. There is no readily apparent mediastinal, hilar, or axillary lymphadenopathy. The osseous structures appear normal. Limited views of the upper abdomen show no acute abnormalities. IMPRESSION: 1. Acute findings include large right-sided pleural effusion with consolidation of the right lung. 2. Additional chronic and degenerative changes described in the body the report.
[2017-06-11] MEDS ORDERED: Dextrose 50% Syringe 50 ML* 25 GM/50 ML SYRINGE ONE (14:42)
[2017-06-11] MEDS ORDERED: Dextrose 50% Syringe 50 ML* 25 GM/50 ML SYRINGE IV PUSH ONE (14:48)
[2017-06-11] MEDS ORDERED: D5W 1/2 NS 1000 ML BAG* 1,000 ML IV SCH ×2 (16:00→18:25)
[2017-06-11] MEDS ORDERED: Cyanocobalamin TAB* 500 MCG PO SCH (19:00)
[2017-06-11] MEDS: Mometasone/Formoter 200/5 MDI INH SCH (20:29)
--- NOTE | 2017-06-11 21:15 | ED ---
Scottie Almaraz Jennifer, scribed for Kulwant Pulido MD on 06/11/17 at 1140 . Altered Mental Status - HPI Summary HPI Summary: The patient is a 71 year old female who fell this morning and was found at around 10:00. She lives in [facility]. The patient does not remember the fall and doesnt know what day it is today in the ED. She additionally has two large skin tears on her hands and bruising on her forehead. LEVEL 5 CAVEAT: HPI limited due to AMS. - History Of Current Complaint Stated Complaint: AMS Hx Obtained From: Patient, Other: - Nurse Onset/Duration: Still Present Timing: Lasting Hours - Was found at 10:00 Character: Confusion Aggravating Factor(s): Nothing Alleviating Factor(s): Nothing - Allergies/Home Medications Allergies/Adverse Reactions: Allergies Allergy/AdvReac Type Severity Reaction Status Date / Time immune globulin,gamma (IgG) Allergy Swelling Verified 06/11/17 15:35 human [From Octagam] mycophenolate mofetil Allergy Unknown Verified 06/11/17 15:36 [From CellCept] Reaction Details azithromycin AdvReac Severe See Comment Verified 06/11/17 15:37 ceftriaxone AdvReac Severe See Comment Verified 06/11/17 15:38 ciprofloxacin AdvReac GI Upset Verified 06/11/17 15:39 Home Medications: Home Medications Acetaminophen TAB* [Tylenol TAB*] 650 mg PO Q8HR PRN 06/11/17 [History Confirmed 06/11/17] Aspirin Low Dose CHEW TAB* [Aspirin Low Dose TAB*] 81 mg PO DAILY 06/11/17 [ History Confirmed 06/11/17] Cyanocobalamin TAB* [Vitamin B12 TAB*] 1,000 mcg PO MONTHLY 06/11/17 [History Confirmed 06/11/17] Hydrocortisone 1% CREAM* [Hytone Cream 1%*] 1 applic TOPICAL TID PRN 06/11/17 [ History Confirmed 06/11/17] Insulin LISPRO* [HumaLOG*] 4 units SUBCUT DAILY 06/11/17 [History Confirmed 04/16] Lactobacillus Acidophilu (GG)* [Culturelle*] 1 cap PO TID AC 06/11/17 [History Confirmed 06/11/17] Loperamide CAP* [Imodium CAP*] 2 mg PO Q4HR PRN 06/11/17 [History Confirmed 04/16] Oseltamivir CAP* [Tamiflu CAP*] 30 mg PO EVERY OTHER DAY 06/11/17 [History Confirmed 06/11/17] oxyCODONE/Acetamin 5/325 MG* [Percocet 5/325 TAB*] 1 tab PO Q4H PRN 06/11/17 [ History Confirmed 06/11/17] predniSONE TAB* [Deltasone TAB*] 20 mg PO DAILY 06/11/17 [History Confirmed 04/16] PMH/Surg Hx/FS Hx/Imm Hx Endocrine/Hematology History: Reports: Hx Anticoagulant Therapy - BABY ASA, Hx Diabetes, Hx Anemia, Other Endocrine/Hematological Disorders - MYASTHEIA GRAVIS Denies: Hx Blood Disorders, Hx Blood Transfusions, Hx Bone Marrow Disease, Hx Systemic Lupus Erythematosus, Hx Sickle Cell Disease, Hx Thyroid Disease, Hx Unexplained Bleeding Cardiovascular History: Reports: Hx Congenital Heart Disease, Hx Congestive Heart Failure - very swollen legs, Hx Hypertension, Hx Pacemaker/ICD - 04/03/16 , 06/16 ??, Other Cardiovascular Problems/Disorders - LE EDEMA, ON LASIX Denies: Hx Peripheral Vascular Disease Respiratory History: Reports: Hx Asthma, Hx Pneumonia, Other Respiratory Problems/Disorders - EMPHYSEMA Denies: Hx Chronic Bronchitis, Hx Cystic Fibrosis, Hx Lung Cancer, Hx Pleural Effusion, Hx Pulmonary Edema, Hx Pulmonary Embolism, Hx Seasonal Allergies, Hx Sleep Apnea Comment Only: Hx Chronic Obstructive Pulmonary Disease (COPD) - on 2L home O2 at all times per pt GI History: Reports: Hx Gall Bladder Disease - GB out, Hx Gastroesophageal Reflux Disease, Other GI Disorders History: Reports: Other Problems/Disorders - FREQUENT UTI'S Denies: Hx Renal Disease Musculoskeletal History: Reports: Hx Back Problems - low back pain, Other Musculoskeletal History - myasthenia gravis Denies: Hx Arthritis, Hx Osteoporosis Sensory History: Reports: Hx Cataracts, Hx Contacts or Glasses Denies: Hx Eye Injury, Hx Eye Prosthesis, Hx Glaucoma, Hx Macular Degeneration, Hx Vision Problem, Hx Deafness, Hx Hearing Aid, Other Sensory Impairments Opthamlomology History: Reports: Hx Cataracts, Hx Contacts or Glasses Denies: Hx Eye Injury, Hx Eye Prosthesis, Hx Glaucoma, Hx Macular Degeneration, Hx Vision Problem, Other Sensory Impairments Neurological History: Reports: Other Neuro Impairments/Disorders - myasthenia gravis Denies: Hx Developmental Delay, Hx Headaches, Hx Migraine, Hx Seizures, Hx Spinal Cord Injury, Hx Transient Ischemic Attacks (TIA) Psychiatric History: Denies: Hx Anxiety, Hx Depression, Other Psychiatric Issues/Disorders - Surgical History Surgery Procedure, Year, and Place: CHOLECYSECTOMY 1980 Hx Anesthesia Reactions: No - Immunization History Date of Tetanus Vaccine: 2011 Date of Influenza Vaccine: 2012 Infectious Disease History: No Infectious Disease History: Reports: Hx of Known/Suspected MRSA - negative MRSA swab 03/18/16 Denies: Hx Tuberculosis, Traveled Outside the [place] in Last 30 Days - Family History Known Family History: Negative: Cardiac Disease, Hypertension, Diabetes - Social History Alcohol Use: None Hx Substance Use: No Substance Use Type: Reports: None Hx Tobacco Use: Yes Smoking Status (MU): Former Smoker Type: Cigarettes Amount Used/How Often: 2 pk/day Length of Time of Smoking/Using Tobacco: 45 years Have You Smoked in the Last Year: No Review of Systems Positive: Bruising, Other - Skin tears All Other Systems Reviewed And Are Negative: Yes - Comments Additional Review of Systems Comments: LEVEL 5 CAVEAT: ROS limited due to AMS. Physical Exam - Summary Physical Exam Summary: Appearance: The patient is well-nourished in no acute distress and in no acute pain. Skin: The skin is warm and dry and skin color reflects adequate perfusion. Ecchymosis on right side of upper face, above left eyelid, and bilateral forearms. Skin tears on hands. HEENT: Ecchymosis on right side of upper face and above left eyelid. The head is normocephalic and atraumatic. The pupils are equal and reactive. The conjunctivae are clear and without drainage. ~Nares are patent and without drainage. ~Mouth reveals moist mucous membranes and the throat is without erythema and exudate. ~The external ears are intact. The ear canals are patent and without drainage. The tympanic membranes are intact. Neck: the neck is supple with full range of motion and non-tender. There are no carotid bruits. ~There is no neck vein distension. Respiratory: Chest is non-tender. ~Lungs are clear to auscultation and breath sounds are symmetrical and equal. Cardiovascular: Heart is regular rate and rhythm. ~There is no murmur or rub auscultated. ~~There is no peripheral edema and pulses are symmetrical and equal. Abdomen: The abdomen is soft and non-tender. ~There are normal bowel sounds heard in all four quadrants and there is no organomegaly palpated. Musculoskeletal: There is no back tenderness noted. ~Extremities are non-tender with full range of motion. ~There is good capillary refill. ~There is no peripheral edema or calf tenderness elicited. Neurological: Patient is alert and oriented to person only. ~The patient has symmetrical motor strength in all four extremities. ~Cranial nerves are grossly intact. Deep tendon reflexes are symmetrical and equal in all four extremities. LEVEL 5 CAVEAT: Physical Exam is limited due to AMS. Triage Information Reviewed: Yes Vital Signs On Initial Exam: Initial Vitals Temp Pulse Resp BP Pulse Ox 95.6 F 68 22 130/93 95 06/11/17 11:30 06/11/17 11:30 06/11/17 11:30 06/11/17 11:30 06/11/17 11:30 Vital Signs Reviewed: Yes Diagnostics - Vital Signs Vital Signs Temp Pulse Resp BP Pulse Ox 06/11/17 11:30 95.6 F 68 22 130/93 95 - Laboratory Lab Results: Lab Results 06/11/17 06/11/17 06/11/17 Range/Units 11:27 11:52 11:52 WBC 12.3 H (3.5-10.8) 10^3/ul RBC 3.37 L (4.0-5.4) 10^6/ul Hgb 7.3 L (12.0-16.0) g/dl Hct 26 L (35-47) % MCV 76 L (80-97) fL MCH 22 L (27-31) pg MCHC 29 L (31-36) g/dl RDW 30 H (10.5-15) % Plt Count 335 (150-450) 10^3/ul MPV 7 L (7.4-10.4) um3 Neut % (Auto) 87.1 H (38-83) % Lymph % (Auto) 7.3 L (25-47) % [place] % (Auto) 5.2 (1-9) % Eos % (Auto) 0.2 (0-6) % Baso % (Auto) 0.2 (0-2) % Absolute Neuts (auto) 10.7 H (1.5-7.7) 10^3/ul Absolute Lymphs (auto) 0.9 L (1.0-4.8) 10^3/ul Absolute Monos (auto) 0.6 (0-0.8) 10^3/ul Absolute Eos (auto) 0 (0-0.6) 10^3/ul Absolute Basos (auto) 0 (0-0.2) 10^3/ul Absolute Nucleated RBC 0.1 10^3/ul Neutrophils % 84 H (38-83) % Lymphocytes % 8 L (25-47) % Monocytes % 8 (0-13) % Nucleated RBC % 0.5 Normal RBC Morphology Not Reportable Polychromasia 1+ Hypochromasia 1+ Microcytosis 1+ INR (Anticoag Therapy) (0.77-1.02) Sodium (133-145) mmol/L Potassium (3.5-5.0) mmol/L Chloride (101-111) mmol/L Carbon Dioxide (22-32) mmol/L BUN (6-24) mg/dL Creatinine (0.51-0.95) mg/dL Est GFR ( Amer) (>60) Est GFR (Non-Af Amer) (>60) BUN/Creatinine Ratio (8-20) Glucose (70-100) mg/dL POC Glucose (mg/dL) 172 H (70-100) mg/dL Lactic Acid (0.5-2.0) mmol/L Calcium (8.6-10.3) mg/dL Total Bilirubin (0.2-1.0) mg/dL AST (13-39) U/L ALT (7-52) U/L Alkaline Phosphatase (34-104) U/L Ammonia 49 (16-53) mol/L Troponin I (<0.04) ng/mL Total Protein (6.4-8.9) g/dL Albumin (3.2-5.2) g/dL Globulin (2-4) g/dL Albumin/Globulin Ratio (1-3) TSH (0.34-5.60) mcIU/mL Urine Color Urine Appearance Urine pH (5-9) Ur Specific [place] (1.010-1.030) Urine Protein (Negative) Urine Ketones (Negative) Urine Blood (Negative) Urine Nitrate (Negative) Urine Bilirubin (Negative) Urine Urobilinogen (Negative) Ur Leukocyte Esterase (Negative) Urine WBC (Auto) (Absent) Urine RBC (Auto) (Absent) Urine Bacteria (Absent) Urine Glucose (Negative) Influenza A (Rapid) (Negative) Influenza B (Rapid) (Negative) 06/11/17 06/11/17 06/11/17 Range/Units 11:52 11:52 11:52 WBC (3.5-10.8) 10^3/ul RBC (4.0-5.4) 10^6/ul Hgb (12.0-16.0) g/dl Hct (35-47) % MCV (80-97) fL MCH (27-31) pg MCHC (31-36) g/dl RDW (10.5-15) % Plt Count (150-450) 10^3/ul MPV (7.4-10.4) um3 Neut % (Auto) (38-83) % Lymph % (Auto) (25-47) % [place] % (Auto) (1-9) % Eos % (Auto) (0-6) % Baso % (Auto) (0-2) % Absolute Neuts (auto) (1.5-7.7) 10^3/ul Absolute Lymphs (auto) (1.0-4.8) 10^3/ul Absolute Monos (auto) (0-0.8) 10^3/ul Absolute Eos (auto) (0-0.6) 10^3/ul Absolute Basos (auto) (0-0.2) 10^3/ul Absolute Nucleated RBC 10^3/ul Neutrophils % (38-83) % Lymphocytes % (25-47) % Monocytes % (0-13) % Nucleated RBC % Normal RBC Morphology Polychromasia Hypochromasia Microcytosis INR (Anticoag Therapy) 0.90 (0.77-1.02) Sodium 140 (133-145) mmol/L Potassium 4.5 (3.5-5.0) mmol/L Chloride 111 (101-111) mmol/L Carbon Dioxide 32 (22-32) mmol/L BUN 17 (6-24) mg/dL Creatinine 0.88 (0.51-0.95) mg/dL Est GFR ( Amer) 81.9 (>60) Est GFR (Non-Af Amer) 63.7 (>60) BUN/Creatinine Ratio 19.3 (8-20) Glucose 114 H (70-100) mg/dL POC Glucose (mg/dL) (70-100) mg/dL Lactic Acid 0.9 (0.5-2.0) mmol/L Calcium 7.7 L (8.6-10.3) mg/dL Total Bilirubin 0.30 (0.2-1.0) mg/dL AST 16 (13-39) U/L ALT 9 (7-52) U/L Alkaline Phosphatase 77 (34-104) U/L Ammonia (16-53) mol/L Troponin I 0.03 (<0.04) ng/mL Total Protein 6.0 L (6.4-8.9) g/dL Albumin 2.5 L (3.2-5.2) g/dL Globulin 3.5 (2-4) g/dL Albumin/Globulin Ratio 0.7 L (1-3) TSH 3.22 (0.34-5.60) mcIU/mL Urine Color Urine Appearance Urine pH (5-9) Ur Specific [place] (1.010-1.030) Urine Protein (Negative) Urine Ketones (Negative) Urine Blood (Negative) Urine Nitrate (Negative) Urine Bilirubin (Negative) Urine Urobilinogen (Negative) Ur Leukocyte Esterase (Negative) Urine WBC (Auto) (Absent) Urine RBC (Auto) (Absent) Urine Bacteria (Absent) Urine Glucose (Negative) Influenza A (Rapid) (Negative) Influenza B (Rapid) (Negative) 06/11/17 06/11/17 06/11/17 Range/Units 12:50 14:41 14:53 WBC (3.5-10.8) 10^3/ul RBC (4.0-5.4) 10^6/ul Hgb (12.0-16.0) g/dl Hct (35-47) % MCV (80-97) fL MCH (27-31) pg MCHC (31-36) g/dl RDW (10.5-15) % Plt Count (150-450) 10^3/ul MPV (7.4-10.4) um3 Neut % (Auto) (38-83) % Lymph % (Auto) (25-47) % [place] % (Auto) (1-9) % Eos % (Auto) (0-6) % Baso % (Auto) (0-2) % Absolute Neuts (auto) (1.5-7.7) 10^3/ul Absolute Lymphs (auto) (1.0-4.8) 10^3/ul Absolute Monos (auto) (0-0.8) 10^3/ul Absolute Eos (auto) (0-0.6) 10^3/ul Absolute Basos (auto) (0-0.2) 10^3/ul Absolute Nucleated RBC 10^3/ul Neutrophils % (38-83) % Lymphocytes % (25-47) % Monocytes % (0-13) % Nucleated RBC % Normal RBC Morphology Polychromasia Hypochromasia Microcytosis INR (Anticoag Therapy) (0.77-1.02) Sodium (133-145) mmol/L Potassium (3.5-5.0) mmol/L Chloride (101-111) mmol/L Carbon Dioxide (22-32) mmol/L BUN (6-24) mg/dL Creatinine (0.51-0.95) mg/dL Est GFR ( Amer) (>60) Est GFR (Non-Af Amer) (>60) BUN/Creatinine Ratio (8-20) Glucose (70-100) mg/dL POC Glucose (mg/dL) 31 L* 168 H (70-100) mg/dL Lactic Acid (0.5-2.0) mmol/L Calcium (8.6-10.3) mg/dL Total Bilirubin (0.2-1.0) mg/dL AST (13-39) U/L ALT (7-52) U/L Alkaline Phosphatase (34-104) U/L Ammonia (16-53) mol/L Troponin I (<0.04) ng/mL Total Protein (6.4-8.9) g/dL Albumin (3.2-5.2) g/dL Globulin (2-4) g/dL Albumin/Globulin Ratio (1-3) TSH (0.34-5.60) mcIU/mL Urine Color Pat Urine Appearance Turbid Urine pH 5.0 (5-9) Ur Specific [place] 1.012 (1.010-1.030) Urine Protein 2+(100 mg/dl) H (Negative) Urine Ketones Negative (Negative) Urine Blood 2+ H (Negative) Urine Nitrate Positive H (Negative) Urine Bilirubin Negative (Negative) Urine Urobilinogen Negative (Negative) Ur Leukocyte Esterase 3+ H (Negative) Urine WBC (Auto) 3+(>20/hpf) H (Absent) Urine RBC (Auto) 3+(>10/hpf) H (Absent) Urine Bacteria 2+ H (Absent) Urine Glucose Negative (Negative) Influenza A (Rapid) (Negative) Influenza B (Rapid) (Negative) 06/11/17 06/11/17 06/11/17 Range/Units 15:09 15:24 16:10 WBC (3.5-10.8) 10^3/ul RBC (4.0-5.4) 10^6/ul Hgb (12.0-16.0) g/dl Hct (35-47) % MCV (80-97) fL MCH (27-31) pg MCHC (31-36) g/dl RDW (10.5-15) % Plt Count (150-450) 10^3/ul MPV (7.4-10.4) um3 Neut % (Auto) (38-83) % Lymph % (Auto) (25-47) % [place] % (Auto) (1-9) % Eos % (Auto) (0-6) % Baso % (Auto) (0-2) % Absolute Neuts (auto) (1.5-7.7) 10^3/ul Absolute Lymphs (auto) (1.0-4.8) 10^3/ul Absolute Monos (auto) (0-0.8) 10^3/ul Absolute Eos (auto) (0-0.6) 10^3/ul Absolute Basos (auto) (0-0.2) 10^3/ul Absolute Nucleated RBC 10^3/ul Neutrophils % (38-83) % Lymphocytes % (25-47) % Monocytes % (0-13) % Nucleated RBC % Normal RBC Morphology Polychromasia Hypochromasia Microcytosis INR (Anticoag Therapy) (0.77-1.02) Sodium (133-145) mmol/L Potassium (3.5-5.0) mmol/L Chloride (101-111) mmol/L Carbon Dioxide (22-32) mmol/L BUN (6-24) mg/dL Creatinine (0.51-0.95) mg/dL Est GFR ( Amer) (>60) Est GFR (Non-Af Amer) (>60) BUN/Creatinine Ratio (8-20) Glucose (70-100) mg/dL POC Glucose (mg/dL) 118 H 98 (70-100) mg/dL Lactic Acid (0.5-2.0) mmol/L Calcium (8.6-10.3) mg/dL Total Bilirubin (0.2-1.0) mg/dL AST (13-39) U/L ALT (7-52) U/L Alkaline Phosphatase (34-104) U/L Ammonia (16-53) mol/L Troponin I (<0.04) ng/mL Total Protein (6.4-8.9) g/dL Albumin (3.2-5.2) g/dL Globulin (2-4) g/dL Albumin/Globulin Ratio (1-3) TSH (0.34-5.60) mcIU/mL Urine Color Urine Appearance Urine pH (5-9) Ur Specific [place] (1.010-1.030) Urine Protein (Negative) Urine Ketones (Negative) Urine Blood (Negative) Urine Nitrate (Negative) Urine Bilirubin (Negative) Urine Urobilinogen (Negative) Ur Leukocyte Esterase (Negative) Urine WBC (Auto) (Absent) Urine RBC (Auto) (Absent) Urine Bacteria (Absent) Urine Glucose (Negative) Influenza A (Rapid) Negative (Negative) Influenza B (Rapid) Negative (Negative) 06/11/17 Range/Units 16:46 WBC (3.5-10.8) 10^3/ul RBC (4.0-5.4) 10^6/ul Hgb (12.0-16.0) g/dl Hct (35-47) % MCV (80-97) fL MCH (27-31) pg MCHC (31-36) g/dl RDW (10.5-15) % Plt Count (150-450) 10^3/ul MPV (7.4-10.4) um3 Neut % (Auto) (38-83) % Lymph % (Auto) (25-47) % [place] % (Auto) (1-9) % Eos % (Auto) (0-6) % Baso % (Auto) (0-2) % Absolute Neuts (auto) (1.5-7.7) 10^3/ul Absolute Lymphs (auto) (1.0-4.8) 10^3/ul Absolute Monos (auto) (0-0.8) 10^3/ul Absolute Eos (auto) (0-0.6) 10^3/ul Absolute Basos (auto) (0-0.2) 10^3/ul Absolute Nucleated RBC 10^3/ul Neutrophils % (38-83) % Lymphocytes % (25-47) % Monocytes % (0-13) % Nucleated RBC % Normal RBC Morphology Polychromasia Hypochromasia Microcytosis INR (Anticoag Therapy) (0.77-1.02) Sodium (133-145) mmol/L Potassium (3.5-5.0) mmol/L Chloride (101-111) mmol/L Carbon Dioxide (22-32) mmol/L BUN (6-24) mg/dL Creatinine (0.51-0.95) mg/dL Est GFR ( Amer) (>60) Est GFR (Non-Af Amer) (>60) BUN/Creatinine Ratio (8-20) Glucose (70-100) mg/dL POC Glucose (mg/dL) 97 (70-100) mg/dL Lactic Acid (0.5-2.0) mmol/L Calcium (8.6-10.3) mg/dL Total Bilirubin (0.2-1.0) mg/dL AST (13-39) U/L ALT (7-52) U/L Alkaline Phosphatase (34-104) U/L Ammonia (16-53) mol/L Troponin I (<0.04) ng/mL Total Protein (6.4-8.9) g/dL Albumin (3.2-5.2) g/dL Globulin (2-4) g/dL Albumin/Globulin Ratio (1-3) TSH (0.34-5.60) mcIU/mL Urine Color Urine Appearance Urine pH (5-9) Ur Specific [place] (1.010-1.030) Urine Protein (Negative) Urine Ketones (Negative) Urine Blood (Negative) Urine Nitrate (Negative) Urine Bilirubin (Negative) Urine Urobilinogen (Negative) Ur Leukocyte Esterase (Negative) Urine WBC (Auto) (Absent) Urine RBC (Auto) (Absent) Urine Bacteria (Absent) Urine Glucose (Negative) Influenza A (Rapid) (Negative) Influenza B (Rapid) (Negative) Result Diagrams: 06/11/17 11:52 06/11/17 11:52 Lab Statement: Any lab studies that have been ordered have been reviewed, and results considered in the medical decision making process. - Radiology CXR Xray Interpretation: Positive (See Comments) - COMPLETE OPACIFICATION OF THE RIGHT HEMITHORAX WITH MEDIASTINAL SHIFT TO THE RIGHT SUGGESTIVE OF COMPLETE ATELECTASIS OF THE RIGHT LUNG WHICH MAY INDICATE A CENTRAL OBSTRUCTING LESION. Dr. Pulido has reviewed this report. Radiology Interpretation Completed By: Radiologist - CT CT Brain CT Interpretation: No Acute Changes - NO ACUTE INTRACRANIAL PATHOLOGY. CHRONIC SMALL VESSEL ISCHEMIC CHANGE. Dr. Pulido has reviewed this report. CT Interpretation Completed By: Radiologist CT Chest CT Interpretation: Positive (See Comments) - 1. Acute findings include large right-sided pleural effusion with consolidation of the right lung. 2. Additional chronic and degenerative changes described in the body the report. Dr. Pulido has reviewed this report. CT Interpretation Completed By: Radiologist - EKG 11:50 Cardiac Rate: NL EKG Rhythm: Sinus Rhythm - 60 BPM EKG Interpretation: First degree AV block Altered Mental Statu Course/Dx - Course Course Of Treatment: Ms. Oreilly was found down with skin tears and bruises and a FSG of 29. She was given dextrose in the ambulance and when she arrived here in the ED she was somewhat lethargic and disoriented. She was sent for immediate CT and her FSG when she returned was 31. She was given another amp of dextrose and started on D5NS after she again began to drop her FSG. CXR showed her right side to be completely white with a mild shift and she was sent for CT. CT showed a large pleural effusion which was collapsing her right lung. She had no chest wall tenderness or pain and she was quite a bit more alert. Her vitals also remained stable and I did not think that his represented blood. Dr. Murillo was consulted for the hospitalist service and he asked for a surgical consult and Dr. Christie was consulted. - Diagnoses Discharge Diagnoses: Respiratory insufficiency, Pleural effusion, Hypoglycemia, Multiple abrasions and contusions - Provider Notifications Discussed Care Of Patient With: Tariq Thakur Time Discussed With Above Provider: 14:38 Instructed by Provider To: Other - Dr. Thakur, hospitalist, discussed the use of a chest tube for the patient. Consulted Dr. Levy, surgery, on placing the chest tube. - Critical Care Time Critical Care Time: 30-74 min Discharge - Discharge Plan Condition: Fair Disposition: ADMITTED TO [facility] documentation as recorded by the Scottie dang Jennifer accurately reflects the service I personally performed and the decisions made by me, Kulwant Pulido MD.
--- NOTE | 2017-06-11 21:32 | HP ---
CC: [facility] * HISTORY AND PHYSICAL: DATE OF ADMISSION: 06/11/17 PRIMARY CARE PROVIDER: Dr. Pop Desouza at [facility]. ATTENDING PHYSICIAN: Dr. Tariq Thakur * (dictated by Yadi Sellers NP). CHIEF COMPLAINT: Unwitnessed fall. HISTORY OF PRESENT ILLNESS: Ms. Oreilly is a 71-year-old female with past medical history significant for weakness; diabetes mellitus; diarrhea; myasthenia gravis; atrial fibrillation; COPD; candidiasis; vitamin B12 deficiency; chronic kidney disease, stage 3; chronic diastolic heart failure; iron deficiency anemia; GERD; xerosis cutis, who presented to the hospital after being found on the floor in her room at [facility]. According to nursing records from [facility], the patient was seen in her bed at approximately 10 a.m. and then found on the floor at 10:40 a.m. The patient denies any recollection of the incident. The patient denies any recent fevers, chest pain , nausea, vomiting, diarrhea, or abdominal pain. She reports having chills and a cough that is occasionally productive with clear or white mucus. She reports that she has had a cough since April when she was hospitalized and that it has become worse. The patient was previously hospitalized from 05/17/17 to , at which time, she was discharged to [facility] for fci care as it was felt she was unable to take care of herself. At that time, she was hospitalized for bilateral lower extremity cellulitis and acute kidney injury and a klebsiella UTI. The patient states that during that hospitalization, she had a urinary catheter placed. After today's episode, she denies any pain and has no obvious bony deformities. She has multiple skin tears though on her left hand, right hand, and right forearm. The patient was found to have an oxygen saturation of 70% on room air when she was on the floor. At baseline, she uses 2.5 L of oxygen. There are also reports of possible slurred speech. The patient has intermittently been hypoglycemic recently. She was brought to the emergency room by EMS. While in the emergency room, the patient was noted to have hypoglycemia with a blood sugar of 31. She received dextrose and was placed on D5W half and her glucoses improved. The patient also had labs significant for mild leukocytosis with 12.3 white blood cell count. She was also anemic with a hemoglobin of 7.3 , hematocrit of 26, this was similar to her previous labs. Her urinalysis showed 2+ blood, nitrite positive, 3+ leukocytes, wbc's 3+, rbc's 3+, and bacteria 2+. She is influenza A and B negative. The patient had a chest x-ray showing a complete opacification of the right hemothorax with mediastinal shift. She also had a brain CT showing no acute findings. She had a chest CT showing a large right pleural effusion with consolidation and cardiomegaly. She had an EKG showing a sinus rhythm and rate of 60. Based off these findings , the hospitalists were asked to evaluate the patient for admission. PAST MEDICAL HISTORY: 1. Weakness. 2. Diarrhea. 3. Xerosis cutis. 4. Myasthenia gravis. 5. Diabetes mellitus. 6. Atrial fibrillation. 7. COPD with chronic hypoxic respiratory failure, on O2 at 2.5 L. 8. Candidiasis. 9. Vitamin B12 deficiency. 10. Chronic kidney disease, stage 3. 11. Chronic diastolic heart failure. 12. Iron deficiency anemia. 13. GERD. PAST SURGICAL HISTORY: Status post pacemaker insertion. HOME MEDICATIONS: Include: 1. Tamiflu 30 mg oral every other day, to end on 06/21/17. 2. Spiriva 1 capsule inhalation daily. 3. Mestinon 120 mg oral 4 times daily. 4. Prednisone 20 mg oral daily. 5. Percocet 5/325 one tablet oral every 4 hours as needed for pain. 6. Omeprazole 20 mg oral daily. 7. Nystatin apply topical 3 times daily under bilateral breasts. 8. Nystatin suspension 5 mL swish and swallow 3 times daily. 9. Lantus 20 units subcutaneous every evening. 10. Multaq 400 mg oral twice daily. 11. Lactobacillus 1 capsule oral 3 times daily with meals. 12. Ferrous sulfate 325 mg oral daily. 13. Imodium 2 mg oral every 4 hours as needed for diarrhea. 14. Humalog insulin 4 units subcutaneous daily at dinner. 15. Hydrocortisone 1% cream apply topical 3 times daily to bilateral legs. 16. Dulera 200/5 MDI 2 puffs inhalation twice daily. 17. Vitamin B12 1000 mcg intramuscularly monthly on the . 18. Aspirin 81 mg oral daily. 19. Albuterol 2.5 mg inhalation every 2 hours as needed for shortness of breath or wheeze. 20. Acetaminophen 1000 mg oral every 8 hours as needed for pain. 21. IgG 70 g IV every 28 days. ALLERGIES: IGG, CELLCEPT, AZITHROMYCIN, CEFTRIAXONE, and CIPRO. FAMILY HISTORY: The patient denies any family history of coronary artery disease, diabetes mellitus, or cancer. SOCIAL HISTORY: The patient is a former smoker, she reports quitting 12 to 15 years ago. Prior to that, she was a 3-urwh-o-day smoker since age 18. The patient also reports being a former alcoholic and had quit drinking alcohol at the same time she quit smoking. She denies recreational drug use. She currently resides at [facility]. The patient's daughter, Kimberly Saba, will be her surrogate decision maker in the event she is unable to make decisions for herself. REVIEW OF SYSTEMS: I performed a 11-point review of systems. All the pertinent positives and negatives are mentioned in the history of present illness. The patient denies any lightheadedness or dizziness. The remaining review of systems is negative. PHYSICAL EXAMINATION GENERAL APPEARANCE: The patient is alert, pleasant, appears to be in no acute distress. VITAL SIGNS: Temperature 96.1, heart rate 63, respiratory rate 15, O2 sat 98% on room air, blood pressure 153/70. HEENT: Normocephalic, atraumatic. Pupils are equal and reactive to light. Extraocular movements are intact. RESPIRATORY: There is no accessory muscle use. The lungs are clear on the left and very diminished, almost absent lung sounds on the right. CARDIOVASCULAR: Regular rate and rhythm. S1 and S2 are present. ABDOMEN: Soft, nontender, nondistended. There are bowel sounds present x4. EXTREMITIES: There is 2+ pitting edema bilateral. DP and PT pulses are 1+ and symmetric. MUSCULOSKELETAL: There is no clubbing or cyanosis noted. The patient exhibits good strength in all extremities. NEUROLOGIC: The patient is alert and oriented x4. Cranial nerves II through XII are grossly intact. PSYCHOLOGICAL: The patient is calm and cooperative. SKIN: The patient has dressings to her dorsal aspect of her left and right hands in addition to her right forearm where she has skin tears present. She also has ecchymosis to her left eye and the right side of her face. She has dry skin to bilateral lower extremities in addition to mild erythema at both legs. DIAGNOSTIC STUDIES/LAB DATA: Sodium 140, potassium 4.5, chloride 111, CO2 32, BUN 17, creatinine 0.88, glucose 114. White blood cell count 12.3, hemoglobin 7.3, hematocrit 26, and platelet count 335. Influenza A and B are negative. Urinalysis is significant for 2+ proteins, 2+ blood, nitrite is positive, leukocyte esterase 3+, wbc's 3+, rbc's 3+, and bacteria 2+. EKG shows a sinus rhythm with a rate of 60. This EKG shows no acute signs of ischemia and similar to previous from 05/17/17. Chest x-ray from today. Radiologist's impression: Complete opacification of the right hemothorax with mediastinal shift to the right suggested complete atelectasis of the right lung, which may indicate a central obstructing lesion. Head CT from today. Radiologist's impression: No acute intracranial pathology , chronic small vessel ischemic changes. Chest CT from today. Radiologist's impression: Large right pleural effusion with consolidation of the right lung, cardiomegaly. IMPRESSION: Ms. Oreilly is a 71-year-old female with past medical history significant for diabetes mellitus; diarrhea; myasthenia gravis; atrial fibrillation; chronic obstructive pulmonary disease; vitamin B12 deficiency; chronic kidney disease, stage 3; chronic diastolic heart failure; iron deficiency anemia; gastroesophageal reflux disease, who presented to the hospital after an unwitnessed fall at [facility] where she resides. She will be admitted as an inpatient for a large right pleural effusion. ASSESSMENT/PLAN: 1. Pleural effusion. There is an unclear etiology at this time. The patient has been seen in consultation by Surgery and they are planning either a chest tube insertion or thoracentesis. According to imaging, the patient also possibly has a central obstruction and would benefit from consultation with Pulmonology for possible bronchoscopy. We will call Pulmonology in the morning for consultation. 2. Abnormal urinalysis. I suspect the patient is likely colonized. At this time, I am going to hold off on any IV antibiotics. She is afebrile with mild leukocytosis. She recently had a klebsiella urinary tract infection on her previous admission. She has a chronic indwelling catheter. 3. Hypoglycemia. The patient was hypoglycemic in the emergency room. She received dextrose and D5 half. Will cautiously give her some gentle D5 half overnight and follow her glucoses. For now, I am going to hold her Lantus and lispro. 4. Diabetes mellitus. We will follow the patient's glucoses a.c. and h.s. Again, she has been hypoglycemic in the emergency room and I am going to hold her insulin and continue D5 half overnight. 5. Atrial fibrillation. The patient's rate is currently controlled. She is in sinus rhythm. She is not anticoagulated. We will continue her Multaq. 6. Myasthenia gravis. The patient will be continued on her home prednisone. 7. For the patient's chronic diastolic heart failure, she should have daily weights, I's and O's. We are going to cautiously give her some IV fluids overnight. 8. Chronic obstructive pulmonary disease with chronic hypoxic respiratory failure. The patient will be continued on her home O2 at 2.5 L in addition to albuterol as needed, Dulera, and Spiriva. 9. Gastroesophageal reflux disease. The patient will be continued on her home omeprazole. 10. Iron deficiency anemia. The patient appears to be at her baseline. We will continue her on her ferrous sulfate. 11. CKD, stage 3. Creatinine appears to be at baseline 12. Fluids, electrolytes, and nutrition. The patient will be on a consistent carbohydrate, mechanical soft, nectar thick diet. 13. Code status. Full code. 14. DVT prophylaxis. The patient is at highest risk. She will have SCDs and heparin. 15. Disposition. Inpatient. TIME SPENT: Time for this admission was approximately 60 minutes, greater than half of that was spent with the patient discussing medications, past medical history, and the events leading up to her arrival today and performing physical examination. The case has been reviewed with the attending, Dr. Thakur, who agrees with the plan of care. Reviewed by SUMANTH MONTOYA 06/13/17 1230 [id number]/[facility] #: [id number] DAYO
--- NOTE | 2017-06-11 21:59 | PN ---
Progress Note - Progress Note Date of Service: 06/11/17 Note: Brief Surgery Note: (consult dictated) S: 71 yo female resident of [place] was found down at the residence with AMS and a fs glucose of 28. She was apparently given D10 enroute and repeat fs was 31. D50 was given with subsequent normalization of blood glucose. She states that she was SOB upon arrival to the ED (she does not recall prior events ) but denies SOB at present. She denies any chest pain. She apparently sustained trauma with her fall as she has significant skin tears of both UEs ( hands) and ecchymosis of her right forehead and around her left eye. She was found to have oppacification of the Right lung field on cXray and CT confirmed large right pleural effusion with compressive consolidation of the lung. Per radiologist review, there may be bronchial obstruction as there is a small degree of mediastinal shift to the right side. O: Vital Signs - 8 hr 06/11/17 06/11/17 06/11/17 14:00 14:30 15:00 Temperature Pulse Rate 60 78 62 Respiratory 14 22 15 Rate Blood Pressure 112/51 132/70 133/70 (mmHg) O2 Sat by Pulse 100 96 98 Oximetry 06/11/17 06/11/17 06/11/17 15:32 16:00 16:30 Temperature Pulse Rate 60 60 60 Respiratory 17 15 13 Rate Blood Pressure 137/52 105/67 100/63 (mmHg) O2 Sat by Pulse 100 100 100 Oximetry 06/11/17 06/11/17 06/11/17 17:00 17:30 18:00 Temperature Pulse Rate 66 60 60 Respiratory 20 21 12 Rate Blood Pressure 112/61 95/59 68/49 (mmHg) O2 Sat by Pulse 99 100 100 Oximetry 06/11/17 06/11/17 06/11/17 18:02 18:09 18:13 Temperature Pulse Rate 62 67 Respiratory 18 20 Rate Blood Pressure 114/82 94/35 124/50 (mmHg) O2 Sat by Pulse 100 90 Oximetry 06/11/17 18:56 Temperature 97.3 F Pulse Rate 63 Respiratory 22 Rate Blood Pressure 112/49 (mmHg) O2 Sat by Pulse 100 Oximetry Gen: frail-appearing elderly female in NAD with bruising as noted above Heart: reg Lungs: clear on Left; few high-pitched wheezes on right; no chest wall tenderness Abd: soft, nontender CT: as noted above A: Right pleural effusion (new since chest xray of last admission on 05/17/17) w / apparent bronchial obstruction P: discussed w/ Dr. Levy who reviewed CT w/ radiologist and discussed w/ hospitalist; rec bronchoscopy in a.m.; consider thoracentesis and/or chest tube placement (there was concern that there might be a hemopneumothorax, but this is doubtful given her clinical picture w/ stable VS and Hgb, as well as lack of evidence of chest wall trauma, and density of the pl effusion on CT). Dr. Vegas to see in a.m. Tentatively booked for thoracentesis 06/12/17.
--- NOTE | 2017-06-11 23:00 | PN ---
Progress Note - Progress Note Date of Service: 06/11/17 SOAP: Subjective: Patient's care discussed with Guicho Zuniga I also discussed with Dr. Thakur CT scan and CXR reviewed with Dr. Davenport from radiology. Assessment: Apparent right lung atelectasis and right pleural effusion. CT appears to have right bronchial obstruction causing lung collapse and mediastinal shift to the right. Effusion is probably secondary, and does not appear to be hemothorax Plan: Recommend pulmonary consult to consider bronchoscopy to evaluate and then probable thoracentesis. General surgery available to perform thoracentesis if Dr. Vegas is not available. Will follow.
[2017-06-11] MEDS: Acetaminophen TAB* 325 MG PO SCH (23:17)
[2017-06-11] MEDS: Pyridostigmine TAB* 60 MG PO SCH (23:18)
[2017-06-11] MEDS: Dronedarone TAB* 400 MG PO SCH (23:18)
--- NOTE | 2017-06-11 23:21 | CONS ---
CC: [facility]; Ann Cartagena NP * SURGICAL CONSULTATION NOTE: DATE OF CONSULT: 06/11/17 ATTENDING SURGEON: Dr. Isaac Levy. CHIEF COMPLAINT: Right pleural effusion. HISTORY OF PRESENT ILLNESS: This is a 71-year-old female resident of [facility], who was found down at the residence with altered mental status and the fingerstick glucose was 28. She was apparently given D10 en route and repeat [place]stick [place] [facility] [place]. D50 was given with subsequent normalization of her blood glucose. She does not recall prior events, but states that when she first arrived in the ED, she was short of breath. At present time, she denies any shortness of breath. She denies any chest pain. She apparently sustained trauma with her fall as she had significant skin tears on both hands and ecchymosis of the right forehead and around her left eye. Chest x-ray on admission was found to have complete opacification of the right lung field with confirmation by CT of a large right pleural effusion with compressive consolidation of the lung. Per radiologist's review, there may be bronchial obstruction as there is small degree of mediastinal shift to the right side. PAST MEDICAL HISTORY: Reviewed and includes myasthenia gravis, diastolic heart failure, atrial fibrillation, type 2 diabetes, stage 3 chronic kidney disease, COPD (chronically on 2 L nasal cannula), and GERD. She was [place] [facility] [place] for treatment of UTI. At that time, she had been living at home, but upon discharge was placed at [facility]. The remainder of her history and physical is outlined in her chart record. PHYSICAL EXAM: She is afebrile. Vital signs are essentially stable with blood pressures ranging from 90s-137/50s-70s. Pulse rate generally in the 60s (she does have a pacemaker), respiratory rate 18 to 20 with oxygen saturation 98% to 100% (currently on 5 to 6 L nasal cannula). General: Frail appearing elderly female, in no acute distress with bruising on the right forehead and around the left eye. There are bandages over both hands. Heart: Regular. Lungs: Clear to auscultation on the left, but with absent breath sounds and/or few high pitched wheezes on the right. There is no chest wall tenderness or evidence of rib fracture. Abdomen is soft and nontender. DIAGNOSTIC STUDIES/LAB DATA: CT was reviewed. IMPRESSION: Right pleural effusion (new since chest x-ray of last admission on 05/17/17) with apparent bronchial obstruction. PLAN: Case was discussed with Dr. Levy, who reviewed the CT with radiologist and discussed with the hospitalist team. Recommendation was for bronchoscopy in the morning and to consider thoracentesis and/or chest tube placement (there was concern that there might be a hemopneumothorax but this is doubtful given her clinical picture with stable vital signs and hemoglobin as well as lack of evidence of chest wall trauma and the density of the pleural effusion on CT). Dr. Vegas is to see the patient in the morning. She is tentatively booked with Dr. Garces for thoracentesis on 06/12/17. We will follow with you. At this point, it was not felt that there is an urgent need for chest tube placement or thoracentesis. SIMÓN GAVIRIA [id number]/[facility] #: [id number] MTDMart
[2017-06-12] MEDS: Nystatin TOP POWDER* 15 GM BTL TOPICAL SCH ×4 (00:43→22:15)
[2017-06-12] MEDS: Acetaminophen TAB* 325 MG PO SCH ×4 (03:54→14:59)
[2017-06-12] MEDS: Lactobacillus Acidophilu (GG)* 1 CAP CAP PO SCH ×3 (07:52→18:36)
[2017-06-12] MEDS: Ferrous Sulfate TAB* 325 MG PO SCH (09:42)
[2017-06-12] MEDS: Nystatin SUSPENSION* 100000 UNITS/ML 5 ML UDC SWISH SWAL SCH ×3 (09:42→18:43)
[2017-06-12] MEDS: Aspirin Low Dose CHEW TAB* 81 MG PO SCH (09:42)
[2017-06-12] MEDS: Dronedarone TAB* 400 MG PO SCH (09:42)
[2017-06-12] MEDS: predniSONE TAB* 20 MG PO SCH (09:43)
[2017-06-12] MEDS: Pyridostigmine TAB* 60 MG PO SCH ×3 (09:43→18:43)
[2017-06-12] MEDS: Oseltamivir CAP* 30 MG CAP PO SCH (09:43)
[2017-06-12] MEDS: Omeprazole CAP* 20 MG PO SCH (09:43)
[2017-06-12] MEDS ORDERED: Furosemide IV* 10 MG/ML VIAL (40 MG) IV ONE (10:08)
--- NOTE | 2017-06-12 10:26 | PN ---
Subjective Date of Service: 06/12/17 Interval History: Pt feels SOB, poor historian, falls asleep during interview Objective Active Medications: Acetaminophen (Tylenol Tab*) [address] [facility] Last Admin: 06/12/17 05:43 Dose: 650 mg Albuterol (Ventolin 2.5 Mg/3 Ml Neb.Bridget*) 2.5 mg INH Q2H PRN PRN Reason: SOB/WHEEZING Aspirin (Aspirin Low Dose Tab*) [address] [facility] Last Admin: 06/12/17 09:42 Dose: Not Given Cyanocobalamin (Vitamin B12 Tab*) 1,[address] [facility] Dronedarone (Multaq Tab*) [address] [facility] Last Admin: 06/12/17 09:42 Dose: Not Given Ferrous Sulfate (Ferrous Sulfate Tab*) [address] [facility] Last Admin: 06/12/17 09:42 Dose: Not Given Lactobacillus Rhamnosus (Culturelle*) [address] [facility] Last Admin: 06/12/17 07:52 Dose: 1 cap Loperamide HCl (Imodium Cap*) 2 mg PO Q4HR PRN PRN Reason: LOOSE STOOLS Mometasone Furoate/Formoterol Fumar (Dulera 200/5 Mdi*) [address] [facility] Last Admin: 06/11/17 20:29 Dose: Not Given Nystatin (Nystatin Suspension*) 500,000 units SWISH SWAL TID [facility] Last Admin: 06/12/17 09:42 Dose: Not Given Nystatin (Nystatin Top Powder*) [address] [facility] Last Admin: 06/12/17 00:43 Dose: 1 applic Omeprazole (Prilosec Cap*) [address] [facility] Last Admin: 06/12/17 09:43 Dose: Not Given Oseltamivir Phosphate (Tamiflu Cap*) [address] [facility] Last Admin: 06/12/17 09:43 Dose: Not Given Oxycodone/Acetaminophen (Percocet 5/325 Tab*) 1 tab PO Q4H PRN PRN Reason: PAIN Prednisone (Deltasone Tab*) [address] [facility] Last Admin: 06/12/17 09:43 Dose: Not Given Pyridostigmine Brady (Mestinon Tab*) [address] [facility] Last Admin: 06/12/17 09:43 Dose: Not Given Tiotropium Brady (Spiriva Cap.Inh*) 1 cap INH DAILY [facility] Vital Signs - 8 hr 06/12/17 06/12/17 06/12/17 04:00 05:03 08:24 Temperature 98.3 F 98.4 F Pulse Rate 119 126 Respiratory 18 18 16 Rate Blood Pressure 98/53 111/57 (mmHg) O2 Sat by Pulse 93 92 Oximetry 06/12/17 08:27 Temperature Pulse Rate 76 Respiratory Rate Blood Pressure (mmHg) O2 Sat by Pulse Oximetry Oxygen Devices in Use Now: Nasal Cannula Appearance: 58 yo F, appears older age, in NAD, AAOx3, poor historian Eyes: No Scleral Icterus, PERRLA Ears/Nose/Mouth/Throat: NL Teeth, Lips, Gums, Mucous Membranes Moist Neck: NL Appearance and Movements; NL JVP, Trachea Midline Respiratory: Symmetrical Chest Expansion and Respiratory Effort, - - absent breath sounds on R, crackles at left base Cardiovascular: NL Sounds; No Murmurs; No JVD, RRR Abdominal: NL Sounds; No Tenderness; No Distention, No Hepatosplenomegaly Lymphatic: No Cervical Adenopathy Extremities: No Clubbing, Cyanosis, - - diffuse b/l upper and lower extr. edema Skin: No Nodules or Sclerosis, - - b/l lower legs blisters seeping. B/l dorusm of hands with skin tears/edema. "Raccon eyes" ecchymosis and R forehead ecchymosis Neurological: Alert and Oriented x 3, NL Muscle Strength and Tone Result Diagrams: 06/13/17 05:11 06/13/17 05:11 Additional Lab and Data: Lab Results 06/11/17 06/11/17 06/11/17 Range/Units 11:27 11:52 11:52 WBC 12.3 H (3.5-10.8) 10^3/ul RBC 3.37 L (4.0-5.4) 10^6/ul Hgb 7.3 L (12.0-16.0) g/dl Hct 26 L (35-47) % MCV 76 L (80-97) fL MCH 22 L (27-31) pg MCHC 29 L (31-36) g/dl RDW 30 H (10.5-15) % Plt Count 335 (150-450) 10^3/ul MPV 7 L (7.4-10.4) um3 Neut % (Auto) 87.1 H (38-83) % Lymph % (Auto) 7.3 L (25-47) % [place] % (Auto) 5.2 (1-9) % Eos % (Auto) 0.2 (0-6) % Baso % (Auto) 0.2 (0-2) % Absolute Neuts (auto) 10.7 H (1.5-7.7) 10^3/ul Absolute Lymphs (auto) 0.9 L (1.0-4.8) 10^3/ul Absolute Monos (auto) 0.6 (0-0.8) 10^3/ul Absolute Eos (auto) 0 (0-0.6) 10^3/ul Absolute Basos (auto) 0 (0-0.2) 10^3/ul Absolute Nucleated RBC 0.1 10^3/ul Neutrophils % 84 H (38-83) % Lymphocytes % 8 L (25-47) % Monocytes % 8 (0-13) % Nucleated RBC % 0.5 Normal RBC Morphology Not Reportable Polychromasia 1+ Hypochromasia 1+ Microcytosis 1+ INR (Anticoag Therapy) (0.77-1.02) Sodium (133-145) mmol/L Potassium (3.5-5.0) mmol/L Chloride (101-111) mmol/L Carbon Dioxide (22-32) mmol/L BUN (6-24) mg/dL Creatinine (0.51-0.95) mg/dL Est GFR ( Amer) (>60) Est GFR (Non-Af Amer) (>60) BUN/Creatinine Ratio (8-20) Glucose (70-100) mg/dL POC Glucose (mg/dL) 172 H (70-100) mg/dL Lactic Acid (0.5-2.0) mmol/L Calcium (8.6-10.3) mg/dL Total Bilirubin (0.2-1.0) mg/dL AST (13-39) U/L ALT (7-52) U/L Alkaline Phosphatase (34-104) U/L Ammonia 49 (16-53) mol/L Troponin I (<0.04) ng/mL Total Protein (6.4-8.9) g/dL Albumin (3.2-5.2) g/dL Globulin (2-4) g/dL Albumin/Globulin Ratio (1-3) TSH (0.34-5.60) mcIU/mL Urine Color Urine Appearance Urine pH (5-9) Ur Specific [place] (1.010-1.030) Urine Protein (Negative) Urine Ketones (Negative) Urine Blood (Negative) Urine Nitrate (Negative) Urine Bilirubin (Negative) Urine Urobilinogen (Negative) Ur Leukocyte Esterase (Negative) Urine WBC (Auto) (Absent) Urine RBC (Auto) (Absent) Urine Bacteria (Absent) Urine Glucose (Negative) Influenza A (Rapid) (Negative) Influenza B (Rapid) (Negative) 06/11/17 06/11/17 06/11/17 Range/Units 11:52 11:52 11:52 WBC (3.5-10.8) 10^3/ul RBC (4.0-5.4) 10^6/ul Hgb (12.0-16.0) g/dl Hct (35-47) % MCV (80-97) fL MCH (27-31) pg MCHC (31-36) g/dl RDW (10.5-15) % Plt Count (150-450) 10^3/ul MPV (7.4-10.4) um3 Neut % (Auto) (38-83) % Lymph % (Auto) (25-47) % [place] % (Auto) (1-9) % Eos % (Auto) (0-6) % Baso % (Auto) (0-2) % Absolute Neuts (auto) (1.5-7.7) 10^3/ul Absolute Lymphs (auto) (1.0-4.8) 10^3/ul Absolute Monos (auto) (0-0.8) 10^3/ul Absolute Eos (auto) (0-0.6) 10^3/ul Absolute Basos (auto) (0-0.2) 10^3/ul Absolute Nucleated RBC 10^3/ul Neutrophils % (38-83) % Lymphocytes % (25-47) % Monocytes % (0-13) % Nucleated RBC % Normal RBC Morphology Polychromasia Hypochromasia Microcytosis INR (Anticoag Therapy) 0.90 (0.77-1.02) Sodium 140 (133-145) mmol/L Potassium 4.5 (3.5-5.0) mmol/L Chloride 111 (101-111) mmol/L Carbon Dioxide 32 (22-32) mmol/L BUN 17 (6-24) mg/dL Creatinine 0.88 (0.51-0.95) mg/dL Est GFR ( Amer) 81.9 (>60) Est GFR (Non-Af Amer) 63.7 (>60) BUN/Creatinine Ratio 19.3 (8-20) Glucose 114 H (70-100) mg/dL POC Glucose (mg/dL) (70-100) mg/dL Lactic Acid 0.9 (0.5-2.0) mmol/L Calcium 7.7 L (8.6-10.3) mg/dL Total Bilirubin 0.30 (0.2-1.0) mg/dL AST 16 (13-39) U/L ALT 9 (7-52) U/L Alkaline Phosphatase 77 (34-104) U/L Ammonia (16-53) mol/L Troponin I 0.03 (<0.04) ng/mL Total Protein 6.0 L (6.4-8.9) g/dL Albumin 2.5 L (3.2-5.2) g/dL Globulin 3.5 (2-4) g/dL Albumin/Globulin Ratio 0.7 L (1-3) TSH 3.22 (0.34-5.60) mcIU/mL Urine Color Urine Appearance Urine pH (5-9) Ur Specific [place] (1.010-1.030) Urine Protein (Negative) Urine Ketones (Negative) Urine Blood (Negative) Urine Nitrate (Negative) Urine Bilirubin (Negative) Urine Urobilinogen (Negative) Ur Leukocyte Esterase (Negative) Urine WBC (Auto) (Absent) Urine RBC (Auto) (Absent) Urine Bacteria (Absent) Urine Glucose (Negative) Influenza A (Rapid) (Negative) Influenza B (Rapid) (Negative) 06/11/17 06/11/17 06/11/17 Range/Units 12:50 14:41 14:53 WBC (3.5-10.8) 10^3/ul RBC (4.0-5.4) 10^6/ul Hgb (12.0-16.0) g/dl Hct (35-47) % MCV (80-97) fL MCH (27-31) pg MCHC (31-36) g/dl RDW (10.5-15) % Plt Count (150-450) 10^3/ul MPV (7.4-10.4) um3 Neut % (Auto) (38-83) % Lymph % (Auto) (25-47) % [place] % (Auto) (1-9) % Eos % (Auto) (0-6) % Baso % (Auto) (0-2) % Absolute Neuts (auto) (1.5-7.7) 10^3/ul Absolute Lymphs (auto) (1.0-4.8) 10^3/ul Absolute Monos (auto) (0-0.8) 10^3/ul Absolute Eos (auto) (0-0.6) 10^3/ul Absolute Basos (auto) (0-0.2) 10^3/ul Absolute Nucleated RBC 10^3/ul Neutrophils % (38-83) % Lymphocytes % (25-47) % Monocytes % (0-13) % Nucleated RBC % Normal RBC Morphology Polychromasia Hypochromasia Microcytosis INR (Anticoag Therapy) (0.77-1.02) Sodium (133-145) mmol/L Potassium (3.5-5.0) mmol/L Chloride (101-111) mmol/L Carbon Dioxide (22-32) mmol/L BUN (6-24) mg/dL Creatinine (0.51-0.95) mg/dL Est GFR ( Amer) (>60) Est GFR (Non-Af Amer) (>60) BUN/Creatinine Ratio (8-20) Glucose (70-100) mg/dL POC Glucose (mg/dL) 31 L* 168 H (70-100) mg/dL Lactic Acid (0.5-2.0) mmol/L Calcium (8.6-10.3) mg/dL Total Bilirubin (0.2-1.0) mg/dL AST (13-39) U/L ALT (7-52) U/L Alkaline Phosphatase (34-104) U/L Ammonia (16-53) mol/L Troponin I (<0.04) ng/mL Total Protein (6.4-8.9) g/dL Albumin (3.2-5.2) g/dL Globulin (2-4) g/dL Albumin/Globulin Ratio (1-3) TSH (0.34-5.60) mcIU/mL Urine Color Pat Urine Appearance Turbid Urine pH 5.0 (5-9) Ur Specific [place] 1.012 (1.010-1.030) Urine Protein 2+(100 mg/dl) H (Negative) Urine Ketones Negative (Negative) Urine Blood 2+ H (Negative) Urine Nitrate Positive H (Negative) Urine Bilirubin Negative (Negative) Urine Urobilinogen Negative (Negative) Ur Leukocyte Esterase 3+ H (Negative) Urine WBC (Auto) 3+(>20/hpf) H (Absent) Urine RBC (Auto) 3+(>10/hpf) H (Absent) Urine Bacteria 2+ H (Absent) Urine Glucose Negative (Negative) Influenza A (Rapid) (Negative) Influenza B (Rapid) (Negative) 06/11/17 06/11/17 06/11/17 Range/Units 15:09 15:24 16:10 WBC (3.5-10.8) 10^3/ul RBC (4.0-5.4) 10^6/ul Hgb (12.0-16.0) g/dl Hct (35-47) % MCV (80-97) fL MCH (27-31) pg MCHC (31-36) g/dl RDW (10.5-15) % Plt Count (150-450) 10^3/ul MPV (7.4-10.4) um3 Neut % (Auto) (38-83) % Lymph % (Auto) (25-47) % [place] % (Auto) (1-9) % Eos % (Auto) (0-6) % Baso % (Auto) (0-2) % Absolute Neuts (auto) (1.5-7.7) 10^3/ul Absolute Lymphs (auto) (1.0-4.8) 10^3/ul Absolute Monos (auto) (0-0.8) 10^3/ul Absolute Eos (auto) (0-0.6) 10^3/ul Absolute Basos (auto) (0-0.2) 10^3/ul Absolute Nucleated RBC 10^3/ul Neutrophils % (38-83) % Lymphocytes % (25-47) % Monocytes % (0-13) % Nucleated RBC % Normal RBC Morphology Polychromasia Hypochromasia Microcytosis INR (Anticoag Therapy) (0.77-1.02) Sodium (133-145) mmol/L Potassium (3.5-5.0) mmol/L Chloride (101-111) mmol/L Carbon Dioxide (22-32) mmol/L BUN (6-24) mg/dL Creatinine (0.51-0.95) mg/dL Est GFR ( Amer) (>60) Est GFR (Non-Af Amer) (>60) BUN/Creatinine Ratio (8-20) Glucose (70-100) mg/dL POC Glucose (mg/dL) 118 H 98 (70-100) mg/dL Lactic Acid (0.5-2.0) mmol/L Calcium (8.6-10.3) mg/dL Total Bilirubin (0.2-1.0) mg/dL AST (13-39) U/L ALT (7-52) U/L Alkaline Phosphatase (34-104) U/L Ammonia (16-53) mol/L Troponin I (<0.04) ng/mL Total Protein (6.4-8.9) g/dL Albumin (3.2-5.2) g/dL Globulin (2-4) g/dL Albumin/Globulin Ratio (1-3) TSH (0.34-5.60) mcIU/mL Urine Color Urine Appearance Urine pH (5-9) Ur Specific [place] (1.010-1.030) Urine Protein (Negative) Urine Ketones (Negative) Urine Blood (Negative) Urine Nitrate (Negative) Urine Bilirubin (Negative) Urine Urobilinogen (Negative) Ur Leukocyte Esterase (Negative) Urine WBC (Auto) (Absent) Urine RBC (Auto) (Absent) Urine Bacteria (Absent) Urine Glucose (Negative) Influenza A (Rapid) Negative (Negative) Influenza B (Rapid) Negative (Negative) 06/11/17 Range/Units 16:46 WBC (3.5-10.8) 10^3/ul RBC (4.0-5.4) 10^6/ul Hgb (12.0-16.0) g/dl Hct (35-47) % MCV (80-97) fL MCH (27-31) pg MCHC (31-36) g/dl RDW (10.5-15) % Plt Count (150-450) 10^3/ul MPV (7.4-10.4) um3 Neut % (Auto) (38-83) % Lymph % (Auto) (25-47) % [place] % (Auto) (1-9) % Eos % (Auto) (0-6) % Baso % (Auto) (0-2) % Absolute Neuts (auto) (1.5-7.7) 10^3/ul Absolute Lymphs (auto) (1.0-4.8) 10^3/ul Absolute Monos (auto) (0-0.8) 10^3/ul Absolute Eos (auto) (0-0.6) 10^3/ul Absolute Basos (auto) (0-0.2) 10^3/ul Absolute Nucleated RBC 10^3/ul Neutrophils % (38-83) % Lymphocytes % (25-47) % Monocytes % (0-13) % Nucleated RBC % Normal RBC Morphology Polychromasia Hypochromasia Microcytosis INR (Anticoag Therapy) (0.77-1.02) Sodium (133-145) mmol/L Potassium (3.5-5.0) mmol/L Chloride (101-111) mmol/L Carbon Dioxide (22-32) mmol/L BUN (6-24) mg/dL Creatinine (0.51-0.95) mg/dL Est GFR ( Amer) (>60) Est GFR (Non-Af Amer) (>60) BUN/Creatinine Ratio (8-20) Glucose (70-100) mg/dL POC Glucose (mg/dL) 97 (70-100) mg/dL Lactic Acid (0.5-2.0) mmol/L Calcium (8.6-10.3) mg/dL Total Bilirubin (0.2-1.0) mg/dL AST (13-39) U/L ALT (7-52) U/L Alkaline Phosphatase (34-104) U/L Ammonia (16-53) mol/L Troponin I (<0.04) ng/mL Total Protein (6.4-8.9) g/dL Albumin (3.2-5.2) g/dL Globulin (2-4) g/dL Albumin/Globulin Ratio (1-3) TSH (0.34-5.60) mcIU/mL Urine Color Urine Appearance Urine pH (5-9) Ur Specific [place] (1.010-1.030) Urine Protein (Negative) Urine Ketones (Negative) Urine Blood (Negative) Urine Nitrate (Negative) Urine Bilirubin (Negative) Urine Urobilinogen (Negative) Ur Leukocyte Esterase (Negative) Urine WBC (Auto) (Absent) Urine RBC (Auto) (Absent) Urine Bacteria (Absent) Urine Glucose (Negative) Influenza A (Rapid) (Negative) Influenza B (Rapid) (Negative) Microbiology and Other Data: Microbiology 06/12/17 03:50 Nasal Screen MRSA (PCR)([facility]) - Final Nasal Mrsa Detected Assess/Plan/Problems-Billing Assessment: Ms Oreilly is a 71 yo F with a h/o myasthenia gravis,b/l LE lymphoedema, 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 fib (not anticoagulated due to chronic anemia) type II DM, COPD (on 2.5 L02) and HTN who presented to the ER after a fall and was noted to have hypoxemia with large R pleural effusion - Patient Problems (1) Pleural effusion Comment: Large over the entire R hemithorax with compressive atelectasis of R lung. Consulted pulmonology and surgery. Likely pt will need a bronchoscopy and thoracentesis. will tx with a dose of IV Lasix. (2) Anemia Comment: At baseline , low at 7. Iron defficient and od chronic disease. Cont iron and B12 supoplement Pt was transfused at end of April 2017 Continue PPI while on chronic steroids. (3) Atrial fibrillation Comment: Continue multaq. No anticoagulation at baseline. In NSR today, H/o tachy /jenna syndrome, s/p pacer (4) CKD (chronic kidney disease) Comment: Creatinine better than baseline.suspect hemodilution. Continue to monitor. (5) Diastolic heart failure Comment: BNP markedly elevated-new suspect pt's effusion and generalized anasarca can be from CHF will get Echo start diuresing with Lasix IV cont daily weights and I/O's. Stop IVF (6) Type 2 diabetes mellitus Comment: hypoglycemia at admission. Cont fingersticks Insulin held (7) Myasthenia gravis Comment: cont prednisone 20 mg daily. IgG is once a month. Pyridostigmine . (8) DVT prophylaxis Comment: SQ heparin held due to planned thoracentesis, possibel chest tube/ bronch cont SCD's Status and Disposition: inpatient
[2017-06-12] MEDS: Tiotropium CAP.INH* CAP.INH/18 MCG (USE ORDER SET !) INH SCH (10:36)
[2017-06-12] MEDS: Mometasone/Formoter 200/5 MDI INH SCH ×2 (10:37→19:15)
[2017-06-12] MEDS ORDERED: Lidocaine 2% VISCOUS* 15 ML UDC ONE (11:46)
[2017-06-12] MEDS ORDERED: Lidocaine 2% PF * 5 ML VIAL ONE ×2 (11:46→12:59)
[2017-06-12] MEDS ORDERED: fentaNYL* 50 MCG/ML 2 ML VIAL (100 MCG VIAL) ONE (12:45)
[2017-06-12] MEDS ORDERED: Midazolam* 1 MG/ML 10 ML VIAL (10 MG) ONE (12:45)
[2017-06-12] MEDS ORDERED: Lidocaine 1% INJ* 10 MG/ML 30 ML SDV ONE (12:59)
[2017-06-12] MEDS ORDERED: Piperacillin/Tazobac ADVAN(*) 3.375 GM in NS 0.9% 100 ML* 100 ML IVPB ONE (13:17)
[2017-06-12] MEDS ORDERED: Midazolam* 1 MG/ML 2 ML VIAL (2 MG) IV ONE (13:54)
[2017-06-12] MEDS ORDERED: fentaNYL* 50 MCG/ML 2 ML VIAL (100 MCG VIAL) IV SLOW PU ONE (13:55)
[2017-06-12] MEDS ORDERED: Zosyn per Pharmacy* NOTE FOLLOW UP SCH (14:00)
[2017-06-12] MEDS ORDERED: Perflutren Lipid Microsphere* 3 ML VIAL ONE (14:28)
--- NOTE | 2017-06-12 16:05 | ECHO ---
Patient: ZEYAD DYE [facility] Rec#: [id number] : 1945 Date: 06/12/2017 Age: 71y Height: 160.02 cm / 63.0 in Weight: 65.77 kg / 145.0 lbs Sex: F BSA: 1.69 Room#: ICU6 Admit Date#: 06/11/2017 Type: Inpatient Referring: Mariama Lo MD Reading: Hira Villatoro MD Mat Inspector: Darby Darling [facility] Transthoracic Echocardiogram Indication: CHF BP: 115/57 HR: 98 Rhythm: Paced Findings History: CHF,a-fib,s/p pacer insert,DM,HTN,CKD,COPD. Technical Comments: The study is technically difficult. Definity used to enhance images. Completed at 1528. Left Ventricle: The left ventricular chamber size is normal. Mild to moderate concentric left ventricular hypertrophy is observed. Global left ventricular wall motion and contractility are within normal limits. There is normal left ventricular systolic function. The estimated ejection fraction is 60-65%. The patient was unable to perform a Valsalva maneuver. Left Atrium: The left atrium is moderately dilated. Right Ventricle: The right ventricular cavity size is normal. The right ventricular global systolic function is mildly reduced. A pacemaker wire is visualized in the right ventricle. Right Atrium: The right atrium is mildly dilated. A pacemaker wire is visualized in the right atrium. Aortic Valve: The aortic valve leaflets are mildly thickened. Mild aortic leaflet calcification is visualized. There is evidence of aortic sclerosis without stenosis. There is no evidence of aortic regurgitation. There is borderline aortic stenosis present. The highest aortic valve velocity was obtained with the standard probe from the A5C view. Mitral Valve: The mitral valve leaflets appear normal. Mild mitral annular calcification present. The mitral valve leaflets are mildly thickened. There is mild mitral regurgitation. Tricuspid Valve: The tricuspid valve leaflets are normal. There is mild tricuspid regurgitation. The tricuspid regurgitant jet is wall impinging. The right ventricular systolic pressure is estimated at 57 mmHg. There is evidence of moderate pulmonary hypertension. There is no tricuspid stenosis. Pulmonic Valve: The pulmonic valve appears normal. There is no evidence of pulmonic regurgitation. There is no pulmonic stenosis. Pericardium: The pericardium appears normal. Aorta: The ascending aorta is not well visualized. There is no dilatation of the aortic arch. There is no dilation of the aortic root. Venous: The venous system is not well visualized. Contrast: Definity was used to optimize study. A total of 4 ml used. Intravenous contrast was used to enhance endocardial border definition. Conclusions Mild to moderate concentric left ventricular hypertrophy is observed. There is normal left ventricular systolic function. The estimated ejection fraction is 60-65%. There is mild mitral regurgitation. The left atrium is moderately dilated. A pacemaker wire is visualized in the right ventricle. A pacemaker wire is visualized in the right atrium. There is mild tricuspid regurgitation. There is evidence of moderate pulmonary hypertension. There is borderline aortic stenosis present. Measurements Name Value Normal Range RVIDd (AP) 2D 3.1 cm (0.9 - 2.6) RVDdMajor (2D) 2.8 cm (2.2 - 4.4) RAd ISD 4CH 5.4 cm (3.4 - 4.9) RA (A4C)W 4.3 cm (2.9 - 4.6) IVSd (2D) 1.1 cm (0.6 - 1) LVPWd (2D) 1.3 cm (0.6 - 1) LVIDd (2D) 5.2 cm (3.6 - 5.4) LVIDs (2D) 3.1 cm - LV FS (2D) 41 % (25 - 45) Aortic Annulus 1.7 cm (1.4 - 2.6) Ao root diameter (2D) 3.2 cm (2.1 - 3.5) Aortic arch 2.2 cm (1.8 - 3.4) Descending Ao 0.8 cm - LA dimension (AP) 2D 4.5 cm (2.3 - 3.8) LAd ISD 4CH 5.8 cm (2.9 - 5.3) LA ISD 4CH W 3.8 cm (2.5 - 4.5) Name Value Normal Range LA ESV SP 4CH (A/L) 55 ml - LA ESV SP 2CH (A/L) 66 ml - LA ESV BP (A/L) 65 ml - LA ESV BP (A/L) index 38.39 ml/m2 - LA ESV SP 4CH (MOD) 52 ml - LA ESV SP 2CH (MOD) 64 ml - Name Value Normal Range MV E-wave Vmax 1.5 m/sec - MV deceleration time 268 msec - MV A-wave Vmax 1 m/sec - MV E:A ratio 1.41 ratio - LV septal e' Vmax 0.08 m/sec - LV lateral e' Vmax 0.16 m/sec - LV E:e' septal ratio 18.75 ratio - LV E:e' lateral ratio 9.37 ratio - Name Value Normal Range AV Vmax 3.1 m/sec - AV VTI 56.1 cm - AV peak gradient 39.27 mmHg - AV mean gradient 13.6 mmHg - LVOT diameter 1.9 cm - LVOT Vmax 1.6 m/sec - LVOT VTI 31.1 cm - LVOT peak gradient 9.94 mmHg - LVOT mean gradient 4.49 mmHg - [place] (continuity Vmax) 1.5 cm2 - [place] (continuity VTI) 1.6 cm2 - Name Value Normal Range MR Vmax 4.6 m/sec - MR VTI 141.8 cm - Name Value Normal Range TR Vmax 3.5 m/sec - TR peak gradient 49 mmHg - RAP 8 mmHg - RVSP 57 mmHg - Name Value Normal Range PV Vmax 1.6 m/sec - PV peak gradient 10.53 mmHg -
[2017-06-12] MEDS ORDERED: Acetaminophen TAB* 325 MG PO PRN (17:26)
[2017-06-12] MEDS: ZOSYN 3.375 GM Q8H per EXTENDED INFUSION IVPB SCH ×2 (18:43)
[2017-06-12] MEDS ORDERED: Magnesium Sulfate 2 GM IV* 2 GM/50 ML BAG IVPB ONE (18:53)
--- NOTE | 2017-06-12 19:13 | CONS ---
PULMONARY CONSULTATION REPORT: DATE OF CONSULT: 06/12/17 CONSULTATION REQUESTED BY: Dr. Mariama Lo. REASON FOR CONSULTATION: Evaluation of hypoxemia and right pleural effusion. HISTORY OF PRESENT ILLNESS: The patient is a 71-year-old female with history of myasthenia gravis, diabetes, COPD, chronic kidney disease, diastolic dysfunction, who presents from [facility] for evaluation [facility]. Around 10 a.m., she was found on the floor. The patient denied any recollection of the events. Denied recent fevers, chest pain, nausea , vomiting, diarrhea, or abdominal pain. She has been having chills and cough productive of clear phlegm recently. She was recently hospitalized in April 2017, treated for lower extremity cellulitis, kidney injury, and Klebsiella UTI and was discharged to the nursing facility. The patient was found to be hypoxemic with worsening oxygenation status during the hospitalization. She had brain CT, which showed no acute findings. She had CT scan of the chest. I have personally reviewed CT scan of the chest. The patient noted to have compressive atelectasis of the right lung and large right pleural effusion. There is no shift on mediastinum to the left side even with the significant effusion concerning for possible atelectasis. Pulmonary consultation was requested for evaluation of CT chest abnormality and evaluation of possible endobronchial lesion versus mucus plugging resulting in large pleural effusion. The patient was seen and examined by me at bedside in the ICU. The patient is drowsy, responds to verbal stimuli. She is not able to provide any further history. Her daughter and patient's sister are at bedside. History obtained from review of medical records, information from family and from hospitalist physician. The patient did not have fluid density concerning for internal bleeding. The patient with no significant mediastinal or hilar adenopathy on the CT chest. The patient has been needing O2 supplementation at 6 L/min. A bronchoscopy was indicated and was performed at bedside. PAST MEDICAL HISTORY: Multiple comorbidities includin. COPD. 2. Generalized weakness. 3. Diarrhea. 4. Xerosis cutis. 5. Myasthenia gravis. 6. Diabetes mellitus. 7. Atrial fibrillation. 8. Chronic hypoxemic respiratory failure secondary to COPD, on 2.5 L oxygen. 9. Candidiasis. 10. Vitamin B12 deficiency. 11. Chronic kidney disease stage 3. 12. Chronic diastolic heart failure. 13. Iron deficiency anemia. 14. GERD. PAST SURGICAL HISTORY: Pacemaker placement. MEDICATIONS: At home: 1. Tamiflu. 2. Spiriva. 3. Mestinon. 4. Prednisone. 5. Percocet. 6. Omeprazole. 7. Nystatin. 8. Lantus. 9. Multaq. 10. Lactobacillus. 11. Ferrous sulfate. 12. Imodium. 13. Humalog. 14. Hydrocortisone. 15. Dulera. 16. Vitamin B12. 17. Aspirin. 18. Albuterol. 19. Acetaminophen. 20. IgG. ALLERGIES: IGG, CELLCEPT, AZITHROMYCIN, CEFTRIAXONE, and CIPRO. FAMILY HISTORY: No history of coronary artery disease, diabetes, or cancer in the family. SOCIAL HISTORY: Former smoker, quit 12 to 15 years ago, 2-pack smoking history since age of 18. Former alcoholic, quit drinking also 12 to 15 years ago. No recreational drug abuse. Her elder daughter is decision maker. REVIEW OF SYSTEMS: Attempted, however, could not obtain secondary to the patient's altered mental status. PHYSICAL EXAM: The patient in bed, in no apparent distress. Vital Signs: Temperature 100, heart rate 60 beats per minute, respiratory rate 21 per minute , O2 sat 100% on 6 L, blood pressure 115/41. HEENT: Pupils equal, reactive to light, mucous membranes moist. Lungs: Diminished air entry bilaterally, right greater than left. Cardiovascular: S1, S2 present. Regular. Abdomen: Soft, bowel sounds present. Nontender, nondistended. Neuro: Drowsy, responds to verbal stimuli, opening eyes. Skin: Evidence of bruises in upper extremities and also in the forehead and near the eyes. DIAGNOSTIC STUDIES/LAB DATA: WBC count 12.3, hemoglobin 7.3, hematocrit 26, platelet count 335. Sodium 140, potassium 4.5, chloride 111, bicarb 32, BUN 17, creatinine 0.8, glucose 114, lactic acid 0.9. Influenza A and B negative. Chest x-ray and CT chest as described above in HPI. IMPRESSION AND RECOMMENDATIONS: 71-year-old female, recently hospitalized with cellulitis, transferred to rehab, admitted after a fall, found to have large right pleural effusion with compressive atelectasis of the right lung secondary to effusion versus secondary to mucus plugging or endobronchial lesion. Prior x -rays and CT chest brought suggestive of endobronchial lesion, unlikely to have developed at this time. Most likely the patient is having thick mucus plug or had an aspiration event after the fall. The patient had bronchoscopy at bedside performed by me. Thick mucus secretions were removed. The patient tolerated the procedure well. Please refer to separately dictated procedure report. The patient on O2 supplementation, will titrate as tolerated. The patient with hypoxemic respiratory failure at baseline with acute on chronic hypoxemic respiratory failure secondary to pleural effusion and lung collapse. Will repeat chest x-ray in the morning, as the patient noted to have significant effusions, will scheduled the patient for thoracentesis. She also has diastolic heart failure. Recommend continue with IV diuresis, monitor intake and output. If the patient has resolution or improvement in pleural effusion and oxygenation status by tomorrow, might not need a thoracentesis. Agree with current broad-spectrum antibiotics for management of pneumonia. Bronchial washings were sent to the lab for microbiological testing. Thank you for allowing me to participate in the care of your patient. Will follow up with you. [id number]/[facility] #: [id number] DAYO
[2017-06-12] MEDS ORDERED: NS 0.9% 500 ML* 500 ML IV ONE (20:22)
[2017-06-12] MEDS ORDERED: NS 0.9% 1000 ML* 1,000 ML IV ONE (22:56)
[2017-06-13] MEDS: Dronedarone TAB* 400 MG PO SCH ×3 (00:19→21:39)
[2017-06-13] MEDS: Pyridostigmine TAB* 60 MG PO SCH ×4 (00:20→21:39)
[2017-06-13] MEDS ORDERED: Haloperidol INJ IV/IM* 5 MG/ML AMP IV SLOW PU ONE (00:57)
[2017-06-13] MEDS: ZOSYN 3.375 GM Q8H per EXTENDED INFUSION IVPB SCH ×6 (03:38→23:12)
[2017-06-13 05:45] LABS: Hematocrit 21 % (35-47); Mean Corpuscular HGB Conc 29 g/dl (31-36); Mean Corpuscular Hemoglobin 22 pg (27-31); Mean Corpuscular Volume 77 fL (80-97); Mean Platelet Volume 7 um3 (7.4-10.4); Platelet Count 266 10^3/ul (150-450); Red Blood Count 2.74 10^6/ul (4.0-5.4); Red Cell Distribution Width 28 % (10.5-15); White Blood Count 11.1 10^3/ul (3.5-10.8)
[2017-06-13 05:49] LABS: Hemoglobin 6.1 g/dl (12.0-16.0)
[2017-06-13 05:52] LABS: EGFR Non-African American 46.8 (>60)
[2017-06-13 06:09] LABS: ABS Basophils 0.1 10^3/ul (0-0.2); ABS Eosinophils 0 10^3/ul (0-0.6); ABS Lymphocytes 1.8 10^3/ul (1.0-4.8); ABS Monocytes 0.6 10^3/ul (0-0.8); ABS Neutrophils 8.6 10^3/ul (1.5-7.7); ABS Nucleated RBC 0 10^3/ul; Eosinophil % 0.3 % (0-6); Lymphocyte % 15.9 % (25-47); Nucleated Red Blood Cells % 0.2
--- NOTE | 2017-06-13 08:41 | RAD ---
HISTORY: Follow-up pleural effusion COMPARISONS: June 11, 2017, CT dated June 11, 2012 VIEWS: 1: frontal portable view of the chest at 7:50 AM FINDINGS: LINES AND TUBES: A left-sided pacemaker is noted. CARDIOMEDIASTINAL SILHOUETTE: The cardiomediastinal silhouette is stable. PLEURA: There is a moderate to large right-sided pleural effusion, decreased from the previous examination. LUNG PARENCHYMA: There is prominence of the central pulmonary vasculature. ABDOMEN: The upper abdomen is clear. There is no subphrenic gas. BONES AND SOFT TISSUES: No bone or soft tissue abnormalities are noted. IMPRESSION: 1. MODERATE TO LARGE RIGHT PLEURAL EFFUSION, DECREASED FROM THE PREVIOUS EXAMINATION. 2. PULMONARY VASCULAR CONGESTION.
[2017-06-13] MEDS ORDERED: Spiriva Inhaler DEVICE* 1 EACH DEVICE INH ONE (09:00)
[2017-06-13] MEDS: Tiotropium CAP.INH* CAP.INH/18 MCG (USE ORDER SET !) INH SCH (09:08)
[2017-06-13] MEDS: Mometasone/Formoter 200/5 MDI INH SCH ×2 (09:08→19:18)
[2017-06-13] MEDS: Nystatin SUSPENSION* 100000 UNITS/ML 5 ML UDC SWISH SWAL SCH ×3 (09:22→17:41)
[2017-06-13] MEDS: Ferrous Sulfate TAB* 325 MG PO SCH (09:23)
[2017-06-13] MEDS: Nystatin TOP POWDER* 15 GM BTL TOPICAL SCH ×3 (09:23→21:40)
[2017-06-13] MEDS: Omeprazole CAP* 20 MG PO SCH (09:23)
[2017-06-13] MEDS: predniSONE TAB* 20 MG PO SCH (09:23)
[2017-06-13] MEDS: Aspirin Low Dose CHEW TAB* 81 MG PO SCH (09:23)
[2017-06-13] MEDS: Oseltamivir CAP* 30 MG CAP PO SCH (09:23)
[2017-06-13] MEDS: Lactobacillus Acidophilu (GG)* 1 CAP CAP PO SCH ×3 (09:23→17:41)
--- NOTE | 2017-06-13 10:51 | PRO ---
BRONCHOSCOPY REPORT: DATE OF PROCEDURE: 06/12/17 PROCEDURE PERFORMED: Bronchoscopy on bronchoalveolar lavage in ICU. INDICATIONS FOR PROCEDURE: Right lung collapse, rule out mucus plugging. POSTPROCEDURAL DIAGNOSES: Mucus plugging and secretions. ANESTHESIA: Conscious sedation with 2 mg of Versed and 50 mcg of Fentanyl. Local anesthesia with 1% lidocaine 5 cc. PROCEDURE: Informed consent was obtained from the patient's daughter who is her health care proxy as the patient has altered mental status and is not consentable. Appropriate time-out was performed and agreed on by the attending staff. Necessary forms needed for conscious sedation were filled out. The patient has received lidocaine nebulization for anesthesia of upper airway. The patient received 2 mg of Versed and 50 mcg of Fentanyl for sedation. Flexible Olympus bronchoscope was inserted through left naris after it was anesthetized with 1% lidocaine gel. Bronchoscope was advanced into and stationed near the vocal cords. 3 cc of 1% lidocaine was instilled on the vocal cords. Vocal cords were moving normally to inspiration. Bronchoscope was then advanced through trachea. Thick secretions were noted and were suctioned out. 2 cc of 1% lidocaine was instilled near the level of jenni. Bronchoscope was then advanced into the left bronchial tree which was inspected. Thick secretions were noted and were suctioned out. Bronchoscope was then advanced into the right bronchial tree. Thick secretions and mucus plugs were noted in the upper lobe, middle lobe, and lower lobe bronchial segments. Secretions were suctioned out. Bronchial washings were obtained from right lower lobe bronchus. No endobronchial lesions were noted. There was extreme compression of segmental bronchi secondary to pleural effusion. The specimen was sent into the lab. The patient tolerated the procedure well. The patient was on continuous cardiac monitoring with no acute events. [id number]/[facility] #: [id number] [facility]
[2017-06-13] MEDS ORDERED: Ferric Gluconate IV* 125 MG in NS 0.9% 100 ML* 100 ML IVPB ONE (11:00)
--- NOTE | 2017-06-13 11:07 | PN ---
Subjective Date of Service: 06/13/17 Interval History: Pt had been off and on BIPAP last night , now on Vapotherm. Lethargic, no new complaints. Objective Active Medications: Acetaminophen (Tylenol Tab*) 650 mg PO Q4HR PRN PRN Reason: FEVER Last Admin: 06/12/17 18:43 Dose: 650 mg Albuterol (Ventolin 2.5 Mg/3 Ml Neb.Bridget*) 2.5 mg INH Q2H PRN PRN Reason: SOB/WHEEZING Aspirin (Aspirin Low Dose Tab*) 81 mg PO DAILY [facility] Last Admin: 06/13/17 09:23 Dose: 81 mg Cyanocobalamin (Vitamin B12 Tab*) 1,000 mcg PO MONTHLY [facility] Dronedarone (Multaq Tab*) 400 mg PO BID [facility] Last Admin: 06/13/17 09:25 Dose: 400 mg Ferrous Sulfate (Ferrous Sulfate Tab*) 325 mg PO DAILY [facility] Last Admin: 06/13/17 09:23 Dose: 325 mg Piperacillin Sod/Tazobactam (Sod 3.375 gm/ Sodium Chloride) 100 mls @ 25 mls/ hr IVPB Q8H [facility] Last Admin: 06/13/17 03:38 Dose: 25 mls/hr Ferric Sodium Gluconate Complex 125 mg/ Sodium Chloride 110 mls @ 110 mls/hr IVPB ONCE ONE Stop: 06/13/17 11:59 Lactobacillus Rhamnosus (Culturelle*) 1 cap PO TID AC [facility] Last Admin: 06/13/17 09:23 Dose: 1 cap Loperamide HCl (Imodium Cap*) 2 mg PO Q4HR PRN PRN Reason: LOOSE STOOLS Mometasone Furoate/Formoterol Fumar (Dulera 200/5 Mdi*) 2 puff INH BID [facility] Last Admin: 06/13/17 09:08 Dose: 2 puff Nystatin (Nystatin Suspension*) 500,000 units SWISH SWAL TID PC [facility] Last Admin: 06/13/17 09:22 Dose: 500,000 units Nystatin (Nystatin Top Powder*) 1 applic TOPICAL TID [facility] Last Admin: 06/13/17 09:23 Dose: 1 applic Omeprazole (Prilosec Cap*) 20 mg PO DAILY [facility] Last Admin: 06/13/17 09:23 Dose: 20 mg Oseltamivir Phosphate (Tamiflu Cap*) 30 mg PO DAILY [facility] Last Admin: 06/13/17 09:23 Dose: 30 mg Oxycodone/Acetaminophen (Percocet 5/325 Tab*) 1 tab PO Q4H PRN PRN Reason: PAIN Pharmacy Consult (Zosyn Per Pharmacy*) 1 note FOLLOW UP .ZOSYN PER PHARMACY [facility] Prednisone (Deltasone Tab*) 20 mg PO DAILY [facility] Last Admin: 06/13/17 09:23 Dose: 20 mg Pyridostigmine [place] (Mestinon Tab*) 120 mg PO QID [facility] Last Admin: 06/13/17 09:23 Dose: 120 mg Tiotropium [place] (Spiriva Cap.Inh*) 1 cap INH DAILY [facility] Last Admin: 06/13/17 09:08 Dose: 1 cap.inh Vital Signs - 8 hr 06/13/17 06/13/17 06/13/17 03:41 04:00 05:00 Temperature 98.6 F Pulse Rate 63 66 Respiratory 20 27 Rate Blood Pressure 114/51 107/48 (mmHg) O2 Sat by Pulse 99 100 Oximetry 06/13/17 06/13/17 06/13/17 06:00 07:00 08:00 Temperature 98.3 F Pulse Rate 74 78 78 Respiratory 15 21 29 Rate Blood Pressure 103/45 112/53 115/54 (mmHg) O2 Sat by Pulse 100 100 98 Oximetry 06/13/17 06/13/17 09:00 10:00 Temperature Pulse Rate 69 78 Respiratory 16 16 Rate Blood Pressure 116/46 112/55 (mmHg) O2 Sat by Pulse 100 100 Oximetry Oxygen Devices in Use Now: Nasal Cannula, High Flow Heated Nasal Cannula - at 40L 02 Appearance: 71 yo F on NAD, AAOx2 Eyes: No Scleral Icterus, PERRLA Ears/Nose/Mouth/Throat: NL Teeth, Lips, Gums, Mucous Membranes Moist Neck: NL Appearance and Movements; NL JVP, Trachea Midline Respiratory: Symmetrical Chest Expansion and Respiratory Effort, - - absent breath sounds at RLL, crackles at b/lloer to mid lungs Cardiovascular: NL Sounds; No Murmurs; No JVD, RRR Abdominal: NL Sounds; No Tenderness; No Distention Lymphatic: No Cervical Adenopathy Extremities: No Clubbing, Cyanosis, - - edema in all extremities, lymphoedema in b/l LE's Skin: No Nodules or Sclerosis, - - ecchymosis b/l eye area and R forehead, skin tears on dorsal aspect of both hands Neurological: - - generalized weakness, no focal deficit Result Diagrams: 06/13/17 05:11 06/13/17 05:11 Additional Lab and Data: Lab Results 06/11/17 06/11/17 06/11/17 Range/Units 11:27 11:52 11:52 WBC 12.3 H (3.5-10.8) 10^3/ul RBC 3.37 L (4.0-5.4) 10^6/ul Hgb 7.3 L (12.0-16.0) g/dl Hct 26 L (35-47) % MCV 76 L (80-97) fL MCH 22 L (27-31) pg MCHC 29 L (31-36) g/dl RDW 30 H (10.5-15) % Plt Count 335 (150-450) 10^3/ul MPV 7 L (7.4-10.4) um3 Neut % (Auto) 87.1 H (38-83) % Lymph % (Auto) 7.3 L (25-47) % [place] % (Auto) 5.2 (1-9) % Eos % (Auto) 0.2 (0-6) % Baso % (Auto) 0.2 (0-2) % Absolute Neuts (auto) 10.7 H (1.5-7.7) 10^3/ul Absolute Lymphs (auto) 0.9 L (1.0-4.8) 10^3/ul Absolute Monos (auto) 0.6 (0-0.8) 10^3/ul Absolute Eos (auto) 0 (0-0.6) 10^3/ul Absolute Basos (auto) 0 (0-0.2) 10^3/ul Absolute Nucleated RBC 0.1 10^3/ul Neutrophils % 84 H (38-83) % Lymphocytes % 8 L (25-47) % Monocytes % 8 (0-13) % Nucleated RBC % 0.5 Normal RBC Morphology Not Reportable Polychromasia 1+ Hypochromasia 1+ Microcytosis 1+ INR (Anticoag Therapy) (0.77-1.02) Sodium (133-145) mmol/L Potassium (3.5-5.0) mmol/L Chloride (101-111) mmol/L Carbon Dioxide (22-32) mmol/L BUN (6-24) mg/dL Creatinine (0.51-0.95) mg/dL Est GFR ( Amer) (>60) Est GFR (Non-Af Amer) (>60) BUN/Creatinine Ratio (8-20) Glucose (70-100) mg/dL POC Glucose (mg/dL) 172 H (70-100) mg/dL Lactic Acid (0.5-2.0) mmol/L Calcium (8.6-10.3) mg/dL Total Bilirubin (0.2-1.0) mg/dL AST (13-39) U/L ALT (7-52) U/L Alkaline Phosphatase (34-104) U/L Ammonia 49 (16-53) mol/L Troponin I (<0.04) ng/mL Total Protein (6.4-8.9) g/dL Albumin (3.2-5.2) g/dL Globulin (2-4) g/dL Albumin/Globulin Ratio (1-3) TSH (0.34-5.60) mcIU/mL Urine Color Urine Appearance Urine pH (5-9) Ur Specific Page (1.010-1.030) Urine Protein (Negative) Urine Ketones (Negative) Urine Blood (Negative) Urine Nitrate (Negative) Urine Bilirubin (Negative) Urine Urobilinogen (Negative) Ur Leukocyte Esterase (Negative) Urine WBC (Auto) (Absent) Urine RBC (Auto) (Absent) Urine Bacteria (Absent) Urine Glucose (Negative) Influenza A (Rapid) (Negative) Influenza B (Rapid) (Negative) 06/11/17 06/11/17 06/11/17 Range/Units 11:52 11:52 11:52 WBC (3.5-10.8) 10^3/ul RBC (4.0-5.4) 10^6/ul Hgb (12.0-16.0) g/dl Hct (35-47) % MCV (80-97) fL MCH (27-31) pg MCHC (31-36) g/dl RDW (10.5-15) % Plt Count (150-450) 10^3/ul MPV (7.4-10.4) um3 Neut % (Auto) (38-83) % Lymph % (Auto) (25-47) % [place] % (Auto) (1-9) % Eos % (Auto) (0-6) % Baso % (Auto) (0-2) % Absolute Neuts (auto) (1.5-7.7) 10^3/ul Absolute Lymphs (auto) (1.0-4.8) 10^3/ul Absolute Monos (auto) (0-0.8) 10^3/ul Absolute Eos (auto) (0-0.6) 10^3/ul Absolute Basos (auto) (0-0.2) 10^3/ul Absolute Nucleated RBC 10^3/ul Neutrophils % (38-83) % Lymphocytes % (25-47) % Monocytes % (0-13) % Nucleated RBC % Normal RBC Morphology Polychromasia Hypochromasia Microcytosis INR (Anticoag Therapy) 0.90 (0.77-1.02) Sodium 140 (133-145) mmol/L Potassium 4.5 (3.5-5.0) mmol/L Chloride 111 (101-111) mmol/L Carbon Dioxide 32 (22-32) mmol/L BUN 17 (6-24) mg/dL Creatinine 0.88 (0.51-0.95) mg/dL Est GFR ( Amer) 81.9 (>60) Est GFR (Non-Af Amer) 63.7 (>60) BUN/Creatinine Ratio 19.3 (8-20) Glucose 114 H (70-100) mg/dL POC Glucose (mg/dL) (70-100) mg/dL Lactic Acid 0.9 (0.5-2.0) mmol/L Calcium 7.7 L (8.6-10.3) mg/dL Total Bilirubin 0.30 (0.2-1.0) mg/dL AST 16 (13-39) U/L ALT 9 (7-52) U/L Alkaline Phosphatase 77 (34-104) U/L Ammonia (16-53) mol/L Troponin I 0.03 (<0.04) ng/mL Total Protein 6.0 L (6.4-8.9) g/dL Albumin 2.5 L (3.2-5.2) g/dL Globulin 3.5 (2-4) g/dL Albumin/Globulin Ratio 0.7 L (1-3) TSH 3.22 (0.34-5.60) mcIU/mL Urine Color Urine Appearance Urine pH (5-9) Ur Specific Page (1.010-1.030) Urine Protein (Negative) Urine Ketones (Negative) Urine Blood (Negative) Urine Nitrate (Negative) Urine Bilirubin (Negative) Urine Urobilinogen (Negative) Ur Leukocyte Esterase (Negative) Urine WBC (Auto) (Absent) Urine RBC (Auto) (Absent) Urine Bacteria (Absent) Urine Glucose (Negative) Influenza A (Rapid) (Negative) Influenza B (Rapid) (Negative) 06/11/17 06/11/17 06/11/17 Range/Units 12:50 14:41 14:53 WBC (3.5-10.8) 10^3/ul RBC (4.0-5.4) 10^6/ul Hgb (12.0-16.0) g/dl Hct (35-47) % MCV (80-97) fL MCH (27-31) pg MCHC (31-36) g/dl RDW (10.5-15) % Plt Count (150-450) 10^3/ul MPV (7.4-10.4) um3 Neut % (Auto) (38-83) % Lymph % (Auto) (25-47) % [place] % (Auto) (1-9) % Eos % (Auto) (0-6) % Baso % (Auto) (0-2) % Absolute Neuts (auto) (1.5-7.7) 10^3/ul Absolute Lymphs (auto) (1.0-4.8) 10^3/ul Absolute Monos (auto) (0-0.8) 10^3/ul Absolute Eos (auto) (0-0.6) 10^3/ul Absolute Basos (auto) (0-0.2) 10^3/ul Absolute Nucleated RBC 10^3/ul Neutrophils % (38-83) % Lymphocytes % (25-47) % Monocytes % (0-13) % Nucleated RBC % Normal RBC Morphology Polychromasia Hypochromasia Microcytosis INR (Anticoag Therapy) (0.77-1.02) Sodium (133-145) mmol/L Potassium (3.5-5.0) mmol/L Chloride (101-111) mmol/L Carbon Dioxide (22-32) mmol/L BUN (6-24) mg/dL Creatinine (0.51-0.95) mg/dL Est GFR ( Amer) (>60) Est GFR (Non-Af Amer) (>60) BUN/Creatinine Ratio (8-20) Glucose (70-100) mg/dL POC Glucose (mg/dL) 31 L* 168 H (70-100) mg/dL Lactic Acid (0.5-2.0) mmol/L Calcium (8.6-10.3) mg/dL Total Bilirubin (0.2-1.0) mg/dL AST (13-39) U/L ALT (7-52) U/L Alkaline Phosphatase (34-104) U/L Ammonia (16-53) mol/L Troponin I (<0.04) ng/mL Total Protein (6.4-8.9) g/dL Albumin (3.2-5.2) g/dL Globulin (2-4) g/dL Albumin/Globulin Ratio (1-3) TSH (0.34-5.60) mcIU/mL Urine Color Pat Urine Appearance Turbid Urine pH 5.0 (5-9) Ur Specific Page 1.012 (1.010-1.030) Urine Protein 2+(100 mg/dl) H (Negative) Urine Ketones Negative (Negative) Urine Blood 2+ H (Negative) Urine Nitrate Positive H (Negative) Urine Bilirubin Negative (Negative) Urine Urobilinogen Negative (Negative) Ur Leukocyte Esterase 3+ H (Negative) Urine WBC (Auto) 3+(>20/hpf) H (Absent) Urine RBC (Auto) 3+(>10/hpf) H (Absent) Urine Bacteria 2+ H (Absent) Urine Glucose Negative (Negative) Influenza A (Rapid) (Negative) Influenza B (Rapid) (Negative) 06/11/17 06/11/17 06/11/17 Range/Units 15:09 15:24 16:10 WBC (3.5-10.8) 10^3/ul RBC (4.0-5.4) 10^6/ul Hgb (12.0-16.0) g/dl Hct (35-47) % MCV (80-97) fL MCH (27-31) pg MCHC (31-36) g/dl RDW (10.5-15) % Plt Count (150-450) 10^3/ul MPV (7.4-10.4) um3 Neut % (Auto) (38-83) % Lymph % (Auto) (25-47) % [place] % (Auto) (1-9) % Eos % (Auto) (0-6) % Baso % (Auto) (0-2) % Absolute Neuts (auto) (1.5-7.7) 10^3/ul Absolute Lymphs (auto) (1.0-4.8) 10^3/ul Absolute Monos (auto) (0-0.8) 10^3/ul Absolute Eos (auto) (0-0.6) 10^3/ul Absolute Basos (auto) (0-0.2) 10^3/ul Absolute Nucleated RBC 10^3/ul Neutrophils % (38-83) % Lymphocytes % (25-47) % Monocytes % (0-13) % Nucleated RBC % Normal RBC Morphology Polychromasia Hypochromasia Microcytosis INR (Anticoag Therapy) (0.77-1.02) Sodium (133-145) mmol/L Potassium (3.5-5.0) mmol/L Chloride (101-111) mmol/L Carbon Dioxide (22-32) mmol/L BUN (6-24) mg/dL Creatinine (0.51-0.95) mg/dL Est GFR ( Amer) (>60) Est GFR (Non-Af Amer) (>60) BUN/Creatinine Ratio (8-20) Glucose (70-100) mg/dL POC Glucose (mg/dL) 118 H 98 (70-100) mg/dL Lactic Acid (0.5-2.0) mmol/L Calcium (8.6-10.3) mg/dL Total Bilirubin (0.2-1.0) mg/dL AST (13-39) U/L ALT (7-52) U/L Alkaline Phosphatase (34-104) U/L Ammonia (16-53) mol/L Troponin I (<0.04) ng/mL Total Protein (6.4-8.9) g/dL Albumin (3.2-5.2) g/dL Globulin (2-4) g/dL Albumin/Globulin Ratio (1-3) TSH (0.34-5.60) mcIU/mL Urine Color Urine Appearance Urine pH (5-9) Ur Specific Page (1.010-1.030) Urine Protein (Negative) Urine Ketones (Negative) Urine Blood (Negative) Urine Nitrate (Negative) Urine Bilirubin (Negative) Urine Urobilinogen (Negative) Ur Leukocyte Esterase (Negative) Urine WBC (Auto) (Absent) Urine RBC (Auto) (Absent) Urine Bacteria (Absent) Urine Glucose (Negative) Influenza A (Rapid) Negative (Negative) Influenza B (Rapid) Negative (Negative) 06/11/17 Range/Units 16:46 WBC (3.5-10.8) 10^3/ul RBC (4.0-5.4) 10^6/ul Hgb (12.0-16.0) g/dl Hct (35-47) % MCV (80-97) fL MCH (27-31) pg MCHC (31-36) g/dl RDW (10.5-15) % Plt Count (150-450) 10^3/ul MPV (7.4-10.4) um3 Neut % (Auto) (38-83) % Lymph % (Auto) (25-47) % [place] % (Auto) (1-9) % Eos % (Auto) (0-6) % Baso % (Auto) (0-2) % Absolute Neuts (auto) (1.5-7.7) 10^3/ul Absolute Lymphs (auto) (1.0-4.8) 10^3/ul Absolute Monos (auto) (0-0.8) 10^3/ul Absolute Eos (auto) (0-0.6) 10^3/ul Absolute Basos (auto) (0-0.2) 10^3/ul Absolute Nucleated RBC 10^3/ul Neutrophils % (38-83) % Lymphocytes % (25-47) % Monocytes % (0-13) % Nucleated RBC % Normal RBC Morphology Polychromasia Hypochromasia Microcytosis INR (Anticoag Therapy) (0.77-1.02) Sodium (133-145) mmol/L Potassium (3.5-5.0) mmol/L Chloride (101-111) mmol/L Carbon Dioxide (22-32) mmol/L BUN (6-24) mg/dL Creatinine (0.51-0.95) mg/dL Est GFR ( Amer) (>60) Est GFR (Non-Af Amer) (>60) BUN/Creatinine Ratio (8-20) Glucose (70-100) mg/dL POC Glucose (mg/dL) 97 (70-100) mg/dL Lactic Acid (0.5-2.0) mmol/L Calcium (8.6-10.3) mg/dL Total Bilirubin (0.2-1.0) mg/dL AST (13-39) U/L ALT (7-52) U/L Alkaline Phosphatase (34-104) U/L Ammonia (16-53) mol/L Troponin I (<0.04) ng/mL Total Protein (6.4-8.9) g/dL Albumin (3.2-5.2) g/dL Globulin (2-4) g/dL Albumin/Globulin Ratio (1-3) TSH (0.34-5.60) mcIU/mL Urine Color Urine Appearance Urine pH (5-9) Ur Specific Page (1.010-1.030) Urine Protein (Negative) Urine Ketones (Negative) Urine Blood (Negative) Urine Nitrate (Negative) Urine Bilirubin (Negative) Urine Urobilinogen (Negative) Ur Leukocyte Esterase (Negative) Urine WBC (Auto) (Absent) Urine RBC (Auto) (Absent) Urine Bacteria (Absent) Urine Glucose (Negative) Influenza A (Rapid) (Negative) Influenza B (Rapid) (Negative) Microbiology and Other Data: Microbiology 06/12/17 03:50 Nasal Screen MRSA (PCR)([facility]) - Final Nasal Mrsa Detected Assess/Plan/Problems-Billing Assessment: Ms Oreilly is a 71 yo F with a h/o myasthenia gravis,b/l LE lymphoedema, 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 fib (not anticoagulated due to chronic anemia) type II DM, COPD (on 2.5 L02) and HTN who presented to the ER after a fall and was noted to have hypoxemia with large R pleural effusion - Patient Problems (1) Pleural effusion Comment: Large over the entire R hemithorax with compressive atelectasis of R lung. S/p bronch on 06/12/17 with partial re-expansion of r lung on today's CXR. D/w Dr. Vegas who plans for thoracentesis today. spoke with pt's sisters present in the room about potensial of ventilator support if pt's resp status doesn't improve. Pt is full code. tx with a dose of IV Lasix on 06/12/17 now pt's SBP's low, will not tx with Lasix again for now cont Zosyn started on 06/12/17 (2) Anemia Comment: Hb lower today. will transfuse 1 U PRBC and start IV iron. Iron defficient and od chronic disease. Anemia labs ordered. stool guaiac pending Cont iron and B12 supoplement Pt was transfused at end of April 2017 Continue PPI while on chronic steroids. (3) Atrial fibrillation Comment: Continue multaq. No anticoagulation at baseline. In NSR today, H/o tachy /jenna syndrome, s/p pacer (4) CKD (chronic kidney disease) Comment: Creatinine better than baseline.suspect hemodilution. Continue to monitor. (5) Diastolic heart failure Comment: BNP markedly elevated-new suspect pt's effusion and generalized anasarca can be from CHF Echo shows good EF 65% cont daily weights and I/O's (6) Type 2 diabetes mellitus Comment: hypoglycemia at admission. Cont fingersticks Insulin held (7) Myasthenia gravis Comment: IgG is once a month. Pyridostigmine . On prednisone at home., will start on stress dose steroids due to very poor respiratory status (8) DVT prophylaxis Comment: SQ heparin held due to planned thoracentesis cont SCD's Status and Disposition: inpatient
[2017-06-13] MEDS ORDERED: Furosemide IV* 10 MG/ML 2 ML VIAL (20 MG) IV ONE (12:04)
[2017-06-13] MEDS ORDERED: Furosemide IV* 10 MG/ML 2 ML VIAL (20 MG) ONE (12:06)
[2017-06-13] MEDS: Hydrocortisone INJ* 100 MG VIAL IV SCH ×2 (12:12→21:38)
--- NOTE | 2017-06-13 12:32 | PN ---
Progress Note - Progress Note Date of Service: 06/13/17 Note: Critical Care Consult Asked by Dr Lo to see patient regarding concerns that patient is deteriorating and may require intubation and mechanical ventilatory support. Patient broght to ICU ytdy and underwent bronchoscopy to clear airways of tenacious mucus. Patient has a history of weakness and myasthenia gravis. Latest CXR and CT Chest reveals large right pleural effusion and atelectasis. Patient has been receiving antibiotics in event that there is an underlying pneumonia. Presently she is on BiPAP and there is a plan to have pleural drainage by technology sales specialist. ABG prior to BiPAP reveals pH 7.24 with pCO2 69. Of note patient also anemic this AM for which PRBCs are ordered. Apparently patient has previously been on the respirator in the past. PMH includes: DM, A Fib, COPD, B12 Def, Diastolic CHF, Iron def anemia, CKD, GERD Allergy IgG, mycofenolate Generally appears quite weak...can barely sustain her head up beyond a few seconds Skin no diaphoresis Sclerae anicteric Oral mucosa pink Lungs with diminished air entry lower lung zones Cor RRR no rub, no murmur Abd soft, nontender Ext edematous RUE with PIV x2 CXR opacification lower half Rt chest WBC 11.1 Hgb 6.1 Plt 266 K 4.5 BUN/Creat 17/1.15 Mg 2.3 IMP: Hypercapneic Resp Failure due to profound neuromuscular weakness with moderately large Rt pleural effusion and RLL atelectasis Weakness and Frailty....chronic Hx Masthenia gravis Hx COPD Hx Diatolic CHF Anasarca Protein Calorie Malnutrition Hx A Fib Hx Iron Def anemia with critical level of anemia now in course of receiving PRBC Hx GERD B12 Def PLAN/REC: Will standby in hopes that pleural drainage helps patient to more effectively ventilate For interim continue non-invasive FM ventilation to temporize Check ABG PRN Would consider patient at high risk for permanent need for respiratory support if intubated given her profound weakness. This would mean tracheostomy and likely gastrostomy for nutritional support. Need to appraise family of this risk to make sure this is consistent with goals of care. Transfuse to Hgb >7.0 Discussed with patient's sister at bedside. Will call daughter.
[2017-06-13 12:42] LABS: Corrected Retic Count 0.9 % (0.5-1.5); Hematocrit for Retic CNT 23 % (35-47); Immature Retic Fraction 0.58; RBC Retic Count 2.91 10^6/ul (4.6-6.2)
--- NOTE | 2017-06-13 16:59 | PN ---
Progress Note - Progress Note Date of Service: 06/13/17 - Pulm f/u note Note: Pt seen and examined at bedside. Overnight events noted. Pt more lethargic today , has required BiPAP last night, is currently on BiPAP Active Medications Generic Name Dose Route Start Last Admin Trade Name Freq PRN Reason Stop Dose Admin Acetaminophen 650 mg 06/12/17 17:26 06/12/17 18:43 Tylenol Tab* PO 650 mg Q4HR PRN Administration FEVER Albuterol 2.5 mg 06/11/17 18:21 Ventolin 2.5 Mg/3 Ml Neb.Bridget* INH Q2H PRN SOB/WHEEZING Aspirin 81 mg 06/12/17 09:00 06/13/17 09:23 Aspirin Low Dose Tab* PO 81 mg DAILY THUY Administration Cyanocobalamin 1,000 mcg 06/11/17 19:00 Vitamin B12 Tab* PO MONTHLY THUY Dronedarone 400 mg 06/11/17 21:00 06/13/17 09:25 Multaq Tab* PO 400 mg BID THUY Administration Ferrous Sulfate 325 mg 06/12/17 09:00 06/13/17 09:23 Ferrous Sulfate Tab* PO 325 mg DAILY THUY Administration Hydrocortisone Sodium Succinate 50 mg 06/13/17 12:00 06/13/17 12:12 Solu-Cortef* IV 50 mg Q8H THUY Administration Piperacillin Sod/Tazobactam 100 mls @ 25 mls/hr 06/12/17 19:00 06/13/17 11:56 Sod 3.375 gm/ Sodium Chloride IVPB 25 mls/hr Q8H THUY Administration Lactobacillus Rhamnosus 1 cap 06/12/17 07:30 06/13/17 12:10 Culturelle* PO Not Given TID [facility] Loperamide HCl 2 mg 06/11/17 18:21 Imodium Cap* PO Q4HR PRN LOOSE STOOLS Mometasone Furoate/Formoterol Fumar 2 puff 06/11/17 21:00 06/13/17 09:08 Dulera 200/5 Mdi* INH 2 puff BID THUY Administration Nystatin 500,000 units 06/12/17 08:30 06/13/17 13:50 Nystatin Suspension* SWISH SWAL Not Given TID [facility] Nystatin 1 applic 06/11/17 21:00 06/13/17 09:23 Nystatin Top Powder* TOPICAL 1 applic TID THUY Administration Omeprazole 20 mg 06/12/17 09:00 06/13/17 09:23 Prilosec Cap* PO 20 mg DAILY THUY Administration Oseltamivir Phosphate 30 mg 06/12/17 09:00 06/13/17 09:23 Tamiflu Cap* PO 30 mg DAILY THUY Administration Oxycodone/Acetaminophen 1 tab 06/11/17 18:21 Percocet 5/325 Tab* PO Q4H PRN PAIN Pharmacy Consult 1 note 06/12/17 14:00 Zosyn Per Pharmacy* FOLLOW UP .ZOSYN PER PHARMACY THUY Pyridostigmine Lena 120 mg 06/11/17 21:00 06/13/17 09:23 Mestinon Tab* PO 120 mg QID THUY Administration Tiotropium Lena 1 cap 06/12/17 09:00 06/13/17 09:08 Spiriva Cap.Inh* INH 1 cap.inh DAILY THUY Administration Vital Signs Temp Pulse Resp BP Pulse Ox 99.8 F 62 21 115/47 97 06/13/17 16:00 06/13/17 15:31 06/13/17 15:31 06/13/17 15:31 06/13/17 15:31 O/E: Pt in NAD, lethargic, responds to tactile stimuli HEENT: PERRLA, No JVD Lungs: Diminished air entry b/l R>L CVS: S1, S2+ Abd: Obese, BS+ Ext: edema + Neuro: Lethargic, non-communicative Laboratory Results - last 24 hr 06/12/17 06/12/17 06/12/17 09:39 17:29 17:30 WBC RBC RBC (Retic) Hgb Hct HCT (Retic) MCV MCH MCHC RDW Plt Count MPV Neut % (Auto) Lymph % (Auto) Cannon % (Auto) Eos % (Auto) Baso % (Auto) Absolute Neuts (auto) Absolute Lymphs (auto) Absolute Monos (auto) Absolute Eos (auto) Absolute Basos (auto) Absolute Nucleated RBC Nucleated RBC % Retic Count, Calc Corrected Retic Count Retic Shift Factor Retic Production Index Immature Retic Fraction Mean Retic Volume Patient Temperature Not Reportable ABG pH 7.28 L ABG pH (Temp Correct) Not Reportable ABG pCO2 62 H ABG pCO2 (Temp Corrct Not Reportable ABG pO2 85 ABG pO2 (Temp Correct Not Reportable ABG HCO3 26.4 ABG O2 Saturation 97.6 ABG Base Excess 1.9 Respiration Rate Not Reportable O2 Delivery Device Nc Ventilator Type Not Reportable Vent Mode Not Reportable FiO2 6 Inspiratory Time Not Reportable PEEP Not Reportable Pressure Support Not Reportable Pressure Control Not Reportable EPAP Not Reportable IPAP Not Reportable BiPAP Not Reportable Sodium Potassium Chloride Carbon Dioxide Anion Gap BUN Creatinine Est GFR ( Amer) Est GFR (Non-Af Amer) BUN/Creatinine Ratio Glucose POC Glucose (mg/dL) 128 H Calcium Magnesium 2.0 Iron TIBC % Saturation Unsat Iron Binding Transferrin Ferritin C-Reactive Protein 65.27 H Vitamin B12 Blood Type Antibody Screen Crossmatch 06/12/17 06/12/17 06/12/17 19:07 21:57 22:22 WBC RBC RBC (Retic) Hgb Hct HCT (Retic) MCV MCH MCHC RDW Plt Count MPV Neut % (Auto) Lymph % (Auto) Cannon % (Auto) Eos % (Auto) Baso % (Auto) Absolute Neuts (auto) Absolute Lymphs (auto) Absolute Monos (auto) Absolute Eos (auto) Absolute Basos (auto) Absolute Nucleated RBC Nucleated RBC % Retic Count, Calc Corrected Retic Count Retic Shift Factor Retic Production Index Immature Retic Fraction Mean Retic Volume Patient Temperature Not Reportable Not Reportable ABG pH 7.27 L 7.30 L ABG pH (Temp Correct) Not Reportable Not Reportable ABG pCO2 61 H 61 H ABG pCO2 (Temp Corrct Not Reportable Not Reportable ABG pO2 134 H 94 ABG pO2 (Temp Correct Not Reportable Not Reportable ABG HCO3 25.1 27.4 ABG O2 Saturation 98.8 H 97.9 ABG Base Excess 0.2 3.2 H Respiration Rate Not Reportable Not Reportable O2 Delivery Device Vapotherm Bipap Ventilator Type Not Reportable Not Reportable Vent Mode Not Reportable St FiO2 100 40 Inspiratory Time Not Reportable Not Reportable PEEP Not Reportable Not Reportable Pressure Support Not Reportable Not Reportable Pressure Control Not Reportable Not Reportable EPAP Not Reportable 6 IPAP Not Reportable 12 BiPAP Not Reportable Not Reportable Sodium Potassium Chloride Carbon Dioxide Anion Gap BUN Creatinine Est GFR ( Amer) Est GFR (Non-Af Amer) BUN/Creatinine Ratio Glucose POC Glucose (mg/dL) 117 H Calcium Magnesium Iron TIBC % Saturation Unsat Iron Binding Transferrin Ferritin C-Reactive Protein Vitamin B12 Blood Type Antibody Screen Crossmatch 06/13/17 06/13/17 06/13/17 05:11 05:11 05:11 WBC 11.1 H RBC 2.74 L RBC (Retic) Cancelled Hgb 6.1 L* Hct 21 L HCT (Retic) Cancelled MCV 77 L MCH 22 L MCHC 29 L RDW 28 H Plt Count 266 MPV 7 L Neut % (Auto) 78.0 Lymph % (Auto) 15.9 L Cannon % (Auto) 5.1 Eos % (Auto) 0.3 Baso % (Auto) 0.7 Absolute Neuts (auto) 8.6 H Absolute Lymphs (auto) 1.8 Absolute Monos (auto) 0.6 Absolute Eos (auto) 0 Absolute Basos (auto) 0.1 Absolute Nucleated RBC 0 Nucleated RBC % 0.2 Retic Count, Calc Cancelled Corrected Retic Count Cancelled Retic Shift Factor Cancelled Retic Production Index Cancelled Immature Retic Fraction Cancelled Mean Retic Volume Cancelled Patient Temperature ABG pH ABG pH (Temp Correct) ABG pCO2 ABG pCO2 (Temp Corrct ABG pO2 ABG pO2 (Temp Correct ABG HCO3 ABG O2 Saturation ABG Base Excess Respiration Rate O2 Delivery Device Ventilator Type Vent Mode FiO2 Inspiratory Time PEEP Pressure Support Pressure Control EPAP IPAP BiPAP Sodium 143 Potassium 4.5 Chloride 116 H Carbon Dioxide 26 Anion Gap 1 L BUN 17 Creatinine 1.15 H Est GFR ( Amer) 60.2 Est GFR (Non-Af Amer) 46.8 BUN/Creatinine Ratio 14.8 Glucose 74 POC Glucose (mg/dL) Calcium 7.5 L Magnesium 2.3 Iron Cancelled TIBC Cancelled % Saturation Cancelled Unsat Iron Binding Cancelled Transferrin Cancelled Ferritin Cancelled C-Reactive Protein Vitamin B12 Cancelled Blood Type A Negative Antibody Screen Negative Crossmatch See Detail 06/13/17 06/13/17 06/13/17 11:15 12:28 12:28 WBC RBC RBC (Retic) 2.91 L Hgb Hct HCT (Retic) 23 L MCV MCH MCHC RDW Plt Count MPV Neut % (Auto) Lymph % (Auto) Cannon % (Auto) Eos % (Auto) Baso % (Auto) Absolute Neuts (auto) Absolute Lymphs (auto) Absolute Monos (auto) Absolute Eos (auto) Absolute Basos (auto) Absolute Nucleated RBC Nucleated RBC % Retic Count, Calc 1.7 H Corrected Retic Count 0.9 Retic Shift Factor 2.0 Retic Production Index 0.50 Immature Retic Fraction 0.58 Mean Retic Volume 108.2 Patient Temperature Not Reportable ABG pH 7.24 L ABG pH (Temp Correct) Not Reportable ABG pCO2 69 H ABG pCO2 (Temp Corrct Not Reportable ABG pO2 203 H ABG pO2 (Temp Correct Not Reportable ABG HCO3 26.4 ABG O2 Saturation 98.8 H ABG Base Excess 1.9 Respiration Rate Not Reportable O2 Delivery Device Ventilator Type Not Reportable Vent Mode Not Reportable FiO2 100 Inspiratory Time Not Reportable PEEP Not Reportable Pressure Support Not Reportable Pressure Control Not Reportable EPAP Not Reportable IPAP Not Reportable BiPAP Not Reportable Sodium Potassium Chloride Carbon Dioxide Anion Gap BUN Creatinine Est GFR ( Amer) Est GFR (Non-Af Amer) BUN/Creatinine Ratio Glucose POC Glucose (mg/dL) Calcium Magnesium Iron < 15 L TIBC 237 L % Saturation 6 L Unsat Iron Binding [id number] Transferrin Ferritin 69.4 C-Reactive Protein Vitamin B12 1240 H Blood Type Antibody Screen Crossmatch 06/13/17 13:07 WBC RBC RBC (Retic) Hgb Hct HCT (Retic) MCV MCH MCHC RDW Plt Count MPV Neut % (Auto) Lymph % (Auto) Cannon % (Auto) Eos % (Auto) Baso % (Auto) Absolute Neuts (auto) Absolute Lymphs (auto) Absolute Monos (auto) Absolute Eos (auto) Absolute Basos (auto) Absolute Nucleated RBC Nucleated RBC % Retic Count, Calc Corrected Retic Count Retic Shift Factor Retic Production Index Immature Retic Fraction Mean Retic Volume Patient Temperature ABG pH ABG pH (Temp Correct) ABG pCO2 ABG pCO2 (Temp Corrct ABG pO2 ABG pO2 (Temp Correct ABG HCO3 ABG O2 Saturation ABG Base Excess Respiration Rate O2 Delivery Device Ventilator Type Vent Mode FiO2 Inspiratory Time PEEP Pressure Support Pressure Control EPAP IPAP BiPAP Sodium Potassium Chloride Carbon Dioxide Anion Gap BUN Creatinine Est GFR ( Amer) Est GFR (Non-Af Amer) BUN/Creatinine Ratio Glucose POC Glucose (mg/dL) 224 H Calcium Magnesium Iron TIBC % Saturation Unsat Iron Binding Transferrin Ferritin C-Reactive Protein Vitamin B12 Blood Type Antibody Screen Crossmatch 71 y o f with h/o myasthenia gravis,b/l LE lymphoedema, 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 fib (not anticoagulated due to chronic anemia ) type II DM, COPD (on 2.5 L02) and HTN who presented to the ER after a fall , noted to have hypoxemia with large R pleural effusion, rt lung atelectasis likely sec to mucus plugging Pt had bronchoscopy yesterday, thick mucus was suctioned CXR showed improved pl effusion however has been having worsening ventilation with hypercapnia trying to recruit with BiPAP and metanebs Pt will likely end up being vent dependant if gets intubated Her mental status is overall declining-? metabolic encephalopathy and hypercapnia Will hold off on thoracentesis given her current condition CXR also showed improvement Recommend c/w diuresis She is receiving transfusion for severe anemia No active bleeding Prognosis is guarded to poor given multiple comorbidities Will reassess need for thoracentesis in am D/w Dr Lo, Dr Mays
[2017-06-13] MEDS ORDERED: Furosemide IV* 10 MG/ML VIAL (40 MG) IV ONE (17:24)
[2017-06-13] MEDS: Pantoprazole IV* 40 MG IV SCH (17:40)
[2017-06-13] MEDS ORDERED: NS 0.9% 100 ML* 100 ML ONE (21:28)
[2017-06-14] MEDS: Pyridostigmine TAB* 60 MG PO SCH ×5 (01:29→21:04)
[2017-06-14] MEDS: Hydrocortisone INJ* 100 MG VIAL IV SCH ×3 (03:54→20:46)
[2017-06-14] MEDS: ZOSYN 3.375 GM Q8H per EXTENDED INFUSION IVPB SCH ×4 (03:54→11:43)
[2017-06-14] MEDS: Pantoprazole IV* 40 MG IV SCH ×2 (06:38→16:56)
[2017-06-14] MEDS: Tiotropium CAP.INH* CAP.INH/18 MCG (USE ORDER SET !) INH SCH ×2 (08:48→09:01)
[2017-06-14] MEDS: Mometasone/Formoter 200/5 MDI INH SCH ×3 (08:48→21:03)
[2017-06-14 09:16] LABS: Hematocrit 26 % (35-47); Hemoglobin 7.8 g/dl (12.0-16.0); Mean Corpuscular HGB Conc 31 g/dl (31-36); Mean Corpuscular Hemoglobin 24 pg (27-31); Mean Corpuscular Volume 79 fL (80-97); Mean Platelet Volume 7 um3 (7.4-10.4); Platelet Count 231 10^3/ul (150-450); Red Blood Count 3.24 10^6/ul (4.0-5.4); Red Cell Distribution Width 27 % (10.5-15); White Blood Count 6.8 10^3/ul (3.5-10.8)
[2017-06-14] MEDS: Lactobacillus Acidophilu (GG)* 1 CAP CAP PO SCH ×3 (09:16→16:06)
[2017-06-14] MEDS: Aspirin Low Dose CHEW TAB* 81 MG PO SCH (09:16)
[2017-06-14] MEDS: Dronedarone TAB* 400 MG PO SCH ×2 (09:16→21:03)
[2017-06-14] MEDS: Nystatin SUSPENSION* 100000 UNITS/ML 5 ML UDC SWISH SWAL SCH ×3 (09:16→17:01)
[2017-06-14] MEDS: Ferrous Sulfate TAB* 325 MG PO SCH (09:16)
[2017-06-14] MEDS: Oseltamivir CAP* 30 MG CAP PO SCH (09:16)
[2017-06-14] MEDS: Nystatin TOP POWDER* 15 GM BTL TOPICAL SCH ×3 (09:17→21:04)
[2017-06-14] MEDS ORDERED: Furosemide IV* 10 MG/ML VIAL (40 MG) IV ONE ×2 (10:03→17:00)
--- NOTE | 2017-06-14 10:12 | PN ---
Subjective Date of Service: 06/14/17 Interval History: Pt had been on BIPAP and eating on Vaoptherm. Stool on eval was light brown and loose-heme positive Objective Active Medications: Acetaminophen (Tylenol Tab*) 650 mg PO Q4HR PRN PRN Reason: FEVER Last Admin: 06/12/17 18:43 Dose: 650 mg Albuterol (Ventolin 2.5 Mg/3 Ml Neb.Bridget*) 2.5 mg INH Q2H PRN PRN Reason: SOB/WHEEZING Aspirin (Aspirin Low Dose Tab*) 81 mg PO DAILY [facility] Last Admin: 06/14/17 09:16 Dose: 81 mg Cyanocobalamin (Vitamin B12 Tab*) 1,000 mcg PO MONTHLY [facility] Dronedarone (Multaq Tab*) 400 mg PO BID [facility] Last Admin: 06/14/17 09:16 Dose: 400 mg Ferrous Sulfate (Ferrous Sulfate Tab*) 325 mg PO DAILY [facility] Last Admin: 06/14/17 09:16 Dose: 325 mg Furosemide (Lasix Iv*) 40 mg IV ONCE ONE Stop: 06/14/17 10:04 Hydrocortisone Sodium Succinate (Solu-Cortef*) 50 mg IV Q8H [facility] Last Admin: 06/14/17 03:54 Dose: 50 mg Piperacillin Sod/Tazobactam (Sod 3.375 gm/ Sodium Chloride) 100 mls @ 25 mls/ hr IVPB Q8H [facility] Last Admin: 06/14/17 03:54 Dose: 25 mls/hr Lactobacillus Rhamnosus (Culturelle*) 1 cap PO TID AC [facility] Last Admin: 06/14/17 09:16 Dose: 1 cap Loperamide HCl (Imodium Cap*) 2 mg PO Q4HR PRN PRN Reason: LOOSE STOOLS Mometasone Furoate/Formoterol Fumar (Dulera 200/5 Mdi*) 2 puff INH BID [facility] Last Admin: 06/14/17 09:01 Dose: 2 puff Nystatin (Nystatin Suspension*) 500,000 units SWISH SWAL TID PC [facility] Last Admin: 06/14/17 09:16 Dose: 500,000 units Nystatin (Nystatin Top Powder*) 1 applic TOPICAL TID [facility] Last Admin: 06/14/17 09:17 Dose: 1 applic Oseltamivir Phosphate (Tamiflu Cap*) 30 mg PO DAILY [facility] Last Admin: 06/14/17 09:16 Dose: 30 mg Oxycodone/Acetaminophen (Percocet 5/325 Tab*) 1 tab PO Q4H PRN PRN Reason: PAIN Pantoprazole Sodium (Protonix Iv*) 40 mg IV Q12H [facility] Last Admin: 06/14/17 06:38 Dose: 40 mg Pharmacy Consult (Zosyn Per Pharmacy*) 1 note FOLLOW UP .ZOSYN PER PHARMACY [facility] Pyridostigmine [place] (Mestinon Tab*) 120 mg PO QID [facility] Last Admin: 06/14/17 09:16 Dose: 120 mg Tiotropium [place] (Spiriva Cap.Inh*) 1 cap INH DAILY [facility] Last Admin: 06/14/17 09:01 Dose: 1 cap.inh Vital Signs - 8 hr 06/14/17 06/14/17 06/14/17 03:00 03:25 04:00 Temperature 99.9 F Pulse Rate 60 60 Respiratory 21 18 19 Rate Blood Pressure 107/49 107/52 (mmHg) O2 Sat by Pulse 100 98 Oximetry 06/14/17 06/14/17 06/14/17 05:00 06:00 06:39 Temperature Pulse Rate 60 60 Respiratory 19 17 20 Rate Blood Pressure 113/61 109/56 (mmHg) O2 Sat by Pulse 96 98 Oximetry 06/14/17 06/14/17 06/14/17 07:00 08:00 09:00 Temperature 98 F Pulse Rate 60 60 60 Respiratory 24 20 25 Rate Blood Pressure 114/55 120/61 118/66 (mmHg) O2 Sat by Pulse 98 97 99 Oximetry 06/14/17 09:05 Temperature Pulse Rate 63 Respiratory 20 Rate Blood Pressure (mmHg) O2 Sat by Pulse 99 Oximetry Oxygen Devices in Use Now: High Flow Heated Nasal Cannula Appearance: 71 yo F in nAD, aAOx2 Eyes: No Scleral Icterus, PERRLA Ears/Nose/Mouth/Throat: NL Teeth, Lips, Gums, Mucous Membranes Moist Neck: NL Appearance and Movements; NL JVP, Trachea Midline Respiratory: Symmetrical Chest Expansion and Respiratory Effort, - - crackles at b//l lower lungs, decreased breath sounds at RLL-improving Cardiovascular: NL Sounds; No Murmurs; No JVD, RRR Abdominal: NL Sounds; No Tenderness; No Distention Lymphatic: No Cervical Adenopathy Extremities: No Clubbing, Cyanosis, - - b/l LE's lymphoedema -unchanged. D/o forearm edema Skin: No Nodules or Sclerosis, - - scattered skin tears an decchymosis on b/l hands and forearms. Shalonda intertrigo in groin, sacral decub stage 1-2 Neurological: Alert and Oriented x 3, NL Muscle Strength and Tone Result Diagrams: 06/14/17 08:57 06/14/17 08:57 Additional Lab and Data: Lab Results 06/11/17 06/11/17 06/11/17 Range/Units 11:27 11:52 11:52 WBC 12.3 H (3.5-10.8) 10^3/ul RBC 3.37 L (4.0-5.4) 10^6/ul Hgb 7.3 L (12.0-16.0) g/dl Hct 26 L (35-47) % MCV 76 L (80-97) fL MCH 22 L (27-31) pg MCHC 29 L (31-36) g/dl RDW 30 H (10.5-15) % Plt Count 335 (150-450) 10^3/ul MPV 7 L (7.4-10.4) um3 Neut % (Auto) 87.1 H (38-83) % Lymph % (Auto) 7.3 L (25-47) % [place] % (Auto) 5.2 (1-9) % Eos % (Auto) 0.2 (0-6) % Baso % (Auto) 0.2 (0-2) % Absolute Neuts (auto) 10.7 H (1.5-7.7) 10^3/ul Absolute Lymphs (auto) 0.9 L (1.0-4.8) 10^3/ul Absolute Monos (auto) 0.6 (0-0.8) 10^3/ul Absolute Eos (auto) 0 (0-0.6) 10^3/ul Absolute Basos (auto) 0 (0-0.2) 10^3/ul Absolute Nucleated RBC 0.1 10^3/ul Neutrophils % 84 H (38-83) % Lymphocytes % 8 L (25-47) % Monocytes % 8 (0-13) % Nucleated RBC % 0.5 Normal RBC Morphology Not Reportable Polychromasia 1+ Hypochromasia 1+ Microcytosis 1+ INR (Anticoag Therapy) (0.77-1.02) Sodium (133-145) mmol/L Potassium (3.5-5.0) mmol/L Chloride (101-111) mmol/L Carbon Dioxide (22-32) mmol/L BUN (6-24) mg/dL Creatinine (0.51-0.95) mg/dL Est GFR ( Amer) (>60) Est GFR (Non-Af Amer) (>60) BUN/Creatinine Ratio (8-20) Glucose (70-100) mg/dL POC Glucose (mg/dL) 172 H (70-100) mg/dL Lactic Acid (0.5-2.0) mmol/L Calcium (8.6-10.3) mg/dL Total Bilirubin (0.2-1.0) mg/dL AST (13-39) U/L ALT (7-52) U/L Alkaline Phosphatase (34-104) U/L Ammonia 49 (16-53) mol/L Troponin I (<0.04) ng/mL Total Protein (6.4-8.9) g/dL Albumin (3.2-5.2) g/dL Globulin (2-4) g/dL Albumin/Globulin Ratio (1-3) TSH (0.34-5.60) mcIU/mL Urine Color Urine Appearance Urine pH (5-9) Ur Specific [place] (1.010-1.030) Urine Protein (Negative) Urine Ketones (Negative) Urine Blood (Negative) Urine Nitrate (Negative) Urine Bilirubin (Negative) Urine Urobilinogen (Negative) Ur Leukocyte Esterase (Negative) Urine WBC (Auto) (Absent) Urine RBC (Auto) (Absent) Urine Bacteria (Absent) Urine Glucose (Negative) Influenza A (Rapid) (Negative) Influenza B (Rapid) (Negative) 06/11/17 06/11/17 06/11/17 Range/Units 11:52 11:52 11:52 WBC (3.5-10.8) 10^3/ul RBC (4.0-5.4) 10^6/ul Hgb (12.0-16.0) g/dl Hct (35-47) % MCV (80-97) fL MCH (27-31) pg MCHC (31-36) g/dl RDW (10.5-15) % Plt Count (150-450) 10^3/ul MPV (7.4-10.4) um3 Neut % (Auto) (38-83) % Lymph % (Auto) (25-47) % [place] % (Auto) (1-9) % Eos % (Auto) (0-6) % Baso % (Auto) (0-2) % Absolute Neuts (auto) (1.5-7.7) 10^3/ul Absolute Lymphs (auto) (1.0-4.8) 10^3/ul Absolute Monos (auto) (0-0.8) 10^3/ul Absolute Eos (auto) (0-0.6) 10^3/ul Absolute Basos (auto) (0-0.2) 10^3/ul Absolute Nucleated RBC 10^3/ul Neutrophils % (38-83) % Lymphocytes % (25-47) % Monocytes % (0-13) % Nucleated RBC % Normal RBC Morphology Polychromasia Hypochromasia Microcytosis INR (Anticoag Therapy) 0.90 (0.77-1.02) Sodium 140 (133-145) mmol/L Potassium 4.5 (3.5-5.0) mmol/L Chloride 111 (101-111) mmol/L Carbon Dioxide 32 (22-32) mmol/L BUN 17 (6-24) mg/dL Creatinine 0.88 (0.51-0.95) mg/dL Est GFR ( Amer) 81.9 (>60) Est GFR (Non-Af Amer) 63.7 (>60) BUN/Creatinine Ratio 19.3 (8-20) Glucose 114 H (70-100) mg/dL POC Glucose (mg/dL) (70-100) mg/dL Lactic Acid 0.9 (0.5-2.0) mmol/L Calcium 7.7 L (8.6-10.3) mg/dL Total Bilirubin 0.30 (0.2-1.0) mg/dL AST 16 (13-39) U/L ALT 9 (7-52) U/L Alkaline Phosphatase 77 (34-104) U/L Ammonia (16-53) mol/L Troponin I 0.03 (<0.04) ng/mL Total Protein 6.0 L (6.4-8.9) g/dL Albumin 2.5 L (3.2-5.2) g/dL Globulin 3.5 (2-4) g/dL Albumin/Globulin Ratio 0.7 L (1-3) TSH 3.22 (0.34-5.60) mcIU/mL Urine Color Urine Appearance Urine pH (5-9) Ur Specific [place] (1.010-1.030) Urine Protein (Negative) Urine Ketones (Negative) Urine Blood (Negative) Urine Nitrate (Negative) Urine Bilirubin (Negative) Urine Urobilinogen (Negative) Ur Leukocyte Esterase (Negative) Urine WBC (Auto) (Absent) Urine RBC (Auto) (Absent) Urine Bacteria (Absent) Urine Glucose (Negative) Influenza A (Rapid) (Negative) Influenza B (Rapid) (Negative) 06/11/17 06/11/17 06/11/17 Range/Units 12:50 14:41 14:53 WBC (3.5-10.8) 10^3/ul RBC (4.0-5.4) 10^6/ul Hgb (12.0-16.0) g/dl Hct (35-47) % MCV (80-97) fL MCH (27-31) pg MCHC (31-36) g/dl RDW (10.5-15) % Plt Count (150-450) 10^3/ul MPV (7.4-10.4) um3 Neut % (Auto) (38-83) % Lymph % (Auto) (25-47) % [place] % (Auto) (1-9) % Eos % (Auto) (0-6) % Baso % (Auto) (0-2) % Absolute Neuts (auto) (1.5-7.7) 10^3/ul Absolute Lymphs (auto) (1.0-4.8) 10^3/ul Absolute Monos (auto) (0-0.8) 10^3/ul Absolute Eos (auto) (0-0.6) 10^3/ul Absolute Basos (auto) (0-0.2) 10^3/ul Absolute Nucleated RBC 10^3/ul Neutrophils % (38-83) % Lymphocytes % (25-47) % Monocytes % (0-13) % Nucleated RBC % Normal RBC Morphology Polychromasia Hypochromasia Microcytosis INR (Anticoag Therapy) (0.77-1.02) Sodium (133-145) mmol/L Potassium (3.5-5.0) mmol/L Chloride (101-111) mmol/L Carbon Dioxide (22-32) mmol/L BUN (6-24) mg/dL Creatinine (0.51-0.95) mg/dL Est GFR ( Amer) (>60) Est GFR (Non-Af Amer) (>60) BUN/Creatinine Ratio (8-20) Glucose (70-100) mg/dL POC Glucose (mg/dL) 31 L* 168 H (70-100) mg/dL Lactic Acid (0.5-2.0) mmol/L Calcium (8.6-10.3) mg/dL Total Bilirubin (0.2-1.0) mg/dL AST (13-39) U/L ALT (7-52) U/L Alkaline Phosphatase (34-104) U/L Ammonia (16-53) mol/L Troponin I (<0.04) ng/mL Total Protein (6.4-8.9) g/dL Albumin (3.2-5.2) g/dL Globulin (2-4) g/dL Albumin/Globulin Ratio (1-3) TSH (0.34-5.60) mcIU/mL Urine Color Pat Urine Appearance Turbid Urine pH 5.0 (5-9) Ur Specific [place] 1.012 (1.010-1.030) Urine Protein 2+(100 mg/dl) H (Negative) Urine Ketones Negative (Negative) Urine Blood 2+ H (Negative) Urine Nitrate Positive H (Negative) Urine Bilirubin Negative (Negative) Urine Urobilinogen Negative (Negative) Ur Leukocyte Esterase 3+ H (Negative) Urine WBC (Auto) 3+(>20/hpf) H (Absent) Urine RBC (Auto) 3+(>10/hpf) H (Absent) Urine Bacteria 2+ H (Absent) Urine Glucose Negative (Negative) Influenza A (Rapid) (Negative) Influenza B (Rapid) (Negative) 06/11/17 06/11/17 06/11/17 Range/Units 15:09 15:24 16:10 WBC (3.5-10.8) 10^3/ul RBC (4.0-5.4) 10^6/ul Hgb (12.0-16.0) g/dl Hct (35-47) % MCV (80-97) fL MCH (27-31) pg MCHC (31-36) g/dl RDW (10.5-15) % Plt Count (150-450) 10^3/ul MPV (7.4-10.4) um3 Neut % (Auto) (38-83) % Lymph % (Auto) (25-47) % [place] % (Auto) (1-9) % Eos % (Auto) (0-6) % Baso % (Auto) (0-2) % Absolute Neuts (auto) (1.5-7.7) 10^3/ul Absolute Lymphs (auto) (1.0-4.8) 10^3/ul Absolute Monos (auto) (0-0.8) 10^3/ul Absolute Eos (auto) (0-0.6) 10^3/ul Absolute Basos (auto) (0-0.2) 10^3/ul Absolute Nucleated RBC 10^3/ul Neutrophils % (38-83) % Lymphocytes % (25-47) % Monocytes % (0-13) % Nucleated RBC % Normal RBC Morphology Polychromasia Hypochromasia Microcytosis INR (Anticoag Therapy) (0.77-1.02) Sodium (133-145) mmol/L Potassium (3.5-5.0) mmol/L Chloride (101-111) mmol/L Carbon Dioxide (22-32) mmol/L BUN (6-24) mg/dL Creatinine (0.51-0.95) mg/dL Est GFR ( Amer) (>60) Est GFR (Non-Af Amer) (>60) BUN/Creatinine Ratio (8-20) Glucose (70-100) mg/dL POC Glucose (mg/dL) 118 H 98 (70-100) mg/dL Lactic Acid (0.5-2.0) mmol/L Calcium (8.6-10.3) mg/dL Total Bilirubin (0.2-1.0) mg/dL AST (13-39) U/L ALT (7-52) U/L Alkaline Phosphatase (34-104) U/L Ammonia (16-53) mol/L Troponin I (<0.04) ng/mL Total Protein (6.4-8.9) g/dL Albumin (3.2-5.2) g/dL Globulin (2-4) g/dL Albumin/Globulin Ratio (1-3) TSH (0.34-5.60) mcIU/mL Urine Color Urine Appearance Urine pH (5-9) Ur Specific [place] (1.010-1.030) Urine Protein (Negative) Urine Ketones (Negative) Urine Blood (Negative) Urine Nitrate (Negative) Urine Bilirubin (Negative) Urine Urobilinogen (Negative) Ur Leukocyte Esterase (Negative) Urine WBC (Auto) (Absent) Urine RBC (Auto) (Absent) Urine Bacteria (Absent) Urine Glucose (Negative) Influenza A (Rapid) Negative (Negative) Influenza B (Rapid) Negative (Negative) 06/11/17 Range/Units 16:46 WBC (3.5-10.8) 10^3/ul RBC (4.0-5.4) 10^6/ul Hgb (12.0-16.0) g/dl Hct (35-47) % MCV (80-97) fL MCH (27-31) pg MCHC (31-36) g/dl RDW (10.5-15) % Plt Count (150-450) 10^3/ul MPV (7.4-10.4) um3 Neut % (Auto) (38-83) % Lymph % (Auto) (25-47) % [place] % (Auto) (1-9) % Eos % (Auto) (0-6) % Baso % (Auto) (0-2) % Absolute Neuts (auto) (1.5-7.7) 10^3/ul Absolute Lymphs (auto) (1.0-4.8) 10^3/ul Absolute Monos (auto) (0-0.8) 10^3/ul Absolute Eos (auto) (0-0.6) 10^3/ul Absolute Basos (auto) (0-0.2) 10^3/ul Absolute Nucleated RBC 10^3/ul Neutrophils % (38-83) % Lymphocytes % (25-47) % Monocytes % (0-13) % Nucleated RBC % Normal RBC Morphology Polychromasia Hypochromasia Microcytosis INR (Anticoag Therapy) (0.77-1.02) Sodium (133-145) mmol/L Potassium (3.5-5.0) mmol/L Chloride (101-111) mmol/L Carbon Dioxide (22-32) mmol/L BUN (6-24) mg/dL Creatinine (0.51-0.95) mg/dL Est GFR ( Amer) (>60) Est GFR (Non-Af Amer) (>60) BUN/Creatinine Ratio (8-20) Glucose (70-100) mg/dL POC Glucose (mg/dL) 97 (70-100) mg/dL Lactic Acid (0.5-2.0) mmol/L Calcium (8.6-10.3) mg/dL Total Bilirubin (0.2-1.0) mg/dL AST (13-39) U/L ALT (7-52) U/L Alkaline Phosphatase (34-104) U/L Ammonia (16-53) mol/L Troponin I (<0.04) ng/mL Total Protein (6.4-8.9) g/dL Albumin (3.2-5.2) g/dL Globulin (2-4) g/dL Albumin/Globulin Ratio (1-3) TSH (0.34-5.60) mcIU/mL Urine Color Urine Appearance Urine pH (5-9) Ur Specific [place] (1.010-1.030) Urine Protein (Negative) Urine Ketones (Negative) Urine Blood (Negative) Urine Nitrate (Negative) Urine Bilirubin (Negative) Urine Urobilinogen (Negative) Ur Leukocyte Esterase (Negative) Urine WBC (Auto) (Absent) Urine RBC (Auto) (Absent) Urine Bacteria (Absent) Urine Glucose (Negative) Influenza A (Rapid) (Negative) Influenza B (Rapid) (Negative) Microbiology and Other Data: Microbiology 06/12/17 03:50 Nasal Screen MRSA (PCR)([facility]) - Final Nasal Mrsa Detected Assess/Plan/Problems-Billing Assessment: Ms Oreilly is a 71 yo F with a h/o myasthenia gravis,b/l LE lymphoedema, 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 fib (not anticoagulated due to chronic anemia) type II DM, COPD (on 2.5 L02) and HTN who presented to the ER after a fall and was noted to have hypoxemia with large R pleural effusion - Patient Problems (1) Pleural effusion Comment: Large over the entire R hemithorax with compressive atelectasis of R lung. S/p bronch on 06/12/17 with partial re-expansion of r lung .Spoke with pt's sisters present in the room about potential of ventilator support if pt's resp status doesn't improve. Pt is full code. Dr. Lofton consulted. for now cont Vaopotherm and BIPAP Tx with a dose of IV Lasix on 06/12/17 and on 06/13/17, will repeat another dose today. Cont Zosyn started on 06/12/17 Dr. Vegas following re: consideration pf thoracentesis, CXR pending today (2) Anemia Comment: s/p 2 u PRBC transfusion on 06/13/17. IV iron infused on 06/13/17 Acute on chronic: iron defficient and of chronic disease. Pt was transfused at end of April 2017 also. baseline Hb 7 Acute GI bleed diagnosed on 06/13/17-pt's stool is brown and heme+. ? slow bleed vs internal hemorrhoids? Pt is not stable from respiratory standpoint for EGD procedure. Protonix IV BID ordered. (3) Atrial fibrillation Comment: Continue multaq. No anticoagulation at baseline. In NSR today, H/o tachy /jenna syndrome, s/p pacer Occasionaly pt wound go into NSVT when in respiratory compromise in the past 2 days. None today. (4) CKD (chronic kidney disease) Comment: Creatinine better than baseline.suspect hemodilution. Continue to diurese (5) Diastolic heart failure Comment: BNP markedly elevated-new suspect pt's effusion and generalized anasarca can be from acute diastolic CHF CHF Echo shows good EF 65% cont daily weights and I/O's cont daily evaluation for diuresis. will treat with Lasix 40 mg x 1 today (6) Type 2 diabetes mellitus Comment: hypoglycemia at admission. Now normalized. will start ISS (7) Myasthenia gravis Comment: IgG is once a month. Pyridostigmine . On prednisone at home(40 mg). Started on stress dose steroids due to very poor respiratory status on 06/13/17 (8) UTI (urinary tract infection) Comment: Klebsiella growing on UCx. Continue zosyn (9) DVT prophylaxis Comment: SQ heparin held due GI bleed and anemia Status and Disposition: inpatient
[2017-06-14] MEDS ORDERED: Furosemide IV* 10 MG/ML 10 ML VIAL (100 MG) IV SCH (10:16)
[2017-06-14] MEDS ORDERED: Dextrose 50% Syringe 50 ML* 25 GM/50 ML SYRINGE IV PUSH PRN (10:16)
--- NOTE | 2017-06-14 10:42 | RAD ---
HISTORY: Follow-up right effusion COMPARISONS: June 13, 2017 VIEWS: 1: frontal portable view of the chest at 9:45 AM FINDINGS: LINES AND TUBES: A left-sided pacemaker is noted. CARDIOMEDIASTINAL SILHOUETTE: The cardiomediastinal silhouette is normal for portable technique. PLEURA: There is a small right pleural effusion LUNG PARENCHYMA: There is a diffuse reticular pattern with indistinct pulmonary vessels. ABDOMEN: The upper abdomen is clear. There is no subphrenic gas. BONES AND SOFT TISSUES: No bone or soft tissue abnormalities are noted. IMPRESSION: PULMONARY INTERSTITIAL EDEMA WITH SMALL RIGHT EFFUSION.
--- NOTE | 2017-06-14 12:16 | PN ---
Progress Note - Progress Note Date of Service: 06/14/17 Note: CCM Progress Note Had break from BiPAP late last night Off BiPAP earlier today and had breakfast Seen once again on BiPAP Awake and responsive...denies dyspnea Discussed with Dr Vegas...does not feel pleural tap will be particularly beneficial thus thinks risk exceeds benefit Noted that patient transfused ytdy and Neurology consulted re her Myasthenia mngmnt SBP 120 HR 60 21 SpO2 98 BiPAP IPAP 12 EPAP 6 FiO2 60 Skin no diaphoresis Sclerae anicteric Oral mucosa pink Lungs with diminished air entry lower lung zones Cor RRR no rub, no murmur Abd soft, nontender Ext edematous RUE with PIV IMP: Hypercapneic Resp Failure due to profound neuromuscular weakness with moderately large Rt pleural effusion and RLL atelectasis Weakness and Frailty....chronic...likely multifactorial in etiology Hx Masthenia gravis Hx COPD Hx Diatolic CHF Anasarca Protein Calorie Malnutrition Hx A Fib Hx Iron Def anemia with critical level of anemia now in course of receiving PRBC Hx GERD B12 Def PLAN/REC: Will standby in event patient declines needing intubation For interim continue non-invasive FM ventilation to temporize Check ABG PRN Patient at high risk for permanent need for respiratory support if intubated given her profound weakness.
[2017-06-14] MEDS: Insulin LISPRO* 1 UNITS UNIT SUBCUT SCH ×3 (13:02→21:58)
[2017-06-14] MEDS: Meropenem 1 GM PREMIX(*) 1 GM/50 ML BAG IV SCH (16:04)
[2017-06-14] MEDS ORDERED: Metolazone TAB* 5 MG PO ONE (16:30)
[2017-06-14] MEDS: Insulin GLARGINE(*) 1 UNITS UNIT SUBCUT SCH ×2 (16:51→17:02)
--- NOTE | 2017-06-14 16:51 | PN ---
Progress Note - Progress Note Date of Service: 06/14/17 - Pulm f/u note Note: Pt seen and examined at bedside. Overnight events noted. Pt off BiPAP, transitioned to vapotherm, is OOB to chair and more alert Active Medications Generic Name Dose Route Start Last Admin Trade Name Freq PRN Reason Stop Dose Admin Acetaminophen 650 mg 06/12/17 17:26 06/12/17 18:43 Tylenol Tab* PO 650 mg Q4HR PRN Administration FEVER Albuterol 2.5 mg 06/11/17 18:21 Ventolin 2.5 Mg/3 Ml Neb.Bridget* INH Q2H PRN SOB/WHEEZING Cyanocobalamin 1,000 mcg 06/11/17 19:00 Vitamin B12 Tab* PO MONTHLY THUY Dextrose 12.5 gm 06/14/17 10:16 D50w Syringe 50 Ml* IV PUSH .FOR FS < 60 - SS PRN FS < 60 Dronedarone 400 mg 06/11/17 21:00 06/14/17 09:16 Multaq Tab* PO 400 mg BID THUY Administration Ferrous Sulfate 325 mg 06/12/17 09:00 06/14/17 09:16 Ferrous Sulfate Tab* PO 325 mg DAILY THUY Administration Furosemide 40 mg 06/14/17 17:00 Lasix Iv* IV 06/14/17 17:01 ONCE ONE Hydrocortisone Sodium Succinate 50 mg 06/13/17 12:00 06/14/17 11:45 Solu-Cortef* IV 50 mg Q8H THUY Administration Meropenem 1 gm in 50 mls @ 100 mls/hr 06/14/17 15:00 06/14/17 16:04 Merrem 1 Gm Premix(*) IV 100 mls/hr Q12H THUY Administration Insulin Glargine 20 units 06/14/17 14:48 Lantus(*) SUBCUT QPM THUY Insulin Human Lispro 0 units 06/14/17 12:00 06/14/17 13:02 Humalog* SUBCUT 10 units FS ACHS ICU THUY Administration Protocol Lactobacillus Rhamnosus 1 cap 06/12/17 07:30 06/14/17 16:06 Culturelle* PO 1 cap TID AC THUY Administration Loperamide HCl 2 mg 06/11/17 18:21 Imodium Cap* PO Q4HR PRN LOOSE STOOLS Mometasone Furoate/Formoterol Fumar 2 puff 06/11/17 21:00 06/14/17 09:01 Dulera 200/5 Mdi* INH 2 puff BID THUY Administration Nystatin 500,000 units 06/12/17 08:30 06/14/17 11:49 Nystatin Suspension* SWISH SWAL 500,000 units TID PC THUY Administration Nystatin 1 applic 06/11/17 21:00 06/14/17 16:05 Nystatin Top Powder* TOPICAL 1 applic TID THUY Administration Oseltamivir Phosphate 30 mg 06/12/17 09:00 06/14/17 09:16 Tamiflu Cap* PO 30 mg DAILY THUY Administration Oxycodone/Acetaminophen 1 tab 06/11/17 18:21 Percocet 5/325 Tab* PO Q4H PRN PAIN Pantoprazole Sodium 40 mg 06/13/17 18:00 06/14/17 06:38 Protonix Iv* IV 40 mg Q12H THUY Administration Pharmacy Consult 1 note 06/12/17 14:00 Zosyn Per Pharmacy* FOLLOW UP .ZOSYN PER PHARMACY [facility] Pyridostigmine [place] 120 mg 06/11/17 21:00 06/14/17 16:00 Mestinon Tab* PO Not Given QID THUY Tiotropium [place] 1 cap 06/12/17 09:00 06/14/17 09:01 Spiriva Cap.Inh* INH 1 cap.inh DAILY THUY Administration Vital Signs Temp Pulse Resp BP Pulse Ox 98.7 F 61 20 130/48 100 06/14/17 15:59 06/14/17 14:00 06/14/17 14:51 06/14/17 14:00 06/14/17 14:49 O/E: Pt in more alert today, sitting up in chair, still weak HEENT: PERRLA, No JVD Lungs: Diminished air entry b/l R>L CVS: S1, S2+ Abd: Obese, BS+ Ext: edema + Neuro: More alert, significant motor weakness Laboratory Results - last 24 hr 06/13/17 06/13/17 06/14/17 05:11 21:53 08:57 WBC RBC Hgb Hct MCV MCH MCHC RDW Plt Count MPV Sodium Potassium Chloride Carbon Dioxide Anion Gap BUN Creatinine Est GFR ( Amer) Est GFR (Non-Af Amer) BUN/Creatinine Ratio Glucose POC Glucose (mg/dL) 284 H Calcium B-Natriuretic Peptide 1261 H Blood Type A Negative Antibody Screen Negative Crossmatch See Detail 06/14/17 06/14/17 06/14/17 08:57 08:57 11:46 WBC 6.8 RBC 3.24 L Hgb 7.8 L Hct 26 L MCV 79 L MCH 24 L MCHC 31 RDW 27 H Plt Count 231 MPV 7 L Sodium 143 Potassium 3.9 Chloride 112 H Carbon Dioxide 29 Anion Gap 2 BUN 16 Creatinine 1.29 H Est GFR ( Amer) 52.7 Est GFR (Non-Af Amer) 41.0 BUN/Creatinine Ratio 12.4 Glucose 283 H POC Glucose (mg/dL) 401 H* Calcium 7.7 L B-Natriuretic Peptide Blood Type Antibody Screen Crossmatch 06/14/17 06/14/17 12:05 16:05 WBC RBC Hgb Hct MCV MCH MCHC RDW Plt Count MPV Sodium Potassium Chloride Carbon Dioxide Anion Gap BUN Creatinine Est GFR ( Amer) Est GFR (Non-Af Amer) BUN/Creatinine Ratio Glucose 376 H POC Glucose (mg/dL) 226 H Calcium B-Natriuretic Peptide Blood Type Antibody Screen Crossmatch I/R: 71 y o f with h/o myasthenia gravis,b/l LE lymphoedema, 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 fib (not anticoagulated due to chronic anemia ) type II DM, COPD (on 2.5 L02) and HTN who presented to the ER after a fall , noted to have hypoxemia with large R pleural effusion, rt lung atelectasis likely sec to mucus plugging Pt had bronchoscopy 06/12, thick mucus was suctioned CXR this am was reviewed- showed improvement in pl effusion now with small effusion Still has weak cough reflux Aspiration precautions Has been abole to get off BiPAP Will taper high flow as tolerated BiPAP at night Pt will likely end up being vent dependant if gets intubated Her mental status is overall declining-? metabolic encephalopathy and hypercapnia Bronch cx positive for ESBL , on meropenem She received transfusion for severe anemia, likely from lower GI bleed Having large BM Prognosis is guarded to poor given multiple comorbidities, full code D/w Dr Lo, Dr Mays
[2017-06-15] MEDS: Meropenem 1 GM PREMIX(*) 1 GM/50 ML BAG IV SCH ×2 (02:58→17:44)
[2017-06-15] MEDS: Hydrocortisone INJ* 100 MG VIAL IV SCH ×3 (03:59→20:13)
[2017-06-15] MEDS: Pantoprazole IV* 40 MG IV SCH ×2 (05:45→17:44)
[2017-06-15 05:48] LABS: ABS Basophils 0 10^3/ul (0-0.2); ABS Eosinophils 0 10^3/ul (0-0.6); ABS Lymphocytes 0.5 10^3/ul (1.0-4.8); ABS Monocytes 0.4 10^3/ul (0-0.8); ABS Neutrophils 10.2 10^3/ul (1.5-7.7); ABS Nucleated RBC 0 10^3/ul; Eosinophil % 0.2 % (0-6); Hematocrit 27 % (35-47); Hemoglobin 8.2 g/dl (12.0-16.0); Lymphocyte % 4.8 % (25-47); Mean Corpuscular HGB Conc 30 g/dl (31-36); Mean Corpuscular Hemoglobin 24 pg (27-31); Mean Corpuscular Volume 79 fL (80-97); Mean Platelet Volume 7 um3 (7.4-10.4); Nucleated Red Blood Cells % 0.2; Platelet Count 242 10^3/ul (150-450); Red Cell Distribution Width 27 % (10.5-15); White Blood Count 11.2 10^3/ul (3.5-10.8)
[2017-06-15 05:58] LABS: EGFR Non-African American 43.3 (>60)
[2017-06-15] MEDS: Mometasone/Formoter 200/5 MDI INH SCH ×2 (07:08→19:53)
[2017-06-15] MEDS: Tiotropium CAP.INH* CAP.INH/18 MCG (USE ORDER SET !) INH SCH (07:08)
--- NOTE | 2017-06-15 07:53 | PN ---
Subjective Date of Service: 06/15/17 Interval History: Pt states she is feeling a little better today. She states her breathing is easier. She denies any pain except for her bottom which is quite sore. She has no other complaints this AM. Objective Active Medications: Acetaminophen (Tylenol Tab*) 650 mg PO Q4HR PRN PRN Reason: FEVER Last Admin: 06/12/17 18:43 Dose: 650 mg Albuterol (Ventolin 2.5 Mg/3 Ml Neb.Bridget*) 2.5 mg INH Q2H PRN PRN Reason: SOB/WHEEZING Cyanocobalamin (Vitamin B12 Tab*) 1,000 mcg PO MONTHLY [facility] Dextrose (D50w Syringe 50 Ml*) 12.5 gm IV PUSH .FOR FS < 60 - SS PRN PRN Reason: FS < 60 Dronedarone (Multaq Tab*) 400 mg PO BID [facility] Last Admin: 06/14/17 21:03 Dose: 400 mg Ferrous Sulfate (Ferrous Sulfate Tab*) 325 mg PO DAILY [facility] Last Admin: 06/14/17 09:16 Dose: 325 mg Hydrocortisone Sodium Succinate (Solu-Cortef*) 50 mg IV Q8H [facility] Last Admin: 06/15/17 03:59 Dose: 50 mg Meropenem (Merrem 1 Gm Premix(*)) 1 gm in 50 mls @ 100 mls/hr IV Q12H [facility] Last Admin: 06/15/17 02:58 Dose: 100 mls/hr Insulin Glargine (Lantus(*)) 20 units SUBCUT QPM [facility] Last Admin: 06/14/17 17:02 Dose: Not Given Insulin Human Lispro (Humalog*) 0 units SUBCUT FS ACHS ICU [facility] PRN Reason: Protocol Last Admin: 06/14/17 21:58 Dose: 4 units Lactobacillus Rhamnosus (Culturelle*) 1 cap PO TID AC [facility] Last Admin: 06/14/17 16:06 Dose: 1 cap Loperamide HCl (Imodium Cap*) 2 mg PO Q4HR PRN PRN Reason: LOOSE STOOLS Mometasone Furoate/Formoterol Fumar (Dulera 200/5 Mdi*) 2 puff INH BID [facility] Last Admin: 06/15/17 07:08 Dose: 2 puff Nystatin (Nystatin Suspension*) 500,000 units SWISH SWAL TID PC [facility] Last Admin: 06/14/17 17:01 Dose: 500,000 units Nystatin (Nystatin Top Powder*) 1 applic TOPICAL TID [facility] Last Admin: 06/14/17 21:04 Dose: 1 applic Oseltamivir Phosphate (Tamiflu Cap*) 30 mg PO DAILY [facility] Last Admin: 06/14/17 09:16 Dose: 30 mg Oxycodone/Acetaminophen (Percocet 5/325 Tab*) 1 tab PO Q4H PRN PRN Reason: PAIN Pantoprazole Sodium (Protonix Iv*) 40 mg IV Q12H [facility] Last Admin: 06/15/17 05:45 Dose: 40 mg Pharmacy Consult (Zosyn Per Pharmacy*) 1 note FOLLOW UP .ZOSYN PER PHARMACY [facility] Pyridostigmine [place] (Mestinon Tab*) 120 mg PO QID [facility] Last Admin: 06/14/17 21:04 Dose: 120 mg Tiotropium [place] (Spiriva Cap.Inh*) 1 cap INH DAILY [facility] Last Admin: 06/15/17 07:08 Dose: 1 cap.inh Vital Signs - 8 hr 06/15/17 06/15/17 06/15/17 00:00 01:00 02:00 Temperature 97.3 F Pulse Rate 60 60 60 Respiratory 20 17 18 Rate Blood Pressure 122/51 109/51 110/48 (mmHg) O2 Sat by Pulse 98 97 99 Oximetry 06/15/17 06/15/17 06/15/17 03:00 04:00 05:00 Temperature 98.9 F Pulse Rate 71 68 69 Respiratory 26 17 20 Rate Blood Pressure 120/49 110/47 118/45 (mmHg) O2 Sat by Pulse 97 98 99 Oximetry 06/15/17 06/15/17 06/15/17 06:00 07:00 07:01 Temperature Pulse Rate 64 80 92 Respiratory 17 21 17 Rate Blood Pressure 114/41 125/57 (mmHg) O2 Sat by Pulse 100 99 96 Oximetry 06/15/17 06/15/17 07:13 07:38 Temperature 97.7 F Pulse Rate 82 Respiratory 20 Rate Blood Pressure (mmHg) O2 Sat by Pulse 100 Oximetry Oxygen Devices in Use Now: High Flow Heated Nasal Cannula - 25L 100% FiO2-100% O2 sat Appearance: Middle aged female who appears much older than her stated age, sitting up in bed, NAD Eyes: No Scleral Icterus Ears/Nose/Mouth/Throat: Mucous Membranes Moist Respiratory: Symmetrical Chest Expansion and Respiratory Effort, - - decreased breath sounds about 1/[address] up on R, diminished breath sounds in all lung herring Cardiovascular: NL Sounds; No Murmurs; No JVD, RRR, - - marked LE edema (2+) to the knees bilaterally Abdominal: NL Sounds; No Tenderness; No Distention Extremities: No Clubbing, Cyanosis Skin: - - skin in very poor repair; R UE: large skin tear to dorsum of hand with likely non-viable skin flap, exposed subcutaneous tissue, R forearm with half thao shaped skin tear with visible fat; L UE: large ~3in deep skin tear to dorsum of hand, exposed tendon noted, forearm with "Y" shaped shallow skin tear ; Buttocks: large area of erythema with speckled shallow ulcerations (stage II) LE bilaterally: erythematous distal legs, no open skin noted; bruising noted to all areas of the body- large bruise on face, L upper flank, mid thoracic region of spine and arms Neurological: Alert and Oriented x 3 Result Diagrams: 06/15/17 05:30 06/15/17 05:30 Additional Lab and Data: Lab Results 06/11/17 06/11/17 06/11/17 Range/Units 11:27 11:52 11:52 WBC 12.3 H (3.5-10.8) 10^3/ul RBC 3.37 L (4.0-5.4) 10^6/ul Hgb 7.3 L (12.0-16.0) g/dl Hct 26 L (35-47) % MCV 76 L (80-97) fL MCH 22 L (27-31) pg MCHC 29 L (31-36) g/dl RDW 30 H (10.5-15) % Plt Count 335 (150-450) 10^3/ul MPV 7 L (7.4-10.4) um3 Neut % (Auto) 87.1 H (38-83) % Lymph % (Auto) 7.3 L (25-47) % [place] % (Auto) 5.2 (1-9) % Eos % (Auto) 0.2 (0-6) % Baso % (Auto) 0.2 (0-2) % Absolute Neuts (auto) 10.7 H (1.5-7.7) 10^3/ul Absolute Lymphs (auto) 0.9 L (1.0-4.8) 10^3/ul Absolute Monos (auto) 0.6 (0-0.8) 10^3/ul Absolute Eos (auto) 0 (0-0.6) 10^3/ul Absolute Basos (auto) 0 (0-0.2) 10^3/ul Absolute Nucleated RBC 0.1 10^3/ul Neutrophils % 84 H (38-83) % Lymphocytes % 8 L (25-47) % Monocytes % 8 (0-13) % Nucleated RBC % 0.5 Normal RBC Morphology Not Reportable Polychromasia 1+ Hypochromasia 1+ Microcytosis 1+ INR (Anticoag Therapy) (0.77-1.02) Sodium (133-145) mmol/L Potassium (3.5-5.0) mmol/L Chloride (101-111) mmol/L Carbon Dioxide (22-32) mmol/L BUN (6-24) mg/dL Creatinine (0.51-0.95) mg/dL Est GFR ( Amer) (>60) Est GFR (Non-Af Amer) (>60) BUN/Creatinine Ratio (8-20) Glucose (70-100) mg/dL POC Glucose (mg/dL) 172 H (70-100) mg/dL Lactic Acid (0.5-2.0) mmol/L Calcium (8.6-10.3) mg/dL Total Bilirubin (0.2-1.0) mg/dL AST (13-39) U/L ALT (7-52) U/L Alkaline Phosphatase (34-104) U/L Ammonia 49 (16-53) mol/L Troponin I (<0.04) ng/mL Total Protein (6.4-8.9) g/dL Albumin (3.2-5.2) g/dL Globulin (2-4) g/dL Albumin/Globulin Ratio (1-3) TSH (0.34-5.60) mcIU/mL Urine Color Urine Appearance Urine pH (5-9) Ur Specific [place] (1.010-1.030) Urine Protein (Negative) Urine Ketones (Negative) Urine Blood (Negative) Urine Nitrate (Negative) Urine Bilirubin (Negative) Urine Urobilinogen (Negative) Ur Leukocyte Esterase (Negative) Urine WBC (Auto) (Absent) Urine RBC (Auto) (Absent) Urine Bacteria (Absent) Urine Glucose (Negative) Influenza A (Rapid) (Negative) Influenza B (Rapid) (Negative) 06/11/17 06/11/17 06/11/17 Range/Units 11:52 11:52 11:52 WBC (3.5-10.8) 10^3/ul RBC (4.0-5.4) 10^6/ul Hgb (12.0-16.0) g/dl Hct (35-47) % MCV (80-97) fL MCH (27-31) pg MCHC (31-36) g/dl RDW (10.5-15) % Plt Count (150-450) 10^3/ul MPV (7.4-10.4) um3 Neut % (Auto) (38-83) % Lymph % (Auto) (25-47) % [place] % (Auto) (1-9) % Eos % (Auto) (0-6) % Baso % (Auto) (0-2) % Absolute Neuts (auto) (1.5-7.7) 10^3/ul Absolute Lymphs (auto) (1.0-4.8) 10^3/ul Absolute Monos (auto) (0-0.8) 10^3/ul Absolute Eos (auto) (0-0.6) 10^3/ul Absolute Basos (auto) (0-0.2) 10^3/ul Absolute Nucleated RBC 10^3/ul Neutrophils % (38-83) % Lymphocytes % (25-47) % Monocytes % (0-13) % Nucleated RBC % Normal RBC Morphology Polychromasia Hypochromasia Microcytosis INR (Anticoag Therapy) 0.90 (0.77-1.02) Sodium 140 (133-145) mmol/L Potassium 4.5 (3.5-5.0) mmol/L Chloride 111 (101-111) mmol/L Carbon Dioxide 32 (22-32) mmol/L BUN 17 (6-24) mg/dL Creatinine 0.88 (0.51-0.95) mg/dL Est GFR ( Amer) 81.9 (>60) Est GFR (Non-Af Amer) 63.7 (>60) BUN/Creatinine Ratio 19.3 (8-20) Glucose 114 H (70-100) mg/dL POC Glucose (mg/dL) (70-100) mg/dL Lactic Acid 0.9 (0.5-2.0) mmol/L Calcium 7.7 L (8.6-10.3) mg/dL Total Bilirubin 0.30 (0.2-1.0) mg/dL AST 16 (13-39) U/L ALT 9 (7-52) U/L Alkaline Phosphatase 77 (34-104) U/L Ammonia (16-53) mol/L Troponin I 0.03 (<0.04) ng/mL Total Protein 6.0 L (6.4-8.9) g/dL Albumin 2.5 L (3.2-5.2) g/dL Globulin 3.5 (2-4) g/dL Albumin/Globulin Ratio 0.7 L (1-3) TSH 3.22 (0.34-5.60) mcIU/mL Urine Color Urine Appearance Urine pH (5-9) Ur Specific [place] (1.010-1.030) Urine Protein (Negative) Urine Ketones (Negative) Urine Blood (Negative) Urine Nitrate (Negative) Urine Bilirubin (Negative) Urine Urobilinogen (Negative) Ur Leukocyte Esterase (Negative) Urine WBC (Auto) (Absent) Urine RBC (Auto) (Absent) Urine Bacteria (Absent) Urine Glucose (Negative) Influenza A (Rapid) (Negative) Influenza B (Rapid) (Negative) 06/11/17 06/11/17 06/11/17 Range/Units 12:50 14:41 14:53 WBC (3.5-10.8) 10^3/ul RBC (4.0-5.4) 10^6/ul Hgb (12.0-16.0) g/dl Hct (35-47) % MCV (80-97) fL MCH (27-31) pg MCHC (31-36) g/dl RDW (10.5-15) % Plt Count (150-450) 10^3/ul MPV (7.4-10.4) um3 Neut % (Auto) (38-83) % Lymph % (Auto) (25-47) % [place] % (Auto) (1-9) % Eos % (Auto) (0-6) % Baso % (Auto) (0-2) % Absolute Neuts (auto) (1.5-7.7) 10^3/ul Absolute Lymphs (auto) (1.0-4.8) 10^3/ul Absolute Monos (auto) (0-0.8) 10^3/ul Absolute Eos (auto) (0-0.6) 10^3/ul Absolute Basos (auto) (0-0.2) 10^3/ul Absolute Nucleated RBC 10^3/ul Neutrophils % (38-83) % Lymphocytes % (25-47) % Monocytes % (0-13) % Nucleated RBC % Normal RBC Morphology Polychromasia Hypochromasia Microcytosis INR (Anticoag Therapy) (0.77-1.02) Sodium (133-145) mmol/L Potassium (3.5-5.0) mmol/L Chloride (101-111) mmol/L Carbon Dioxide (22-32) mmol/L BUN (6-24) mg/dL Creatinine (0.51-0.95) mg/dL Est GFR ( Amer) (>60) Est GFR (Non-Af Amer) (>60) BUN/Creatinine Ratio (8-20) Glucose (70-100) mg/dL POC Glucose (mg/dL) 31 L* 168 H (70-100) mg/dL Lactic Acid (0.5-2.0) mmol/L Calcium (8.6-10.3) mg/dL Total Bilirubin (0.2-1.0) mg/dL AST (13-39) U/L ALT (7-52) U/L Alkaline Phosphatase (34-104) U/L Ammonia (16-53) mol/L Troponin I (<0.04) ng/mL Total Protein (6.4-8.9) g/dL Albumin (3.2-5.2) g/dL Globulin (2-4) g/dL Albumin/Globulin Ratio (1-3) TSH (0.34-5.60) mcIU/mL Urine Color Pat Urine Appearance Turbid Urine pH 5.0 (5-9) Ur Specific [place] 1.012 (1.010-1.030) Urine Protein 2+(100 mg/dl) H (Negative) Urine Ketones Negative (Negative) Urine Blood 2+ H (Negative) Urine Nitrate Positive H (Negative) Urine Bilirubin Negative (Negative) Urine Urobilinogen Negative (Negative) Ur Leukocyte Esterase 3+ H (Negative) Urine WBC (Auto) 3+(>20/hpf) H (Absent) Urine RBC (Auto) 3+(>10/hpf) H (Absent) Urine Bacteria 2+ H (Absent) Urine Glucose Negative (Negative) Influenza A (Rapid) (Negative) Influenza B (Rapid) (Negative) 06/11/17 06/11/17 06/11/17 Range/Units 15:09 15:24 16:10 WBC (3.5-10.8) 10^3/ul RBC (4.0-5.4) 10^6/ul Hgb (12.0-16.0) g/dl Hct (35-47) % MCV (80-97) fL MCH (27-31) pg MCHC (31-36) g/dl RDW (10.5-15) % Plt Count (150-450) 10^3/ul MPV (7.4-10.4) um3 Neut % (Auto) (38-83) % Lymph % (Auto) (25-47) % [place] % (Auto) (1-9) % Eos % (Auto) (0-6) % Baso % (Auto) (0-2) % Absolute Neuts (auto) (1.5-7.7) 10^3/ul Absolute Lymphs (auto) (1.0-4.8) 10^3/ul Absolute Monos (auto) (0-0.8) 10^3/ul Absolute Eos (auto) (0-0.6) 10^3/ul Absolute Basos (auto) (0-0.2) 10^3/ul Absolute Nucleated RBC 10^3/ul Neutrophils % (38-83) % Lymphocytes % (25-47) % Monocytes % (0-13) % Nucleated RBC % Normal RBC Morphology Polychromasia Hypochromasia Microcytosis INR (Anticoag Therapy) (0.77-1.02) Sodium (133-145) mmol/L Potassium (3.5-5.0) mmol/L Chloride (101-111) mmol/L Carbon Dioxide (22-32) mmol/L BUN (6-24) mg/dL Creatinine (0.51-0.95) mg/dL Est GFR ( Amer) (>60) Est GFR (Non-Af Amer) (>60) BUN/Creatinine Ratio (8-20) Glucose (70-100) mg/dL POC Glucose (mg/dL) 118 H 98 (70-100) mg/dL Lactic Acid (0.5-2.0) mmol/L Calcium (8.6-10.3) mg/dL Total Bilirubin (0.2-1.0) mg/dL AST (13-39) U/L ALT (7-52) U/L Alkaline Phosphatase (34-104) U/L Ammonia (16-53) mol/L Troponin I (<0.04) ng/mL Total Protein (6.4-8.9) g/dL Albumin (3.2-5.2) g/dL Globulin (2-4) g/dL Albumin/Globulin Ratio (1-3) TSH (0.34-5.60) mcIU/mL Urine Color Urine Appearance Urine pH (5-9) Ur Specific [place] (1.010-1.030) Urine Protein (Negative) Urine Ketones (Negative) Urine Blood (Negative) Urine Nitrate (Negative) Urine Bilirubin (Negative) Urine Urobilinogen (Negative) Ur Leukocyte Esterase (Negative) Urine WBC (Auto) (Absent) Urine RBC (Auto) (Absent) Urine Bacteria (Absent) Urine Glucose (Negative) Influenza A (Rapid) Negative (Negative) Influenza B (Rapid) Negative (Negative) 06/11/17 Range/Units 16:46 WBC (3.5-10.8) 10^3/ul RBC (4.0-5.4) 10^6/ul Hgb (12.0-16.0) g/dl Hct (35-47) % MCV (80-97) fL MCH (27-31) pg MCHC (31-36) g/dl RDW (10.5-15) % Plt Count (150-450) 10^3/ul MPV (7.4-10.4) um3 Neut % (Auto) (38-83) % Lymph % (Auto) (25-47) % [place] % (Auto) (1-9) % Eos % (Auto) (0-6) % Baso % (Auto) (0-2) % Absolute Neuts (auto) (1.5-7.7) 10^3/ul Absolute Lymphs (auto) (1.0-4.8) 10^3/ul Absolute Monos (auto) (0-0.8) 10^3/ul Absolute Eos (auto) (0-0.6) 10^3/ul Absolute Basos (auto) (0-0.2) 10^3/ul Absolute Nucleated RBC 10^3/ul Neutrophils % (38-83) % Lymphocytes % (25-47) % Monocytes % (0-13) % Nucleated RBC % Normal RBC Morphology Polychromasia Hypochromasia Microcytosis INR (Anticoag Therapy) (0.77-1.02) Sodium (133-145) mmol/L Potassium (3.5-5.0) mmol/L Chloride (101-111) mmol/L Carbon Dioxide (22-32) mmol/L BUN (6-24) mg/dL Creatinine (0.51-0.95) mg/dL Est GFR ( Amer) (>60) Est GFR (Non-Af Amer) (>60) BUN/Creatinine Ratio (8-20) Glucose (70-100) mg/dL POC Glucose (mg/dL) 97 (70-100) mg/dL Lactic Acid (0.5-2.0) mmol/L Calcium (8.6-10.3) mg/dL Total Bilirubin (0.2-1.0) mg/dL AST (13-39) U/L ALT (7-52) U/L Alkaline Phosphatase (34-104) U/L Ammonia (16-53) mol/L Troponin I (<0.04) ng/mL Total Protein (6.4-8.9) g/dL Albumin (3.2-5.2) g/dL Globulin (2-4) g/dL Albumin/Globulin Ratio (1-3) TSH (0.34-5.60) mcIU/mL Urine Color Urine Appearance Urine pH (5-9) Ur Specific [place] (1.010-1.030) Urine Protein (Negative) Urine Ketones (Negative) Urine Blood (Negative) Urine Nitrate (Negative) Urine Bilirubin (Negative) Urine Urobilinogen (Negative) Ur Leukocyte Esterase (Negative) Urine WBC (Auto) (Absent) Urine RBC (Auto) (Absent) Urine Bacteria (Absent) Urine Glucose (Negative) Influenza A (Rapid) (Negative) Influenza B (Rapid) (Negative) Microbiology and Other Data: Microbiology 06/12/17 03:50 Nasal Screen MRSA (PCR)([facility]) - Final Nasal Mrsa Detected Assess/Plan/Problems-Billing Ms Oreilly is a 71 yo F with a h/o myasthenia gravis on chronic prednisone, B/L LE lymphedema, tachy-jenna syndrome s/p pacer insertion, diastolic CHF, A. fib ( not anticoagulated due to chronic anemia), type II DM, COPD (on 2.5L 02) and HTN who presented to the ER after a fall and was noted to be hypoxic with a large R pleural effusion. - Patient Problems (1) Hypoxemia Current Visit: Yes Status: Acute Code(s): R09.02 - HYPOXEMIA SNOMED Code(s ): 179908012 Comment: The patient has needed quite a bit of respiratory support. Initially with BiPAP, now vapotherm. The FiO2 has been weaned down some and her O2 saturation is 100% currently. Will work on weaning down the supplemental O2. Her hypoxia is/was likely secondary to mucous plugging leading to atelectasis and her large pleural effusion. Will hold off on further doses of lasix for now. If her O2 can not be weaned further will consider lasix vs possible throacentesis. The patient had a mucous sample sent from the bronchoscopy that grew ESBL Ecoli. She was started on meropenem and will continue this for now. Will ask for ID consult. (2) Skin tear Current Visit: Yes Status: Acute Code(s): XJY1482 - SNOMED Code(s): 107590516 Comment: The patient has numerous deep/significant skin tears to her UE bilaterally. Will cover with vaseline guaze for now but ask for wound nurse to re-evaluate for further recommendations. (3) Anemia Current Visit: Yes Status: Acute Code(s): D64.9 - ANEMIA, UNSPECIFIED SNOMED Code(s): 400190074 Comment: The patient is chronically anemic likely secondary to chronic disease/inflammation and I am concerned she could be having chronic slow ooze from possible gastritis given her intermediate manager prednisone use. Continue BID protonix. H/H improved after 2 units PRBC. She is not stable enough for GI evaluation at this point so will hold off on consulting GI. (4) Diastolic heart failure Current Visit: Yes Status: Acute Code(s): I50.30 - UNSPECIFIED DIASTOLIC ( CONGESTIVE) HEART FAILURE SNOMED Code(s): 229016445 Comment: Holding on further lasix doses for now. Will reassess tomorrow AM or if the patient can not be weaned further from the vapotherm. (5) Atrial fibrillation Current Visit: Yes Status: Acute Code(s): I48.91 - UNSPECIFIED ATRIAL FIBRILLATION SNOMED Code(s): 56842403 Comment: Pt is regular today. continue multaq. No anticoagulation chronically given her chronic anemia. (6) CKD (chronic kidney disease) Current Visit: Yes Status: Acute Code(s): N18.9 - CHRONIC KIDNEY DISEASE, UNSPECIFIED SNOMED Code(s): 542085842 Comment: Creatinine is essentially at baseline. Will continue to monitor. (7) Myasthenia gravis Current Visit: Yes Status: Chronic Onset Date: 04/04/14 Code(s): G70.00 - MYASTHENIA GRAVIS WITHOUT (ACUTE) EXACERBATION SNOMED Code(s): 49813288 Comment: Continue pyridostigmine and stress dose steroids for today. If she continues to show signs of improvement will start tapering her steroid dose back to her baseline dose of prednisone. She also receives flebogamma monthly. No signs of exacerbation at this time. (8) Type 2 diabetes mellitus Current Visit: Yes Status: Chronic Comment: Sugars are markedly elevated. We do not have a recent [id number] check that today. Increase lantus to 25 units SQ qHS. (9) COPD (chronic obstructive pulmonary disease) Current Visit: Yes Status: Chronic Code(s): J44.9 - CHRONIC OBSTRUCTIVE PULMONARY DISEASE, UNSPECIFIED SNOMED Code(s): 70965595 Comment: No signs of exacerbation. She is currently more hypoxic than her baseline but will be working on weaning down O2. Continue dulera, spiriva and prn nebs. (10) GERD (gastroesophageal reflux disease) Current Visit: Yes Status: Chronic Code(s): K21.9 - GASTRO-ESOPHAGEAL REFLUX DISEASE WITHOUT ESOPHAGITIS SNOMED Code(s): 218940392 Comment: Continue protonix IV. (11) DVT prophylaxis Current Visit: Yes Status: Acute Code(s): LDX7122 - SNOMED Code(s): 204256834 Comment: SQ heparin held due probable slow GI bleed and anemia, no SCDs given the condition of the patient's skin (12) Full code status Current Visit: Yes Status: Acute Code(s): Z78.9 - OTHER SPECIFIED HEALTH STATUS SNOMED Code(s): 849754416 Comment: Will discuss with pt/pt's family as she is unlikely to survive a code Status and Disposition: .
[2017-06-15] MEDS: Insulin LISPRO* 1 UNITS UNIT SUBCUT SCH ×4 (08:10→21:36)
[2017-06-15] MEDS ORDERED: Potassium Chloride LIQUID* 20 MEQ PACKET PO ONE (08:22)
[2017-06-15] MEDS: Nystatin TOP POWDER* 15 GM BTL TOPICAL SCH ×3 (08:30→21:37)
[2017-06-15] MEDS: Lactobacillus Acidophilu (GG)* 1 CAP CAP PO SCH ×3 (09:10→17:43)
[2017-06-15] MEDS: Ferrous Sulfate TAB* 325 MG PO SCH (09:10)
[2017-06-15] MEDS: Dronedarone TAB* 400 MG PO SCH ×2 (09:10→21:37)
[2017-06-15] MEDS: Pyridostigmine TAB* 60 MG PO SCH ×4 (09:10→21:36)
[2017-06-15] MEDS: Nystatin SUSPENSION* 100000 UNITS/ML 5 ML UDC SWISH SWAL SCH ×3 (09:30→17:43)
--- NOTE | 2017-06-15 15:35 | PN ---
Progress Note - Progress Note Date of Service: 06/15/17 - Pulm f/u note Note: Pt seen and examined at bedside. Pt reports feeling better, c/o soreness in her bottom. No acute events o/n. Has been able to titrate flow rate of her O2. Active Medications Generic Name Dose Route Start Last Admin Trade Name Freq PRN Reason Stop Dose Admin Acetaminophen 650 mg 06/12/17 17:26 06/12/17 18:43 Tylenol Tab* PO 650 mg Q4HR PRN Administration FEVER Albuterol 2.5 mg 06/11/17 18:21 Ventolin 2.5 Mg/3 Ml Neb.Bridget* INH Q2H PRN SOB/WHEEZING Cyanocobalamin 1,000 mcg 06/11/17 19:00 Vitamin B12 Tab* PO MONTHLY HTUY Dextrose 12.5 gm 06/14/17 10:16 D50w Syringe 50 Ml* IV PUSH .FOR FS < 60 - SS PRN FS < 60 Dronedarone 400 mg 06/11/17 21:00 06/15/17 09:10 Multaq Tab* PO 400 mg BID THUY Administration Ferrous Sulfate 325 mg 06/12/17 09:00 06/15/17 09:10 Ferrous Sulfate Tab* PO 325 mg DAILY THUY Administration Hydrocortisone Sodium Succinate 50 mg 06/13/17 12:00 06/15/17 13:05 Solu-Cortef* IV 50 mg Q8H THUY Administration Meropenem 1 gm in 50 mls @ 100 mls/hr 06/14/17 15:00 06/15/17 02:58 Merrem 1 Gm Premix(*) IV 100 mls/hr Q12H THUY Administration Insulin Glargine 25 units 06/15/17 18:00 Lantus(*) SUBCUT QPM THUY Insulin Human Lispro 0 units 06/14/17 12:00 06/15/17 13:12 Humalog* SUBCUT 1 units FS ACHS ICU THUY Administration Protocol Lactobacillus Rhamnosus 1 cap 06/12/17 07:30 06/15/17 14:44 Culturelle* PO 1 cap TID AC THUY Administration Loperamide HCl 2 mg 06/11/17 18:21 Imodium Cap* PO Q4HR PRN LOOSE STOOLS Mometasone Furoate/Formoterol Fumar 2 puff 06/11/17 21:00 06/15/17 07:08 Dulera 200/5 Mdi* INH 2 puff BID THUY Administration Nystatin 500,000 units 06/12/17 08:30 06/15/17 14:43 Nystatin Suspension* SWISH SWAL 500,000 units TID PC THUY Administration Nystatin 1 applic 06/11/17 21:00 06/15/17 14:44 Nystatin Top Powder* TOPICAL 1 applic TID THUY Administration Oxycodone/Acetaminophen 1 tab 06/11/17 18:21 Percocet 5/325 Tab* PO Q4H PRN PAIN Pantoprazole Sodium 40 mg 06/13/17 18:00 06/15/17 05:45 Protonix Iv* IV 40 mg Q12H THUY Administration Pyridostigmine [place] [address] [place] 120 mg 06/11/17 21:00 06/15/17 13:35 Mestinon Tab* PO 120 mg QID THUY Administration Tiotropium [place] [address] [place] 1 cap 06/12/17 09:00 06/15/17 07:08 Spiriva Cap.Inh* INH 1 cap.inh DAILY THUY Administration Vital Signs Temp Pulse Resp BP Pulse Ox 98.1 F 75 30 112/52 100 06/15/17 11:51 06/15/17 14:00 06/15/17 14:00 06/15/17 14:00 06/15/17 14:00 O/E: Pt in more alert today, sitting up in chair, still appears weak HEENT: PERRLA, No JVD Lungs: Diminished air entry b/l R>L, on high flow 30L, 100% FiO2 CVS: S1, S2+ Abd: Obese, BS+ Ext: edema + Neuro: More alert, significant motor weakness Laboratory Results - last 24 hr 06/14/17 06/14/17 06/14/17 11:46 16:05 21:21 WBC RBC Hgb Hct MCV MCH MCHC RDW Plt Count MPV Neut % (Auto) Lymph % (Auto) [place] % (Auto) Eos % (Auto) Baso % (Auto) Absolute Neuts (auto) Absolute Lymphs (auto) Absolute Monos (auto) Absolute Eos (auto) Absolute Basos (auto) Absolute Nucleated RBC Nucleated RBC % Sodium Potassium Chloride Carbon Dioxide Anion Gap BUN Creatinine Est GFR ( Amer) Est GFR (Non-Af Amer) BUN/Creatinine Ratio Glucose POC Glucose (mg/dL) 401 H* 226 H 238 H Calcium 06/15/17 06/15/17 06/15/17 05:30 05:30 12:49 WBC 11.2 H RBC 3.40 L Hgb 8.2 L Hct 27 L MCV 79 L MCH 24 L MCHC 30 L RDW 27 H Plt Count 242 MPV 7 L Neut % (Auto) 91.3 H Lymph % (Auto) 4.8 L King % (Auto) 3.4 Eos % (Auto) 0.2 Baso % (Auto) 0.3 Absolute Neuts (auto) 10.2 H Absolute Lymphs (auto) 0.5 L Absolute Monos (auto) 0.4 Absolute Eos (auto) 0 Absolute Basos (auto) 0 Absolute Nucleated RBC 0 Nucleated RBC % 0.2 Sodium 145 Potassium 3.3 L Chloride 108 Carbon Dioxide 34 H Anion Gap 3 BUN 16 Creatinine 1.23 H Est GFR ( Amer) 55.7 Est GFR (Non-Af Amer) 43.3 BUN/Creatinine Ratio 13.0 Glucose 192 H POC Glucose (mg/dL) 133 H Calcium 8.1 L I/R: 71 y o f with h/o myasthenia gravis,b/l LE lymphoedema, 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 fib (not anticoagulated due to chronic anemia ) type II DM, COPD (on 2.5 L02) and HTN who presented to the ER after a fall , noted to have hypoxemia with large R pleural effusion, rt lung atelectasis likely sec to mucus plugging Pt had bronchoscopy 06/12, thick mucus was suctioned Rpt CXR - significant improvement in pl effusion now with small effusion Still has weak cough reflux Has been able to stay off BiPAP Taper high flow as tolerated BiPAP at night Bronch cx positive for ESBL , on meropenem She received transfusion for severe anemia, likely from lower GI bleed Has chronic diarrhea, having large BM Prognosis is guarded to poor given multiple comorbidities, full code per family , pt wishes to be DNR D/w Dr Davidson
[2017-06-15] MEDS ORDERED: Insulin GLARGINE(*) 1 UNITS UNIT SUBCUT SCH (18:00)
--- NOTE | 2017-06-15 21:01 | CONS ---
CONSULTATION REPORT: DATE OF CONSULTATION: 06/15/17 REQUESTING PHYSICIAN: Dr. Davidson. CONSULTING SERVICE: Infectious Disease. REASON FOR CONSULTATION: Pneumonia. IMPRESSION: 1. Acute hypoxemic respiratory failure evolving from admission due to underlying right-sided pleural effusion, mucus plugging, E. coli, ESBL producing pneumonia. 2. Encephalopathy was present on admission due to hypoglycemia. It is resolved. 3. Myasthenia gravis, chronic corticosteroid use. 6. Chronic obstructive pulmonary disease with chronic hypoxemic respiratory failure. 7. Chronic kidney disease. RECOMMENDATIONS: Continue meropenem 1 g every 12 hours, it is day 2 of 7. Pleural effusion is much improved. We will follow that, ensure it resolves as well. HISTORY OF PRESENT ILLNESS: This is a 71-year-old woman with chronic corticosteroid use for myasthenia gravis, recently in the hospital with lower extremity cellulitis and at [facility] facility was found down. She cannot provide the history of those events as she was unresponsive for a time. The history is obtained instead from discussion with Dr. Davidson and review of the medical record. She came to the hospital on 06/11/17. She had a white count of 12,000. She was hypothermic at 35 degrees. Blood pressure in the 70s systolic and oxygen saturation in the low 90s. She was found to have shawn out right hemithorax. She has had a bronchoscopy with suctioning of the thick mucus secretions and mucus plugs. Culture from that procedure is growing E. coli as noted above. Blood cultures noted to be either pending or were not obtained initially. Her oxygen requirement is slowly decreasing. She is down to 25 L a minute down from 40 on 06/12/17. She denies any pain or shortness of breath. Her cough continues and it is nonproductive. PAST MEDICAL HISTORY: 1. Myasthenia gravis, on corticosteroids. 2. Diarrhea. 3. Xerosis cutis. 4. Diabetes mellitus. 5. Atrial fibrillation. 6. COPD with chronic hypoxemic respiratory failure. 7. Vitamin B12 deficiency. 8. Stage 3 chronic kidney disease. 9. Chronic diastolic heart failure. 10. Iron deficiency anemia. 11. Gastroesophageal reflux disease. 12. Status post pacemaker placement. ALLERGIES: CELLCEPT, AZITHROMYCIN, MYCOPHENOLATE, CEFTRIAXONE, CIPRO. MEDICATIONS: 1. Albuterol. 2. Vitamin B12. 3. Ferrous sulfate. 4. Lasix. 5. Lactobacillus. 6. Loperamide. 7. Meropenem 1 g every 12 hours. 8. Metolazone. 9. Nystatin swish and swallow. 10. Oxycodone. 12. Pantoprazole IV. 13. Spiriva. 14. Pyridostigmine. FAMILY HISTORY: No recurrent infection. No coronary artery disease, diabetes, or cancer. SOCIAL HISTORY: Past smoker. Past alcohol use. [facility]. REVIEW OF SYSTEMS: A 14-point review of systems was negative except as noted above in the history of present illness. PHYSICAL EXAM: Vital Signs: Temperature 36.5, heart rate 80, respiratory rate 20, blood pressure 125/57, oxygen saturation 100% FiO2 of 100 and flow rate of 25 L a minute. In general, she is awake, not in distress. Neurologic: She is oriented x3 and follows all commands. HEENT: There is no conjunctival hemorrhage. Oropharynx is without lesions. Neck is supple without mass. Lymph Nodes: There is no cervical, supraclavicular, inguinal, axillary, or epitrochlear lymphadenopathy. Heart is regular rate and rhythm without murmurs , rubs, or gallops. Lungs: Decreased breath sounds at base without wheeze or rales. Abdomen: Soft, nontender, nondistended. There are bowel sounds present. Skin: There are tears on her right forearm, which are bandaged. There are spider angioma on her chest. LABORATORY DATA: White blood cell count 11, hemoglobin 8, platelets 242, MCV 80. Creatinine is 1.2. Influenza PCR negative. Please see impressions and recommendations outlined above. Thank you for asking me to see Ms. Oreilly in consultation. [id number]/[facility] #: [id number] [facility]ITALMart
[2017-06-16] MEDS: Meropenem 1 GM PREMIX(*) 1 GM/50 ML BAG IV SCH ×2 (02:54→15:00)
[2017-06-16] MEDS: Hydrocortisone INJ* 100 MG VIAL IV SCH (04:06)
[2017-06-16] MEDS: Pantoprazole IV* 40 MG IV SCH (05:46)
[2017-06-16 06:39] LABS: EGFR Non-African American 51.4 (>60)
[2017-06-16 07:07] LABS: ABS Basophils 0 10^3/ul (0-0.2); ABS Eosinophils 0 10^3/ul (0-0.6); ABS Lymphocytes 0.7 10^3/ul (1.0-4.8); ABS Monocytes 0.7 10^3/ul (0-0.8); ABS Neutrophils 10.9 10^3/ul (1.5-7.7); ABS Nucleated RBC 0 10^3/ul; Eosinophil % 0.1 % (0-6); Hematocrit 29 % (35-47); Hemoglobin 8.6 g/dl (12.0-16.0); Mean Corpuscular HGB Conc 30 g/dl (31-36); Mean Corpuscular Hemoglobin 24 pg (27-31); Mean Corpuscular Volume 80 fL (80-97); Mean Platelet Volume 7 um3 (7.4-10.4); Nucleated Red Blood Cells % 0.1; Platelet Count 248 10^3/ul (150-450); Red Blood Count 3.56 10^6/ul (4.0-5.4); Red Cell Distribution Width 27 % (10.5-15); White Blood Count 12.5 10^3/ul (3.5-10.8)
[2017-06-16] MEDS: Insulin LISPRO* 1 UNITS UNIT SUBCUT SCH ×4 (07:54→22:18)
--- NOTE | 2017-06-16 08:37 | PN ---
Subjective Date of Service: 06/16/17 Interval History: Pt is very drowsy currently and will not stay awake long enough to answer questions. Objective Active Medications: Acetaminophen (Tylenol Tab*) 650 mg PO Q4HR PRN PRN Reason: FEVER Last Admin: 06/12/17 18:43 Dose: 650 mg Albuterol (Ventolin 2.5 Mg/3 Ml Neb.Bridget*) 2.5 mg INH Q2H PRN PRN Reason: SOB/WHEEZING Cyanocobalamin (Vitamin B12 Tab*) 1,000 mcg PO MONTHLY [facility] Dextrose (D50w Syringe 50 Ml*) 12.5 gm IV PUSH .FOR FS < 60 - SS PRN PRN Reason: FS < 60 Dronedarone (Multaq Tab*) 400 mg PO BID [facility] Last Admin: 06/15/17 21:37 Dose: 400 mg Ferrous Sulfate (Ferrous Sulfate Tab*) 325 mg PO DAILY [facility] Last Admin: 06/15/17 09:10 Dose: 325 mg Hydrocortisone Sodium Succinate (Solu-Cortef*) 50 mg IV Q8H [facility] Last Admin: 06/16/17 04:06 Dose: 50 mg Meropenem (Merrem 1 Gm Premix(*)) 1 gm in 50 mls @ 100 mls/hr IV Q12H [facility] Last Admin: 06/16/17 02:54 Dose: 100 mls/hr Insulin Glargine (Lantus(*)) 25 units SUBCUT QPM [facility] Last Admin: 06/15/17 18:09 Dose: 25 unit Insulin Human Lispro (Humalog*) 0 units SUBCUT FS ACHS ICU [facility] PRN Reason: Protocol Last Admin: 06/16/17 07:54 Dose: Not Given Lactobacillus Rhamnosus (Culturelle*) 1 cap PO TID AC [facility] Last Admin: 06/15/17 17:43 Dose: 1 cap Loperamide HCl (Imodium Cap*) 2 mg PO Q4HR PRN PRN Reason: LOOSE STOOLS Mometasone Furoate/Formoterol Fumar (Dulera 200/5 Mdi*) 2 puff INH BID [facility] Last Admin: 06/15/17 19:53 Dose: 2 puff Nystatin (Nystatin Suspension*) 500,000 units SWISH SWAL TID PC [facility] Last Admin: 06/15/17 17:43 Dose: 500,000 units Nystatin (Nystatin Top Powder*) 1 applic TOPICAL TID [facility] Last Admin: 06/15/17 21:37 Dose: 1 applic Oxycodone/Acetaminophen (Percocet 5/325 Tab*) 1 tab PO Q4H PRN PRN Reason: PAIN Pantoprazole Sodium (Protonix Iv*) 40 mg IV Q12H [facility] Last Admin: 06/16/17 05:46 Dose: 40 mg Pyridostigmine [place] (Mestinon Tab*) 120 mg PO QID [facility] Last Admin: 06/15/17 21:36 Dose: 120 mg Tiotropium [place] (Spiriva Cap.Inh*) 1 cap INH DAILY [facility] Last Admin: 06/15/17 07:08 Dose: 1 cap.inh Vital Signs - 8 hr 06/16/17 06/16/17 06/16/17 00:34 01:00 02:00 Temperature Pulse Rate 80 61 60 Respiratory 21 14 14 Rate Blood Pressure 135/64 (mmHg) O2 Sat by Pulse 94 100 100 Oximetry 06/16/17 06/16/17 06/16/17 02:21 03:00 04:00 Temperature 98.4 F Pulse Rate 60 59 Respiratory 24 22 27 Rate Blood Pressure (mmHg) O2 Sat by Pulse 96 99 Oximetry 06/16/17 06/16/17 06/16/17 04:14 05:00 06:00 Temperature Pulse Rate 69 65 67 Respiratory 17 15 22 Rate Blood Pressure 123/70 (mmHg) O2 Sat by Pulse 95 100 99 Oximetry 06/16/17 06/16/17 06/16/17 06:04 07:00 07:42 Temperature 98.4 F Pulse Rate 60 Respiratory 20 10 Rate Blood Pressure (mmHg) O2 Sat by Pulse 100 Oximetry 06/16/17 07:45 Temperature Pulse Rate 66 Respiratory 19 Rate Blood Pressure 126/55 (mmHg) O2 Sat by Pulse 97 Oximetry Oxygen Devices in Use Now: Nasal Cannula - 6L Appearance: Middle aged chronically ill appearing female sitting up in bed sleeping, briefly awakens to voice then promptly falls back asleep, NAD Eyes: No Scleral Icterus Ears/Nose/Mouth/Throat: Mucous Membranes Moist Respiratory: Symmetrical Chest Expansion and Respiratory Effort, - - markedly diminished breath sounds in all lung herring Cardiovascular: NL Sounds; No Murmurs; No JVD, RRR, - - 2+ B/L LE edema Abdominal: NL Sounds; No Tenderness; No Distention Extremities: No Clubbing, Cyanosis Skin: - - dressings covering the numerous skin wounds not removed today Neurological: - - very drowsy-will reassess later and if still drowsy make plan to work up Result Diagrams: 06/16/17 05:46 06/16/17 05:46 Additional Lab and Data: Lab Results 06/11/17 06/11/17 06/11/17 Range/Units 11:27 11:52 11:52 WBC 12.3 H (3.5-10.8) 10^3/ul RBC 3.37 L (4.0-5.4) 10^6/ul Hgb 7.3 L (12.0-16.0) g/dl Hct 26 L (35-47) % MCV 76 L (80-97) fL MCH 22 L (27-31) pg MCHC 29 L (31-36) g/dl RDW 30 H (10.5-15) % Plt Count 335 (150-450) 10^3/ul MPV 7 L (7.4-10.4) um3 Neut % (Auto) 87.1 H (38-83) % Lymph % (Auto) 7.3 L (25-47) % Porter % (Auto) 5.2 (1-9) % Eos % (Auto) 0.2 (0-6) % Baso % (Auto) 0.2 (0-2) % Absolute Neuts (auto) 10.7 H (1.5-7.7) 10^3/ul Absolute Lymphs (auto) 0.9 L (1.0-4.8) 10^3/ul Absolute Monos (auto) 0.6 (0-0.8) 10^3/ul Absolute Eos (auto) 0 (0-0.6) 10^3/ul Absolute Basos (auto) 0 (0-0.2) 10^3/ul Absolute Nucleated RBC 0.1 10^3/ul Neutrophils % 84 H (38-83) % Lymphocytes % 8 L (25-47) % Monocytes % 8 (0-13) % Nucleated RBC % 0.5 Normal RBC Morphology Not Reportable Polychromasia 1+ Hypochromasia 1+ Microcytosis 1+ INR (Anticoag Therapy) (0.77-1.02) Sodium (133-145) mmol/L Potassium (3.5-5.0) mmol/L Chloride (101-111) mmol/L Carbon Dioxide (22-32) mmol/L BUN (6-24) mg/dL Creatinine (0.51-0.95) mg/dL Est GFR ( Amer) (>60) Est GFR (Non-Af Amer) (>60) BUN/Creatinine Ratio (8-20) Glucose (70-100) mg/dL POC Glucose (mg/dL) 172 H (70-100) mg/dL Lactic Acid (0.5-2.0) mmol/L Calcium (8.6-10.3) mg/dL Total Bilirubin (0.2-1.0) mg/dL AST (13-39) U/L ALT (7-52) U/L Alkaline Phosphatase (34-104) U/L Ammonia 49 (16-53) mol/L Troponin I (<0.04) ng/mL Total Protein (6.4-8.9) g/dL Albumin (3.2-5.2) g/dL Globulin (2-4) g/dL Albumin/Globulin Ratio (1-3) TSH (0.34-5.60) mcIU/mL Urine Color Urine Appearance Urine pH (5-9) Ur Specific [place] (1.010-1.030) Urine Protein (Negative) Urine Ketones (Negative) Urine Blood (Negative) Urine Nitrate (Negative) Urine Bilirubin (Negative) Urine Urobilinogen (Negative) Ur Leukocyte Esterase (Negative) Urine WBC (Auto) (Absent) Urine RBC (Auto) (Absent) Urine Bacteria (Absent) Urine Glucose (Negative) Influenza A (Rapid) (Negative) Influenza B (Rapid) (Negative) 06/11/17 06/11/17 06/11/17 Range/Units 11:52 11:52 11:52 WBC (3.5-10.8) 10^3/ul RBC (4.0-5.4) 10^6/ul Hgb (12.0-16.0) g/dl Hct (35-47) % MCV (80-97) fL MCH (27-31) pg MCHC (31-36) g/dl RDW (10.5-15) % Plt Count (150-450) 10^3/ul MPV (7.4-10.4) um3 Neut % (Auto) (38-83) % Lymph % (Auto) (25-47) % Porter % (Auto) (1-9) % Eos % (Auto) (0-6) % Baso % (Auto) (0-2) % Absolute Neuts (auto) (1.5-7.7) 10^3/ul Absolute Lymphs (auto) (1.0-4.8) 10^3/ul Absolute Monos (auto) (0-0.8) 10^3/ul Absolute Eos (auto) (0-0.6) 10^3/ul Absolute Basos (auto) (0-0.2) 10^3/ul Absolute Nucleated RBC 10^3/ul Neutrophils % (38-83) % Lymphocytes % (25-47) % Monocytes % (0-13) % Nucleated RBC % Normal RBC Morphology Polychromasia Hypochromasia Microcytosis INR (Anticoag Therapy) 0.90 (0.77-1.02) Sodium 140 (133-145) mmol/L Potassium 4.5 (3.5-5.0) mmol/L Chloride 111 (101-111) mmol/L Carbon Dioxide 32 (22-32) mmol/L BUN 17 (6-24) mg/dL Creatinine 0.88 (0.51-0.95) mg/dL Est GFR ( Amer) 81.9 (>60) Est GFR (Non-Af Amer) 63.7 (>60) BUN/Creatinine Ratio 19.3 (8-20) Glucose 114 H (70-100) mg/dL POC Glucose (mg/dL) (70-100) mg/dL Lactic Acid 0.9 (0.5-2.0) mmol/L Calcium 7.7 L (8.6-10.3) mg/dL Total Bilirubin 0.30 (0.2-1.0) mg/dL AST 16 (13-39) U/L ALT 9 (7-52) U/L Alkaline Phosphatase 77 (34-104) U/L Ammonia (16-53) mol/L Troponin I 0.03 (<0.04) ng/mL Total Protein 6.0 L (6.4-8.9) g/dL Albumin 2.5 L (3.2-5.2) g/dL Globulin 3.5 (2-4) g/dL Albumin/Globulin Ratio 0.7 L (1-3) TSH 3.22 (0.34-5.60) mcIU/mL Urine Color Urine Appearance Urine pH (5-9) Ur Specific [place] (1.010-1.030) Urine Protein (Negative) Urine Ketones (Negative) Urine Blood (Negative) Urine Nitrate (Negative) Urine Bilirubin (Negative) Urine Urobilinogen (Negative) Ur Leukocyte Esterase (Negative) Urine WBC (Auto) (Absent) Urine RBC (Auto) (Absent) Urine Bacteria (Absent) Urine Glucose (Negative) Influenza A (Rapid) (Negative) Influenza B (Rapid) (Negative) 06/11/17 06/11/17 06/11/17 Range/Units 12:50 14:41 14:53 WBC (3.5-10.8) 10^3/ul RBC (4.0-5.4) 10^6/ul Hgb (12.0-16.0) g/dl Hct (35-47) % MCV (80-97) fL MCH (27-31) pg MCHC (31-36) g/dl RDW (10.5-15) % Plt Count (150-450) 10^3/ul MPV (7.4-10.4) um3 Neut % (Auto) (38-83) % Lymph % (Auto) (25-47) % Porter % (Auto) (1-9) % Eos % (Auto) (0-6) % Baso % (Auto) (0-2) % Absolute Neuts (auto) (1.5-7.7) 10^3/ul Absolute Lymphs (auto) (1.0-4.8) 10^3/ul Absolute Monos (auto) (0-0.8) 10^3/ul Absolute Eos (auto) (0-0.6) 10^3/ul Absolute Basos (auto) (0-0.2) 10^3/ul Absolute Nucleated RBC 10^3/ul Neutrophils % (38-83) % Lymphocytes % (25-47) % Monocytes % (0-13) % Nucleated RBC % Normal RBC Morphology Polychromasia Hypochromasia Microcytosis INR (Anticoag Therapy) (0.77-1.02) Sodium (133-145) mmol/L Potassium (3.5-5.0) mmol/L Chloride (101-111) mmol/L Carbon Dioxide (22-32) mmol/L BUN (6-24) mg/dL Creatinine (0.51-0.95) mg/dL Est GFR ( Amer) (>60) Est GFR (Non-Af Amer) (>60) BUN/Creatinine Ratio (8-20) Glucose (70-100) mg/dL POC Glucose (mg/dL) 31 L* 168 H (70-100) mg/dL Lactic Acid (0.5-2.0) mmol/L Calcium (8.6-10.3) mg/dL Total Bilirubin (0.2-1.0) mg/dL AST (13-39) U/L ALT (7-52) U/L Alkaline Phosphatase (34-104) U/L Ammonia (16-53) mol/L Troponin I (<0.04) ng/mL Total Protein (6.4-8.9) g/dL Albumin (3.2-5.2) g/dL Globulin (2-4) g/dL Albumin/Globulin Ratio (1-3) TSH (0.34-5.60) mcIU/mL Urine Color Pat Urine Appearance Turbid Urine pH 5.0 (5-9) Ur Specific [place] 1.012 (1.010-1.030) Urine Protein 2+(100 mg/dl) H (Negative) Urine Ketones Negative (Negative) Urine Blood 2+ H (Negative) Urine Nitrate Positive H (Negative) Urine Bilirubin Negative (Negative) Urine Urobilinogen Negative (Negative) Ur Leukocyte Esterase 3+ H (Negative) Urine WBC (Auto) 3+(>20/hpf) H (Absent) Urine RBC (Auto) 3+(>10/hpf) H (Absent) Urine Bacteria 2+ H (Absent) Urine Glucose Negative (Negative) Influenza A (Rapid) (Negative) Influenza B (Rapid) (Negative) 06/11/17 06/11/17 06/11/17 Range/Units 15:09 15:24 16:10 WBC (3.5-10.8) 10^3/ul RBC (4.0-5.4) 10^6/ul Hgb (12.0-16.0) g/dl Hct (35-47) % MCV (80-97) fL MCH (27-31) pg MCHC (31-36) g/dl RDW (10.5-15) % Plt Count (150-450) 10^3/ul MPV (7.4-10.4) um3 Neut % (Auto) (38-83) % Lymph % (Auto) (25-47) % Porter % (Auto) (1-9) % Eos % (Auto) (0-6) % Baso % (Auto) (0-2) % Absolute Neuts (auto) (1.5-7.7) 10^3/ul Absolute Lymphs (auto) (1.0-4.8) 10^3/ul Absolute Monos (auto) (0-0.8) 10^3/ul Absolute Eos (auto) (0-0.6) 10^3/ul Absolute Basos (auto) (0-0.2) 10^3/ul Absolute Nucleated RBC 10^3/ul Neutrophils % (38-83) % Lymphocytes % (25-47) % Monocytes % (0-13) % Nucleated RBC % Normal RBC Morphology Polychromasia Hypochromasia Microcytosis INR (Anticoag Therapy) (0.77-1.02) Sodium (133-145) mmol/L Potassium (3.5-5.0) mmol/L Chloride (101-111) mmol/L Carbon Dioxide (22-32) mmol/L BUN (6-24) mg/dL Creatinine (0.51-0.95) mg/dL Est GFR ( Amer) (>60) Est GFR (Non-Af Amer) (>60) BUN/Creatinine Ratio (8-20) Glucose (70-100) mg/dL POC Glucose (mg/dL) 118 H 98 (70-100) mg/dL Lactic Acid (0.5-2.0) mmol/L Calcium (8.6-10.3) mg/dL Total Bilirubin (0.2-1.0) mg/dL AST (13-39) U/L ALT (7-52) U/L Alkaline Phosphatase (34-104) U/L Ammonia (16-53) mol/L Troponin I (<0.04) ng/mL Total Protein (6.4-8.9) g/dL Albumin (3.2-5.2) g/dL Globulin (2-4) g/dL Albumin/Globulin Ratio (1-3) TSH (0.34-5.60) mcIU/mL Urine Color Urine Appearance Urine pH (5-9) Ur Specific [place] (1.010-1.030) Urine Protein (Negative) Urine Ketones (Negative) Urine Blood (Negative) Urine Nitrate (Negative) Urine Bilirubin (Negative) Urine Urobilinogen (Negative) Ur Leukocyte Esterase (Negative) Urine WBC (Auto) (Absent) Urine RBC (Auto) (Absent) Urine Bacteria (Absent) Urine Glucose (Negative) Influenza A (Rapid) Negative (Negative) Influenza B (Rapid) Negative (Negative) 06/11/17 Range/Units 16:46 WBC (3.5-10.8) 10^3/ul RBC (4.0-5.4) 10^6/ul Hgb (12.0-16.0) g/dl Hct (35-47) % MCV (80-97) fL MCH (27-31) pg MCHC (31-36) g/dl RDW (10.5-15) % Plt Count (150-450) 10^3/ul MPV (7.4-10.4) um3 Neut % (Auto) (38-83) % Lymph % (Auto) (25-47) % Porter % (Auto) (1-9) % Eos % (Auto) (0-6) % Baso % (Auto) (0-2) % Absolute Neuts (auto) (1.5-7.7) 10^3/ul Absolute Lymphs (auto) (1.0-4.8) 10^3/ul Absolute Monos (auto) (0-0.8) 10^3/ul Absolute Eos (auto) (0-0.6) 10^3/ul Absolute Basos (auto) (0-0.2) 10^3/ul Absolute Nucleated RBC 10^3/ul Neutrophils % (38-83) % Lymphocytes % (25-47) % Monocytes % (0-13) % Nucleated RBC % Normal RBC Morphology Polychromasia Hypochromasia Microcytosis INR (Anticoag Therapy) (0.77-1.02) Sodium (133-145) mmol/L Potassium (3.5-5.0) mmol/L Chloride (101-111) mmol/L Carbon Dioxide (22-32) mmol/L BUN (6-24) mg/dL Creatinine (0.51-0.95) mg/dL Est GFR ( Amer) (>60) Est GFR (Non-Af Amer) (>60) BUN/Creatinine Ratio (8-20) Glucose (70-100) mg/dL POC Glucose (mg/dL) 97 (70-100) mg/dL Lactic Acid (0.5-2.0) mmol/L Calcium (8.6-10.3) mg/dL Total Bilirubin (0.2-1.0) mg/dL AST (13-39) U/L ALT (7-52) U/L Alkaline Phosphatase (34-104) U/L Ammonia (16-53) mol/L Troponin I (<0.04) ng/mL Total Protein (6.4-8.9) g/dL Albumin (3.2-5.2) g/dL Globulin (2-4) g/dL Albumin/Globulin Ratio (1-3) TSH (0.34-5.60) mcIU/mL Urine Color Urine Appearance Urine pH (5-9) Ur Specific [place] (1.010-1.030) Urine Protein (Negative) Urine Ketones (Negative) Urine Blood (Negative) Urine Nitrate (Negative) Urine Bilirubin (Negative) Urine Urobilinogen (Negative) Ur Leukocyte Esterase (Negative) Urine WBC (Auto) (Absent) Urine RBC (Auto) (Absent) Urine Bacteria (Absent) Urine Glucose (Negative) Influenza A (Rapid) (Negative) Influenza B (Rapid) (Negative) Microbiology and Other Data: Microbiology 06/12/17 03:50 Nasal Screen MRSA (PCR)([facility]) - Final Nasal Mrsa Detected Assess/Plan/Problems-Billing Ms Oreilly is a 71 yo F with a h/o myasthenia gravis on chronic prednisone, B/L LE lymphedema, tachy-jenna syndrome s/p pacer insertion, diastolic CHF, A. fib ( not anticoagulated due to chronic anemia), type II DM, COPD (on 2.5L 02) and HTN who presented to the ER after a fall and was noted to be hypoxic with a large R pleural effusion. - Patient Problems (1) Hypoxemia Current Visit: Yes Status: Acute Code(s): R09.02 - HYPOXEMIA SNOMED Code(s ): 475425738 Comment: Acute hypoxic respiratory failure improving. She is down to 6L O2 but saturating 100% so this likely can be weaned down further. Will continue meropenem per Dr. Mustafa for another 5 days to treat ESBL Ecoli pneumonia. If pt remains drowsy through this AM will check ABG and CXR. The pleural effusion is improving. (2) Skin tear Current Visit: Yes Status: Acute Code(s): LTC4696 - SNOMED Code(s): 912969905 Comment: The patient has numerous deep/significant skin tears to her UE bilaterally. Will cover with vaseline guaze. Await repeat wound consult. (3) Anemia Current Visit: Yes Status: Acute Code(s): D64.9 - ANEMIA, UNSPECIFIED SNOMED Code(s): 647468601 Comment: H/H continues to improve after she received 2 units PRBC. Continue BID protonix. Will still hold off on consulting GI as her prognosis is still guarded given her whole medical picture. (4) Diastolic heart failure Current Visit: Yes Status: Acute Code(s): I50.30 - UNSPECIFIED DIASTOLIC ( CONGESTIVE) HEART FAILURE SNOMED Code(s): 656230167 Comment: Will start lasix 40mg daily and monitor fluid status, VS and respiratory status. (5) Atrial fibrillation Current Visit: Yes Status: Acute Code(s): I48.91 - UNSPECIFIED ATRIAL FIBRILLATION SNOMED Code(s): 57487662 Comment: Pt is regular today. Continue multaq. No anticoagulation chronically given her chronic anemia. (6) CKD (chronic kidney disease) Current Visit: Yes Status: Acute Code(s): N18.9 - CHRONIC KIDNEY DISEASE, UNSPECIFIED SNOMED Code(s): 288446884 Comment: Creatinine is better than baseline. Continue to monitor. (7) Myasthenia gravis Current Visit: Yes Status: Chronic Onset Date: 04/04/14 Code(s): G70.00 - MYASTHENIA GRAVIS WITHOUT (ACUTE) EXACERBATION SNOMED Code(s): 26812230 Comment: Continue pyridostigmine. Will stop stress dose steroids and resume prednisone 20mg daily. (8) Type 2 diabetes mellitus Current Visit: Yes Status: Chronic Comment: Sugar this AM was low at 65. Will decrease lantus to 23 units SQ qHS and monitor the sugars. (9) COPD (chronic obstructive pulmonary disease) Current Visit: Yes Status: Chronic Code(s): J44.9 - CHRONIC OBSTRUCTIVE PULMONARY DISEASE, UNSPECIFIED SNOMED Code(s): 63105157 Comment: No signs of exacerbation. She is currently more hypoxic than her baseline but will be working on weaning down O2. Continue dulera, spiriva and prn nebs. (10) GERD (gastroesophageal reflux disease) Current Visit: Yes Status: Chronic Code(s): K21.9 - GASTRO-ESOPHAGEAL REFLUX DISEASE WITHOUT ESOPHAGITIS SNOMED Code(s): 850026461 Comment: Change to omeprazole 20mg BID (11) DVT prophylaxis Current Visit: Yes Status: Acute Code(s): ZUM0044 - SNOMED Code(s): 368984883 Comment: SQ heparin held due probable slow GI bleed and anemia, no SCDs given the condition of the patient's skin (12) Full code status Current Visit: Yes Status: Acute Code(s): Z78.9 - OTHER SPECIFIED HEALTH STATUS SNOMED Code(s): 672321553 Comment: Will discuss with pt/pt's family as she is unlikely to survive a code Status and Disposition: .
--- NOTE | 2017-06-16 08:51 | PN ---
Progress Note - Progress Note Date of Service: 06/16/17 - Pulm f/u note Note: Pt seen and examined at bedside. No acute events o/n. Pt is more alert, still continues to be weak. FiO2 requirements are coming down. Active Medications Generic Name Dose Route Start Last Admin Trade Name Freq PRN Reason Stop Dose Admin Acetaminophen 650 mg 06/12/17 17:26 06/12/17 18:43 Tylenol Tab* PO 650 mg Q4HR PRN Administration FEVER Albuterol 2.5 mg 06/11/17 18:21 Ventolin 2.5 Mg/3 Ml Neb.Bridget* INH Q2H PRN SOB/WHEEZING Cyanocobalamin 1,000 mcg 06/11/17 19:00 Vitamin B12 Tab* PO MONTHLY THUY Dextrose 12.5 gm 06/14/17 10:16 D50w Syringe 50 Ml* IV PUSH .FOR FS < 60 - SS PRN FS < 60 Dronedarone 400 mg 06/11/17 21:00 06/15/17 21:37 Multaq Tab* PO 400 mg BID THUY Administration Ferrous Sulfate 325 mg 06/12/17 09:00 06/15/17 09:10 Ferrous Sulfate Tab* PO 325 mg DAILY THUY Administration Furosemide 40 mg 06/16/17 09:00 Lasix Tab* PO DAILY THUY Meropenem 1 gm in 50 mls @ 100 mls/hr 06/14/17 15:00 06/16/17 02:54 Merrem 1 Gm Premix(*) IV 100 mls/hr Q12H THUY Administration Insulin Glargine 23 units 06/16/17 18:00 Lantus(*) SUBCUT QPM THUY Insulin Human Lispro 0 units 06/14/17 12:00 06/16/17 07:54 Humalog* SUBCUT Not Given FS ACHS ICU THUY Protocol Lactobacillus Rhamnosus 1 cap 06/12/17 07:30 06/15/17 17:43 Culturelle* PO 1 cap TID AC THUY Administration Loperamide HCl 2 mg 06/11/17 18:21 Imodium Cap* PO Q4HR PRN LOOSE STOOLS Mometasone Furoate/Formoterol Fumar 2 puff 06/11/17 21:00 06/15/17 19:53 Dulera 200/5 Mdi* INH 2 puff BID THUY Administration Nystatin 500,000 units 06/12/17 08:30 06/15/17 17:43 Nystatin Suspension* SWISH SWAL 500,000 units TID PC THUY Administration Nystatin 1 applic 06/11/17 21:00 06/15/17 21:37 Nystatin Top Powder* TOPICAL 1 applic TID THUY Administration Omeprazole 20 mg 06/16/17 09:00 Prilosec Cap* PO BID THUY Oxycodone/Acetaminophen 1 tab 06/11/17 18:21 Percocet 5/325 Tab* PO Q4H PRN PAIN Prednisone 20 mg 06/16/17 09:00 Deltasone Tab* PO DAILY THUY Pyridostigmine [place] 120 mg 06/11/17 21:00 06/15/17 21:36 Mestinon Tab* PO 120 mg QID THUY Administration Tiotropium [place] 1 cap 06/12/17 09:00 06/15/17 07:08 Spiriva Cap.Inh* INH 1 cap.inh DAILY THUY Administration Vital Signs Temp Pulse Resp BP Pulse Ox 98.4 F 66 19 126/55 97 06/16/17 07:42 06/16/17 07:45 06/16/17 07:45 06/16/17 07:45 06/16/17 07:45 O/E: Pt in more alert today, sitting up in chair, still appears weak HEENT: PERRLA, No JVD Lungs: Diminished air entry b/l R>L, on high flow 30L, 100% FiO2 CVS: S1, S2+ Abd: Obese, BS+ Ext: edema + Neuro: More alert, significant motor weakness Skin: Multiple bruises, friable Laboratory Results - last 24 hr 06/15/17 06/15/17 06/15/17 05:30 12:49 17:33 WBC RBC Hgb Hct MCV MCH MCHC RDW Plt Count MPV Neut % (Auto) Lymph % (Auto) [place] % (Auto) Eos % (Auto) Baso % (Auto) Absolute Neuts (auto) Absolute Lymphs (auto) Absolute Monos (auto) Absolute Eos (auto) Absolute Basos (auto) Absolute Nucleated RBC Nucleated RBC % Sodium Potassium Chloride Carbon Dioxide Anion Gap BUN Creatinine Est GFR ( Amer) Est GFR (Non-Af Amer) BUN/Creatinine Ratio Glucose POC Glucose (mg/dL) 133 H 239 H Hemoglobin A1c 6.7 H Calcium 06/15/17 06/16/17 06/16/17 21:20 05:46 05:46 WBC 12.5 H RBC 3.56 L Hgb 8.6 L Hct 29 L MCV 80 MCH 24 L MCHC 30 L RDW 27 H Plt Count 248 MPV 7 L Neut % (Auto) 87.7 H Lymph % (Auto) 6.0 L [place] % (Auto) 5.9 Eos % (Auto) 0.1 Baso % (Auto) 0.3 Absolute Neuts (auto) 10.9 H Absolute Lymphs (auto) 0.7 L Absolute Monos (auto) 0.7 Absolute Eos (auto) 0 Absolute Basos (auto) 0 Absolute Nucleated RBC 0 Nucleated RBC % 0.1 Sodium 145 Potassium 3.1 L Chloride 108 Carbon Dioxide 36 H Anion Gap 1 L BUN 14 Creatinine 1.06 H Est GFR ( Amer) 66.1 Est GFR (Non-Af Amer) 51.4 BUN/Creatinine Ratio 13.2 Glucose 65 L POC Glucose (mg/dL) 214 H Hemoglobin A1c Calcium 8.4 L 06/16/17 07:43 WBC RBC Hgb Hct MCV MCH MCHC RDW Plt Count MPV Neut % (Auto) Lymph % (Auto) [place] % (Auto) Eos % (Auto) Baso % (Auto) Absolute Neuts (auto) Absolute Lymphs (auto) Absolute Monos (auto) Absolute Eos (auto) Absolute Basos (auto) Absolute Nucleated RBC Nucleated RBC % Sodium Potassium Chloride Carbon Dioxide Anion Gap BUN Creatinine Est GFR ( Amer) Est GFR (Non-Af Amer) BUN/Creatinine Ratio Glucose POC Glucose (mg/dL) 79 Hemoglobin A1c Calcium I/R: 71 y o f with h/o myasthenia gravis,b/l LE lymphoedema, 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 fib (not anticoagulated due to chronic anemia ) type II DM, COPD (on 2.5 L02) and HTN who presented to the ER after a fall , noted to have hypoxemia with large R pleural effusion, rt lung atelectasis likely sec to mucus plugging Pt had bronchoscopy 06/12, thick mucus was suctioned, cx positive for ESBL E.Coli Rpt CXR - significant improvement in pl effusion now with small effusion Will rpt CXR in am Signficant clinical improvement noted, on 6L O2 currently Still has weak cough reflux Has been able to stay off BiPAP Will benefit from BiPAP at night Bronch cx positive for ESBL , on meropenem ID consult noted She received transfusion for severe anemia, likely from lower GI bleed, H&H stable now Has chronic diarrhea Skin is sloughing off, likely from chronic prednisone [facility] prognosis is guarded to poor given multiple comorbidities, full code per family, pt wishes to be DNR Not in need of ICU care D/w Dr Davidson
[2017-06-16] MEDS: Lactobacillus Acidophilu (GG)* 1 CAP CAP PO SCH ×3 (09:26→14:34)
[2017-06-16] MEDS: predniSONE TAB* 20 MG PO SCH (09:26)
[2017-06-16] MEDS: Ferrous Sulfate TAB* 325 MG PO SCH (09:26)
[2017-06-16] MEDS: Furosemide TAB* 40 MG PO SCH (09:26)
[2017-06-16] MEDS: Dronedarone TAB* 400 MG PO SCH ×2 (09:26→22:10)
[2017-06-16] MEDS: Pyridostigmine TAB* 60 MG PO SCH ×4 (09:26→22:10)
[2017-06-16] MEDS: Omeprazole CAP* 20 MG PO SCH ×2 (09:26→14:34)
[2017-06-16] MEDS: Mometasone/Formoter 200/5 MDI INH SCH ×2 (09:30→20:49)
[2017-06-16] MEDS: Nystatin TOP POWDER* 15 GM BTL TOPICAL SCH ×3 (09:32→22:18)
[2017-06-16] MEDS: Nystatin SUSPENSION* 100000 UNITS/ML 5 ML UDC SWISH SWAL SCH ×3 (09:32→22:09)
[2017-06-16] MEDS: Tiotropium CAP.INH* CAP.INH/18 MCG (USE ORDER SET !) INH SCH (09:34)
[2017-06-16] MEDS: oxyCODONE/Acetamin 5/325 MG* TAB PO PRN (17:24)
[2017-06-16] MEDS ORDERED: Potassium Chloride LIQUID* 20 MEQ PACKET PO ONE (17:47)
[2017-06-16] MEDS ORDERED: Insulin GLARGINE(*) 1 UNITS UNIT SUBCUT SCH (18:00)
[2017-06-17] MEDS: Meropenem 1 GM PREMIX(*) 1 GM/50 ML BAG IV SCH ×2 (03:48→15:20)
[2017-06-17 06:12] LABS: Hematocrit 30 % (35-47); Hemoglobin 8.8 g/dl (12.0-16.0); Mean Corpuscular HGB Conc 30 g/dl (31-36); Mean Corpuscular Hemoglobin 24 pg (27-31); Mean Corpuscular Volume 80 fL (80-97); Mean Platelet Volume 7 um3 (7.4-10.4); Platelet Count 241 10^3/ul (150-450); Red Blood Count 3.67 10^6/ul (4.0-5.4); Red Cell Distribution Width 27 % (10.5-15); White Blood Count 11.1 10^3/ul (3.5-10.8)
[2017-06-17 06:22] LABS: EGFR Non-African American 56.3 (>60)
[2017-06-17] MEDS: Mometasone/Formoter 200/5 MDI INH SCH ×2 (07:41→22:40)
[2017-06-17] MEDS: Tiotropium CAP.INH* CAP.INH/18 MCG (USE ORDER SET !) INH SCH (07:43)
[2017-06-17] MEDS: Insulin LISPRO* 1 UNITS UNIT SUBCUT SCH ×4 (08:04→22:54)
--- NOTE | 2017-06-17 09:08 | RAD ---
INDICATION: Right pleural effusion. COMPARISON: Comparison is made with a prior chest x-ray study from June 14, 2017. TECHNIQUE: 2 portable films of the abdomen were obtained. FINDINGS: The heart is grossly within normal limits in size. The right heart border is obscured. There is a transvenous pacemaker present. There is complete opacification of the right hemithorax with volume loss most consistent with right lung collapse a component of the density may represent a pleural effusion. There appears to be a trace left pleural effusion. IMPRESSION: 1. NEW COMPLETE OPACIFICATION OF THE RIGHT HEMITHORAX WITH VOLUME LOSS SUSPICIOUS FOR RIGHT LUNG COLLAPSE. A COMPONENT OF THE DENSITY MAY REPRESENT A PLEURAL EFFUSION. AN ULTRASOUND OF THE CHEST MAY BE HELPFUL IN FURTHER EVALUATION. 2. TRACE LEFT PLEURAL EFFUSION.
[2017-06-17] MEDS: Nystatin TOP POWDER* 15 GM BTL TOPICAL SCH ×4 (09:10→22:53)
[2017-06-17] MEDS: Nystatin SUSPENSION* 100000 UNITS/ML 5 ML UDC SWISH SWAL SCH ×3 (09:11→17:13)
[2017-06-17] MEDS: Loperamide CAP* 2 MG PO PRN ×2 (09:13→17:13)
[2017-06-17] MEDS: Lactobacillus Acidophilu (GG)* 1 CAP CAP PO SCH ×3 (09:13→17:13)
[2017-06-17] MEDS: Omeprazole CAP* 20 MG PO SCH ×2 (09:13→17:13)
[2017-06-17] MEDS: predniSONE TAB* 20 MG PO SCH (09:13)
[2017-06-17] MEDS: Furosemide TAB* 40 MG PO SCH (09:13)
[2017-06-17] MEDS: Ferrous Sulfate TAB* 325 MG PO SCH (09:13)
[2017-06-17] MEDS: Potassium Chlor TAB* 20 MEQ TAB.ER PO SCH ×2 (09:13→22:52)
[2017-06-17] MEDS: Pyridostigmine TAB* 60 MG PO SCH ×4 (09:13→22:52)
[2017-06-17] MEDS: Dronedarone TAB* 400 MG PO SCH ×2 (09:13→22:52)
[2017-06-17] MEDS ORDERED: Acetylcysteine INHALATION SOL* 200 MG/ML NEB.SOLN 10 ML INH PRN (11:03)
--- NOTE | 2017-06-17 11:44 | PN ---
Progress Note - Progress Note Date of Service: 06/17/17 - Pulm f/u note Note: Pt seen and examined at bedside. Pt appears weak. Denies any change in breathing , asking to be moved to chair. Continues to be on O2 at 5L/min. Reports being able to cough phleghm Active Medications Generic Name Dose Route Start Last Admin Trade Name Freq PRN Reason Stop Dose Admin Acetaminophen 650 mg 06/12/17 17:26 06/12/17 18:43 Tylenol Tab* PO 650 mg Q4HR PRN Administration FEVER Acetylcysteine 400 mg 06/17/17 11:03 Mucomyst Inhalation Bridget* INH [id number] AWAKE PRN CONGESTION Albuterol 2.5 mg 06/11/17 18:21 Ventolin 2.5 Mg/3 Ml Neb.Bridget* INH Q2H PRN SOB/WHEEZING Cyanocobalamin 1,000 mcg 06/11/17 19:00 Vitamin B12 Tab* PO MONTHLY THUY Dextrose 12.5 gm 06/14/17 10:16 D50w Syringe 50 Ml* IV PUSH .FOR FS < 60 - SS PRN FS < 60 Dronedarone 400 mg 06/11/17 21:00 06/17/17 09:13 Multaq Tab* PO 400 mg BID THUY Administration Ferrous Sulfate 325 mg 06/12/17 09:00 06/17/17 09:13 Ferrous Sulfate Tab* PO 325 mg DAILY THUY Administration Furosemide 40 mg 06/16/17 09:00 06/17/17 09:13 Lasix Tab* PO 40 mg DAILY THUY Administration Meropenem 1 gm in 50 mls @ 100 mls/hr 06/14/17 15:00 06/17/17 03:48 Merrem 1 Gm Premix(*) IV 100 mls/hr Q12H THUY Administration Insulin Glargine 20 units 06/17/17 18:00 Lantus(*) SUBCUT QPM THUY Insulin Human Lispro 0 units 06/14/17 12:00 06/17/17 08:04 Humalog* SUBCUT Not Given FS ACHS ICU THUY Protocol Lactobacillus Rhamnosus 1 cap 06/12/17 07:30 06/17/17 09:13 Culturelle* PO 1 cap TID AC THUY Administration Loperamide HCl 2 mg 06/11/17 18:21 06/17/17 09:13 Imodium Cap* PO 2 mg Q4HR PRN Administration LOOSE STOOLS Mometasone Furoate/Formoterol Fumar 2 puff 06/11/17 21:00 06/17/17 07:41 Dulera 200/5 Mdi* INH 2 puff BID THUY Administration Nystatin 500,000 units 06/12/17 08:30 06/17/17 09:11 Nystatin Suspension* SWISH SWAL 500,000 units TID PC THUY Administration Nystatin 1 applic 06/11/17 21:00 06/17/17 09:10 Nystatin Top Powder* TOPICAL 1 applic TID THUY Administration Omeprazole 20 mg 06/16/17 10:00 06/17/17 09:13 Prilosec Cap* PO 20 mg BID@0730,1630 THUY Administration Oxycodone/Acetaminophen 1 tab 06/11/17 18:21 06/16/17 17:24 Percocet 5/325 Tab* PO 1 tab Q4H PRN Administration PAIN Potassium Chloride 20 meq 06/17/17 09:00 06/17/17 09:13 Klor Con Er Tab* PO 06/17/17 21:01 20 meq BID THUY Administration Prednisone 20 mg 06/16/17 09:00 06/17/17 09:13 Deltasone Tab* PO 20 mg DAILY THUY Administration Pyridostigmine [place] 120 mg 06/11/17 21:00 06/17/17 09:13 Mestinon Tab* PO 120 mg QID THUY Administration Tiotropium [place] 1 cap 06/12/17 09:00 06/17/17 07:43 Spiriva Cap.Inh* INH 1 cap.inh DAILY THUY Administration Vital Signs Temp Pulse Resp BP Pulse Ox 97.1 F 90 18 120/48 96 06/17/17 08:00 06/17/17 08:44 06/17/17 09:13 06/17/17 07:33 06/17/17 08:00 O/E: Pt in alert, awake, still appears weak HEENT: PERRLA, No JVD Lungs: Diminished air entry b/l R>>L, on 5L O2 CVS: S1, S2+ Abd: Obese, BS+ Ext: edema + Neuro: More alert, significant motor weakness Skin: Multiple bruises, friable Laboratory Results - last 24 hr 06/16/17 06/16/17 06/17/17 12:24 17:04 05:48 WBC 11.1 H RBC 3.67 L Hgb 8.8 L Hct 30 L MCV 80 MCH 24 L MCHC 30 L RDW 27 H Plt Count 241 MPV 7 L Sodium Potassium Chloride Carbon Dioxide Anion Gap BUN Creatinine Est GFR ( Amer) Est GFR (Non-Af Amer) BUN/Creatinine Ratio Glucose POC Glucose (mg/dL) 182 H 219 H Calcium 06/17/17 06/17/17 06/17/17 05:48 07:37 07:52 WBC RBC Hgb Hct MCV MCH MCHC RDW Plt Count MPV Sodium 147 H Potassium 3.1 L Chloride 108 Carbon Dioxide 38 H Anion Gap 1 L BUN 15 Creatinine 0.98 H Est GFR ( Amer) 72.4 Est GFR (Non-Af Amer) 56.3 BUN/Creatinine Ratio 15.3 Glucose 52 L POC Glucose (mg/dL) 60 L 75 Calcium 8.4 L 06/17/17 11:20 WBC RBC Hgb Hct MCV MCH MCHC RDW Plt Count MPV Sodium Potassium Chloride Carbon Dioxide Anion Gap BUN Creatinine Est GFR ( Amer) Est GFR (Non-Af Amer) BUN/Creatinine Ratio Glucose POC Glucose (mg/dL) 179 H Calcium I/R: 71 y o f with h/o myasthenia gravis,b/l LE lymphoedema, 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 fib (not anticoagulated due to chronic anemia ) type II DM, COPD (on 2.5 L02) and HTN who presented to the ER after a fall , noted to have hypoxemia with large R pleural effusion, rt lung atelectasis likely sec to mucus plugging Pt had bronchoscopy 06/12, thick mucus was suctioned, cx positive for ESBL E.Coli CXR this morning was reviewed - white out of right lung with volume loss and mediastinal shift to rt suggestive of atelectasis NO change in resp/O2 status Has weak cough reflux sec to MG Bronchoscopy is not microsoft infrastructure consultant fix her and she is high risk for procedure Would recommend mucus mobilization with chest PT, nebs, mucomyst, chest percussion therapy BiPAP at night will help recruit alveoli and prevent hypercapnia c/w BiPAP at night Bronch cx positive for ESBL , on meropenem c/w Lasix, has significant edema of extremities She received transfusion for severe anemia, likely from lower GI bleed, H&H stable now Has chronic diarrhea on Imodium Skin is sloughing off, likely from chronic prednisone retirement prognosis is guarded to poor given multiple comorbidities, full code per family, though pt wishes to be DNR D/w Jony Mraia
--- NOTE | 2017-06-17 14:51 | PN ---
Subjective Date of Service: 06/17/17 Interval History: Patient complains of continued SOB but states that it has improved. Patient is unhappy in the hospital and wants to go home. Minimally cooperative with interview. Denies CP, N/V, abdominal pain, SHIRLEY, F/C, or other pain. Patient has chronic diarrhea which she states has been going on for months. Patient cannot remember the last time she had her IgG and states that Dr. Madden manages her MG. Family History: Unchanged from Admission Social History: Unchanged from Admission Past Medical History: Unchanged from Admission Objective Active Medications: Acetaminophen (Tylenol Tab*) 650 mg PO Q4HR PRN PRN Reason: FEVER Last Admin: 06/12/17 18:43 Dose: 650 mg Acetylcysteine (Mucomyst Inhalation Bridget*) 400 mg INH [id number] AWAKE PRN PRN Reason: CONGESTION Albuterol (Ventolin 2.5 Mg/3 Ml Neb.Bridget*) 2.5 mg INH Q2H PRN PRN Reason: SOB/WHEEZING Cyanocobalamin (Vitamin B12 Tab*) 1,000 mcg PO MONTHLY [facility] Dextrose (D50w Syringe 50 Ml*) 12.5 gm IV PUSH .FOR FS < 60 - SS PRN PRN Reason: FS < 60 Dronedarone (Multaq Tab*) 400 mg PO BID [facility] Last Admin: 06/17/17 09:13 Dose: 400 mg Ferrous Sulfate (Ferrous Sulfate Tab*) 325 mg PO DAILY [facility] Last Admin: 06/17/17 09:13 Dose: 325 mg Furosemide (Lasix Tab*) 40 mg PO DAILY [facility] Last Admin: 06/17/17 09:13 Dose: 40 mg Meropenem (Merrem 1 Gm Premix(*)) 1 gm in 50 mls @ 100 mls/hr IV Q12H [facility] Last Admin: 06/17/17 03:48 Dose: 100 mls/hr Insulin Glargine (Lantus(*)) 20 units SUBCUT QPM [facility] Insulin Human Lispro (Humalog*) 0 units SUBCUT FS ACHS ICU THUY PRN Reason: Protocol Last Admin: 06/17/17 12:27 Dose: 2 units Lactobacillus Rhamnosus (Culturelle*) 1 cap PO TID AC [facility] Last Admin: 06/17/17 12:27 Dose: 1 cap Loperamide HCl (Imodium Cap*) 2 mg PO Q4HR PRN PRN Reason: LOOSE STOOLS Last Admin: 06/17/17 09:13 Dose: 2 mg Mometasone Furoate/Formoterol Fumar (Dulera 200/5 Mdi*) 2 puff INH BID [facility] Last Admin: 06/17/17 07:41 Dose: 2 puff Nystatin (Nystatin Suspension*) 500,000 units SWISH SWAL TID [facility] Last Admin: 06/17/17 12:27 Dose: 500,000 units Nystatin (Nystatin Top Powder*) 1 applic TOPICAL TID [facility] Last Admin: 06/17/17 14:02 Dose: Not Given Omeprazole (Prilosec Cap*) 20 mg PO BID@0730,1630 [facility] Last Admin: 06/17/17 09:13 Dose: 20 mg Oxycodone/Acetaminophen (Percocet 5/325 Tab*) 1 tab PO Q4H PRN PRN Reason: PAIN Last Admin: 06/16/17 17:24 Dose: 1 tab Potassium Chloride (Klor Con Er Tab*) 20 meq PO BID [facility] Stop: 06/17/17 21:01 Last Admin: 06/17/17 09:13 Dose: 20 meq Prednisone (Deltasone Tab*) 20 mg PO DAILY [facility] Last Admin: 06/17/17 09:13 Dose: 20 mg Pyridostigmine [place] (Mestinon Tab*) 120 mg PO QID [facility] Last Admin: 06/17/17 12:27 Dose: 120 mg Tiotropium [place] (Spiriva Cap.Inh*) 1 cap INH DAILY [facility] Last Admin: 06/17/17 07:43 Dose: 1 cap.inh Vital Signs - 8 hr 06/17/17 06/17/17 06/17/17 07:33 08:00 08:44 Temperature 97.1 F Pulse Rate 79 90 Respiratory 20 20 Rate Blood Pressure 120/48 (mmHg) O2 Sat by Pulse 99 96 Oximetry 06/17/17 06/17/17 06/17/17 09:13 11:36 12:04 Temperature 98.2 F Pulse Rate 87 Respiratory 18 28 24 Rate Blood Pressure 124/57 (mmHg) O2 Sat by Pulse 97 Oximetry 06/17/17 12:15 Temperature Pulse Rate Respiratory 24 Rate Blood Pressure (mmHg) O2 Sat by Pulse Oximetry Oxygen Devices in Use Now: Nasal Cannula - 4L Appearance: Patient is an edematous 71yo female who appears older than stated age and is sitting in the bed in NAD. Eyes: No Scleral Icterus, PERRLA Ears/Nose/Mouth/Throat: NL Teeth, Lips, Gums, Clear Oropharnyx, Mucous Membranes Moist Neck: NL Appearance and Movements; NL JVP, Trachea Midline Respiratory: - - Decreased chest expansion on right. Severely decreased air exchange. Diminished breath sounds throughout. Cardiovascular: NL Sounds; No Murmurs; No JVD, RRR, - - 1+ pitting edema in B/L LE. Abdominal: NL Sounds; No Tenderness; No Distention, No Hepatosplenomegaly Lymphatic: No Cervical Adenopathy Extremities: No Clubbing, Cyanosis Skin: No Nodules or Sclerosis, - - Large skin tear burden on UE covered with mepilex dressings which show weeping. Redness and skin flaking on B/L LE. Neurological: Alert and Oriented x 3, - - CN II-XII intact. Strength decreased throughout without focality. Result Diagrams: 06/17/17 05:48 06/17/17 05:48 Additional Lab and Data: Lab Results Microbiology and Other Data: Microbiology 06/12/17 03:50 Nasal Screen MRSA (PCR)([facility]) - Final Nasal Mrsa Detected Assess/Plan/Problems-Billing Ms Oreilly is a 71 yo F with a h/o myasthenia gravis on chronic prednisone, B/L LE lymphedema, tachy-jenna syndrome s/p pacer insertion, diastolic CHF, A. fib ( not anticoagulated due to chronic anemia), type II DM, COPD (on 2.5L 02) and HTN who presented to the ER after a fall and was noted to be hypoxic with a large R pleural effusion. Found to have mucus plugging causing atelectasis on bronchoscopy. Cultures grew ESBL, on Meropenum. Worsening of effusion today on CXR. - Patient Problems (1) Pleural effusion Current Visit: Yes Status: Acute Code(s): J90 - PLEURAL EFFUSION, NOT ELSEWHERE CLASSIFIED SNOMED Code(s): 64859172 Comment: Was improved, but much worse today with tracheal deviation and complete white out of right lung. No utility in repeat bronchoscopy for halfway treatment. Start Metanebs, Chest PT, Mucomyst. Unable to clear plugs due to MG. Cough more productive today. Continue Lasix. Appreciate Pulmonology input. (2) Hypoxemia Current Visit: Yes Status: Acute Code(s): R09.02 - HYPOXEMIA SNOMED Code(s ): 015336361 Comment: Acute hypoxic respiratory failure improving. She is down to 4L O2 but saturating in the 90s so this likely can be weaned down further. Will continue meropenem per Dr. Mustafa for another 4 days to treat ESBL Ecoli pneumonia. Pleural effusion and respiratory exam worsened significantly today. (3) Pneumonia Current Visit: Yes Status: Acute Code(s): J18.9 - PNEUMONIA, UNSPECIFIED ORGANISM SNOMED Code(s): 404981950 Comment: ESBL E coli PNA from Bronchoscopy. Continue Meropenum day 3/. Appreciate ID input. (4) Atrial fibrillation Current Visit: Yes Status: Acute Code(s): I48.91 - UNSPECIFIED ATRIAL FIBRILLATION SNOMED Code(s): 12461821 Comment: Pt is regular today. Continue multaq. No anticoagulation chronically given her chronic anemia. (5) Anemia Current Visit: Yes Status: Acute Code(s): D64.9 - ANEMIA, UNSPECIFIED SNOMED Code(s): 223880283 Comment: H/H continues to improve after she received 2 units PRBC. Continue BID protonix. Will still hold off on consulting GI as her prognosis is still guarded given her whole medical picture. (6) CKD (chronic kidney disease) Current Visit: Yes Status: Acute Code(s): N18.9 - CHRONIC KIDNEY DISEASE, UNSPECIFIED SNOMED Code(s): 578819361 Comment: Creatinine is better than baseline. Continue to monitor. Slight Hyponatremia. (7) Diastolic heart failure Current Visit: Yes Status: Acute Code(s): I50.30 - UNSPECIFIED DIASTOLIC ( CONGESTIVE) HEART FAILURE SNOMED Code(s): 888890444 Comment: Continue lasix 40mg daily and monitor fluid status, VS and respiratory status. Currently swollen legs. Will give extra 20mg IV lasix at this time. (8) Skin tear Current Visit: Yes Status: Acute Code(s): DUN8145 - SNOMED Code(s): 878711472 Comment: The patient has numerous deep/significant skin tears to her UE bilaterally. Cover with mepilex per wound nurse. (9) COPD (chronic obstructive pulmonary disease) Current Visit: Yes Status: Chronic Code(s): J44.9 - CHRONIC OBSTRUCTIVE PULMONARY DISEASE, UNSPECIFIED SNOMED Code(s): 28703725 Comment: No signs of exacerbation. O2 down to 4L NC. Continue dulera, spiriva and prn nebs. (10) GERD (gastroesophageal reflux disease) Current Visit: Yes Status: Chronic Code(s): K21.9 - GASTRO-ESOPHAGEAL REFLUX DISEASE WITHOUT ESOPHAGITIS SNOMED Code(s): 810113754 Comment: Omeprazole 20mg BID (11) Myasthenia gravis Current Visit: Yes Status: Chronic Onset Date: 04/04/14 Code(s): G70.00 - MYASTHENIA GRAVIS WITHOUT (ACUTE) EXACERBATION SNOMED Code(s): 04807005 Comment: Continue pyridostigmine. Prednisone 20mg daily. IVIG monthly, unknown last infusion. Neurologist is Dr. Madden. Decreased cough relfex making her unable to clear secretions and leading to mucus plugging. (12) Hypokalemia Current Visit: Yes Status: Acute Code(s): E87.6 - HYPOKALEMIA SNOMED Code( s): 97520965 Comment: At 3.1. At increased risk of arrhythmia due to Multaq. Replace and recheck. (13) Type 2 diabetes mellitus Current Visit: Yes Status: Chronic Comment: Sugar this AM was low at 73. Will decrease lantus to 20 units SQ qHS and monitor the sugars. (14) Full code status Current Visit: Yes Status: Acute Code(s): Z78.9 - OTHER SPECIFIED HEALTH STATUS SNOMED Code(s): 350675199 Comment: Family would like patient to be FC. Patient wants to be DNR per notes but has current AMS so this is unable to be codified at this time. (15) DVT prophylaxis Current Visit: Yes Status: Acute Code(s): NHA6380 - SNOMED Code(s): 653315292 Comment: SQ heparin held due probable slow GI bleed and anemia, no SCDs given the condition of the patient's skin Status and Disposition: Inpatient. Poor Prognosis.
[2017-06-17] MEDS ORDERED: Furosemide IV* 10 MG/ML 2 ML VIAL (20 MG) IV SLOW PU ONE (15:07)
[2017-06-17] MEDS ORDERED: Furosemide IV* 10 MG/ML 2 ML VIAL (20 MG) ONE (15:10)
[2017-06-17] MEDS: Albuterol 2.5 MG/3 ML NEB.SOL* (0.083%) INH PRN (16:11)
[2017-06-17] MEDS: Insulin GLARGINE(*) 1 UNITS UNIT SUBCUT SCH (17:13)
[2017-06-18] MEDS: Meropenem 1 GM PREMIX(*) 1 GM/50 ML BAG IV SCH ×2 (03:06→15:53)
[2017-06-18 06:07] LABS: EGFR Non-African American 66.3 (>60)
[2017-06-18 06:19] LABS: ABS Basophils 0 10^3/ul (0-0.2); ABS Eosinophils 0.3 10^3/ul (0-0.6); ABS Lymphocytes 1.2 10^3/ul (1.0-4.8); ABS Monocytes 0.9 10^3/ul (0-0.8); ABS Neutrophils 6.6 10^3/ul (1.5-7.7); ABS Nucleated RBC 0 10^3/ul; Eosinophil % 3.1 % (0-6); Hematocrit 28 % (35-47); Hemoglobin 8.6 g/dl (12.0-16.0); Lymphocyte % 13.6 % (25-47); Mean Corpuscular HGB Conc 30 g/dl (31-36); Mean Corpuscular Hemoglobin 25 pg (27-31); Mean Corpuscular Volume 81 fL (80-97); Mean Platelet Volume 7 um3 (7.4-10.4); Nucleated Red Blood Cells % 0.1; Platelet Count 216 10^3/ul (150-450); Red Blood Count 3.51 10^6/ul (4.0-5.4); Red Cell Distribution Width 27 % (10.5-15)
[2017-06-18] MEDS: Insulin LISPRO* 1 UNITS UNIT SUBCUT SCH ×4 (07:48→21:06)
--- NOTE | 2017-06-18 07:54 | CONS ---
DATE OF CONSULT: PATIENT OF: Dr. Maria and Dr. Madden. HISTORY OF PRESENT ILLNESS: This is a 71-year-old woman who has longstanding myasthenia gravis and h as been admitted for the past 5 days because of hypoxemia and right pleural effusion. She was found to have diastolic heart failure, right lung atelectasis, and chronic hypoxic respiratory problems. [place] has followed and she was transferred out of the ICU today where she was receiving BiPAP but was thought to be doing better. Her daughter called me and asked me to stop by this evening because of concerns of how she was doing. She has had a bronchoscopy on 06/12/17 with thick mucus suction. Culture positive for E. coli and was thought to be doing better. She has past history of atrial fib rillation, congestive heart failure, type 2 diabetes, COPD, hypertension, tachy-jenna syndrome with a pacemaker in place, lymphedema, and her myasthenia gravis. MEDICATIONS: Active medicines include: 1. Albuterol 2.5 p.r.n. 2. B12 1000 mcg monthly. 3. Multaq 400 b.i.d. 4. Ferrous sulfate 325 b.i.d. 5. Furosemide 40 mg daily. 6. Merrem 1 g q.12 hours. 7. Insulin 23 units subcu q.p.m. 8. Pyridostigmine. 9. Prednisone 20 mg daily. 10. Percocet p.r.n. 11. Prilosec 20 mg b.i.d. 12. Imodium 2 mg p.o. q.4 hours p.r.n. ALLERGIES: Include CEFTRIAXONE, CIPROFLOXACIN, CELLCEPT, and AZITHROMYCIN. PHYSICAL EXAM: Temperature 98.2, pulse 84, respirations 18, blood pressure 127/43. She was alert and oriented with normal speech and comprehension. She knew her doctor's name. She knew where she was, the date. She had full extraocular movements, no ptosis currently. She had general debility, but s trength appeared full on both sides. Reflexes trace to 1, toes were downgoing. Chest had bilateral crackles. Cardiovascular: Irregular rate and rhythm. Abdomen is soft. DIAGNOSTIC STUDIES/LAB DATA: White count 11.1 today, hematocrit 30, platelet count 241. Most recent blood sugar was 270. Sodium 147 today, potassium 3.1, calcium of 8.4. The daughter had called me because she was concerned about her mother and the mother had called her i n because she did not feel well. I discussed with the daughter that the signs of her myasthenia in t erms of extraocular movements and ptosis that she sometimes has are not clear. In terms of her myast henia, she looks relatively good and this has not been a concern for the daughter as more respiratory status. I did not see any nasal flaring or retractions, but I told her I would let Dr. Davidson know of the concerns and Dr. Davidson would take whatever the appropriate steps are. Thank you for sharing her case. [id number]/[facility] #: [id number]
[2017-06-18] MEDS: Mometasone/Formoter 200/5 MDI INH SCH ×2 (08:02→19:43)
[2017-06-18] MEDS: Tiotropium CAP.INH* CAP.INH/18 MCG (USE ORDER SET !) INH SCH (08:02)
[2017-06-18] MEDS: Omeprazole CAP* 20 MG PO SCH ×2 (08:20→15:53)
[2017-06-18] MEDS: Lactobacillus Acidophilu (GG)* 1 CAP CAP PO SCH ×3 (08:20→15:52)
[2017-06-18] MEDS: Ferrous Sulfate TAB* 325 MG PO SCH (10:23)
[2017-06-18] MEDS: Nystatin SUSPENSION* 100000 UNITS/ML 5 ML UDC SWISH SWAL SCH ×3 (10:23→17:25)
[2017-06-18] MEDS: Dronedarone TAB* 400 MG PO SCH ×2 (10:24→21:05)
[2017-06-18] MEDS: Furosemide TAB* 40 MG PO SCH (10:24)
[2017-06-18] MEDS ORDERED: Magnesium Oxide TAB* 400 MG PO ONE (10:26)
[2017-06-18] MEDS: predniSONE TAB* 20 MG PO SCH (10:26)
[2017-06-18] MEDS: Pyridostigmine TAB* 60 MG PO SCH ×4 (10:26→21:05)
[2017-06-18] MEDS: Nystatin TOP POWDER* 15 GM BTL TOPICAL SCH ×3 (10:32→21:06)
[2017-06-18] MEDS ORDERED: Magnesium Oxide TAB* 400 MG ONE (10:35)
[2017-06-18] MEDS ORDERED: Potassium Chloride LIQUID* 20 MEQ PACKET ONE (10:35)
[2017-06-18] MEDS: Potassium Chloride LIQUID* 20 MEQ PACKET PO SCH (10:39)
[2017-06-18] MEDS: Albuterol 2.5 MG/3 ML NEB.SOL* (0.083%) INH PRN ×2 (11:21→19:43)
--- NOTE | 2017-06-18 15:39 | PN ---
Subjective Date of Service: 06/18/17 Interval History: oxygen requirement has been fluctuating, goes up to 5L occasionally this morning , not necessarily with exertion, was down to 3L earlier. She says over and over that she wants to go for a walk and that nothing else is bothering her. Says her breathing is comfortable and that she has no pain. Family History: Unchanged from Admission Social History: Unchanged from Admission Past Medical History: Unchanged from Admission Objective Active Medications: Acetaminophen (Tylenol Tab*) 650 mg PO Q4HR PRN PRN Reason: FEVER Last Admin: 06/12/17 18:43 Dose: 650 mg Acetylcysteine (Mucomyst Inhalation Bridget*) 400 mg INH [id number] AWAKE PRN PRN Reason: CONGESTION Last Admin: 06/17/17 16:11 Dose: 400 mg Albuterol (Ventolin 2.5 Mg/3 Ml Neb.Bridget*) 2.5 mg INH Q2H PRN PRN Reason: SOB/WHEEZING Last Admin: 06/18/17 11:21 Dose: 2.5 mg Cyanocobalamin (Vitamin B12 Tab*) 1,000 mcg PO MONTHLY [facility] Dextrose (D50w Syringe 50 Ml*) 12.5 gm IV PUSH .FOR FS < 60 - SS PRN PRN Reason: FS < 60 Dronedarone (Multaq Tab*) 400 mg PO BID [facility] Last Admin: 06/18/17 10:24 Dose: 400 mg Ferrous Sulfate (Ferrous Sulfate Tab*) 325 mg PO DAILY [facility] Last Admin: 06/18/17 10:23 Dose: 325 mg Furosemide (Lasix Iv*) 40 mg IV BID [facility] Meropenem (Merrem 1 Gm Premix(*)) 1 gm in 50 mls @ 100 mls/hr IV Q12H [facility] Last Admin: 06/18/17 03:06 Dose: 100 mls/hr Insulin Glargine (Lantus(*)) 20 units SUBCUT QPM [facility] Last Admin: 06/17/17 17:13 Dose: 20 units Insulin Human Lispro (Humalog*) 0 units SUBCUT FS ACHS ICU [facility] PRN Reason: Protocol Last Admin: 06/18/17 12:41 Dose: Not Given Lactobacillus Rhamnosus (Culturelle*) 1 cap PO TID AC [facility] Last Admin: 06/18/17 12:33 Dose: 1 cap Loperamide HCl (Imodium Cap*) 2 mg PO Q4HR PRN PRN Reason: LOOSE STOOLS Last Admin: 06/17/17 17:13 Dose: 2 mg Mometasone Furoate/Formoterol Fumar (Dulera 200/5 Mdi*) 2 puff INH BID [facility] Last Admin: 06/18/17 08:02 Dose: 2 puff Nystatin (Nystatin Suspension*) 500,000 units SWISH SWAL TID PC [facility] Last Admin: 06/18/17 13:59 Dose: 500,000 units Nystatin (Nystatin Top Powder*) 1 applic TOPICAL TID [facility] Last Admin: 06/18/17 13:58 Dose: 1 applic Omeprazole (Prilosec Cap*) 20 mg PO BID@0730,1630 [facility] Last Admin: 06/18/17 08:20 Dose: 20 mg Oxycodone/Acetaminophen (Percocet 5/325 Tab*) 1 tab PO Q4H PRN PRN Reason: PAIN Last Admin: 06/16/17 17:24 Dose: 1 tab Potassium Chloride (Klor-Con Liquid*) 40 meq PO DAILY [facility] Last Admin: 06/18/17 10:39 Dose: 40 meq Prednisone (Deltasone Tab*) 20 mg PO DAILY [facility] Last Admin: 06/18/17 10:26 Dose: 20 mg Pyridostigmine Rainelle (Mestinon Tab*) 120 mg PO QID [facility] Last Admin: 06/18/17 13:59 Dose: 120 mg Tiotropium Rainelle (Spiriva Cap.Inh*) 1 cap INH DAILY [facility] Last Admin: 06/18/17 08:02 Dose: 1 cap.inh Vital Signs - 8 hr 06/18/17 06/18/17 06/18/17 07:59 08:08 11:10 Temperature 98.0 F Pulse Rate 68 86 Respiratory 20 18 18 Rate Blood Pressure 118/38 (mmHg) O2 Sat by Pulse 100 100 95 Oximetry 06/18/17 06/18/17 06/18/17 11:59 12:02 15:03 Temperature Pulse Rate 72 72 Respiratory 20 20 Rate Blood Pressure 117/48 (mmHg) O2 Sat by Pulse 95 95 Oximetry Oxygen Devices in Use Now: Nasal Cannula Appearance: alert, ill appearing, sitting up in the wheelchair waiting to go for a walk Eyes: No Scleral Icterus Ears/Nose/Mouth/Throat: NL Teeth, Lips, Gums Neck: - - no JVP seen at 90 degrees sitting up Respiratory: - - decreased air flow in both lungs, no rhonchi Cardiovascular: - - 3+ LE edema Abdominal: NL Sounds; No Tenderness; No Distention Lymphatic: No Cervical Adenopathy Extremities: - - superimposed b/l erythema on edematous ankles Neurological: - - flat affect Result Diagrams: 06/18/17 05:41 06/18/17 05:41 Additional Lab and Data: Lab Results Microbiology and Other Data: Microbiology 06/12/17 03:50 Nasal Screen MRSA (PCR)([facility]) - Final Nasal Mrsa Detected Assess/Plan/Problems-Billing Ms Oreilly is a 71 yo F with a h/o myasthenia gravis on chronic prednisone, B/L LE lymphedema, tachy-jenna syndrome s/p pacer insertion, diastolic CHF, A. fib ( not anticoagulated due to chronic anemia), type II DM, COPD (on 2.5L 02) and HTN who presented to the ER after a fall and was noted to be hypoxic with a large R pleural effusion. Found to have mucus plugging causing atelectasis on bronchoscopy. Cultures grew ESBL, on Meropenum. Worsening of effusion today on CXR. - Patient Problems (1) Acute respiratory failure with hypoxia Current Visit: Yes Status: Acute Code(s): J96.01 - ACUTE RESPIRATORY FAILURE WITH HYPOXIA SNOMED Code(s): 15152082 Comment: CXR yesterday showed near white-out of right lung repeat today; aeration is actually better than cxr would suggest seen by Dr. Vegas, who recommended mucomyst, chest PT, nebs, and bipap, and suggested that repeat bronchoscopy is probably not appropriate Prior bronchoscopy with culture revealed esbl e. coli, for which she is on meropenem I also believe she has an element of volume overload; so I am increasing her lasix to IV 40mg BID She would not want to be intubated should she worsen--I discussed this with her today (2) Skin tear Current Visit: Yes Status: Acute Code(s): EQU7736 - SNOMED Code(s): 636106974 Comment: The patient has numerous deep/significant skin tears to her UE bilaterally, likely due to chronic steroid use. They do not look infected (3) Myasthenia gravis Current Visit: Yes Status: Chronic Onset Date: 04/04/14 Code(s): G70.00 - MYASTHENIA GRAVIS WITHOUT (ACUTE) EXACERBATION SNOMED Code(s): 61427333 Comment: Continue pyridostigmine. Prednisone 20mg daily. IVIG monthly. Primary neurologist is Dr. Madden; seen by Dr. Bone last night, who does not believe her MG to be active. Decreased cough relfex making her unable to clear secretions and leading to mucus plugging. (4) Acute blood loss anemia Current Visit: No Status: Acute Code(s): D62 - ACUTE POSTHEMORRHAGIC ANEMIA SNOMED Code(s): 484010473 Comment: H/H stable. She is iron deficient and her B12 is low normal. Continue supplementation. (5) Diarrhea Current Visit: No Status: Acute Code(s): R19.7 - DIARRHEA, UNSPECIFIED SNOMED Code(s): 56091602 Comment: persistent reported large volume diarrhea today per her RN; check c. diff (6) Hypercapnic respiratory failure Current Visit: No Status: Acute Code(s): J96.92 - RESPIRATORY FAILURE, UNSPECIFIED WITH HYPERCAPNIA SNOMED Code(s): 568699710 Comment: due to to MG and COPD. continue nocturnal bipap (7) Atrial fibrillation Current Visit: No Status: Chronic Code(s): I48.91 - UNSPECIFIED ATRIAL FIBRILLATION SNOMED Code(s): 71967604 Comment: Paroxysmal NSR now No AC due to history of epistaxis, and more recently concern for GI bleed. Currently controlled on no rate control meds. (8) Chronic use of steroids Current Visit: No Status: Chronic Priority: Medium Code(s): QXL4570 - SNOMED Code(s): 482633305 Comment: noted, no alternative poor cell mediated immunity noted (9) Full code status Current Visit: Yes Status: Acute Code(s): Z78.9 - OTHER SPECIFIED HEALTH STATUS SNOMED Code(s): 269756018 Comment: I discussed intubation and goals of care with Ms. Oreilly this morning. She would not want to be intubated should she deteriorate from a pulmonary perspective. I began to discuss resuscitation with her, and she did not want to talk about this. I also discussed palliation, to which she also said she did not want to talk about it--she only wanted to go for a walk. I suggested that we continue this conversation. I do not believe a full code status is truly in congruence with her wishes, but she is not willing to change her status to DNR yet. Status and Disposition: Inpatient.
--- NOTE | 2017-06-18 16:00 | RAD ---
Indication: Hypoxia. Single frontal view of the chest performed at 1523 hours was reviewed. Comparison is made with previous exam dated June 17, 2017. Again noted is volume loss of the right hemithorax with mediastinal shift to the right consistent with volume loss and atelectasis. Small left pleural effusion with interstitial edema is noted. There is likely right pleural effusion. IMPRESSION: Right lung collapse with right pleural effusion. Mild vascular congestion is noted. Findings are unchanged since June 17, 2017. IMPRESSION: NO ACTIVE CARDIOPULMONARY DISEASE IS NOTED.
[2017-06-18] MEDS: oxyCODONE/Acetamin 5/325 MG* TAB PO PRN (16:02)
[2017-06-18] MEDS: Loperamide CAP* 2 MG PO PRN (16:03)
[2017-06-18] MEDS: Insulin GLARGINE(*) 1 UNITS UNIT SUBCUT SCH (17:25)
[2017-06-18] MEDS ORDERED: Furosemide TAB* 40 MG PO SCH (21:00)
[2017-06-18] MEDS: Furosemide IV* 10 MG/ML VIAL (40 MG) IV SCH (21:05)
[2017-06-19] MEDS: Meropenem 1 GM PREMIX(*) 1 GM/50 ML BAG IV SCH (03:20)
[2017-06-19 06:58] LABS: INR 0.93 (0.77-1.02)
[2017-06-19 07:31] LABS: ABS Basophils 0 10^3/ul (0-0.2); ABS Eosinophils 0.3 10^3/ul (0-0.6); ABS Lymphocytes 1.8 10^3/ul (1.0-4.8); ABS Monocytes 0.7 10^3/ul (0-0.8); ABS Neutrophils 5.9 10^3/ul (1.5-7.7); ABS Nucleated RBC 0 10^3/ul; Eosinophil % 3.7 % (0-6); Hematocrit 30 % (35-47); Hemoglobin 9.1 g/dl (12.0-16.0); Lymphocyte % 20.2 % (25-47); Mean Corpuscular HGB Conc 31 g/dl (31-36); Mean Corpuscular Hemoglobin 25 pg (27-31); Mean Corpuscular Volume 80 fL (80-97); Mean Platelet Volume 7 um3 (7.4-10.4); Nucleated Red Blood Cells % 0.1; Platelet Count 242 10^3/ul (150-450); Red Cell Distribution Width 27 % (10.5-15); White Blood Count 8.7 10^3/ul (3.5-10.8)
[2017-06-19] MEDS: Insulin LISPRO* 1 UNITS UNIT SUBCUT SCH ×4 (07:43→22:36)
[2017-06-19] MEDS: Potassium Chloride LIQUID* 20 MEQ PACKET PO SCH (08:41)
[2017-06-19] MEDS: Nystatin SUSPENSION* 100000 UNITS/ML 5 ML UDC SWISH SWAL SCH ×3 (08:41→16:24)
[2017-06-19] MEDS: Furosemide IV* 10 MG/ML VIAL (40 MG) IV SCH ×2 (08:41→19:47)
[2017-06-19] MEDS: Ferrous Sulfate TAB* 325 MG PO SCH (08:42)
[2017-06-19] MEDS: Omeprazole CAP* 20 MG PO SCH ×2 (08:42→16:11)
[2017-06-19] MEDS: Lactobacillus Acidophilu (GG)* 1 CAP CAP PO SCH ×3 (08:42→16:11)
[2017-06-19] MEDS: Pyridostigmine TAB* 60 MG PO SCH ×4 (08:42→22:35)
[2017-06-19] MEDS: Dronedarone TAB* 400 MG PO SCH ×2 (08:42→22:36)
[2017-06-19] MEDS: predniSONE TAB* 20 MG PO SCH (08:48)
[2017-06-19] MEDS: Nystatin TOP POWDER* 15 GM BTL TOPICAL SCH ×3 (08:48→22:36)
[2017-06-19] MEDS: Mometasone/Formoter 200/5 MDI INH SCH ×2 (09:33→19:31)
[2017-06-19] MEDS: Tiotropium CAP.INH* CAP.INH/18 MCG (USE ORDER SET !) INH SCH (09:33)
[2017-06-19] MEDS: Loperamide CAP* 2 MG PO PRN (10:55)
--- NOTE | 2017-06-19 12:38 | CONSULT ---
Palliative / Hospice Consult Ordering Provider: Estefania Trivedi - Subjective Code Status: Full Code-Needs Follow Up Advance Directives Location: In Chart [facility]OL[facility] Part A Completed: Yes - DNR Date: 06/19/17 MOLST Part E Completed:: Yes - DNI, comfort care, no MELISSA HCP Completed: - daughter Kimberly Saba - History or Present Illness History or Present Illness: This 71 year old woman with longstanding myasthenia gravis on chronic steroids, DM 2, AF with tachy-jenna syndrome and pacemaker, COPD chronically on 2.5 L O2, stage 3 CKD, chronic diastolic CHF, GERD, Fe-deficiency anemia, is now admitted for the second time in a month [place] [facility] a cellulitis, YIFAN and Kebsiella UTI. She was discharged to [facility] for rehab, but was found on the floor there with O2 sat 70%, hypothermia and BS 31. On presentation to the ER a CXR revealed total opacification of her right hemithorax with a large pleural effusion. Bronchoscopy the day after admission revealed mucous plugging, and cultures grew e.coli. She initially improved after bronchoscopy and her right lung appeared to be aerating, but has now once again developed white-out and apparent complete right lung collapse. Initially requiring 40 LPM O2 on 06/12, she weaned down to 25 LPM by 06/15, and is now on 5 LPM. She has a BNP of 1261, and poor nutritional status with an albumin of 2.5. Her anemia is likely both Fe deficiency (Fe<15) and ACD, as her TIBC is low (237 ) and saturation is only 6% despite adequate iron stores with a Ferritin WNL at 69.4. I was asked to see this patient because she initially refused to have a discussion about advance directives. She was a full code. Today when I asked her if she understood what was happening with her health during this hospitalization, she said she did not, and then when I asked her what her wishes were, she said,"I want to go home and ." We spent some time discussing the MOLST directives and she elected comfort measures only. She initially declined hospice, but then decided she could use the support. She says she has "people" or "a worker" who can care for her 20/11 at home. Lab Values: Abnormal Lab Results 06/18/17 06/18/17 06/18/17 12:13 16:38 20:52 WBC RBC Hgb Hct MCV MCH MCHC RDW Plt Count MPV Neut % (Auto) Lymph % (Auto) [place] % (Auto) Eos % (Auto) Baso % (Auto) Absolute Neuts (auto) Absolute Lymphs (auto) Absolute Monos (auto) Absolute Eos (auto) Absolute Basos (auto) Absolute Nucleated RBC Nucleated RBC % Anisocytosis INR (Anticoag Therapy) Sodium Potassium Chloride Carbon Dioxide Anion Gap BUN Creatinine Est GFR ( Amer) Est GFR (Non-Af Amer) BUN/Creatinine Ratio Glucose POC Glucose (mg/dL) 81 139 H 159 H Calcium Magnesium 06/19/17 06/19/17 06/19/17 06:30 06:30 06:30 WBC 8.7 RBC 3.70 L Hgb 9.1 L Hct 30 L MCV 80 MCH 25 L MCHC 31 RDW 27 H Plt Count 242 MPV 7 L Neut % (Auto) 67.9 Lymph % (Auto) 20.2 L Ber[place] % (Auto) 8.1 Eos % (Auto) 3.7 Baso % (Auto) 0.1 Absolute Neuts (auto) 5.9 Absolute Lymphs (auto) 1.8 Absolute Monos (auto) 0.7 Absolute Eos (auto) 0.3 Absolute Basos (auto) 0 Absolute Nucleated RBC 0 Nucleated RBC % 0.1 Anisocytosis 1+ INR (Anticoag Therapy) 0.93 Sodium 144 Potassium 3.3 L Chloride 95 L Carbon Dioxide 46 H* Anion Gap Not Reportable BUN 9 Creatinine 0.73 Est GFR ( Amer) 101.7 Est GFR (Non-Af Amer) 79.0 BUN/Creatinine Ratio 12.3 Glucose 26 L* POC Glucose (mg/dL) Calcium 8.4 L Magnesium 1.6 L 06/19/17 06/19/17 06/19/17 07:56 08:51 10:11 WBC RBC Hgb Hct MCV MCH MCHC RDW Plt Count MPV Neut % (Auto) Lymph % (Auto) [place] % (Auto) Eos % (Auto) Baso % (Auto) Absolute Neuts (auto) Absolute Lymphs (auto) Absolute Monos (auto) Absolute Eos (auto) Absolute Basos (auto) Absolute Nucleated RBC Nucleated RBC % Anisocytosis INR (Anticoag Therapy) Sodium Potassium Chloride Carbon Dioxide Anion Gap BUN Creatinine Est GFR ( Amer) Est GFR (Non-Af Amer) BUN/Creatinine Ratio Glucose POC Glucose (mg/dL) 69 L 77 82 Calcium Magnesium 06/19/17 06/19/17 10:57 12:07 WBC RBC Hgb Hct MCV MCH MCHC RDW Plt Count MPV Neut % (Auto) Lymph % (Auto) [place] % (Auto) Eos % (Auto) Baso % (Auto) Absolute Neuts (auto) Absolute Lymphs (auto) Absolute Monos (auto) Absolute Eos (auto) Absolute Basos (auto) Absolute Nucleated RBC Nucleated RBC % Anisocytosis INR (Anticoag Therapy) Sodium Potassium Chloride Carbon Dioxide Anion Gap BUN Creatinine Est GFR ( Amer) Est GFR (Non-Af Amer) BUN/Creatinine Ratio Glucose POC Glucose (mg/dL) 75 80 Calcium Magnesium Laboratory Last Values WBC 8.7 10^3/ul (3.5-10.8) 06/19/17 06:30 RBC 3.70 10^6/ul (4.0-5.4) L 06/19/17 06:30 RBC (Retic) 2.91 10^6/ul (4.6-6.2) L 06/13/17 12:28 Hgb 9.1 g/dl (12.0-16.0) L 06/19/17 06:30 Hct 30 % (35-47) L 06/19/17 06:30 HCT (Retic) 23 % (35-47) L 06/13/17 12:28 MCV 80 fL (80-97) 06/19/17 06:30 MCH 25 pg (27-31) L 06/19/17 06:30 MCHC 31 g/dl (31-36) 06/19/17 06:30 RDW 27 % (10.5-15) H 06/19/17 06:30 Plt Count 242 10^3/ul (150-450) 06/19/17 06:30 MPV 7 um3 (7.4-10.4) L 06/19/17 06:30 Neut % (Auto) 67.9 % (38-83) 06/19/17 06:30 Lymph % (Auto) 20.2 % (25-47) L 06/19/17 06:30 Berks % (Auto) 8.1 % (1-9) 06/19/17 06:30 Eos % (Auto) 3.7 % (0-6) 06/19/17 06:30 Baso % (Auto) 0.1 % (0-2) 06/19/17 06:30 Absolute Neuts (auto) 5.9 10^3/ul (1.5-7.7) 06/19/17 06:30 Absolute Lymphs (auto) 1.8 10^3/ul (1.0-4.8) 06/19/17 06:30 Absolute Monos (auto) 0.7 10^3/ul (0-0.8) 06/19/17 06:30 Absolute Eos (auto) 0.3 10^3/ul (0-0.6) 06/19/17 06:30 Absolute Basos (auto) 0 10^3/ul (0-0.2) 06/19/17 06:30 Absolute Nucleated RBC 0 10^3/ul 06/19/17 06:30 Neutrophils % 84 % (38-83) H 06/11/17 11:52 Lymphocytes % 8 % (25-47) L 06/11/17 11:52 Monocytes % 8 % (0-13) 06/11/17 11:52 Nucleated RBC % 0.1 06/19/17 06:30 Normal RBC Morphology Not Reportable 06/11/17 11:52 Polychromasia 1+ 06/11/17 11:52 Hypochromasia 1+ 06/18/17 05:41 Basophilic Stippling 1+ 06/18/17 05:41 Anisocytosis 1+ 06/19/17 06:30 Microcytosis 1+ 06/11/17 11:52 Stomatocytes 2+ 06/18/17 05:41 Retic Count, Calc 1.7 % (0.5-1.5) H 06/13/17 12:28 Corrected Retic Count 0.9 % (0.5-1.5) 06/13/17 12:28 Retic Shift Factor 2.0 06/13/17 12:28 Retic Production Index 0.50 06/13/17 12:28 Immature Retic Fraction 0.58 06/13/17 12:28 Mean Retic Volume 108.2 06/13/17 12:28 INR (Anticoag Therapy) 0.93 (0.77-1.02) 06/19/17 06:30 Patient Temperature Not Reportable 06/13/17 11:15 ABG pH 7.24 (7.35-7.45) L 06/13/17 11:15 ABG pH (Temp Correct) Not Reportable 06/13/17 11:15 ABG pCO2 69 mmHg (35-45) H 06/13/17 11:15 ABG pCO2 (Temp Corrct Not Reportable 06/13/17 11:15 ABG pO2 203 mmHg (80-100) H 06/13/17 11:15 ABG pO2 (Temp Correct Not Reportable 06/13/17 11:15 ABG HCO3 26.4 mmol/L (19-31) 06/13/17 11:15 ABG O2 Saturation 98.8 % (95-98) H 06/13/17 11:15 ABG Base Excess 1.9 (-2.0-2.0) 06/13/17 11:15 Respiration Rate Not Reportable 06/13/17 11:15 O2 Delivery Device Bipap 06/12/17 22:22 Ventilator Type Not Reportable 06/13/17 11:15 Vent Mode Not Reportable 06/13/17 11:15 FiO2 100 06/13/17 11:15 Inspiratory Time Not Reportable 06/13/17 11:15 PEEP Not Reportable 06/13/17 11:15 Pressure Support Not Reportable 06/13/17 11:15 Pressure Control Not Reportable 06/13/17 11:15 EPAP Not Reportable 06/13/17 11:15 IPAP Not Reportable 06/13/17 11:15 BiPAP Not Reportable 06/13/17 11:15 Sodium 144 mmol/L (133-145) 06/19/17 06:30 Potassium 3.3 mmol/L (3.5-5.0) L 06/19/17 06:30 Chloride 95 mmol/L (101-111) L 06/19/17 06:30 Carbon Dioxide 46 mmol/L (22-32) H* 06/19/17 06:30 Anion Gap Not Reportable 06/19/17 06:30 BUN 9 mg/dL (6-24) 06/19/17 06:30 Creatinine 0.73 mg/dL (0.51-0.95) 06/19/17 06:30 Est GFR ( Amer) 101.7 (>60) 06/19/17 06:30 Est GFR (Non-Af Amer) 79.0 (>60) 06/19/17 06:30 BUN/Creatinine Ratio 12.3 (8-20) 06/19/17 06:30 Glucose 26 mg/dL (70-100) L* 06/19/17 06:30 POC Glucose (mg/dL) 80 mg/dL (70-100) 06/19/17 12:07 Hemoglobin A1c 6.7 % (4.0-5.6) H 06/15/17 05:30 Lactic Acid 0.9 mmol/L (0.5-2.0) 06/11/17 11:52 Calcium 8.4 mg/dL (8.6-10.3) L 06/19/17 06:30 Magnesium 1.6 mg/dL (1.9-2.7) L 06/19/17 06:30 Iron < 15 ug/dL (50-212) L 06/13/17 12:28 TIBC 237 mcg/dL (250-450) L 06/13/17 12:28 % Saturation 6 % (15-55) L 06/13/17 12:28 Unsat Iron Binding 222.34491 ug/dL 06/13/17 12:28 Transferrin Cancelled 06/13/17 05:11 Ferritin 69.4 ng/mL (11-307) 06/13/17 12:28 Total Bilirubin 0.30 mg/dL (0.2-1.0) 06/11/17 11:52 AST 16 U/L (13-39) 06/11/17 11:52 ALT 9 U/L (7-52) 06/11/17 11:52 Alkaline Phosphatase 77 U/L (34-104) 06/11/17 11:52 Ammonia 49 mol/L (16-53) 06/11/17 11:52 Troponin I 0.03 ng/mL (<0.04) 06/11/17 11:52 C-Reactive Protein 65.27 mg/L (< 5.00) H 06/12/17 09:39 B-Natriuretic Peptide 1261 pg/mL (-100) H 06/14/17 08:57 Total Protein 6.0 g/dL (6.4-8.9) L 06/11/17 11:52 Albumin 2.5 g/dL (3.2-5.2) L 06/11/17 11:52 Globulin 3.5 g/dL (2-4) 06/11/17 11:52 Albumin/Globulin Ratio 0.7 (1-3) L 06/11/17 11:52 Vitamin B12 1240 pg/mL (180-914) H 06/13/17 12:28 TSH 3.22 mcIU/mL (0.34-5.60) 06/11/17 11:52 Urine Color Pat 06/11/17 12:50 Urine Appearance Turbid 06/11/17 12:50 Urine pH 5.0 (5-9) 06/11/17 12:50 Ur Specific Muddy 1.012 (1.010-1.030) 06/11/17 12:50 Urine Protein 2+(100 mg/dl) (Negative) H 06/11/17 12:50 Urine Ketones Negative (Negative) 06/11/17 12:50 Urine Blood 2+ (Negative) H 06/11/17 12:50 Urine Nitrate Positive (Negative) H 06/11/17 12:50 Urine Bilirubin Negative (Negative) 06/11/17 12:50 Urine Urobilinogen Negative (Negative) 06/11/17 12:50 Ur Leukocyte Esterase 3+ (Negative) H 06/11/17 12:50 Urine WBC (Auto) 3+(>20/hpf) (Absent) H 06/11/17 12:50 Urine RBC (Auto) 3+(>10/hpf) (Absent) H 06/11/17 12:50 Urine Bacteria 2+ (Absent) H 06/11/17 12:50 Urine Glucose Negative (Negative) 06/11/17 12:50 Influenza A (Rapid) Negative (Negative) 06/11/17 15:09 Influenza B (Rapid) Negative (Negative) 06/11/17 15:09 Blood Type A Negative 06/13/17 05:11 Antibody Screen Negative 06/13/17 05:11 Crossmatch See Detail 06/13/17 05:11 - Objective Active Medications: Acetaminophen (Tylenol Tab*) 650 mg PO Q4HR PRN PRN Reason: FEVER Last Admin: 06/12/17 18:43 Dose: 650 mg Acetylcysteine (Mucomyst Inhalation Bridget*) 400 mg INH [id number] AWAKE PRN PRN Reason: CONGESTION Last Admin: 06/17/17 16:11 Dose: 400 mg Albuterol (Ventolin 2.5 Mg/3 Ml Neb.Bridget*) 2.5 mg INH Q2H PRN PRN Reason: SOB/WHEEZING Last Admin: 06/18/17 11:21 Dose: 2.5 mg Cyanocobalamin (Vitamin B12 Tab*) 1,000 mcg PO MONTHLY [facility] Dextrose (D50w Syringe 50 Ml*) 12.5 gm IV PUSH .FOR FS < 60 - SS PRN PRN Reason: FS < 60 Last Admin: 06/19/17 07:38 Dose: 12.5 gm Dronedarone (Multaq Tab*) 400 mg PO BID [facility] Last Admin: 06/19/17 08:42 Dose: 400 mg Ferrous Sulfate (Ferrous Sulfate Tab*) 325 mg PO DAILY [facility] Last Admin: 06/19/17 08:42 Dose: 325 mg Furosemide (Lasix Iv*) 40 mg IV BID [facility] Last Admin: 06/19/17 08:41 Dose: 40 mg Meropenem (Merrem 1 Gm Premix(*)) 1 gm in 50 mls @ 100 mls/hr IV Q12H [facility] Last Admin: 06/19/17 03:20 Dose: 100 mls/hr Insulin Glargine (Lantus(*)) 10 units SUBCUT QPM [facility] Insulin Human Lispro (Humalog*) 0 units SUBCUT FS ACHS ICU THUY PRN Reason: Protocol Last Admin: 06/19/17 11:00 Dose: Not Given Lactobacillus Rhamnosus (Culturelle*) 1 cap PO TID AC [facility] Last Admin: 06/19/17 10:55 Dose: 1 cap Loperamide HCl (Imodium Cap*) 2 mg PO Q4HR PRN PRN Reason: LOOSE STOOLS Last Admin: 06/19/17 10:55 Dose: 2 mg Mometasone Furoate/Formoterol Fumar (Dulera 200/5 Mdi*) 2 puff INH BID [facility] Last Admin: 06/19/17 09:33 Dose: 2 puff Nystatin (Nystatin Suspension*) 500,000 units SWISH SWAL TID PC [facility] Last Admin: 06/19/17 10:54 Dose: Not Given Nystatin (Nystatin Top Powder*) 1 applic TOPICAL TID [facility] Last Admin: 06/19/17 08:48 Dose: 1 applic Omeprazole (Prilosec Cap*) 20 mg PO BID@0730,1630 [facility] Last Admin: 06/19/17 08:42 Dose: 20 mg Oxycodone/Acetaminophen (Percocet 5/325 Tab*) 1 tab PO Q4H PRN PRN Reason: PAIN Last Admin: 06/18/17 16:02 Dose: 1 tab Potassium Chloride (Klor-Con Liquid*) 40 meq PO DAILY [facility] Last Admin: 06/19/17 08:41 Dose: 40 meq Prednisone (Deltasone Tab*) 20 mg PO DAILY [facility] Last Admin: 06/19/17 08:48 Dose: 20 mg Pyridostigmine [place] (Mestinon Tab*) 120 mg PO QID [facility] Last Admin: 06/19/17 08:42 Dose: 120 mg Tiotropium [place] (Spiriva Cap.Inh*) 1 cap INH DAILY [facility] Last Admin: 06/19/17 09:33 Dose: 1 cap.inh Vital Signs: Vital Signs: Temp Pulse Resp BP Pulse Ox 97.5 F 64 18 88/36 100 06/19/17 03:05 06/19/17 11:20 06/19/17 11:20 06/19/17 11:20 06/19/17 11:20 Patient Weight: Weight 141 lb 5.061 oz Intake and Output: Intake & Output 06/17/17 06/18/17 06/19/17 06/20/17 06:59 06:59 06:59 06:59 Intake Total 1244 785 840 0 Output Total 1775 3100 2775 Balance -534 -5953 -6200 0 Intake: IV Fluids 164 60 100 Meropenem 50 50 100 NS (0.9%) 114 10 Oral 1080 725 740 0 Output: Urine 1375 Powers 1775 3100 1400 Other: # Bowel Movements 1 3 1 Estimated Stool Amount Medium Medium Large ADLs: Meal Record Start: 06/11/17 17: 45 Freq: Status: Complete Protocol: Document 06/12/17 10:10 [id number] (Rec: 06/12/17 10:10 [id number] SSU-C03) ADLs: Meal Record Start: 06/12/17 11: 15 Freq: 09,13,18 Status: Complete Protocol: Created 06/12/17 11:15 [id number] (Rec: 06/12/17 11:15 [id number] ICU-M13) Document 06/12/17 13:00 [id number] (Rec: 06/12/17 14:56 [id number] ICU-C20) Document 06/12/17 18:00 [id number] (Rec: 06/12/17 19:32 [id number] ICU-C16) Document 06/13/17 09:00 [id number] (Rec: 06/13/17 14:41 [id number] ICU-C07) Document 06/13/17 13:00 [id number] (Rec: 06/13/17 14:42 [id number] ICU-C07) Document 06/13/17 18:00 [id number] (Rec: 06/13/17 19:12 [id number] ICU-C07) Document 06/14/17 09:00 [id number] (Rec: 06/14/17 14:17 [id number] ICU-C15) Document 06/14/17 13:00 [id number] (Rec: 06/14/17 14:37 [id number] ICU-C15) Document 06/14/17 18:00 [id number] (Rec: 06/14/17 18:08 [id number] ICU-C15) Document 06/15/17 09:00 [id number] (Rec: 06/15/17 10:17 [id number] ICU-C20) Document 06/15/17 13:00 FZB0806 (Rec: 06/15/17 14:17 [id number] ICU-C10) Document 06/16/17 10:11 [id number] (Rec: 06/16/17 10:11 [id number] ICU-C15) Document 06/16/17 13:35 [id number] (Rec: 06/16/17 13:35 [id number] ICU-C15) ADLs: Meal Record Start: 06/16/17 19: 28 Freq: DAILY@0900,1400,1800 Status: Active Protocol: Created 06/16/17 19:28 [id number] (Rec: 06/16/17 19:28 ING1167 MED-C26) Document 06/17/17 09:00 JHL4816 (Rec: 06/17/17 09:21 [id number] MED-C05) Document 06/17/17 13:49 [id number] (Rec: 06/17/17 13:50 AKE5610 MED-C16) Document 06/17/17 18:00 CLW5436 (Rec: 06/17/17 18:20 KNH1159 MED-C05) Document 06/18/17 08:50 [id number] (Rec: 06/18/17 08:50 [id number] MED-C11) Document 06/18/17 14:00 UVT8917 (Rec: 06/18/17 14:46 NLH4826 MED-C11) Document 06/18/17 18:00 UEK5667 (Rec: 06/18/17 23:23 DNO8110 MED-C02) Document 06/19/17 09:00 [id number] (Rec: 06/19/17 10:46 KNZ5814 MED-C11) Intake and Output Start: 06/11/17 17: 45 Freq: DAILY@0600,1400,2200 Status: Cancelled Protocol: Document 06/11/17 21:36 [id number] (Rec: 06/11/17 21:38 [id number] SSU-C04) Document 06/11/17 22:37 [id number] (Rec: 06/11/17 22:38 ZMZ8556 SSU-C04) Document 06/12/17 06:00 PPI2173 (Rec: 06/12/17 06:38 HJO8266 SSU-M15) Intake and Output Start: 06/12/17 10: 32 Freq: 06,14,2200 Status: Active Protocol: Created 06/12/17 10:33 [id number] (Rec: 06/12/17 10:33 BKG KITTY-BG10) Document 06/19/17 05:21 [id number] (Rec: 06/19/17 05:21 [id number] MED-C26) Intake and Output Start: 06/12/17 11: 15 Freq: 06,14,22 Status: Complete Protocol: Created 06/12/17 11:15 IYU6018 (Rec: 06/12/17 11:15 [id number] ICU-M13) Document 06/12/17 14:00 CYV5204 (Rec: 06/12/17 16:09 GAK7043 ICU-C10) Document 06/12/17 22:06 [id number] (Rec: 02/13/18 22:06 DOB2071 ICU-M13) Document 06/13/17 06:00 BXZ2993 (Rec: 06/13/17 07:13 [id number] ICU-C14) Document 06/13/17 14:00 MFR3407 (Rec: 06/13/17 17:12 [id number] ICU-M13) Document 06/13/17 19:32 MMD3653 (Rec: 06/13/17 19:32 [id number] ICU-C25) Document 06/13/17 22:00 YAA5233 (Rec: 06/13/17 23:47 ERI7317 ICU-C15) Document 06/14/17 06:39 MNG0813 (Rec: 06/14/17 06:40 [id number] ICU-M13) Document 06/14/17 14:00 UAQ3798 (Rec: 06/14/17 14:45 WMG2159 ICU-C15) Document 06/14/17 18:37 ECF5088 (Rec: 06/14/17 18:37 [id number] ICU-C15) Document 06/14/17 22:00 QCK2207 (Rec: 06/14/17 22:11 CAK8223 ICU-C06) Document 06/15/17 06:00 QPZ8914 (Rec: 06/15/17 06:11 XLK5005 ICU-C14) Document 06/15/17 14:00 FVQ6327 (Rec: 06/15/17 15:05 MSR1687 ICU-C20) Document 06/15/17 22:00 [id number] (Rec: 06/16/17 02:22 [id number] ICU-C15) Document 06/16/17 05:50 [id number] (Rec: 06/16/17 05:50 SKX6172 ICU-C14) Document 06/16/17 14:36 RUQ5595 (Rec: 06/16/17 14:37 ONM5724 ICU-M05) Document 06/16/17 15:39 IYI3464 (Rec: 06/16/17 15:39 UWP3757 ICU-C14) Intake and Output Start: 06/16/17 19: 28 Freq: DAILY@0600,1400,2200 Status: Complete Protocol: Created 06/16/17 19:28 [id number] (Rec: 06/16/17 19:28 [id number] MED-C26) General Impression: Exhausted-appearing woman with her torso half lying on bedside table, left UE with puffy lymphedema. Eyes: No Scleral Icterus Ears/Nose/Mouth/Throat: NL Teeth, Lips, Gums Neck: Trachea Midline, - - no JVP or HJR Cardiovascular: NL Sounds; No Murmurs; No JVD Respiratory: - - Absent breath sounds and dullness to percussion on right Abdominal: NL Sounds; No Tenderness; No Distention Extremities: - - bilateral LE erythema on 3+ ankle lymphedema Neurological: Alert and Oriented x 3 - Assessment Assessment: Extremely ill patient with multiple comorbidities, now with recurrent white out of right hemithorax due to lung collapse and mucous plugging, with e.coli superinfection. She has underlying COPD with hypercarbia and hypoxemia, and her prognosis is quite poor. She is now no longer interested in any life-prolonging measures, and wants to return home with hospice services. I have conveyed this wish to the urban and regional planner, Angie. I am not sure it is realistic, and if she has resources to hire care at home. She would be appropriate for the [facility] residence if a bed becomes available. I have tried to call her HCP and daughter , Kimberly Saba, but there is no answer at home (LMOM) and her cell phone is persistently busy. Thank you for asking me to see this unfortunate woman. - Plan Consult Plan (MU): Hospice - Time On Unit Date of Evaluation: 06/19/17 Hospice Consult Time in: 12:15 Hospice Consult Time Out: 13:10 Hospice Consult Time Total: 55 > 50% of Time Spend In Counseling or Coordinating Care: Yes
--- NOTE | 2017-06-19 14:00 | PN ---
Progress Note - Progress Note Date of Service: 06/19/17 Note: I received a call from Dr. Darby Madden, who expressed concern about this patient's IV Ig infusions for her myasthenia gravis, and wondered whether these would have to stop if she was admitted to hospice services. I explained that the limitations on life-prolonging therapy in hospice apply ONLY TO THE HOSPICE DIAGNOSIS, and for unrelated comorbid conditions, the patient is still covered by traditional Medicare coverage. Therefore, this patient would still be eligible to receive her IV Ig infusions for her myasthenia gravis even while benefitting from hospice services for her end-stage lung disease. (The only exception to this regulation is the requirement that patients can not receive dialysis while on hospice services, even if their hospice diagnosis is unrelated to their renal failure.)
--- NOTE | 2017-06-19 15:43 | PN ---
Progress Note - Progress Note Date of Service: 06/19/17 SOAP: Subjective: CC: cough HPI: 71 year old woman with MG on IG admitted with pneumonia. Some cough, non productive. No fever, rash, or diarrhea. Objective: Vital Signs Temp 36.4 C 06/19/17 03:05 Pulse 64 06/19/17 11:20 Resp 18 06/19/17 14:53 BP 88/36 06/19/17 11:20 Pulse Ox 100 06/19/17 11:20 Intake & Output 06/18/17 06/19/17 06/19/17 18:59 06:59 18:59 Intake Total 390 450 410 Output Total 1375 1400 900 Balance -985 -950 -490 Intake: IV Fluids 50 50 0 Meropenem 50 50 0 Oral 340 400 410 Output: Urine 1375 Powers 1400 900 Other: # Bowel Movements 1 1 2 Estimated Stool Amount Large Medium Gen:awake, no distress HEENT:PERRL, MMM Heart:RRR no murmur Lungs:CTA BL Abd:+BS NTND soft Skin: No rash Laboratory Results - last 24 hr 06/18/17 06/18/17 06/19/17 16:38 20:52 06:30 WBC 8.7 RBC 3.70 L Hgb 9.1 L Hct 30 L MCV 80 MCH 25 L MCHC 31 RDW 27 H Plt Count 242 MPV 7 L Neut % (Auto) 67.9 Lymph % (Auto) 20.2 L Martin % (Auto) 8.1 Eos % (Auto) 3.7 Baso % (Auto) 0.1 Absolute Neuts (auto) 5.9 Absolute Lymphs (auto) 1.8 Absolute Monos (auto) 0.7 Absolute Eos (auto) 0.3 Absolute Basos (auto) 0 Absolute Nucleated RBC 0 Nucleated RBC % 0.1 Anisocytosis 1+ INR (Anticoag Therapy) Sodium Potassium Chloride Carbon Dioxide Anion Gap BUN Creatinine Est GFR ( Amer) Est GFR (Non-Af Amer) BUN/Creatinine Ratio Glucose POC Glucose (mg/dL) 139 H 159 H Calcium Magnesium 06/19/17 06/19/17 06/19/17 06:30 06:30 07:56 WBC RBC Hgb Hct MCV MCH MCHC RDW Plt Count MPV Neut % (Auto) Lymph % (Auto) Martin % (Auto) Eos % (Auto) Baso % (Auto) Absolute Neuts (auto) Absolute Lymphs (auto) Absolute Monos (auto) Absolute Eos (auto) Absolute Basos (auto) Absolute Nucleated RBC Nucleated RBC % Anisocytosis INR (Anticoag Therapy) 0.93 Sodium 144 Potassium 3.3 L Chloride 95 L Carbon Dioxide 46 H* Anion Gap Not Reportable BUN 9 Creatinine 0.73 Est GFR ( Amer) 101.7 Est GFR (Non-Af Amer) 79.0 BUN/Creatinine Ratio 12.3 Glucose 26 L* POC Glucose (mg/dL) 69 L Calcium 8.4 L Magnesium 1.6 L 06/19/17 06/19/17 06/19/17 08:51 10:11 10:57 WBC RBC Hgb Hct MCV MCH MCHC RDW Plt Count MPV Neut % (Auto) Lymph % (Auto) Martin % (Auto) Eos % (Auto) Baso % (Auto) Absolute Neuts (auto) Absolute Lymphs (auto) Absolute Monos (auto) Absolute Eos (auto) Absolute Basos (auto) Absolute Nucleated RBC Nucleated RBC % Anisocytosis INR (Anticoag Therapy) Sodium Potassium Chloride Carbon Dioxide Anion Gap BUN Creatinine Est GFR ( Amer) Est GFR (Non-Af Amer) BUN/Creatinine Ratio Glucose POC Glucose (mg/dL) 77 82 75 Calcium Magnesium 06/19/17 12:07 WBC RBC Hgb Hct MCV MCH MCHC RDW Plt Count MPV Neut % (Auto) Lymph % (Auto) Martin % (Auto) Eos % (Auto) Baso % (Auto) Absolute Neuts (auto) Absolute Lymphs (auto) Absolute Monos (auto) Absolute Eos (auto) Absolute Basos (auto) Absolute Nucleated RBC Nucleated RBC % Anisocytosis INR (Anticoag Therapy) Sodium Potassium Chloride Carbon Dioxide Anion Gap BUN Creatinine Est GFR ( Amer) Est GFR (Non-Af Amer) BUN/Creatinine Ratio Glucose POC Glucose (mg/dL) 80 Calcium Magnesium Assessment: 1. pneumonia; had 4 days zosyn, then 6 days meropenem 2. COPD with chronic respiratory failure 3. myasthenia gravis Plan: 1. stop meropnem (ordered)
[2017-06-19] MEDS ORDERED: Insulin GLARGINE(*) 1 UNITS UNIT SUBCUT SCH (18:00)
--- NOTE | 2017-06-19 18:07 | PN ---
Subjective Date of Service: 06/19/17 Interval History: BG 30s this morning. Asymptomatic. When I see her this morning, she says she wants to get back in to bed and can't talk to me. She has no pain, no shortness of breath, but feels very tired of "everything." Family History: Unchanged from Admission Social History: Unchanged from Admission Past Medical History: Unchanged from Admission Objective Active Medications: Acetaminophen (Tylenol Tab*) 650 mg PO Q4HR PRN PRN Reason: FEVER Last Admin: 06/12/17 18:43 Dose: 650 mg Acetylcysteine (Mucomyst Inhalation Bridget*) 400 mg INH [id number] AWAKE PRN PRN Reason: CONGESTION Last Admin: 06/17/17 16:11 Dose: 400 mg Albuterol (Ventolin 2.5 Mg/3 Ml Neb.Bridget*) 2.5 mg INH Q2H PRN PRN Reason: SOB/WHEEZING Last Admin: 06/18/17 11:21 Dose: 2.5 mg Cyanocobalamin (Vitamin B12 Tab*) 1,000 mcg PO MONTHLY [facility] Dextrose (D50w Syringe 50 Ml*) 12.5 gm IV PUSH .FOR FS < 60 - SS PRN PRN Reason: FS < 60 Last Admin: 06/19/17 07:38 Dose: 12.5 gm Dronedarone (Multaq Tab*) 400 mg PO BID [facility] Last Admin: 06/19/17 08:42 Dose: 400 mg Ferrous Sulfate (Ferrous Sulfate Tab*) 325 mg PO DAILY [facility] Last Admin: 06/19/17 08:42 Dose: 325 mg Furosemide (Lasix Iv*) 40 mg IV BID [facility] Last Admin: 06/19/17 08:41 Dose: 40 mg Insulin Glargine (Lantus(*)) 10 units SUBCUT QPM [facility] Last Admin: 06/19/17 16:43 Dose: Not Given Insulin Human Lispro (Humalog*) 0 units SUBCUT FS ACHS ICU [facility] PRN Reason: Protocol Last Admin: 06/19/17 16:23 Dose: Not Given Lactobacillus Rhamnosus (Culturelle*) 1 cap PO TID AC [facility] Last Admin: 06/19/17 16:11 Dose: 1 cap Loperamide HCl (Imodium Cap*) 2 mg PO Q4HR PRN PRN Reason: LOOSE STOOLS Last Admin: 06/19/17 10:55 Dose: 2 mg Mometasone Furoate/Formoterol Fumar (Dulera 200/5 Mdi*) 2 puff INH BID [facility] Last Admin: 06/19/17 09:33 Dose: 2 puff Nystatin (Nystatin Suspension*) 500,000 units SWISH SWAL TID PC [facility] Last Admin: 06/19/17 16:24 Dose: Not Given Nystatin (Nystatin Top Powder*) 1 applic TOPICAL TID [facility] Last Admin: 06/19/17 14:53 Dose: Not Given Omeprazole (Prilosec Cap*) 20 mg PO BID@0730,1630 [facility] Last Admin: 06/19/17 16:11 Dose: 20 mg Oxycodone/Acetaminophen (Percocet 5/325 Tab*) 1 tab PO Q4H PRN PRN Reason: PAIN Last Admin: 06/18/17 16:02 Dose: 1 tab Potassium Chloride (Klor-Con Liquid*) 40 meq PO DAILY [facility] Last Admin: 06/19/17 08:41 Dose: 40 meq Prednisone (Deltasone Tab*) 20 mg PO DAILY [facility] Last Admin: 06/19/17 08:48 Dose: 20 mg Pyridostigmine [place] (Mestinon Tab*) 120 mg PO QID [facility] Last Admin: 06/19/17 16:11 Dose: 120 mg Tiotropium [place] (Spiriva Cap.Inh*) 1 cap INH DAILY [facility] Last Admin: 06/19/17 09:33 Dose: 1 cap.inh Vital Signs - 8 hr 06/19/17 06/19/17 06/19/17 10:55 11:20 14:53 Temperature Pulse Rate 64 Respiratory 16 18 18 Rate Blood Pressure 88/36 (mmHg) O2 Sat by Pulse 100 Oximetry 06/19/17 06/19/17 16:00 16:19 Temperature 98.4 F Pulse Rate 59 Respiratory 22 Rate Blood Pressure 110/42 (mmHg) O2 Sat by Pulse 98 100 Oximetry Oxygen Devices in Use Now: Nasal Cannula Appearance: sitting up in chair, ill appearing Eyes: No Scleral Icterus Ears/Nose/Mouth/Throat: NL Teeth, Lips, Gums Neck: NL Appearance and Movements; NL JVP Respiratory: - - decreased breath sounds right lung, wet crackles R>L Cardiovascular: - - 3+ edema b/l Abdominal: NL Sounds; No Tenderness; No Distention Lymphatic: No Cervical Adenopathy Skin: - - deep skin tears in b/l dorsal hands Neurological: Alert and Oriented x 3 Result Diagrams: 06/19/17 06:30 06/19/17 06:30 Additional Lab and Data: Lab Results Microbiology and Other Data: Microbiology 06/12/17 03:50 Nasal Screen MRSA (PCR)([facility]) - Final Nasal Mrsa Detected Assess/Plan/Problems-Billing Ms Oerilly is a 71 yo F with a h/o myasthenia gravis on chronic prednisone, B/L LE lymphedema, tachy-jenna syndrome s/p pacer insertion, diastolic CHF, A. fib ( not anticoagulated due to chronic anemia), type II DM, COPD (on 2.5L 02) and HTN who presented to the ER after a fall and was noted to be hypoxic with a large R pleural effusion. Found to have mucus plugging causing atelectasis on bronchoscopy. Cultures grew ESBL, on Meropenum. Worsening of effusion today on CXR. - Patient Problems (1) Acute respiratory failure with hypoxia Current Visit: Yes Status: Acute Code(s): J96.01 - ACUTE RESPIRATORY FAILURE WITH HYPOXIA SNOMED Code(s): 94198230 Comment: CXR shows near white-out of right lung. Very poor prognosis without viable options for treatment. repeat yesterday; aeration is actually better than cxr would suggest seen by Dr. Vegas, who recommended mucomyst, chest PT, nebs, and bipap, and suggested that repeat bronchoscopy is probably not appropriate Prior bronchoscopy with culture revealed esbl e. coli, for which she is on meropenem--today is the last day I also believe she has an element of volume overload; so I am increasing her lasix to IV 40mg BID She would not want to be intubated should she worsen (2) Skin tear Current Visit: Yes Status: Acute Code(s): JUI2985 - SNOMED Code(s): 602532263 Comment: The patient has numerous deep/significant skin tears to her UE bilaterally, likely due to chronic steroid use. They do not look infected (3) Myasthenia gravis Current Visit: Yes Status: Chronic Onset Date: 04/04/14 Code(s): G70.00 - MYASTHENIA GRAVIS WITHOUT (ACUTE) EXACERBATION SNOMED Code(s): 62241527 Comment: Continue pyridostigmine. Prednisone 20mg daily. IVIG monthly. Primary neurologist is Dr. Madden; seen by Dr. Bone last night, who does not believe her MG to be active. Decreased cough relfex making her unable to clear secretions and leading to mucus plugging. (4) Diarrhea Current Visit: No Status: Acute Code(s): R19.7 - DIARRHEA, UNSPECIFIED SNOMED Code(s): 93955977 Comment: persistent reported large volume diarrhea today per her RN; check c. diff (5) Hypercapnic respiratory failure Current Visit: No Status: Acute Code(s): J96.92 - RESPIRATORY FAILURE, UNSPECIFIED WITH HYPERCAPNIA SNOMED Code(s): 654779624 Comment: due to to MG and COPD. continue nocturnal bipap (6) Atrial fibrillation Current Visit: No Status: Chronic Code(s): I48.91 - UNSPECIFIED ATRIAL FIBRILLATION SNOMED Code(s): 55866972 Comment: Paroxysmal NSR now No AC due to history of epistaxis, and more recently concern for GI bleed. Currently controlled on no rate control meds. (7) Chronic use of steroids Current Visit: No Status: Chronic Priority: Medium Code(s): JEZ6332 - SNOMED Code(s): 421259067 Comment: noted, no alternative poor cell mediated immunity noted (8) DNR (do not resuscitate) Current Visit: Yes Status: Acute Comment: seen by Dr. Valdez today; wishes to be DNR Status and Disposition: Inpatient. Awaiting hospice plan--home vs. inpatient
[2017-06-19] MEDS: oxyCODONE/Acetamin 5/325 MG* TAB PO PRN (23:57)
[2017-06-20] MEDS: Mometasone/Formoter 200/5 MDI INH SCH (07:32)
[2017-06-20] MEDS: Tiotropium CAP.INH* CAP.INH/18 MCG (USE ORDER SET !) INH SCH (07:33)
[2017-06-20] MEDS: Insulin LISPRO* 1 UNITS UNIT SUBCUT SCH ×2 (08:10→12:33)
[2017-06-20] MEDS: Potassium Chloride LIQUID* 20 MEQ PACKET PO SCH (08:48)
[2017-06-20] MEDS: Ferrous Sulfate TAB* 325 MG PO SCH (08:48)
[2017-06-20] MEDS: Nystatin SUSPENSION* 100000 UNITS/ML 5 ML UDC SWISH SWAL SCH ×2 (08:48→12:18)
[2017-06-20] MEDS: Furosemide IV* 10 MG/ML VIAL (40 MG) IV SCH (08:48)
[2017-06-20] MEDS: Dronedarone TAB* 400 MG PO SCH (08:49)
[2017-06-20] MEDS: Lactobacillus Acidophilu (GG)* 1 CAP CAP PO SCH ×2 (08:49→11:41)
[2017-06-20] MEDS: Nystatin TOP POWDER* 15 GM BTL TOPICAL SCH (08:50)
[2017-06-20] MEDS: predniSONE TAB* 20 MG PO SCH (08:50)
[2017-06-20] MEDS: Omeprazole CAP* 20 MG PO SCH (08:50)
[2017-06-20] MEDS: Pyridostigmine TAB* 60 MG PO SCH (08:50)
[2017-06-20] MEDS ORDERED: LORazepam TAB(*) 0.5 MG PO PRN (11:33)
[2017-06-20] MEDS ORDERED: Furosemide IV* 10 MG/ML VIAL (40 MG) IV ONE (11:56)
[2017-06-20 12:10] VITALS: BP 125/39
--- NOTE | 2017-06-20 12:51 | DS ---
Dictation begins abruptly... ...surgery was consulted for consideration of thoracentesis; however, they recommended a bronchoscopy . Dr. Vegas evaluated her and performed bronchoscopy which cleared a large amount of mucus and the s putum was sent for culture. It grew ESBL E. coli. She was followed by Dr. Vegas while admitted and r eceived IV diuresis with very little improvement in her pleural effusion. In fact, her chest x- ray a dvanced to a white out of the right lung with tracheal deviation. Dr. Vegas recommended that repeat bronchoscopy was not a permanent solution for her and that should she require mechanical ventilation would likely be vent dependent. Ms. Oreilly was able to express very clearly that she did not want to be intubated or vent dependent. She did require BIPAP during some of her hospitalization; however, de zees going back on BIPAP. Ultimately Hospice and Palliative Care was consulted and Dr. José Miguel olivera luated Ms. Oreilly for hospice. Ms. Oreilly expressed to us clearly that she wants no further therapeut ic intervention and does not want to come back to the hospital for these things, she wants to enroll in hospice, return to [place] and not come back to the hospital. 2. ESBL E. coli pneumonia. She was treated with meropenem as per Dr. Mustafa's recommendation. She has completed therapy for 7 days at the time of discharge. 3. Hypoglycemia. She was hypoglycemic, which was thought to be the cause of her fall at admission, w hich was thought to be related to sepsis as above; however, she continued to be hypoglycemic during h er admission on her home dose of Lantus. This was titrated down and ultimately was discontinued becau se she continued to be hypoglycemic on even 10 units of Lantus nightly. She will be continued on a sl iding scale as needed at [place]. 4. Hospice care. As mentioned above, Ms. Oreilly expressed understanding of her disease processes and the lack of therapeutic options for her, and she agreed to hospice at [place]. We have tried to con tact her daughter many times, however she has not answered. 5. Atrial fibrillation. She was well controlled and has not been on anticoagulation due to a recent GI bleed. 6. Myasthenia gravis. She will continue her home prednisone and IVIg as hospice does not exclude her from these treatments. 7. Skin care. She has severe skin tears on her arms and hands likely due to chronic steroid use. Wou nd Care was consulted and she should continue with Vaseline gauze dressing under Mepilex with every o ther day wound dressing changes. 8. Disposition: Ms. Oreilly was discharged to [place] with hospice care services on 06/20/17. [id number]/[facility] #: [id number]
--- NOTE | 2017-06-20 13:50 | DS ---
TWO ADDENDUMS NOW INCLUDED ON THIS REPORT CC: Dr. Pop Desouza * DATE OF ADMISSION: 06/11/2017. DATE OF DISCHARGE: 06/20/2017. PRINCIPAL DISCHARGE DIAGNOSES: 1. Acute on chronic hypoxic respiratory failure. 2. ESBL pneumonia. 3. Hospice care. 4. Hypoglycemia. SECONDARY DISCHARGE DIAGNOSES: 1. Myasthenia gravis. 2. Type 2 diabetes. 3. COPD. 4. CKD. 5. Iron deficiency anemia. 6. Atrial fibrillation. DISCHARGE MEDICATIONS: 1. Pyridostigmine 120 mg q.i.d. 2. Omeprazole 20 mg daily. 3. Nystatin suspension 5 ml swish and swallow t.i.d. PC. 4. IVIG 70 gm IV q.28 days. 5. Dronedarone 400 mg b.i.d. 6. Albuterol neb q.2 prn shortness of breath. 7. Dulera inhaler b.i.d. 8. Spiriva inhaler daily. 9. Aspirin 81 mg daily. 10. Prednisone 20 mg daily. 11. Percocet one q.4 prn pain. 12. Lispro sliding scale. 13. Lasix 20 mg p.o. daily. PHYSICAL EXAMINATION AT THE TIME OF DISCHARGE: General: Ill, exhausted- looking female in no distress. Temperature 97.9, heart rate 76, respiratory rate 16, pulse ox 91 percent on 6 liters, blood pressure 125/39. HEENT: No ptosis. Pupils equal, round and reactive to light. No nystagmus. Moist mucosa with no pharyngeal exudates or erythema. Neck: No JVP. No cervical adenopathy. Chest: Irregularly irregular rhythm with a regular rate and no murmurs. Decreased breath sounds on both sides, right greater than left with few crackles at the bilateral bases. Abdomen: Soft, nontender, nondistended. A Powers catheter is in place draining clear yellow urine. Extremities: 2+ lower extremity edema to the knees. Deep skin tears are present on the dorsal surface of both hands and forearms with no surrounding erythema. Neurologic: She is alert and oriented times three, unable to voice her concerns and desires. Strength is 5/5 throughout. BRIEF HOSPITAL COURSE BY PROBLEM: 1. Acute on chronic respiratory failure: At admission, Ms. Oreilly was found to have a large, right-sided pleural effusion. Surgery was consulted for consideration of thoracentesis; however, they recommended a bronchoscopy. Dr. Vegas evaluated her and performed bronchoscopy which cleared a large amount of mucus and the sputum was sent for culture. It grew ESBL E. coli. She was followed by Dr. Vegas while admitted and received IV diuresis with very little improvement in her pleural effusion. In fact, her chest x- ray advanced to a white out of the right lung with tracheal deviation. Dr. Vegas recommended that repeat bronchoscopy was not a permanent solution for her and that should she require mechanical ventilation would likely be vent dependent. Ms. Oreilly was able to express very clearly that she did not want to be intubated or vent dependent. She did require BIPAP during some of her hospitalization; however, declines going back on BIPAP. Ultimately Hospice and Palliative Care was consulted and Dr. Valdez evaluated Ms. Oreilly for hospice. Ms. Oreilly expressed to us clearly that she wants no further therapeutic intervention and does not want to come back to the hospital for these things, she wants to enroll in hospice, return to [place] and not come back to the hospital. 2. ESBL E. coli pneumonia. She was treated with meropenem as per Dr. Mustafa' s recommendation. She has completed therapy for 7 days at the time of discharge. 3. Hypoglycemia. She was hypoglycemic, which was thought to be the cause of her fall at admission, which was thought to be related to sepsis as above; however, she continued to be hypoglycemic during her admission on her home dose of Lantus. This was titrated down and ultimately was discontinued because she continued to be hypoglycemic on even 10 units of Lantus nightly. She will be continued on a sliding scale as needed at [place]. 4. Hospice care. As mentioned above, Ms. Oreilly expressed understanding of her disease processes and the lack of therapeutic options for her, and she agreed to hospice at [place]. We have tried to contact her daughter many times, however she has not answered. She received Ativan 0.5 mg prn during this admission for anxiety which she tolerated well and at this time has no need for Morphine for air hunger; however, should this develop, Morphine can be used. 5. Atrial fibrillation. She was well controlled and has not been on anticoagulation due to a recent GI bleed. 6. Myasthenia gravis. She will continue her home prednisone and IVIg as hospice does not exclude her from these treatments. 7. Skin care. She has severe skin tears on her arms and hands likely due to chronic steroid use. Wound Care was consulted and she should continue with Vaseline gauze dressing under Mepilex with every other day wound dressing changes. 8. Disposition: Ms. Oreilly was discharged to [place] with hospice care services on 06/20/17. ADDENDUM: I did reach Ms. Oreilly's daughter, Kimberly at [phone] and explained the course of her hospitalization, her mother's wishes for hospice, and the plan of action at the time of discharge. Kimberly expresses understanding and agrees with our plan. I also discussed hospice referral with case management, who suggested that [facility] may not enroll her for few days; therefore, I am discharging her with p.r.n. Ativan and morphine. [id number]/[facility] #: [id number] [id number]/[facility] #: [id number] A2- [id number]/[facility] #: [id number] [facility]
--- NOTE | 2017-06-21 16:01 | DS ---
DISCHARGE SUMMARY: ADDENDUM: I did reach Ms. Oreilly's daughter, Kimberly at [phone] and explained the course of her hospitalization, her mother's wishes for hospice, and the plan of action at the time of discharge. Kimberly expresses understanding and agrees with our plan. I also discussed hospice referral with case management, who suggested that [facility] may not enroll her for few days; therefore, I am discharging her with p.r.n. Atdominic and morphine. [id number]/[facility] #: [id number] [facility]
== END 2017-06-20 15:00 | disposition hospice, home (50) | DRG 166 ==
LOC: ED 11:16 → SSU 17:19 → ICU 06-12 10:08 → MED 06-16 16:28
PROVIDERS: ADMIT Internal Medicine; ATTEND Internal Medicine
PROC: 0B9F8ZX Drainage of Right Lower Lung Lobe, Via Natural or Artificial Opening Endoscopic, Diagnostic (ICD-10-PCS; 2017-06-12)
PROC: 5A09357 Assistance with Respiratory Ventilation, Less than 24 Consecutive Hours, Continuous Positive Airway Pressure (ICD-10-PCS; 2017-06-12)
PROC: 0BC68ZZ Extirpation of Matter from Right Lower Lobe Bronchus, Via Natural or Artificial Opening Endoscopic (ICD-10-PCS; 2017-06-12)
PROC: 0BC48ZZ Extirpation of Matter from Right Upper Lobe Bronchus, Via Natural or Artificial Opening Endoscopic (ICD-10-PCS; 2017-06-12)
PROC: 0BC58ZZ Extirpation of Matter from Right Middle Lobe Bronchus, Via Natural or Artificial Opening Endoscopic (ICD-10-PCS; 2017-06-12)
PROC: 30233N1 Transfusion of Nonautologous Red Blood Cells into Peripheral Vein, Percutaneous Approach (ICD-10-PCS; principal; 2017-06-13)
DX: J96.21 Acute and chronic respiratory failure with hypoxia (principal); J15.5 Pneumonia due to Escherichia coli; G93.40 Encephalopathy, unspecified; S27.1XXA Traumatic hemothorax, initial encounter; T17.590A Other foreign object in bronchus causing asphyxiation, initial encounter; I13.0 Hypertensive heart and chronic kidney disease with heart failure and stage 1 through stage 4 chronic kidney disease, or unspecified chronic kidney disease; I50.32 Chronic diastolic (congestive) heart failure; J98.19 Other pulmonary collapse; J90 Pleural effusion, not elsewhere classified; D62 Acute posthemorrhagic anemia; E11.649 Type 2 diabetes mellitus with hypoglycemia without coma; S00.83XA Contusion of other part of head, initial encounter; D63.1 Anemia in chronic kidney disease; E11.22 Type 2 diabetes mellitus with diabetic chronic kidney disease; D72.829 Elevated white blood cell count, unspecified; E11.36 Type 2 diabetes mellitus with diabetic cataract; S61.412A Laceration without foreign body of left hand, initial encounter; G70.00 Myasthenia gravis without (acute) exacerbation; I48.91 Unspecified atrial fibrillation; K21.9 Gastro-esophageal reflux disease without esophagitis; J44.9 Chronic obstructive pulmonary disease, unspecified; N18.3 Chronic kidney disease, stage 3 (moderate); L85.3 Xerosis cutis; S61.411A Laceration without foreign body of right hand, initial encounter; W19.XXXA Unspecified fall, initial encounter; E53.8 Deficiency of other specified B group vitamins; D50.9 Iron deficiency anemia, unspecified; T38.0X5A Adverse effect of glucocorticoids and synthetic analogues, initial encounter; A08.8 Other specified intestinal infections; F41.9 Anxiety disorder, unspecified; E11.65 Type 2 diabetes mellitus with hyperglycemia; F45.8 Other somatoform disorders; Z66 Do not resuscitate; Z51.5 Encounter for palliative care; E87.6 Hypokalemia; Z88.1 Allergy status to other antibiotic agents; Z88.8 Allergy status to other drugs, medicaments and biological substances; Q24.9 Congenital malformation of heart, unspecified; Y92.9 Unspecified place or not applicable; Z87.440 Personal history of urinary (tract) infections; Z90.49 Acquired absence of other specified parts of digestive tract; Z86.14 Personal history of Methicillin resistant Staphylococcus aureus infection; Z87.891 Personal history of nicotine dependence; Z95.0 Presence of cardiac pacemaker; Z99.81 Dependence on supplemental oxygen; Z79.82 Long term (current) use of aspirin; Z79.52 Long term (current) use of systemic steroids
CPT/HCPCS: 31622; 36415; 36600; 70450; 71045; 71250; 80048; 80053; 81003; 81015; 82140; 82272; 82607; 82728; 82803; 82947; 83036; 83540; 83550; 83605; 83735; 83880; 84443; 84484; 85025; 85027; 85045; 85610; 86140; 86850; 86900; 86901; 86922; 87071; 87077; 87086; 87186; 87493; 87502; 87641; 93005; 93306; 94640; 94667; 94668; 94760; 99284; A9270-GY; C8929; J1630; J1720; J1940; J2185; J2250; J2543; J2916; J3010; J3475; J7512; P9040

== ENCOUNTER 2017-06-25 16:31 | Observation (INO) | payer MEDICARE ==
--- NOTE | 2017-06-25 17:46 | RAD ---
INDICATION: Difficulty breathing and leg swelling COMPARISON: Most recent comparison chest x-ray June 18, 2017 TECHNIQUE: Single AP portable view of the chest was obtained. FINDINGS: Image quality is compromised due to the relative inferiority of a portable chest x-ray. Again seen is a left upper chest cardiac pacemaker with 2 leads overlying the heart. There is a mild degree of cardiomegaly similar in appearance of the previous chest x-ray. There is questionable density overlying the left lung base. The previously identified "white out" overlying the right lung has resolved. Visualized bones are normal for the patient's age. IMPRESSION: 1. Interval resolution of the "white out" obscuring the right lung on the June 18, 2017 chest x-ray. 2. Density overlying the retrocardiac left lung base could represent infiltration or consolidation.
[2017-06-25 17:54] LABS: ABS Basophils 0 10^3/ul (0-0.2); ABS Eosinophils 0 10^3/ul (0-0.6); ABS Lymphocytes 0.2 10^3/ul (1.0-4.8); ABS Monocytes 0.3 10^3/ul (0-0.8); ABS Neutrophils 11.7 10^3/ul (1.5-7.7); ABS Nucleated RBC 0 10^3/ul; Eosinophil % 0 % (0-6); Hematocrit 32 % (35-47); Hemoglobin 9.5 g/dl (12.0-16.0); Lymphocyte % 1.8 % (25-47); Mean Corpuscular HGB Conc 30 g/dl (31-36); Mean Corpuscular Hemoglobin 25 pg (27-31); Mean Corpuscular Volume 84 fL (80-97); Mean Platelet Volume 8 um3 (7.4-10.4); Nucleated Red Blood Cells % 0; Platelet Count 246 10^3/ul (150-450); Red Blood Count 3.79 10^6/ul (4.0-5.4); Red Cell Distribution Width 27 % (10.5-15); White Blood Count 12.2 10^3/ul (3.5-10.8)
[2017-06-25 18:01] LABS: INR 0.97 (0.77-1.02)
[2017-06-25 18:09] LABS: EGFR Non-African American 38.9 (>60)
[2017-06-25 19:05] LABS: Urine Appearance Cloudy; Urine Blood 2+ (Negative); Urine Color Amber; Urine Ketones Negative (Negative); Urine Protein 2+(100 mg/dL) (Negative); Urine Specific Gravity 1.015 (1.010-1.030); Urine Urobilinogen Negative (Negative)
[2017-06-25] MEDS ORDERED: Morphine INJ* 2 MG/ML 1 ML CARPUJECT IV PRN (20:52)
[2017-06-25] MEDS ORDERED: Atropine 1% (ORAL/SL)* 15 ML BTL SL PRN (20:52)
[2017-06-25] MEDS ORDERED: Ondansetron INJ* 2 MG/ML VIAL IV PRN (20:52)
[2017-06-25] MEDS ORDERED: Acetaminophen TAB* 325 MG PO PRN (20:52)
[2017-06-25] MEDS ORDERED: Albuterol 2.5 MG/3 ML NEB.SOL* (0.083%) INH PRN (20:53)
[2017-06-25] MEDS ORDERED: oxyCODONE/Acetamin 5/325 MG* TAB PO PRN (20:53)
[2017-06-25] MEDS ORDERED: Loperamide CAP* 2 MG PO PRN (20:53)
[2017-06-25] MEDS ORDERED: Morphine ORAL.SOLN 10 mg* 2 MG/ML UDC 5 ml PO PRN (20:53)
[2017-06-25] MEDS ORDERED: LORazepam TAB(*) 0.5 MG PO PRN (20:53)
[2017-06-25] MEDS ORDERED: Dronedarone TAB* 400 MG PO SCH (21:00)
[2017-06-25] MEDS ORDERED: Pyridostigmine TAB* 60 MG PO SCH (21:00)
[2017-06-25] MEDS ORDERED: Dextrose 50% Syringe 50 ML* 25 GM/50 ML SYRINGE IV PUSH PRN (21:00)
[2017-06-25] MEDS ORDERED: Nystatin TOP POWDER* 15 GM BTL TOPICAL SCH (21:00)
--- NOTE | 2017-06-25 22:06 | ED ---
Peace Almaraz Gabriel, scribed for Kulwant Pulido MD on 06/25/17 at 1716 . Adult Trauma - HPI Summary HPI Summary: This patient is a 71 year old F BIBA to [facility] s/p falling out of bed at [place]. The patient rates the pain 8/10 in severity. Patient reports SOB. Pt has skin tears on her left hand from a month ago and catheter that hasnt been changed in over a month. She reports a recent illness that she has had for several weeks. Pt lives at [facility] and is on 2L O2 NC there. - History of Current Complaint Chief Complaint: EDSyncope Stated Complaint: DIFFICULTY BREATHING Time Seen by Provider: 06/25/17 16:48 Hx Obtained From: Patient Mechanism of Injury: Fall Loss of Consciousness: no loss of consciousness Onset/Duration: Still Present Onset of Pain: Immediate Onset Severity: Moderate Current Severity: Moderate Pain Intensity: 8 Pain Scale Used: 0-10 Numeric Associated Signs & Symptoms: Positive: SOB - Additional Pertinent History Primary Care Physician: RUSH - Allergy/Home Medications Allergies/Adverse Reactions: Allergies Allergy/AdvReac Type Severity Reaction Status Date / Time immune globulin,gamma (IgG) Allergy Swelling Verified 06/11/17 15:35 human [From Octagam] mycophenolate mofetil Allergy Unknown Verified 06/11/17 15:36 [From CellCept] Reaction Details azithromycin AdvReac Severe See Comment Verified 06/11/17 15:37 ceftriaxone AdvReac Severe See Comment Verified 06/11/17 15:38 ciprofloxacin AdvReac GI Upset Verified 06/11/17 15:39 PMH/Surg Hx/FS Hx/Imm Hx Endocrine/Hematology History: Reports: Hx Anticoagulant Therapy - BABY ASA, Hx Diabetes, Hx Anemia, Other Endocrine/Hematological Disorders - MYASTHEIA GRAVIS Denies: Hx Blood Disorders, Hx Blood Transfusions, Hx Bone Marrow Disease, Hx Systemic Lupus Erythematosus, Hx Sickle Cell Disease, Hx Thyroid Disease, Hx Unexplained Bleeding Cardiovascular History: Reports: Hx Congenital Heart Disease, Hx Congestive Heart Failure - very swollen legs, Hx Hypertension, Hx Pacemaker/ICD - /09/12 , 06/16 ??, Other Cardiovascular Problems/Disorders - LE EDEMA, ON LASIX Denies: Hx Peripheral Vascular Disease Respiratory History: Reports: Hx Asthma, Hx Chronic Obstructive Pulmonary Disease (COPD) - on 2.5L, Hx Pneumonia, Other Respiratory Problems/Disorders - EMPHYSEMA Denies: Hx Chronic Bronchitis, Hx Cystic Fibrosis, Hx Lung Cancer, Hx Pleural Effusion, Hx Pulmonary Edema, Hx Pulmonary Embolism, Hx Seasonal Allergies, Hx Sleep Apnea GI History: Reports: Hx Gall Bladder Disease - GB out, Hx Gastroesophageal Reflux Disease, Other GI Disorders History: Reports: Other Problems/Disorders - FREQUENT UTI'S Denies: Hx Renal Disease Musculoskeletal History: Reports: Hx Back Problems - low back pain, Other Musculoskeletal History - myasthenia gravis Denies: Hx Arthritis, Hx Osteoporosis Sensory History: Reports: Hx Cataracts, Hx Contacts or Glasses Denies: Hx Eye Injury, Hx Eye Prosthesis, Hx Glaucoma, Hx Macular Degeneration, Hx Vision Problem, Hx Deafness, Hx Hearing Aid, Other Sensory Impairments Opthamlomology History: Reports: Hx Cataracts, Hx Contacts or Glasses Denies: Hx Eye Injury, Hx Eye Prosthesis, Hx Glaucoma, Hx Macular Degeneration, Hx Vision Problem, Other Sensory Impairments Neurological History: Reports: Other Neuro Impairments/Disorders - myasthenia gravis Denies: Hx Developmental Delay, Hx Headaches, Hx Migraine, Hx Seizures, Hx Spinal Cord Injury, Hx Transient Ischemic Attacks (TIA) Psychiatric History: Denies: Hx Anxiety, Hx Depression, Other Psychiatric Issues/Disorders - Surgical History Surgery Procedure, Year, and Place: CHOLECYSECTOMY 1979 Hx Anesthesia Reactions: No - Immunization History Date of Tetanus Vaccine: 2011 Date of Influenza Vaccine: 02/13 Infectious Disease History: No Infectious Disease History: Reports: Hx of Known/Suspected MRSA - negative MRSA swab 03/18/16 Denies: Hx Tuberculosis, Traveled Outside the [place] in Last 30 Days - Family History Known Family History: Positive: Unknown Negative: Cardiac Disease, Hypertension, Diabetes - Social History Alcohol Use: None Hx Substance Use: No Substance Use Type: Reports: None Hx Tobacco Use: Yes Smoking Status (MU): Former Smoker Type: Cigarettes Amount Used/How Often: 2 pk/day Length of Time of Smoking/Using Tobacco: 45 years Have You Smoked in the Last Year: No Review of Systems Positive: Other - fall . Negative: Fever Positive: Shortness Of Breath All Other Systems Reviewed And Are Negative: Yes Physical Exam - Summary Physical Exam Summary: Appearance: The patient is well-nourished in no acute distress and in no acute pain. Skin:. Multiple skin tears on her forearms and hands HEENT: The head is normocephalic and atraumatic. The pupils are equal and reactive. The conjunctivae are clear and without drainage. Nares are patent and without drainage. Mouth reveals moist mucous membranes and the throat is without erythema and exudate. The external ears are intact. The ear canals are patent and without drainage. The tympanic membranes are intact. Neck: the neck is supple with full range of motion and non-tender. There are no carotid bruits. There is no neck vein distension. Respiratory: Chest is non-tender. Shallow breathe sounds Cardiovascular: Heart is regular rate and rhythm. There is no murmur or rub auscultated. There is diffuse edema and pulses are symmetrical and equal. Abdomen: The abdomen is soft and non-tender. There are normal bowel sounds heard in all four quadrants and there is no organomegaly palpated. Musculoskeletal: There is no back tenderness noted. Extremities are non-tender with full range of motion. There is good capillary refill. There is diffuse edema or calf tenderness elicited. Neurological: Patient is alert and oriented to person, place and time. The patient has symmetrical motor strength in all four extremities. Cranial nerves are grossly intact. Deep tendon reflexes are symmetrical and equal in all four extremities. Psychiatric: The patient has an appropriate affect and does not exhibit any anxiety or depression. Triage Information Reviewed: Yes Vital Signs On Initial Exam: Initial Vitals Temp Pulse Resp BP Pulse Ox 97 F 88 19 89/53 6 06/25/17 16:49 06/25/17 16:49 06/25/17 16:49 06/25/17 16:49 06/25/17 16:49 Vital Signs Reviewed: Yes Diagnostics - Vital Signs Vital Signs Temp Pulse Resp BP Pulse Ox 06/25/17 16:49 97 F 88 19 89/53 6 - Laboratory Lab Results: Lab Results 06/25/17 06/25/17 06/25/17 Range/Units 17:22 17:22 17:22 WBC 12.2 H (3.5-10.8) 10^3/ul RBC 3.79 L (4.0-5.4) 10^6/ul Hgb 9.5 L (12.0-16.0) g/dl Hct 32 L (35-47) % MCV 84 (80-97) fL MCH 25 L (27-31) pg MCHC 30 L (31-36) g/dl RDW 27 H (10.5-15) % Plt Count 246 (150-450) 10^3/ul MPV 8 (7.4-10.4) um3 Neut % (Auto) 95.8 H (38-83) % Lymph % (Auto) 1.8 L (25-47) % [place] % (Auto) 2.2 (0-7) % Eos % (Auto) 0 (0-6) % Baso % (Auto) 0.2 (0-2) % Absolute Neuts (auto) 11.7 H (1.5-7.7) 10^3/ul Absolute Lymphs (auto) 0.2 L (1.0-4.8) 10^3/ul Absolute Monos (auto) 0.3 (0-0.8) 10^3/ul Absolute Eos (auto) 0 (0-0.6) 10^3/ul Absolute Basos (auto) 0 (0-0.2) 10^3/ul Absolute Nucleated RBC 0 10^3/ul Nucleated RBC % 0 INR (Anticoag Therapy) 0.97 (0.77-1.02) D-Dimer, Quantitative 658 H (Less Than 230) ng/mL Sodium 135 (133-145) mmol/L Potassium 4.6 (3.5-5.0) mmol/L Chloride 90 L (101-111) mmol/L Carbon Dioxide 38 H (22-32) mmol/L Anion Gap 7 (2-11) mmol/L BUN 22 (6-24) mg/dL Creatinine 1.35 H (0.51-0.95) mg/dL Est GFR ( Amer) 50.0 (>60) Est GFR (Non-Af Amer) 38.9 (>60) BUN/Creatinine Ratio 16.3 (8-20) Glucose 307 H (70-100) mg/dL Lactic Acid (0.5-2.0) mmol/L Calcium 8.8 (8.6-10.3) mg/dL Total Bilirubin 0.60 (0.2-1.0) mg/dL AST 20 (13-39) U/L ALT 13 (7-52) U/L Alkaline Phosphatase 106 H (34-104) U/L Troponin I 0.04 H* (<0.04) ng/mL C-Reactive Protein 113.56 H (< 5.00) mg/L B-Natriuretic Peptide ( - 100) pg/mL Total Protein 6.2 L (6.4-8.9) g/dL Albumin 2.7 L (3.2-5.2) g/dL Globulin 3.5 (2-4) g/dL Albumin/Globulin Ratio 0.8 L (1-3) Urine Color Urine Appearance Urine pH (5-9) Ur Specific [place] (1.010-1.030) Urine Protein (Negative) Urine Ketones (Negative) Urine Blood (Negative) Urine Nitrate (Negative) Urine Bilirubin (Negative) Urine Urobilinogen (Negative) Ur Leukocyte Esterase (Negative) Urine WBC (Auto) (Absent) Urine RBC (Auto) (Absent) Ur Squamous Epith Cells (Absent) Urine Bacteria (Absent) Urine Yeast (Absent) Urine Glucose (Negative) 06/25/17 06/25/17 06/25/17 Range/Units 17:22 17:22 18:49 WBC (3.5-10.8) 10^3/ul RBC (4.0-5.4) 10^6/ul Hgb (12.0-16.0) g/dl Hct (35-47) % MCV (80-97) fL MCH (27-31) pg MCHC (31-36) g/dl RDW (10.5-15) % Plt Count (150-450) 10^3/ul MPV (7.4-10.4) um3 Neut % (Auto) (38-83) % Lymph % (Auto) (25-47) % [place] % (Auto) (0-7) % Eos % (Auto) (0-6) % Baso % (Auto) (0-2) % Absolute Neuts (auto) (1.5-7.7) 10^3/ul Absolute Lymphs (auto) (1.0-4.8) 10^3/ul Absolute Monos (auto) (0-0.8) 10^3/ul Absolute Eos (auto) (0-0.6) 10^3/ul Absolute Basos (auto) (0-0.2) 10^3/ul Absolute Nucleated RBC 10^3/ul Nucleated RBC % INR (Anticoag Therapy) (0.77-1.02) D-Dimer, Quantitative (Less Than 230) ng/mL Sodium (133-145) mmol/L Potassium (3.5-5.0) mmol/L Chloride (101-111) mmol/L Carbon Dioxide (22-32) mmol/L Anion Gap (2-11) mmol/L BUN (6-24) mg/dL Creatinine (0.51-0.95) mg/dL Est GFR ( Amer) (>60) Est GFR (Non-Af Amer) (>60) BUN/Creatinine Ratio (8-20) Glucose (70-100) mg/dL Lactic Acid 6.2 H* (0.5-2.0) mmol/L Calcium (8.6-10.3) mg/dL Total Bilirubin (0.2-1.0) mg/dL AST (13-39) U/L ALT (7-52) U/L Alkaline Phosphatase (34-104) U/L Troponin I (<0.04) ng/mL C-Reactive Protein (< 5.00) mg/L B-Natriuretic Peptide 211 H ( - 100) pg/mL Total Protein (6.4-8.9) g/dL Albumin (3.2-5.2) g/dL Globulin (2-4) g/dL Albumin/Globulin Ratio (1-3) Urine Color Pat Urine Appearance Cloudy Urine pH 5.0 (5-9) Ur Specific [place] 1.015 (1.010-1.030) Urine Protein 2+(100 mg/dl) H (Negative) Urine Ketones Negative (Negative) Urine Blood 2+ H (Negative) Urine Nitrate Negative (Negative) Urine Bilirubin Negative (Negative) Urine Urobilinogen Negative (Negative) Ur Leukocyte Esterase 3+ H (Negative) Urine WBC (Auto) 3+(>20/hpf) H (Absent) Urine RBC (Auto) 3+(>10/hpf) H (Absent) Ur Squamous Epith Cells Present H (Absent) Urine Bacteria 3+ H (Absent) Urine Yeast Present H (Absent) Urine Glucose Negative (Negative) Result Diagrams: 06/25/17 17:22 06/25/17 17:22 Lab Statement: Any lab studies that have been ordered have been reviewed, and results considered in the medical decision making process. - Radiology CXR Radiology Interpretation Completed By: Radiologist - 1. Interval resolution of the "white out" obscuring the right lung on the June 18, 2017 chest x-ray. 2. Density overlying the retrocardiac left lung base could represent infiltration or consolidation ED physician has reviewed this radiology report. Adult Trauma Course/Dx - Course Course Of Treatment: Ms. Oreilly presents with decreased breathing. She was scheduled to go to hospice tomorrow but wants to try IVIG to see if it helps her. She is very hypoxic and I cannot identify a reversible cause. I gave her the choice of going home or being admitted to the hospital and she chose the latter. No Critical Care - Diagnoses Provider Diagnoses: Respiratory failure - Physician Notifications Discussed Care Of Patient With: Alex Quiroga Time Discussed With Above Provider: 16:26 Instructed by Provider To: Admit As Inpatient Discharge - Discharge Plan Condition: Fair Disposition: ADMITTED TO [facility] The documentation as recorded by the Peace dang Gabriel accurately reflects the service I personally performed and the decisions made by me, Kulwant Pulido MD.
[2017-06-25] MEDS: LORazepam INJ* 2 MG/ML 1 ML VIAL IV PUSH PRN (22:50)
--- NOTE | 2017-06-26 00:18 | HP ---
CC: Dr. Mclean * HISTORY AND PHYSICAL: DATE OF ADMISSION: 06/25/17 PRIMARY CARE PROVIDER: Dr. Mclean. ATTENDING PHYSICIAN WHILE IN THE HOSPITAL: Dr. Alex Quiroga * (report dictated by Jenifer Frazier NP). CHIEF COMPLAINT: Shortness of breath. HISTORY OF PRESENT ILLNESS: Ms. Oreilly is a 71-year-old female patient with history of myasthenia gravis recently here with ESBL pneumonia, diabetes. She has a history of COPD as well, also carries a history of CKD, anemia, and AFib. She comes into the ED today. She was just here discharged on 06/20/17. She was discharged okay with presumption she was going to be signed on to hospice services on 06/26/17. She presented today because [facility] and she had actually sustained a fall. She did not hit her head, she rolled out of her bed and apparently landed on her side. She remembers the fall, but she was complaining of worsening shortness of breath, not feeling well, having cough since being discharged, short of breath since being discharged. She was concerned because her breathing seemed to be failing. She apparently did have a fever at [place] according to the patient. She presented here, again on 6 L of oxygen saturations were noted to be in the 70%. She was evaluated. It appeared that she had new infiltrate in her left lung compared to her previous x-ray and we were asked to evaluate for admission. She denies any chest pain. Denies having any abdominal pain. She denies any nausea, vomiting. She says her appetite has been okay. She says she has been at her baseline, but she was concerned because again the breathing was evaluated and found to be in septic shock, also hypoxic respiratory failure, and we were asked to evaluate for admission. PAST MEDICAL HISTORY: Significant for: 1. Myasthenia gravis. 2. COPD. 3. ESBL pneumonia. 4. Diabetes. 5. Anemia. 6. CKD. 7. AFib. PAST SURGICAL HISTORY: She has had a cholecystectomy. MEDICATIONS: Home meds include: 1. Prednisone 20 mg daily. 2. Percocet 1 tablet every 4 hours as needed. 3. Spiriva 1 capsule inhaled daily. 4. Mestinon 120 mg p.o. four times a day. 5. Prilosec 20 mg daily. 6. Nystatin 1 application topically t.i.d. 7. Nystatin suspension 5 cc t.i.d. swish and swallow. 8. Morphine 5 mg p.o. every 6 hours as needed. 9. Dulera 2 puffs inhaled b.i.d. 10. Imodium 2 mg p.o. every 4 hours as needed. 11. Culturelle 1 capsule p.o. t.i.d. a.c. 12. Ativan 0.5 mg every 4 hours as needed. 13. Lispro sliding scale. 14. IVIG 70 g IV every 28 days. 15. Hydrocortisone 1 application topically t.i.d. as needed. 16. Lasix 20 mg daily. 17. Multaq 400 mg p.o. b.i.d. 18. Aspirin 81 mg daily. 19. Ventolin 2.5 mg inhaled every 2 hours as needed. 20. Acetaminophen 650 mg every 8 hours as needed. ALLERGIES TO MEDICATIONS: Include IMMUNOGLOBULIN, GAMMA; SULFA; AZITHROMYCIN; CEFTRIAXONE; CIPRO. FAMILY HISTORY: Both her parents had cancer. SOCIAL HISTORY: She is a former smoker. She does not drink alcohol. Her surrogate decision maker is her daughter. REVIEW OF SYSTEMS: She says there was fever noted at [place]. I do not have that number. She denies having any significant weight change. Denies having any double vision. There is no ear discharge. She denies having any rhinorrhea. There is no sore throat. No thyroid enlargement. Denies having any chest pain. There is cough. There is shortness of breath. There is no orthopnea. There is no abdominal pain. No nausea, no vomiting. There is no dysuria, there is no frequency. No seizure, no loss of consciousness. No pruritus and there are multiple skin ulcerations that she says she has had for some time, multiple skin tears. PHYSICAL EXAMINATION GENERAL: At this time, Ms. Oreilly is a 71-year-old female patient. She is chronically ill appearing. She appears to be in [id number] amount of respiratory distress. VITAL SIGNS: Blood pressure 104/40, pulse 90, respirations were 30, again most recent sat on 6 L at 70%. HEENT: Head: Atraumatic, normocephalic. Eyes: EOMs are intact. Sclerae anicteric and not pale. Throat: Oral mucosa appears to be dry. No oropharyngeal erythema. NECK: Supple. LUNGS: Diminished in left base. No wheezes, rales, or rhonchi. HEART: Sounds S1, S2. Regular rate and rhythm. No murmurs, rubs, or gallops. ABDOMEN: Soft, flat, nontender. Bowel sounds were present. EXTREMITIES: Pulses were 2+ throughout. She has +3 pitting edema bilaterally. NEUROLOGIC: She is awake, she is alert to herself, she is oriented x3. No gross focal deficits. SKIN: She has multiple abrasions to her upper extremities, skin tears, otherwise intact. DIAGNOSTIC STUDIES/LAB DATA: WBC 12.2, RBC of 30.79, hemoglobin 9.5, hematocrit 32, platelet count 246. INR 0.97, D-dimer is 658. Sodium is 135; potassium of 4.6; chloride of 90; bicarb 38; BUN 22; creatinine 1.35, last creatinine was 0.7; lactate was 6.2; her total calcium was 8.8. Total bili 0.6 , AST 20, ALT 13, alk phos 106. Troponin 0.04. CRP of 113. Albumin of 2.7. Urine showed 2+ protein, 2+ blood, 3+ leukocyte esterase, 3+ wbc's, 3+ bacteria. Her chest x-ray obtained today when I reviewed it there does appear to be a new infiltrate in the left base. Radiology read as interval resolution of white out obscuring the right lung on 06/18/17, densely overlying the retrocardiac left lung base, could represent infiltration or consolidation. Old medical records were reviewed. ASSESSMENT AND PLAN: Ms. Oreilly is a critically ill 71-year-old female patient coming into the ED today with complaints of cough, not feeling well on evaluation and found to have significant pneumonia, appeared to be in septic shock today. She will be admitted under observation status for: 1. Septic shock secondary to recurrence of most likely ESBL pneumonia, chronic obstructive pulmonary disease exacerbation. At this point, I discussed with the patient that if we were to hydrate her aggressively and treat her shock aggressively, she may end up requiring intubation because of the amount of fluid she would require. At this point, the patient is opting that she does not want to pursue treatment. She would like to pursue comfort. So, at this point, I am not repeating her lactate, I am not giving her fluids or antibiotics. She wants comfort care only. I will treat her symptoms in hospice and I will put in consult to Hospice to get signed up with Hospice and most likely hopefully discharge back to [place] and hospice services tomorrow. 2. Hypoxic respiratory failure. Again, O2 saturations are 70% on 6 L. At this point, we will not escalate the care beyond 6 L. We will focus on comfort. The patient does not want Vapotherm. She does not want BiPAP that she would like to remain comfortable. 4. Myasthenia gravis. I did touch base with Dr. Steinberg. At this point, we will hold off on any IVIG. We will continue her p.o. medications and again, we will focus on comfort. 5. Diabetes. I will order lispro sliding scale. 6. Chronic obstructive pulmonary disease. I will continue her meds as prescribed. Continue her medications and p.r.n. nebs. 7. Chronic kidney disease. Again, continue with comfort care. We will monitor. We are not going to draw any labs. We will just keep her comfortable. 8. Atrial fibrillation. She is presenting in sinus rhythm. I will continue her meds so that she does not go in rapid atrial fibrillation. 9. Anemia. H and H again were stable. We will monitor. 10. DVT prophylaxis. She will be on comfort care. 11. Fluids, electrolytes, and nutrition. She can have a regular comfort care diet. TIME SPENT: On the admission was 60 minutes; greater than half the time was spent [id number] with the patient obtaining my history and physical, other half the time spent going over the plan of care with the patient and implementing plan of care. I did discuss the plan of care with my attending, Dr. Quiroga; he is in agreement. JENIFER FRAZIER NP [id number]/[facility] #: [id number] DAYO
[2017-06-26 00:34] VITALS: BP 112/47
[2017-06-26] MEDS ORDERED: Lactobacillus Acidophilu (GG)* 1 CAP CAP PO SCH (07:30)
[2017-06-26] MEDS ORDERED: Insulin LISPRO* 1 UNITS UNIT SUBCUT SCH (07:30)
[2017-06-26] MEDS: LORazepam INJ* 2 MG/ML 1 ML VIAL IV PUSH PRN (07:31)
[2017-06-26] MEDS: Mometasone/Formoter 200/5 MDI INH SCH ×2 (07:34→09:37)
[2017-06-26] MEDS ORDERED: Nystatin SUSPENSION* 100000 UNITS/ML 5 ML UDC SWISH SWAL SCH (08:30)
[2017-06-26] MEDS ORDERED: Aspirin Low Dose CHEW TAB* 81 MG PO SCH (09:00)
[2017-06-26] MEDS ORDERED: predniSONE TAB* 20 MG PO SCH (09:00)
[2017-06-26] MEDS ORDERED: Tiotropium CAP.INH* CAP.INH/18 MCG (USE ORDER SET !) INH SCH (09:00)
[2017-06-26] MEDS ORDERED: Omeprazole CAP* 20 MG PO SCH (09:00)
--- NOTE | 2017-06-27 17:06 | DS ---
CC: Dr. Mclean DISCHARGE/ SUMMARY: DATE OF ADMISSION: 06/25/17 DATE OF : 06/26/17 TIME OF : 7:47 a.m. PRIMARY CARE PROVIDER: Dr. Mclean. CAUSE OF : Septic shock likely related to ESBL E. coli pneumonia. Other conditions that may have contributed to patient's include: 1. Myasthenia gravis. 2. History of COPD. 3. ESBL pneumonia diagnosis couple of weeks prior. 4. History of hypoxemic respiratory failure. 5. Diabetes. 6. Anemia. 7. History of chronic kidney disease. 8. Atrial fibrillation. HOSPITALIZATION COURSE: Sue Oreilly was a 71-year-old female who was admitted to our facility on . Please note that the patient was just discharged from our hospital on 06/20/17 to [facility] with a plan for comfort care and hospice care. Apparently, the patien t was seen by hospice, but no sign on into hospice care within the past 3 days. She presented on with uncontrolled discomfort from severe hypoxemia. She was found to be in septic shock. It w as noted that the patient requested to be comfort care and comfort care orders were initiated at [facility]. The patient also waiting possibility of hospice evaluation and inpatient hospice during her h ospital stay. In the morning on 06/26/17, she suddenly decompensated and . Time of was 7: 47 a.m. The cause of patient's is likely related to septic shock due to ESBL E. coli and pneumonia and severe hypoxemia due to that. Due to comfort care orders and the patient was planning to be a hospice patient, real estate paralegal was not call ed and autopsy was not recommended. The patient's family was notified about the patient's . Please note that this is a short summary of the patient's hospitalization. Please refer to further [facility] records for details. [id number]/[facility] #: [id number]
== END 2017-06-26 07:47 | disposition expired ==
LOC: ED 16:31 → MED 20:50
PROVIDERS: ADMIT Hospitalist; ATTEND Internal Medicine
DX: A41.9 Sepsis, unspecified organism (principal); J15.8 Pneumonia due to other specified bacteria; J96.91 Respiratory failure, unspecified with hypoxia; R06.02 Shortness of breath; G70.00 Myasthenia gravis without (acute) exacerbation; J44.9 Chronic obstructive pulmonary disease, unspecified; E11.9 Type 2 diabetes mellitus without complications; I48.91 Unspecified atrial fibrillation; N18.9 Chronic kidney disease, unspecified; Z79.899 Other long term (current) drug therapy; Z87.891 Personal history of nicotine dependence; Z88.8 Allergy status to other drugs, medicaments and biological substances
CPT/HCPCS: 36415; 71045; 80053; 81003; 81015; 83605; 83880; 84484; 85025; 85379; 85610; 86140; 87040; 87077; 87086; 87186; 96374; 96375; 96376; 99284; A9270-GY; G0378; J2060; J2270